=== PATIENT | male | born 1950 | race Caucasian/White ===

== ENCOUNTER 2017-02-27 09:45 | Outpatient (RCR) | payer BC, MEDICARE ==
[2016-05-27 10:36] VITALS: BMI 44.3
--- NOTE | 2017-02-13 13:16 | PT PLAN OF CARE ---
Physician: QIANA Newell Patient is being seen:1-2x/Week Therapist: Carol Butler, PT, DPT, CLT Medical Diagnosis: Stage IV Colon Cancer with Metastases to the Lungs Treatment Diagnosis: Stage IV Colon Cancer with Metastases to the Lungs, R Knee Pain Date of Onset: 11/02/16 Date of Initial Evaluation: 11/08/16 Date patient was last seen: 02/13/17 Number of treatments: 7 Number of cancellations/No shows: 0 NTERVENTIONS: Manual Therapy/STM/MET Strengthening/condition Ice/Heat Range of Motion Spinal Stabilization Ultrasound Stretching Iontophoresis Neuromuscular Re-ed Closed Chain Program Electrical Stim Posture/Body mechanics Gait Trg/Balance Trg Home Exercise Program Mech./Manual Traction Therapeutic Activities Pelvic Floor GOALS: In 1 month pt will increase functional strength of the R hip and knee to equal that of the L LE without pain for improved functional mobility and performance of ADL's. In Progress In 2 months pt will maintain functional status as indicated by FACT-G evaluation of > 89 despite continued oncological intervention. MET In 4 months pt will maintain functional status as indicated by FACT-G evaluation of > 85 despite continued oncological intervention. In Progress In 4 months pt will maintain a grade 1 ECOG performance status with regular aerobic exercise to decrease risk of complications with ongoing oncological intervention as well as maintain functional ability to perform ADL's. In Progress PATIENT'S GOAL: Maintain function, decrease knee pain. Status of Patient's Goals: In Progress Patient Compliance: Fair Prognosis: Good ASSESSMENT: Reasons for continuing therapy: Pt shows signs and symptoms consistent with lateral patellar tracking and patellofemoral syndrome. Patellar alignment at rest was slightly subluxed laterally and was relocated with manual treatment resulting in pain relief. Medial quad activation is minimal and quick to fatigue. Increased frequency of PT is indicated to address this development. Pt also shows decreased well-being scores related to sickness interfering with social support systems and was referred to coordinate with [employer] and social work to manage side-effects and seek other forms of social support. OBJECTIVE: BMI: 44 ROM: WFL. Strength: MMT B LE: Hip: flexion: L 4+/5, R 4/5 with pain, ext: B 4/5, Abd: L 4 +/5, R 4/5, Add: L 4+/5, R 4/5 with pain. Knee: Flexion: B 5/5, ext: L 5/5, R 4+/5 with pain, Ankle: 5/5 PF/DF B. Palpation: Pt is tender to palpation along the lateral femoral condyle R knee as well as in the lateral distal musculature of the thigh. Gait: Pt ambulates frequently with a quad cane with an antalgic gait with decreased stance phase on the R LE with R hip ER. Sensation: Pt reports onset of B peripheral neuropathy in fingers and toes with associated pain occasionally. Other Objective Findings: ECOG Performance Status: Grade 1 11/08/16: FACT-G: PWB 21/28, SWB 24/28, EWB 20/24, FWB 24/28, Total score 89/108 12/20/16: FACT-G: PWB 20/28, SWB 27/28, EWB 22/24, FWB 20/28, Total score 89/108 01/16/17: FACT-G: PWB 19/28, SWB 26/28, EWB 22/24, FWB 23/28, Total score 90/ 108 02/13/17: FACT-G: PWB 14/28, SWB 18/28, EWB 21/24, FWB 20/28, Total score 73/ 108 If you have any questions or concerns, please feel free to contact me at . Thank you, Carol Butler, PT, DPT, CLT NIURKAD
[~2017-02-27 09:45] MED LIST: AMIT-106 PO; AMIT75TA42 PO; AMOX-559 PO; DOCU-416 PO; FURO-47 PO; FURO20TA19 PO; GOLYTE PO; LISI-362 PO; LISI20TA29 PO; MELO-205 PO; MELO-207 PO; MULT1CAP59 PO; ONDA8TAB94 PO; OXYC-865 PO; PER PO; POTA-28 PO; POTA10CA40 PO; POTA20TA94 PO; PROP10TA58 PO; PROP20TA56 PO; SANCUSOPT TD
--- NOTE | 2017-02-27 15:01 | PT PLAN OF CARE ---
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, R Knee Pain Date of Onset: 11/02/16 Date of Initial Evaluation: 11/08/16 Date patient was last seen: 02/27/17 Number of treatments: 9 Number of cancellations/No shows: 0 INTERVENTIONS: Manual Therapy/STM/MET Strengthening/condition Ice/Heat Range of Motion Spinal Stabilization Ultrasound Stretching Iontophoresis Neuromuscular Re-ed Closed Chain Program Electrical Stim Posture/Body mechanics Gait Trg/Balance Trg Home Exercise Program Mech./Manual Traction Therapeutic Activities Pelvic Floor GOALS: In 1 month pt will increase functional strength of the R hip and knee to equal that of the L LE without pain for improved functional mobility and performance of ADL's. In Progress In 2 months pt will maintain functional status as indicated by FACT-G evaluation of > 89 despite continued oncological intervention. MET In 4 months pt will maintain functional status as indicated by FACT-G evaluation of > 85 despite continued oncological intervention. In Progress In 4 months pt will maintain a grade 1 ECOG performance status with regular aerobic exercise to decrease risk of complications with ongoing oncological intervention as well as maintain functional ability to perform ADL's. In Progress PATIENT'S GOAL: Maintain function, decrease knee pain. Status of Patient's Goals: In Progress Patient Compliance: Fair Prognosis: Good ASSESSMENT: Reasons for continuing therapy: Pt shows improved function and decreased lateral knee pain with treatment. Pt remains active with work and HEP throughout care with gains in strength and stability. Well-being scores show improvement from previous visit with improved emotional and social well-being with pt being out and about more and with decreased overall side-effects from treatment. Pt to be continually evaluated with each infusion. OBJECTIVE: BMI: 44 ROM: WFL. Strength: MMT B LE: Hip: flexion: L 4+/5, R 4/5 with pain, ext: B 4/5, Abd: L 4 +/5, R 4/5, Add: L 4+/5, R 4/5 with pain. Knee: Flexion: B 5/5, ext: L 5/5, R 4+/5 with pain, Ankle: 5/5 PF/DF B. Gait: Pt ambulates frequently with a quad cane with an antalgic gait with decreased stance phase on the R LE with R hip ER. Sensation: Pt reports decreased B peripheral neuropathy in fingers and toes with associated pain occasionally. Other Objective Findings: ECOG Performance Status: Grade 1 11/08/16: FACT-G: PWB 21/28, SWB 24/28, EWB 20/24, FWB 24/28, Total score 89/108 12/20/16: FACT-G: PWB 20/28, SWB 27/28, EWB 22/24, FWB 20/28, Total score 89/108 01/16/17: FACT-G: PWB 19/28, SWB 26/28, EWB 22/24, FWB 23/28, Total score 90/ 108 02/13/17: FACT-G: PWB 14/28, SWB 18/28, EWB 21/24, FWB 20/28, Total score 73/ 108 02/27/17: FACT-G: PWB 18/28, SWB 22/28, EWB 19.2/24, FWB 19/28, Total score 78.2 /108 If you have any questions or concerns, please feel free to contact me at [phone]. Thank you, Carol Butler, PT, DPT, CLT MTDD
--- NOTE | 2017-03-16 09:52 | PT PLAN OF CARE ---
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, R Knee Pain Date of Onset: 11/02/16 Date of Initial Evaluation: 11/08/16 Date patient was last seen: 02/27/17 Number of treatments: 9 Number of cancellations/No shows: 0 INTERVENTIONS: Manual Therapy/STM/MET Strengthening/condition Ice/Heat Range of Motion Spinal Stabilization Ultrasound Stretching Iontophoresis Neuromuscular Re-ed Closed Chain Program Electrical Stim Posture/Body mechanics Gait Trg/Balance Trg Home Exercise Program Mech./Manual Traction Therapeutic Activities Pelvic Floor GOALS: In 1 month pt will increase functional strength of the R hip and knee to equal that of the L LE without pain for improved functional mobility and performance of ADL's. In Progress In 2 months pt will maintain functional status as indicated by FACT-G evaluation of > 89 despite continued oncological intervention. MET In 4 months pt will maintain functional status as indicated by FACT-G evaluation of > 85 despite continued oncological intervention. In Progress In 4 months pt will maintain a grade 1 ECOG performance status with regular aerobic exercise to decrease risk of complications with ongoing oncological intervention as well as maintain functional ability to perform ADL's. In Progress PATIENT'S GOAL: Maintain function, decrease knee pain. Status of Patient's Goals: In Progress Patient Compliance: Fair Prognosis: Good Reasons for discharge from therapy: Gold is to discharge from PT at this time secondary to recent hospital admission with bowel obstruction. At the time of discharge pt showed improved function and decreased lateral knee pain with treatment. Pt remains active with work and HEP throughout care with gains in strength and stability. Pt is to continue with HEP and inpatient PT treatment at this time and follow up with outpatient rehab upon discharge. OBJECTIVE: BMI: 44 ROM: WFL. Strength: MMT B LE: Hip: flexion: L 4+/5, R 4/5 with pain, ext: B 4/5, Abd: L 4 +/5, R 4/5, Add: L 4+/5, R 4/5 with pain. Knee: Flexion: B 5/5, ext: L 5/5, R 4+/5 with pain, Ankle: 5/5 PF/DF B. Gait: Pt ambulates frequently with a quad cane with an antalgic gait with decreased stance phase on the R LE with R hip ER. Sensation: Pt reports decreased B peripheral neuropathy in fingers and toes with associated pain occasionally. Other Objective Findings: ECOG Performance Status: Grade 1 11/08/16: FACT-G: PWB 21/28, SWB 24/28, EWB 20/24, FWB 24/28, Total score 89/108 12/20/16: FACT-G: PWB 20/28, SWB 27/28, EWB 22/24, FWB 20/28, Total score 89/108 01/16/17: FACT-G: PWB 19/28, SWB 26/28, EWB 22/24, FWB 23/28, Total score 90/ 108 02/13/17: FACT-G: PWB 14/28, SWB 18/28, EWB 21/24, FWB 20/28, Total score 73/ 108 02/27/17: FACT-G: PWB 18/28, SWB 22/28, EWB 19.2/24, FWB 19/28, Total score 78.2 /108 If you have any questions or concerns, please feel free to contact me at . Thank you, Carol Butler, PT, DPT, CLT MTDD
[2017-04-04] MEDS ORDERED: METR-160 PO (19:21)
[2017-04-04] MEDS ORDERED: LEVO-85 PO (19:21)
[2017-04-05] MEDS ORDERED: WARF5TAB23 PO (08:50)
== END 2017-05-14 ==
LOC: PT 09:45
PROVIDERS: ATTEND Nurse Practitioner Family
DX: C18.7 Malignant neoplasm of sigmoid colon (principal); C78.00 Secondary malignant neoplasm of unspecified lung; M25.561 Pain in right knee; Z92.3 Personal history of irradiation; Z96.653 Presence of artificial knee joint, bilateral; M17.0 Bilateral primary osteoarthritis of knee; Z91.81 History of falling; Z68.41 Body mass index [BMI] 40.0-44.9, adult

== ENCOUNTER 2017-03-01 12:35 | Outpatient (RCR) | payer BC, MEDICARE ==
[2016-12-20 09:36] VITALS: BP 137/72
[2016-12-20 09:37] LABS: PLATELET COUNT, AUTOMATED 190 K/uL (150-450)
[2016-12-20] MEDS: NS(*) 0.9% 500 ML BAG 500 ML IV PRN (09:42)
[2016-12-20] MEDS: LIDOCAINE/SOD BICARB 8.4% SYR ID PRN (09:43)
[2016-12-20] MEDS: PALONOSETRON 0.25 MG/5 ML VIAL IVP PRN (11:26)
[2016-12-20] MEDS: DEXAMETHASONE SOD PHOS 10MG/ML IVP PRN (11:27)
[2016-12-20] MEDS: [UNRECOGNIZED DRUG - MIXTURE] IVPB PRN ×2 (12:12→15:47)
[2016-12-20] MEDS: DEXTROSE 5%(*) 100 ML BAG 100 ML IVPB PRN (16:52)
[2016-12-22 15:40] VITALS: BP 140/83
[2016-12-22] MEDS: HEPARIN FLSH (PORT) 500 UN/5ML IVP PRN (15:45)
--- NOTE | 2016-12-24 11:34 | ONCOLOGY FOLLOW UP NOTE ---
EVENT DATE: December 22, 2016 DIAGNOSES 1. Stage IV sigmoid colon adenocarcinoma. 2. 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 3. History of cluster headache. 4. Hypertension. 5. Arthritis. CHIEF COMPLAINT Patient is here today for followup of his sigmoid colon cancer, on chemotherapy with Avastin and FOLFOX. ONCOLOGY HISTORY The patient is a 66-year-old male who had screening colonoscopy and patient found to have a mass at the sigmoid colon. He ended by having sigmoid colectomy done on May 26, 2016, and the pathology came back positive for moderately differentiated colonic adenocarcinoma, grade II-III with 15 lymph nodes negative for metastasis. Tumor was invading into the muscularis propria. Margins were negative. Lymphovascular invasion was also negative. MLH1, MSH2 , MSH 6, PMS2 all came back positive. KRAS was positive for the mutation. NRS was negative. BRAF mutation was negative. He had ileus after his surgery and he had a CT of abdomen and pelvis done on June 01, 2016 which did not show any evidence of hepatic metastasis. He had chest x-ray done on May 29, 2016, which showed 1.5 cm pulmonary nodule in the left mid-lung, not seen on the April 07, 2016 study. His tumor was staged as staged T2 N0 MX. So, the tumor was staged as stage I. Patient had a CT-guided biopsy of the enlarging left pulmonary nodule done on September 05, 2016, and the pathology came back positive for metastatic adenocarcinoma compatible with colonic origin. Patient had a PET CT scan done on September 28, 2016, which showed enlarging mass in the anterior aspect of the left upper lobe, currently 2.6 x 2.1 cm with SUV of 4.1. Previously this mass was 1.3 x 1.3 cm with SUV of 3.2. A previously visualized 3 mm micronodule in the posterior medial aspect of the left lower lobe currently measures 1.2 cm. Lateral and slightly inferior to this, there is a new second nodule measuring 1.3 cm in size. The nodules are not metabolically warm with maximal SUV of 3.2 and 2.3 respectively. Otherwise, chest is negative, and no other evidence of systemic disease. There is a hypodense left temporal lobe lesion that is unchanged. Patient received radiation therapy to the pulmonary metastasis completed on October 31, 2016. After his radiation therapy, patient has started chemotherapy with Avastin FOLFOX on November 14, 2016. HISTORY OF PRESENT ILLNESS Patient is here today for his cycle number four of Avastin and FOLFOX for his metastatic colon cancer. He is tolerating treatment reasonably well so far. He is complaining of diarrhea, which is getting better than before. He has pain in his right knee and he continues to have neuropathy with tingling and numbness in his hands. PAST MEDICAL HISTORY 1. Cluster headache. 2. Hypertension. PAST SURGICAL HISTORY 1. Eight knee surgeries. 2. Tonsillectomy as a child. 3. Sigmoid colectomy May 2016. FAMILY HISTORY Maternal grandfather had leukemia. Mother had skin cancer. SOCIAL HISTORY The patient is a with two children and grandchildren. He works for [employer]. He has never smoked. He denies any abuse of alcohol or illicit drugs. CURRENT MEDICATIONS 1. Propranolol. 2. Amitriptyline. 3. Lisinopril. 4. Meloxicam. ALLERGIES No known drug allergies. REVIEW OF SYSTEMS CONSTITUTIONAL: No appetite or weight change. No fever, chills or sweating. No recent infection. HEENT: Ears: No tinnitus or hearing problem. Nose: No nasal discharge or epistaxis. Throat: No sore throat or mouth ulcers. Eyes: No diplopia or visual changes. RESPIRATORY: The patient has some cough with expectoration. CARDIOVASCULAR: No chest pain, orthopnea, or paroxysmal nocturnal dyspnea (PND) . No edema. No palpitations. GASTROINTESTINAL: The patient has diarrhea, which is getting better than before. GENITOURINARY: No hematuria or dysuria. MUSCULOSKELETAL: He has pain in the right knee. NEUROLOGICAL: He has neuropathy with tingling and numbness in his hands. HEMATOLOGIC/LYMPHATIC: He has weakness, tiredness, and fatigue. SKIN: No skin rash or lumps. PSYCHIATRIC: No anxiety or depression. PHYSICAL EXAMINATION GENERAL: Looks stable. Well-developed, well-nourished, and in no acute distress. VITAL SIGNS: Blood pressure 140/83, pulse 76 per minute, respirations 16 per minute, temperature 98.2, pulse ox 90% on room air. HEENT: Head: Atraumatic. No sinus tenderness to palpation. Eyes: No icterus or conjunctivitis. Mouth and throat: No oral thrush or mucositis. NECK: Supple. No cervical or supraclavicular lymphadenopathy. LUNGS: Clear to auscultation and percussion bilaterally. HEART: Regular rate and rhythm. No gallops, murmurs, clicks or rubs. ABDOMEN: Soft and lax. No tenderness. No hepatosplenomegaly. No masses. EXTREMITIES: No cyanosis, clubbing or edema. LYMPHATICS: No peripheral lymphadenopathy. NEUROLOGICAL: Conscious, alert and oriented times three. No focal motor or sensory deficits. PSYCHIATRIC: Mood and affect appear normal. SKIN: No skin rash, bruise or purpuric eruption. DIAGNOSTIC DATA CBC showed a white count of 6000, hemoglobin 14, hematocrit 40.5, platelets 190, 000. Chem panel totally normal, except blood sugar 130. CEA is normal at 1.2. ASSESSMENT 1. Stage IV (T2 N0 M1) sigmoid colon adenocarcinoma status post sigmoid colectomy done May 26, 2016. Tumor was invading the muscularis propria and 13 lymph nodes were negative for metastasis. No lymphovascular invasion and negative margins. KRAS was positive, NRAS was negative, BRAF was negative. Patient was found to have a nodule in the left upper lobe 1.5 cm of the lung. PET CT scan April 20, 2016 showed a focus of high activity within the sigmoid colon which represents the primary malignancy. There was a 1.3 cm cavitary pulmonary nodule in the left upper lobe which was only warm regarding the glucose uptake. There was hypodense non-glucose avid lesion in the left temporal lobe of the brain, probably representing a remote ischemic event. CT- guided biopsy of the left pulmonary nodule done September 05, 2016 was positive for invasive adenocarcinoma consistent with colonic primary. Repeat CT scan on September 28, 2016 showed left upper lobe nodule measuring 2.6 cm with SUV 4.1, and it was initially 1.3 with SUV 3.2. The previously visualized 3 mm micro nodule in the posteromedial aspect of the left lower lobe of the lung currently measured 1.2 with SUV 3.2. There was another slightly inferior and lateral to this nodule 1.3 cm with SUV 2.3. The temporal lobe of the brain hypodense lesion is unchanged. The patient received IMRT radiation of the pulmonary metastasis completed October 31, 2016. He started treatment with Avastin and FOLFOX November 14, 2016. He received three courses so far, complicated with cold -induced neuropathy. Other than that he is tolerating treatment. His diarrhea is getting better. I am planning to proceed with his chemotherapy as planned, and I will see him in two weeks with CBC, chem panel and CEA. 2. History of cluster headaches on propanolol and amitriptyline. 3. Hypertension, on treatment. 4. Arthritis, on treatment. PLAN 1. Chemistry with Avastin and FOLFOX. 2. CBC, chem panel to be checked weekly. 3. Patient to return in two weeks with CBC, chem panel and CEA. 4. Patient is to contact us for any new concerns or complaints. MTDD
[2016-12-27 14:00] VITALS: BP 131/82
[2016-12-27 14:34] LABS: PLATELET COUNT, AUTOMATED 179 K/uL (150-450)
[2017-01-02] MEDS: LIDOCAINE/SOD BICARB 8.4% SYR ID PRN (09:18)
[2017-01-02] MEDS: NS(*) 0.9% 500 ML BAG 500 ML IV PRN (09:20)
[2017-01-02] MEDS: DEXAMETHASONE SOD PHOS 10MG/ML IVP PRN (09:44)
[2017-01-02] MEDS: PALONOSETRON 0.25 MG/5 ML VIAL IVP PRN (09:44)
[2017-01-02] MEDS: [UNRECOGNIZED DRUG - MIXTURE] IVPB PRN (10:17)
--- NOTE | 2017-01-02 11:09 | ONC Progress Note - NP.Halsey ---
Patient History Date of Service Jan 02, 2017 Reason For Visit/HPI Patient is seen in the clinic today for follow-up of his stage IV sigmoid colon adenocarcinoma. Patient is receiving chemotherapy with Avastin and FOLFOX. Overall he is tolerating treatment relatively well. 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 He denies any numbness or tingling in his feet or hands. As long as he avoids cold products he has no symptoms. He has had some mild nausea and has taken 1-2 Zofran with this last treatment. He is on a Sancuso patch which helps manage his nausea long-term as well as when he forgets to take a nausea medication. He denies any diarrhea or constipation. He has mild fatigue but has been able to continue to work. He has pain in his right knee and continues to walk with a cane. Patient had a PET CT scan completed on 01/01/[address] Nba Bailey. He is scheduled to follow with Dr. Jimenez today to review results. Impression indicates decreasing size and FDG uptake of the left sided pulmonary nodule, unchanged pelvic lymphadenopathy with mild FDG uptake, possible new small area of FDG uptake in the right iliac bone without CT correlate. This was reviewed with Dr. Jimenez comparing previous PET/CT to current and they appear to be relatively the same. Problem List (1) Adenocarcinoma of sigmoid colon (2) Pulmonary nodules/lesions, multiple (3) Lung metastases Psychosocial History Social History The patient is a with two children and grandchildren. He works for [employer]. He has never smoked. He denies any abuse of alcohol or illicit drugs. Smoking History: No Smoking Status: Never Smoker Exposure to Second Hand Smoke?: Yes Medications and Allergies Active Scripts Granisetron Hcl (SANCUSO) 3.1 Mg/24 Hr Patch.td24, 3.1 MG TD Q7DAY, #2 MG 5 Refills apply one patch 24 hours prior to treatment and leave on for 7 days. Treatment is every 2 weeks. Prov:KAILYN GOFF SCIENTIFIC RESEARCH MANAGER-BC, ONC 11/28/16 Ondansetron (ZOFRAN ODT) 8 Mg Tab.rapdis, 8 MG PO Q8H, #30 TAB 1 Refill Prov:KAILYN GOFF SCIENTIFIC RESEARCH MANAGER-BC, ONC 11/08/16 Oxycodone Hcl/Acetaminophen (PERCOCET 5-325 MG TABLET) 1 Each Tablet, 1-2 TAB PO Q4H Y for PAIN, #30 TAB 0 Refills Prov:LISSETH RUSH MD 09/21/16 Reported Medications Potassium Chloride (POTASSIUM CHLORIDE) 10 Meq Tablet.er, 10 MEQ PO PRN 10/03/16 Furosemide (LASIX) 20 Mg Tablet, 1 TAB PO PRN, TAB 10/03/16 Multivitamin (MULTIVITAMINS) 1 Each Capsule, 1 EACH PO DAILY, CAPSULE 10/03/16 Propranolol Hcl (PROPRANOLOL HCL) 20 Mg Tablet, 20 MG PO QHS, TAB 03/29/16 Amitriptyline Hcl (AMITRIPTYLINE HCL) 25 Mg Tablet, 25 MG PO QHS, #5 TAB 03/29/16 Lisinopril (LISINOPRIL) 10 Mg Tablet, 10 MG PO QDAY, TAB 03/29/16 Meloxicam (MELOXICAM) 15 Mg Tablet, 15 MG PO QDAY 03/29/16 Allergies: Coded Allergies: No Known Drug Allergies (Unverified , 06/17/16) Review of System/Physical Exam Review of Systems All Systems Reviewed/Normal: Yes, Except as Noted Hematologic: Positive for Fatigue, Positive for Weakness Musculoskeletal: Positive for Bone Pain (right knee pain) Physical Exam Vital Signs Temperature: 97.8 Pulse: 88 BP Systolic: 131 BP Diastolic: 82 Respiratory Rate: 16 O2 SAT: 90 O2 Delivery: Height (inches) 71.25 Weight lb: 316 Weight oz: Weight Kg (James): [phone] Pain: 0 ECOG Score: 1 General: Stable, Well Developed, Well Nourished, Not In Acute Distress HEENT: No Trauma, No Conjunctivitis, No Icterus, No Mucositis, No Oral Thrush Neck: Supple Lungs: Clear to Auscultation Heart: Regular Rate, Regular Rhythm, No Gallops Abdomen: Soft and Nontender, No Hepatosplenomegaly, No Masses, Other (large body habitus makes assessment difficult) Extremities: No Cyanosis, No Clubbing, No Edema Lymphadenopathy: No Cervical Psychiatric: Mood appears normal, Affect appears normal Skin: No Skin Rashes, No Bruising, No Purpura Diagnostic Studies Diagnostic Studies Laboratory Laboratory Tests 01/02/17 09:08 Laboratory Tests 12/27/16 14:10: Red Blood Count 5.03, Mean Corpuscular Volume 84.7, Mean Corpuscular Hemoglobin 28.8, Mean Corpuscular Hemoglobin Concent 34.0, Red Cell Distribution Width 17.7 , Mean Platelet Volume 7.9, Monocytes (%) (Auto) 6.6, Eosinophils (%) (Auto) 3.3 , Basophils (%) (Auto) 0.9, Nucleated RBC Relative Count (auto) 0.1, Monocytes # (Auto) 0.5, Eosinophils # (Auto) 0.2, Basophils # (Auto) 0.1, Nucleated RBC Absolute Count (auto) 0.01, Peripheral Blood Smear No 01/02/17 08:48: Urine Color Joyce, Urine Clarity Slightly-cloudy, Urine pH 5.0, Urine Specific [place] 1.030, Urine Protein Negative, Urine Glucose (UA) Negative, Urine Ketones Negative, Urine Blood Negative, Urine Nitrite Negative, Urine Bilirubin Negative, Urine Urobilinogen Negative, Urine Leukocyte Esterase Negative, Urine RBC None, Urine WBC 2, Urine Squamous Epithelial Cells None, Urine Bacteria Negative, Urine Mucus Few 01/02/17 09:08: White Blood Count 6.2, Hemoglobin 13.2, Hematocrit 38.2, Platelet Count 139, Neutrophils (%) (Auto) 71.3, Lymphocytes (%) (Auto) 14.1, Neutrophils # (Auto) 4.4, Lymphocytes # (Auto) 0.9, Sodium Level 138, Potassium Level 4.2, Chloride Level 103, Carbon Dioxide Level 25, Blood Urea Nitrogen 20, Creatinine 0.90, Glomerular Filtration Rate Calc > 60.0, Random Glucose 105, Calcium Level 8.8, Total Bilirubin 0.8, Aspartate Amino Transf (AST/SGOT) 26, Alanine Aminotransferase (ALT/SGPT) 29, Alkaline Phosphatase 91, Total Protein 6.9, Albumin 3.8 Assessment and Plan Assessment & Plan 1. Stage IV (T2 N0 M1) sigmoid colon adenocarcinoma status post sigmoid colectomy done May 26, 2016. Tumor was invading the muscularis propria and 13 lymph nodes were negative for metastasis. No lymphovascular invasion and negative margins. KRAS was positive, NRAS was negative, BRAF was negative. Patient was found to have a nodule in the left upper lobe 1.5 cm of the lung. PET CT scan April 20, 2016 showed a focus of high activity within the sigmoid colon which represents the primary malignancy. There was a 1.3 cm cavitary pulmonary nodule in the left upper lobe which was only warm regarding the glucose uptake. There was hypodense non-glucose avid lesion in the left temporal lobe of the brain, probably representing a remote ischemic event. CT- guided biopsy of the left pulmonary nodule done September 05, 2016 was positive for invasive adenocarcinoma consistent with colonic primary. Repeat CT scan on September 28, 2016 showed left upper lobe nodule measuring 2.6 cm with SUV 4.1, and it was initially 1.3 with SUV 3.2. The previously visualized 3 mm micro nodule in the posteromedial aspect of the left lower lobe of the lung currently measured 1.2 with SUV 3.2. There was another slightly inferior and lateral to this nodule 1.3 cm with SUV 2.3. The temporal lobe of the brain hypodense lesion is unchanged. The patient received IMRT radiation of the pulmonary metastasis completed October 31, 2016. He started treatment with Avastin and FOLFOX November 14, 2016. He is currently on cycle 4. 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 Other than that he is tolerating treatment. He will proceed proceed with his chemotherapy as planned, and will follow with Dr. Weston in two weeks with CBC, chem panel and CEA. PET/CT scan reviewed by Dr. Jimenez today indicates stable to improved disease, decreasing size in FDG G uptake in the left sided pulmonary nodule. Possible new focus of FDG uptake in the right iliac bone however when compared to previous Dr. Jimenez believes that this remains stable. We will continue to monitor post chemotherapy treatment. 2. History of cluster headaches on propanolol and amitriptyline. 3. Hypertension, on treatment. Remained stable 4. Arthritis, on treatment. PLAN 1. Chemistry with Avastin and FOLFOX. 2. CBC, chem panel to be checked weekly. 3. Patient to return in two weeks with CBC, chem panel and CEA. 4. Patient is to contact us for any new concerns or complaints. < I personally spent a total of 20 minutes. Of that 15 minutes was counseling/ coordination of patient's care. See my note above for details. Copies to: DELIA KHAN NANCY J SCIENTIFIC RESEARCH MANAGER-BC, ONC Jan 02, 2017 11:09
[2017-01-02 14:37] VITALS: BP 136/80
[2017-01-04 13:04] VITALS: BP 134/78
[2017-01-04] MEDS: HEPARIN FLSH (PORT) 500 UN/5ML IVP PRN (13:29)
[2017-01-09 14:02] VITALS: BP 136/76
[2017-01-09 14:14] LABS: PLATELET COUNT, AUTOMATED 216 K/uL (150-450)
[2017-01-16] MEDS: NS(*) 0.9% 500 ML BAG 500 ML IV PRN (09:00)
[2017-01-16] MEDS: LIDOCAINE/SOD BICARB 8.4% SYR ID PRN (09:00)
[2017-01-16] MEDS: DEXTROSE 5%(*) 100 ML BAG 100 ML IVPB PRN ×2 (09:00→15:24)
--- NOTE | 2017-01-16 09:52 | ONC Progress Note - NP.Halsey ---
Patient History Date of Service Jan 16, 2017 Reason For Visit/HPI Patient is seen in the clinic today for follow-up of his stage IV sigmoid colon adenocarcinoma. Patient is receiving chemotherapy with Avastin and FOLFOX cycle 5 out of 12 today. Overall he is tolerating treatment relatively well. 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 He denies any numbness or tingling in his feet or hands. As long as he avoids cold products he has no symptoms. Patient previously was having mild nausea and taking 1-2 Zofran for management. Patient was started on Sancuso patch and reports that he has no nausea at this time. Occasionally he takes a mario to which helps with taste changes. He denies any diarrhea or constipation. He has mild fatigue but has been able to continue to work. He has pain in his right knee and continues to walk with a cane. Patient is currently on antibiotic treatment for wound management of some abscesses in the bilateral lower legs. Patient reports that occasionally the ulcerative areas become infected and bleed. This is being managed by Dr. Sofia. Patient had a PET CT scan completed on 01/01/[address] Nba Bailey. He is scheduled to follow with Dr. Jimenez today to review results. Impression indicates decreasing size and FDG uptake of the left sided pulmonary nodule, unchanged pelvic lymphadenopathy with mild FDG uptake, possible new small area of FDG uptake in the right iliac bone without CT correlate. This was reviewed with Dr. Jimenez comparing previous PET/CT to current and they appear to be relatively the same. Patient denies any pain in the right iliac bone area Problem List (1) Adenocarcinoma of sigmoid colon (2) Pulmonary nodules/lesions, multiple (3) Lung metastases (4) Encounter for management of vacuum-assisted closure (VAC) of wound Psychosocial History Social History The patient is a with two children and grandchildren. He works for [employer]. He has never smoked. He denies any abuse of alcohol or illicit drugs. Smoking History: No Smoking Status: Never Smoker Exposure to Second Hand Smoke?: Yes Medications and Allergies Active Scripts Granisetron Hcl (SANCUSO) 3.1 Mg/24 Hr Patch.td24, 3.1 MG TD Q7DAY, #2 MG 5 Refills apply one patch 24 hours prior to treatment and leave on for 7 days. Treatment is every 2 weeks. Prov:KAILYN GOFF [employer], ONC 11/28/16 Ondansetron (ZOFRAN ODT) 8 Mg Tab.rapdis, 8 MG PO Q8H, #30 TAB 1 Refill Prov:KAILYN GOFF [employer], ONC 11/08/16 Oxycodone Hcl/Acetaminophen (PERCOCET 5-325 MG TABLET) 1 Each Tablet, 1-2 TAB PO Q4H Y for PAIN, #30 TAB 0 Refills Prov:LISSETH RUSH MD 09/21/16 Reported Medications Potassium Chloride (POTASSIUM CHLORIDE) 10 Meq Tablet.er, 10 MEQ PO PRN 10/03/16 Furosemide (LASIX) 20 Mg Tablet, 1 TAB PO PRN, TAB 10/03/16 Multivitamin (MULTIVITAMINS) 1 Each Capsule, 1 EACH PO DAILY, CAPSULE 10/03/16 Propranolol Hcl (PROPRANOLOL HCL) 20 Mg Tablet, 20 MG PO QHS, TAB 03/29/16 Amitriptyline Hcl (AMITRIPTYLINE HCL) 25 Mg Tablet, 25 MG PO QHS, #5 TAB 03/29/16 Lisinopril (LISINOPRIL) 10 Mg Tablet, 10 MG PO QDAY, TAB 03/29/16 Meloxicam (MELOXICAM) 15 Mg Tablet, 15 MG PO QDAY 03/29/16 Allergies: Coded Allergies: No Known Drug Allergies (Unverified , 06/17/16) Review of System/Physical Exam Review of Systems All Systems Reviewed/Normal: Yes, Except as Noted Gastrointestinal: Nausea (well-managed with Sancuso patch) Hematologic: Positive for Fatigue, Positive for Weakness Neurologic: Other (cold sensation to the hands and to the mouth post each treatment with oxaliplatin which resolves after approximately 4 days) Psychiatric: Other (patient's spouse was buried 5 years ago yesterday, he is slightly emotional today.) Skin: Positive for Other (bilateral lower extremity wounds are dressed. Patient is currently on antibiotics) Physical Exam Vital Signs Temperature: 98.5 Pulse: 76 BP Systolic: 136 BP Diastolic: 76 Respiratory Rate: 18 O2 SAT: 90 O2 Delivery: Height (inches) 71.25 Weight lb: 0 Weight oz: Weight Kg (James): [id number] Pain: 2 ECOG Score: 1 General: Stable, Well Developed, Well Nourished, Not In Acute Distress HEENT: No Trauma, No Conjunctivitis, No Icterus, No Mucositis, No Oral Thrush Neck: Supple, No Thyromegaly Lungs: Clear to Auscultation Heart: Regular Rate, Regular Rhythm, No Gallops, No Murmurs Abdomen: Soft and Nontender, No Hepatosplenomegaly, No Masses, Other (large body habitus makes assessment difficult) Extremities: No Cyanosis, No Clubbing, Edema (slight lower extremity edema 1+) Psychiatric: Mood appears normal, Affect appears normal Skin: No Skin Rashes, No Bruising, No Purpura Diagnostic Studies Diagnostic Studies Laboratory Laboratory Tests 01/16/17 09:05 Laboratory Tests 12/27/16 14:10: Peripheral Blood Smear No 01/02/17 09:08: Carcinoembryonic Antigen 1.1 01/09/17 14:07: Red Blood Count 4.58, Mean Corpuscular Volume 85.3, Mean Corpuscular Hemoglobin 29.7, Mean Corpuscular Hemoglobin Concent 34.8, Red Cell Distribution Width 17.9 , Mean Platelet Volume 7.7, Monocytes (%) (Auto) 16.7, Eosinophils (%) (Auto) 5.4, Basophils (%) (Auto) 0.7, Nucleated RBC Relative Count (auto) 0.1, Monocytes # (Auto) 0.9, Eosinophils # (Auto) 0.3, Basophils # (Auto) 0.0, Nucleated RBC Absolute Count (auto) 0.01 01/16/17 08:58: Urine Color Yellow, Urine Clarity Cloudy, Urine pH 5.0, Urine Specific [place] 1.026, Urine Protein Negative, Urine Glucose (UA) Negative, Urine Ketones Negative, Urine Blood Negative, Urine Nitrite Negative, Urine Bilirubin Negative , Urine Urobilinogen Negative, Urine Leukocyte Esterase Negative, Urine RBC None , Urine WBC None, Urine Squamous Epithelial Cells Few, Urine Calcium Oxalate Crystals Few, Urine Bacteria Negative, Urine Mucus Few 01/16/17 09:05: White Blood Count 7.1, Hemoglobin 13.2, Hematocrit 38.4, Platelet Count 150, Neutrophils (%) (Auto) 66.1, Lymphocytes (%) (Auto) 16.7, Neutrophils # (Auto) 4.7, Lymphocytes # (Auto) 1.2, Sodium Level 137, Potassium Level 4.0, Chloride Level 101, Carbon Dioxide Level 25, Blood Urea Nitrogen 17, Creatinine 0.90, Glomerular Filtration Rate Calc > 60.0, Random Glucose 121, Calcium Level 8.8, Total Bilirubin 0.9, Aspartate Amino Transf (AST/SGOT) 36, Alanine Aminotransferase (ALT/SGPT) 42, Alkaline Phosphatase 116, Total Protein 6.8, Albumin 3.7 Assessment and Plan Assessment & Plan 1. Stage IV (T2 N0 M1) sigmoid colon adenocarcinoma status post sigmoid colectomy done May 26, 2016. Tumor was invading the muscularis propria and 13 lymph nodes were negative for metastasis. No lymphovascular invasion and negative margins. KRAS was positive, NRAS was negative, BRAF was negative. Patient was found to have a nodule in the left upper lobe 1.5 cm of the lung. PET CT scan April 20, 2016 showed a focus of high activity within the sigmoid colon which represents the primary malignancy. There was a 1.3 cm cavitary pulmonary nodule in the left upper lobe which was only warm regarding the glucose uptake. There was hypodense non-glucose avid lesion in the left temporal lobe of the brain, probably representing a remote ischemic event. CT- guided biopsy of the left pulmonary nodule done September 05, 2016 was positive for invasive adenocarcinoma consistent with colonic primary. Repeat CT scan on September 28, 2016 showed left upper lobe nodule measuring 2.6 cm with SUV 4.1, and it was initially 1.3 with SUV 3.2. The previously visualized 3 mm micro nodule in the posteromedial aspect of the left lower lobe of the lung currently measured 1.2 with SUV 3.2. There was another slightly inferior and lateral to this nodule 1.3 cm with SUV 2.3. The temporal lobe of the brain hypodense lesion is unchanged. The patient received IMRT radiation of the pulmonary metastasis completed October 31, 2016. He started treatment with Avastin and FOLFOX November 14, 2016. He is currently on cycle 5. 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 Other than that he is tolerating treatment. He will proceed proceed with his chemotherapy as planned, and we'll follow with myself in two weeks with CBC, chem panel and CEA. PET/CT scan reviewed with patient today and previously by Dr. Jimenez. PET/ CT scan indicates stable to improved disease, decreasing size in FDG G uptake in the left sided pulmonary nodule. Possible new focus of FDG uptake in the right iliac bone however when compared to previous Dr. Jimenez believes that this remains stable. We will continue to monitor post chemotherapy treatment. 2. History of cluster headaches on propanolol and amitriptyline. Us as managed by primary care 3. Hypertension, on treatment. Remained stable 4. Arthritis, on treatment 5. Wound management managed by Dr. Sofia, patient is currently on antibiotic therapy PLAN 1. Chemistry with Avastin and FOLFOX cycle 5 out of 12 today. 2. CBC, chem panel to be checked weekly. 3. Patient to return in two weeks with CBC, chem panel and CEA. 4. Patient is to contact us for any new concerns or complaints. < I personally spent a total of 20 minutes. Of that 15 minutes was counseling/ coordination of patient's care. See my note above for details. Copies to: DELIA SOFIA NANCY J [employer], ONC Jan 16, 2017 09:52
[2017-01-16] MEDS: PALONOSETRON 0.25 MG/5 ML VIAL IVP PRN (10:07)
[2017-01-16] MEDS: DEXAMETHASONE SOD PHOS 10MG/ML IVP PRN (10:07)
[2017-01-16 15:35] VITALS: BP 153/82
[2017-01-18] MEDS: HEPARIN FLSH (PORT) 500 UN/5ML IVP PRN (13:00)
[2017-01-18 13:02] VITALS: BP 131/74
[2017-01-23 14:30] LABS: PLATELET COUNT, AUTOMATED 178 K/uL (150-450)
[2017-01-23 14:31] VITALS: BP 114/69
[2017-01-30] MEDS: LIDOCAINE/SOD BICARB 8.4% SYR ID PRN (09:02)
[2017-01-30 09:19] VITALS: BP 111/72
[2017-01-30 09:23] LABS: PLATELET COUNT, AUTOMATED 148 K/uL (150-450)
[2017-01-30] MEDS: DEXAMETHASONE SOD PHOS 10MG/ML IVP PRN (09:57)
[2017-01-30] MEDS: PALONOSETRON 0.25 MG/5 ML VIAL IVP PRN (09:58)
--- NOTE | 2017-01-30 10:35 | ONC Progress Note - NP.Halsey ---
Patient History Date of Service Jan 30, 2017 Reason For Visit/HPI Patient is seen in the clinic today for follow-up of his stage IV sigmoid colon adenocarcinoma. Patient is receiving chemotherapy with Avastin and FOLFOX cycle 6 out of 12 today. Patient continues to tolerate treatment relatively well with expected side effects. 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 He does wear gloves frequently. Patient occasionally has pain in the right knee which is remaining stable. Patient had nausea yesterday and was unable to wear his dentures due to causing gagging effect. He was able to eat yesterday. He denies nausea today. He has had a little bit of bloody left nasal discharge. Patient is on BiPAP at night and has not been using any humidity. He will start this today. He's had a cough which is remains stable. Problem List (1) Adenocarcinoma of sigmoid colon (2) Pulmonary nodules/lesions, multiple (3) Lung metastases Oncology History The patient is a 66-year-old male who had screening colonoscopy and patient found to have a mass at the sigmoid colon. He ended by having sigmoid colectomy done on May 26, 2016, and the pathology came back positive for moderately differentiated colonic adenocarcinoma, grade II-III with 15 lymph nodes negative for metastasis. Tumor was invading into the muscularis propria. Margins were negative. Lymphovascular invasion was also negative. MLH1, MSH2 , MSH 6, PMS2 all came back positive. KRAS was positive for the mutation. NRS was negative. BRAF mutation was negative. He had ileus after his surgery and he had a CT of abdomen and pelvis done on June 01, 2016 which did not show any evidence of hepatic metastasis. He had chest x-ray done on May 29, 2016, which showed 1.5 cm pulmonary nodule in the left mid-lung, not seen on the April 07, 2016 study. His tumor was staged as staged T2 N0 MX. So, the tumor was staged as stage I. Patient had a CT-guided biopsy of the enlarging left pulmonary nodule done on September 05, 2016, and the pathology came back positive for metastatic adenocarcinoma compatible with colonic origin. Patient had a PET CT scan done on September 28, 2016, which showed enlarging mass in the anterior aspect of the left upper lobe, currently 2.6 x 2.1 cm with SUV of 4.1. Previously this mass was 1.3 x 1.3 cm with SUV of 3.2. A previously visualized 3 mm micronodule in the posterior medial aspect of the left lower lobe currently measures 1.2 cm. Lateral and slightly inferior to this, there is a new second nodule measuring 1.3 cm in size. The nodules are not metabolically warm with maximal SUV of 3.2 and 2.3 respectively. Otherwise, chest is negative, and no other evidence of systemic disease. There is a hypodense left temporal lobe lesion that is unchanged. Patient received radiation therapy to the pulmonary metastasis completed on October 31, 2016. After his radiation therapy, patient has started chemotherapy with Avastin FOLFOX on November 14, 2016. PET/CT scan reviewed with patient today and previously by Dr. Jimenez. PET/CT scan indicates stable to improved disease, decreasing size in FDG G uptake in the left sided pulmonary nodule. Possible new focus of FDG uptake in the right iliac bone however when compared to previous Dr. Jimenez believes that this remains stable. We will continue to monitor post chemotherapy treatment. He will complete cycle 6 out of 12 today Psychosocial History Social History The patient is a with two children and grandchildren. He works for [employer]. He has never smoked. He denies any abuse of alcohol or illicit drugs. Smoking History: No Smoking Status: Never Smoker Exposure to Second Hand Smoke?: Yes Medications and Allergies Active Scripts Granisetron Hcl (SANCUSO) 3.1 Mg/24 Hr Patch.td24, 3.1 MG TD Q7DAY, #2 MG 5 Refills apply one patch 24 hours prior to treatment and leave on for 7 days. Treatment is every 2 weeks. Prov:KAILYN GOFF [employer]-BC, ONC 11/28/16 Ondansetron (ZOFRAN ODT) 8 Mg Tab.rapdis, 8 MG PO Q8H, #30 TAB 1 Refill Prov:KAILYN GOFF [employer]BC, ONC 11/08/16 Oxycodone Hcl/Acetaminophen (PERCOCET 5-325 MG TABLET) 1 Each Tablet, 1-2 TAB PO Q4H Y for PAIN, #30 TAB 0 Refills Prov:LISSETH RUSH MD 09/21/16 Reported Medications Potassium Chloride (POTASSIUM CHLORIDE) 10 Meq Tablet.er, 10 MEQ PO PRN 10/03/16 Furosemide (LASIX) 20 Mg Tablet, 1 TAB PO PRN, TAB 10/03/16 Multivitamin (MULTIVITAMINS) 1 Each Capsule, 1 EACH PO DAILY, CAPSULE 10/03/16 Propranolol Hcl (PROPRANOLOL HCL) 20 Mg Tablet, 20 MG PO QHS, TAB 03/29/16 Amitriptyline Hcl (AMITRIPTYLINE HCL) 25 Mg Tablet, 25 MG PO QHS, #5 TAB 03/29/16 Lisinopril (LISINOPRIL) 10 Mg Tablet, 10 MG PO QDAY, TAB 03/29/16 Meloxicam (MELOXICAM) 15 Mg Tablet, 15 MG PO QDAY 03/29/16 Allergies: Coded Allergies: No Known Drug Allergies (Unverified , 06/17/16) Review of System/Physical Exam Review of Systems All Systems Reviewed/Normal: Yes, Except as Noted Respiratory: Positive for Cough (occasional cough) Gastrointestinal: Nausea (reported yesterday and has resolved today) Hematologic: Positive for Fatigue Musculoskeletal: Positive for Joint Pain (noted in the knees see above) Neurologic: Numbness of Hands (expected cold sensation post chemotherapy lasting 7 days), Numbness of Feet (cold sensation), Other (cold sensation to the mouth after chemotherapy which is an expected side effect) Skin: Positive for Other (bilateral lower extremity wounds are dressed. Patient is currently on antibiotics) Physical Exam Vital Signs Temperature: 96.4 Pulse: 66 BP Systolic: 111 BP Diastolic: 72 Respiratory Rate: 16 O2 SAT: 90 O2 Delivery: Height (inches) 71.25 Weight lb: 0 Weight oz: Weight Kg (James): [id number] Pain: 3 ECOG Score: 1 General: Stable, Well Developed, Well Nourished, Not In Acute Distress HEENT: No Trauma, No Conjunctivitis, No Icterus, No Mucositis, No Oral Thrush Neck: Supple Lungs: Clear to Auscultation Heart: Regular Rate, Regular Rhythm, No Gallops Abdomen: Soft and Nontender, No Hepatosplenomegaly Extremities: No Cyanosis, No Clubbing, No Edema Psychiatric: Mood appears normal, Affect appears normal Skin: No Skin Rashes, No Bruising, No Purpura Diagnostic Studies Diagnostic Studies Laboratory Laboratory Tests 01/30/17 09:15 Laboratory Tests 01/02/17 09:08: Carcinoembryonic Antigen 1.1 01/30/17 09:15: White Blood Count 5.8, Red Blood Count 4.14, Hemoglobin 12.5, Hematocrit 36.4, Mean Corpuscular Volume 87.9, Mean Corpuscular Hemoglobin 30.2, Mean Corpuscular Hemoglobin Concent 34.4, Red Cell Distribution Width 20.3, Platelet Count 148, Mean Platelet Volume 8.4, Neutrophils (%) (Auto) 60.7, Lymphocytes (% ) (Auto) 17.5, Monocytes (%) (Auto) 18.2, Eosinophils (%) (Auto) 2.7, Basophils (%) (Auto) 0.9, Nucleated RBC Relative Count (auto) 0.0, Neutrophils # (Auto) 3.5, Lymphocytes # (Auto) 1.0, Monocytes # (Auto) 1.1, Eosinophils # (Auto) 0.2 , Basophils # (Auto) 0.1, Nucleated RBC Absolute Count (auto) 0.00, Peripheral Blood Smear No, Urine Color Yellow, Urine Clarity Slightly-cloudy, Urine pH 5.0 , Urine Specific [place] 1.015, Urine Protein Negative, Urine Glucose (UA) Negative, Urine Ketones Negative, Urine Blood Negative, Urine Nitrite Negative, Urine Bilirubin Negative, Urine Urobilinogen Negative, Urine Leukocyte Esterase Negative, Urine RBC <1, Urine WBC 3, Urine Squamous Epithelial Cells None, Urine Calcium Oxalate Crystals Few, Urine Bacteria Negative, Urine Mucus Few, Sodium Level 134, Potassium Level 3.5, Chloride Level 101, Carbon Dioxide Level 24, Blood Urea Nitrogen 11, Creatinine 1.00, Glomerular Filtration Rate Calc > 60.0, Random Glucose 107, Calcium Level 8.9, Total Bilirubin 1.3, Aspartate Amino Transf (AST/SGOT) 25, Alanine Aminotransferase (ALT/SGPT) 29, Alkaline Phosphatase 105, Total Protein 6.7, Albumin 3.6 Assessment and Plan Assessment & Plan 1. Stage IV (T2 N0 M1) sigmoid colon adenocarcinoma status post sigmoid colectomy done May 26, 2016. Tumor was invading the muscularis propria and 13 lymph nodes were negative for metastasis. No lymphovascular invasion and negative margins. KRAS was positive, NRAS was negative, BRAF was negative. Patient was found to have a nodule in the left upper lobe 1.5 cm of the lung. PET CT scan April 20, 2016 showed a focus of high activity within the sigmoid colon which represents the primary malignancy. There was a 1.3 cm cavitary pulmonary nodule in the left upper lobe which was only warm regarding the glucose uptake. There was hypodense non-glucose avid lesion in the left temporal lobe of the brain, probably representing a remote ischemic event. CT- guided biopsy of the left pulmonary nodule done September 05, 2016 was positive for invasive adenocarcinoma consistent with colonic primary. Repeat CT scan on September 28, 2016 showed left upper lobe nodule measuring 2.6 cm with SUV 4.1, and it was initially 1.3 with SUV 3.2. The previously visualized 3 mm micro nodule in the posteromedial aspect of the left lower lobe of the lung currently measured 1.2 with SUV 3.2. There was another slightly inferior and lateral to this nodule 1.3 cm with SUV 2.3. The temporal lobe of the brain hypodense lesion is unchanged. The patient received IMRT radiation of the pulmonary metastasis completed October 31, 2016. He started treatment with Avastin and FOLFOX November 14, 2016. He is currently on cycle 6. 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 Other than that he is tolerating treatment. He is able to continue working multimedia artist. He will proceed proceed with his chemotherapy as planned and we'll follow with myself in two weeks with CBC, chem panel and CEA. 2. History of cluster headaches on propanolol and amitriptyline. managed by primary care 3. Hypertension, on treatment. Remained stable 4. Arthritis, on treatment. Patient uses a cane for ambulation PLAN 1. Chemistry with Avastin and FOLFOX cycle 6 out of 12 today. 2. CBC, chem panel to be checked weekly. 3. Patient to return in two weeks with CBC, chem panel and CEA. 4. Patient is to contact us for any new concerns or complaints. < I personally spent a total of 20 minutes. Of that 15 minutes was counseling/ coordination of patient's care. See my note above for details. Copies to: DELIA KHAN NANCY J [employer], ONC Jan 30, 2017 10:35
[2017-01-30] MEDS: NS(*) 0.9% 500 ML BAG 500 ML IV PRN (14:49)
[2017-02-01 12:06] VITALS: BP 128/70
[2017-02-01] MEDS: HEPARIN FLSH (PORT) 500 UN/5ML IVP PRN (12:20)
[2017-02-06 13:57] VITALS: BP 120/74
[2017-02-06 14:00] LABS: PLATELET COUNT, AUTOMATED 194 K/uL (150-450)
[2017-02-13 09:14] VITALS: BP 107/65
--- NOTE | 2017-02-13 09:46 | ONC Progress Note - NP.Halsey ---
Patient History Date of Service Feb 13, 2017 Reason For Visit/HPI Patient is seen in the clinic today for follow-up of his stage IV sigmoid colon adenocarcinoma. Patient is receiving chemotherapy with Avastin and FOLFOX cycle 7 out of 12 today. Patient continues to tolerate treatment relatively well with expected side effects. 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 He does wear gloves frequently and will pickup a scarf for very cold days. Patient occasionally has pain in the right knee which is remaining stable. He continues to follow with physical therapy. A short reports that he had diarrhea last , he did not take any medications for his symptoms and this is resolved. Patient shares that many coworkers had similar symptoms. He is able to eat today and has no nausea. Oncology History The patient is a 66-year-old male who had screening colonoscopy and patient found to have a mass at the sigmoid colon. He ended by having sigmoid colectomy done on May 26, 2016, and the pathology came back positive for moderately differentiated colonic adenocarcinoma, grade II-III with 15 lymph nodes negative for metastasis. Tumor was invading into the muscularis propria. Margins were negative. Lymphovascular invasion was also negative. MLH1, MSH2 , MSH 6, PMS2 all came back positive. KRAS was positive for the mutation. NRS was negative. BRAF mutation was negative. He had ileus after his surgery and he had a CT of abdomen and pelvis done on June 01, 2016 which did not show any evidence of hepatic metastasis. He had chest x-ray done on May 29, 2016, which showed 1.5 cm pulmonary nodule in the left mid-lung, not seen on the April 07, 2016 study. His tumor was staged as staged T2 N0 MX. So, the tumor was staged as stage I. Patient had a CT-guided biopsy of the enlarging left pulmonary nodule done on September 05, 2016, and the pathology came back positive for metastatic adenocarcinoma compatible with colonic origin. Patient had a PET CT scan done on September 28, 2016, which showed enlarging mass in the anterior aspect of the left upper lobe, currently 2.6 x 2.1 cm with SUV of 4.1. Previously this mass was 1.3 x 1.3 cm with SUV of 3.2. A previously visualized 3 mm micronodule in the posterior medial aspect of the left lower lobe currently measures 1.2 cm. Lateral and slightly inferior to this, there is a new second nodule measuring 1.3 cm in size. The nodules are not metabolically warm with maximal SUV of 3.2 and 2.3 respectively. Otherwise, chest is negative, and no other evidence of systemic disease. There is a hypodense left temporal lobe lesion that is unchanged. Patient received radiation therapy to the pulmonary metastasis completed on October 31, 2016. After his radiation therapy, patient has started chemotherapy with Avastin FOLFOX on November 14, 2016. PET/CT scan reviewed with patient today and previously by Dr. Jimenez. PET/CT scan indicates stable to improved disease, decreasing size in FDG G uptake in the left sided pulmonary nodule. Possible new focus of FDG uptake in the right iliac bone however when compared to previous Dr. Jimenez believes that this remains stable. We will continue to monitor post chemotherapy treatment. He will complete cycle 7 out of 12 today Psychosocial History Social History The patient is a with two children and grandchildren. He works for [employer]. He has never smoked. He denies any abuse of alcohol or illicit drugs. Smoking History: No Smoking Status: Never Smoker Exposure to Second Hand Smoke?: Yes Medications and Allergies Active Scripts Granisetron Hcl (SANCUSO) 3.1 Mg/24 Hr Patch.td24, 3.1 MG TD Q7DAY, #2 MG 5 Refills apply one patch 24 hours prior to treatment and leave on for 7 days. Treatment is every 2 weeks. Prov:KAILYN GOFF NEEDLEMAKER-BC, ONC 11/28/16 Ondansetron (ZOFRAN ODT) 8 Mg Tab.rapdis, 8 MG PO Q8H, #30 TAB 1 Refill Prov:KAILYN GOFF NEEDLEMAKER-BC, ONC 11/08/16 Oxycodone Hcl/Acetaminophen (PERCOCET 5-325 MG TABLET) 1 Each Tablet, 1-2 TAB PO Q4H Y for PAIN, #30 TAB 0 Refills Prov:LISSETH RUSH MD 09/21/16 Reported Medications Potassium Chloride (POTASSIUM CHLORIDE) 10 Meq Tablet.er, 10 MEQ PO PRN 10/03/16 Furosemide (LASIX) 20 Mg Tablet, 1 TAB PO PRN, TAB 10/03/16 Multivitamin (MULTIVITAMINS) 1 Each Capsule, 1 EACH PO DAILY, CAPSULE 10/03/16 Propranolol Hcl (PROPRANOLOL HCL) 20 Mg Tablet, 20 MG PO QHS, TAB 1/11/17 Amitriptyline Hcl (AMITRIPTYLINE HCL) 25 Mg Tablet, 25 MG PO QHS, #5 TAB 03/29/16 Lisinopril (LISINOPRIL) 10 Mg Tablet, 10 MG PO QDAY, TAB 03/29/16 Meloxicam (MELOXICAM) 15 Mg Tablet, 15 MG PO QDAY 03/29/16 Allergies: Coded Allergies: No Known Drug Allergies (Unverified , 06/17/16) Review of System/Physical Exam Review of Systems All Systems Reviewed/Normal: Yes, Except as Noted Gastrointestinal: Nausea (patient has a Sancuso patch and denies nausea), Diarrhea (this is resolved) Neurologic: Other (continued cold sensation of the hands and feet and oral cavity when exposed to cold products) Skin: Positive for Other Physical Exam Vital Signs Temperature: 97.0 Pulse: 68 BP Systolic: 107 BP Diastolic: 65 Respiratory Rate: 16 O2 SAT: 91 O2 Delivery: Height (inches) 71.25 Weight lb: 0 Weight oz: Weight Kg (James): [id number] Pain: 0 ECOG Score: 1 General: Stable, Well Developed, Well Nourished HEENT: No Trauma, No Conjunctivitis, No Icterus, No Mucositis, No Oral Thrush Neck: Supple Lungs: Clear to Auscultation Heart: Regular Rate, Regular Rhythm, No Gallops Abdomen: Soft and Nontender, No Hepatosplenomegaly, Other (bowel sounds are active abdomen is large and difficult to assess) Extremities: No Cyanosis, No Edema Lymphadenopathy: No Cervical Psychiatric: Mood appears normal, Affect appears normal Skin: No Skin Rashes, No Bruising, No Purpura Diagnostic Studies Diagnostic Studies Laboratory Laboratory Tests 02/13/17 09:04 Laboratory Tests 01/02/17 09:08: Carcinoembryonic Antigen 1.1 01/30/17 09:15: Peripheral Blood Smear No 02/06/17 13:50: Red Blood Count 4.30, Mean Corpuscular Volume 87.6, Mean Corpuscular Hemoglobin 30.5, Mean Corpuscular Hemoglobin Concent 34.8, Red Cell Distribution Width 20.1 , Mean Platelet Volume 8.3, Monocytes (%) (Auto) 12.8, Eosinophils (%) (Auto) 3.9, Basophils (%) (Auto) 1.6, Nucleated RBC Relative Count (auto) 0.2, Monocytes # (Auto) 0.7, Eosinophils # (Auto) 0.2, Basophils # (Auto) 0.1, Nucleated RBC Absolute Count (auto) 0.01 02/13/17 08:57: Urine Color Yellow, Urine Clarity Slightly-cloudy, Urine pH 5.0, Urine Specific [place] 1.026, Urine Protein Negative, Urine Glucose (UA) Negative, Urine Ketones Negative, Urine Blood Negative, Urine Nitrite Negative, Urine Bilirubin Negative, Urine Urobilinogen Negative, Urine Leukocyte Esterase Negative, Urine RBC <1, Urine WBC 2, Urine Squamous Epithelial Cells None, Urine Calcium Oxalate Crystals Few, Urine Bacteria Negative, Urine Mucus Few 02/13/17 09:04: White Blood Count 5.5, Hemoglobin 12.6, Hematocrit 35.8, Platelet Count 164, Neutrophils (%) (Auto) 58.9, Lymphocytes (%) (Auto) 20.2, Neutrophils # (Auto) 3.3, Lymphocytes # (Auto) 1.1, Sodium Level 136, Potassium Level 3.4, Chloride Level 104, Carbon Dioxide Level 23, Blood Urea Nitrogen 16, Creatinine 0.90, Glomerular Filtration Rate Calc > 60.0, Random Glucose 118, Calcium Level 8.9, Total Bilirubin 1.2, Aspartate Amino Transf (AST/SGOT) 34, Alanine Aminotransferase (ALT/SGPT) 41, Alkaline Phosphatase 123, Total Protein 6.7, Albumin 3.5 Assessment and Plan Assessment & Plan 1. Stage IV (T2 N0 M1) sigmoid colon adenocarcinoma status post sigmoid colectomy done May 26, 2016. Tumor was invading the muscularis propria and 13 lymph nodes were negative for metastasis. No lymphovascular invasion and negative margins. KRAS was positive, NRAS was negative, BRAF was negative. Patient was found to have a nodule in the left upper lobe 1.5 cm of the lung. PET CT scan April 20, 2016 showed a focus of high activity within the sigmoid colon which represents the primary malignancy. There was a 1.3 cm cavitary pulmonary nodule in the left upper lobe which was only warm regarding the glucose uptake. There was hypodense non-glucose avid lesion in the left temporal lobe of the brain, probably representing a remote ischemic event. CT- guided biopsy of the left pulmonary nodule done September 05, 2016 was positive for invasive adenocarcinoma consistent with colonic primary. Repeat CT scan on September 28, 2016 showed left upper lobe nodule measuring 2.6 cm with SUV 4.1, and it was initially 1.3 with SUV 3.2. The previously visualized 3 mm micro nodule in the posteromedial aspect of the left lower lobe of the lung currently measured 1.2 with SUV 3.2. There was another slightly inferior and lateral to this nodule 1.3 cm with SUV 2.3. The temporal lobe of the brain hypodense lesion is unchanged. The patient received IMRT radiation of the pulmonary metastasis completed October 31, 2016. He started treatment with Avastin and FOLFOX November 14, 2016. He is currently on cycle 7. 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 Patient occasionally has episodes of diarrhea but does not take any medication for symptom management. Nausea is well controlled with Sancuso patch. He is able to continue working procurement analyst. He will proceed proceed with his chemotherapy as planned and we'll follow with myself in two weeks with CBC, chem panel and CEA. 2. History of cluster headaches on propanolol and amitriptyline. managed by primary care 3. Hypertension, on treatment. Remained stable 4. Arthritis, on treatment. Patient uses a cane for ambulation and patient is receiving physical therapy as needed PLAN 1. Chemistry with Avastin and FOLFOX cycle 7 out of 12 today. 2. CBC, chem panel to be checked weekly. 3. Patient to return in two weeks with CBC, chem panel and CEA. 4. Patient is to contact us for any new concerns or complaints. < I personally spent a total of 20 minutes. Of that 15 minutes was counseling/ coordination of patient's care. See my note above for details. KAILYN GOFF NEEDLEMAKER-BC, ONC Feb 13, 2017 09:46
[2017-02-13] MEDS: DEXAMETHASONE SOD PHOS 10MG/ML IVP PRN (10:15)
[2017-02-13] MEDS: PALONOSETRON 0.25 MG/5 ML VIAL IVP PRN (10:15)
[2017-02-13] MEDS: NS(*) 0.9% 500 ML BAG 500 ML IV PRN (10:16)
[2017-02-13] MEDS: LIDOCAINE/SOD BICARB 8.4% SYR ID PRN (10:16)
[2017-02-15 13:04] VITALS: BP 127/87
[2017-02-15] MEDS: HEPARIN FLSH (PORT) 500 UN/5ML IVP PRN (13:21)
[2017-02-20 13:53] VITALS: BP 130/84
[2017-02-20 14:13] LABS: PLATELET COUNT, AUTOMATED 173 K/uL (150-450)
[2017-02-27 09:23] VITALS: BP 109/61
[2017-02-27 09:27] LABS: PLATELET COUNT, AUTOMATED 138 K/uL (150-450)
--- NOTE | 2017-02-27 09:55 | ONC Progress Note - NP.Halsey ---
Patient History Date of Service Feb 27, 2017 Reason For Visit/HPI Patient is seen in the clinic today for follow-up of his stage IV sigmoid colon adenocarcinoma. Patient is receiving chemotherapy with Avastin and FOLFOX cycle 8 out of 12 today. Patient continues to tolerate treatment relatively well with expected side effects. 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 He does wear gloves frequently and will pickup a scarf for very cold days. He reports having diarrhea over the weekend and took Imodium yesterday and it has stopped. Stools are loose. He is eating well and denies nausea. He is using a sancuso patch x 7 days with each treatment. No new concerns today. Nursing reports he is slightly depressed with the passing of his around this time of year- 6 years ago. guest services officer will meet with him possible today Problem List (1) Adenocarcinoma of sigmoid colon (2) Pulmonary nodules/lesions, multiple (3) Lung metastases Oncology History The patient is a 66-year-old male who had screening colonoscopy and patient found to have a mass at the sigmoid colon. He ended by having sigmoid colectomy done on May 26, 2016, and the pathology came back positive for moderately differentiated colonic adenocarcinoma, grade II-III with 15 lymph nodes negative for metastasis. Tumor was invading into the muscularis propria. Margins were negative. Lymphovascular invasion was also negative. MLH1, MSH2 , MSH 6, PMS2 all came back positive. KRAS was positive for the mutation. NRS was negative. BRAF mutation was negative. He had ileus after his surgery and he had a CT of abdomen and pelvis done on June 01, 2016 which did not show any evidence of hepatic metastasis. He had chest x-ray done on May 29, 2016, which showed 1.5 cm pulmonary nodule in the left mid-lung, not seen on the April 07, 2016 study. His tumor was staged as staged T2 N0 MX. So, the tumor was staged as stage I. Patient had a CT-guided biopsy of the enlarging left pulmonary nodule done on September 05, 2016, and the pathology came back positive for metastatic adenocarcinoma compatible with colonic origin. Patient had a PET CT scan done on September 28, 2016, which showed enlarging mass in the anterior aspect of the left upper lobe, currently 2.6 x 2.1 cm with SUV of 4.1. Previously this mass was 1.3 x 1.3 cm with SUV of 3.2. A previously visualized 3 mm micronodule in the posterior medial aspect of the left lower lobe currently measures 1.2 cm. Lateral and slightly inferior to this, there is a new second nodule measuring 1.3 cm in size. The nodules are not metabolically warm with maximal SUV of 3.2 and 2.3 respectively. Otherwise, chest is negative, and no other evidence of systemic disease. There is a hypodense left temporal lobe lesion that is unchanged. Patient received radiation therapy to the pulmonary metastasis completed on October 31, 2016. After his radiation therapy, patient has started chemotherapy with Avastin FOLFOX on November 14, 2016. PET/CT scan reviewed with patient today and previously by Dr. Jmienez. PET/CT scan indicates stable to improved disease, decreasing size in FDG G uptake in the left sided pulmonary nodule. Possible new focus of FDG uptake in the right iliac bone however when compared to previous Dr. Jimenez believes that this remains stable. We will continue to monitor post chemotherapy treatment. He will complete cycle 7 out of 12 today Psychosocial History Social History The patient is a with two children and grandchildren. He works for [employer]. He has never smoked. He denies any abuse of alcohol or illicit drugs. Smoking History: No Smoking Status: Never Smoker Exposure to Second Hand Smoke?: Yes Medications and Allergies Active Scripts Granisetron Hcl (SANCUSO) 3.1 Mg/24 Hr Patch.td24, 3.1 MG TD Q7DAY, #2 MG 5 Refills apply one patch 24 hours prior to treatment and leave on for 7 days. Treatment is every 2 weeks. Prov:KAILYN GOFF EARTH OBSERVATIONS CHIEF SCIENTIST-BC, ONC 11/28/16 Ondansetron (ZOFRAN ODT) 8 Mg Tab.rapdis, 8 MG PO Q8H, #30 TAB 1 Refill Prov:KAILYN GOFF [employer]AR[employer] OBSERVATIONS CHIEF SCIENTIST-BC, ONC 11/08/16 Oxycodone Hcl/Acetaminophen (PERCOCET 5-325 MG TABLET) 1 Each Tablet, 1-2 TAB PO Q4H Y for PAIN, #30 TAB 0 Refills Prov:LISSETH RUSH MD 09/21/16 Reported Medications Potassium Chloride (POTASSIUM CHLORIDE) 10 Meq Tablet.er, 10 MEQ PO PRN 10/03/16 Furosemide (LASIX) 20 Mg Tablet, 1 TAB PO PRN, TAB 10/03/16 Multivitamin (MULTIVITAMINS) 1 Each Capsule, 1 EACH PO DAILY, CAPSULE 10/03/16 Propranolol Hcl (PROPRANOLOL HCL) 20 Mg Tablet, 20 MG PO QHS, TAB 03/29/16 Amitriptyline Hcl (AMITRIPTYLINE HCL) 25 Mg Tablet, 25 MG PO QHS, #5 TAB 03/29/16 Lisinopril (LISINOPRIL) 10 Mg Tablet, 10 MG PO QDAY, TAB 03/29/16 Meloxicam (MELOXICAM) 15 Mg Tablet, 15 MG PO QDAY 03/29/16 Allergies: Coded Allergies: No Known Drug Allergies (Unverified , 06/17/16) Review of System/Physical Exam Review of Systems All Systems Reviewed/Normal: Yes, Except as Noted Respiratory: Positive for Other Gastrointestinal: Diarrhea Hematologic: Positive for Fatigue Musculoskeletal: Positive for Joint Pain (knee pain which is stable.) Skin: Positive for Other Physical Exam Vital Signs Temperature: 97.5 Pulse: 62 BP Systolic: 109 BP Diastolic: 61 Respiratory Rate: 16 O2 SAT: 89 O2 Delivery: Height (inches) 71.25 Weight lb: 0 Weight oz: Weight Kg (James): [id number] Pain: 2 ECOG Score: 1 General: Stable, Well Developed, Well Nourished, Not In Acute Distress HEENT: No Trauma Neck: Supple Lungs: Clear to Auscultation (slight wheeze in the right lower lobe.) Heart: Regular Rate, Regular Rhythm, No Gallops Abdomen: Soft and Nontender, No Hepatosplenomegaly Extremities: No Cyanosis, No Edema Lymphadenopathy: No Cervical, No Subclavicular Psychiatric: Mood appears normal, Affect appears normal Skin: No Skin Rashes, No Bruising, No Purpura Diagnostic Studies Diagnostic Studies Laboratory Item Value Date Time Carcinoembryonic Antigen 1.1 ng/mL 01/02/17 0908 Laboratory Tests 02/27/17 09:17 Laboratory Tests 02/13/17 08:57: Urine Calcium Oxalate Crystals Few 02/27/17 09:07: Urine Color [place], Urine Clarity Cloudy, Urine pH 5.0, Urine Specific [place] 1.024, Urine Protein Negative, Urine Glucose (UA) 50, Urine Ketones Trace, Urine Blood Negative, Urine Nitrite Negative, Urine Bilirubin Negative, Urine Urobilinogen 2.0, Urine Leukocyte Esterase Negative, Urine RBC None, Urine WBC 5 , Urine Squamous Epithelial Cells None, Urine Amorphous Crystals Few, Urine Bacteria Negative, Urine Mucus Few 02/27/17 09:17: White Blood Count 4.1, Red Blood Count 3.81, Hemoglobin 11.7, Hematocrit 34.3, Mean Corpuscular Volume 90.1, Mean Corpuscular Hemoglobin 30.8, Mean Corpuscular Hemoglobin Concent 34.2, Red Cell Distribution Width 21.3, Platelet Count 138, Mean Platelet Volume 8.5, Neutrophils (%) (Auto) 54.9, Lymphocytes (% ) (Auto) 23.6, Monocytes (%) (Auto) 17.0, Eosinophils (%) (Auto) 3.6, Basophils (%) (Auto) 0.9, Nucleated RBC Relative Count (auto) 0.0, Neutrophils # (Auto) 2.3, Lymphocytes # (Auto) 1.0, Monocytes # (Auto) 0.7, Eosinophils # (Auto) 0.1 , Basophils # (Auto) 0.0, Nucleated RBC Absolute Count (auto) 0.00, Peripheral Blood Smear No, Sodium Level 137, Potassium Level 3.4, Chloride Level 105, Carbon Dioxide Level 23, Blood Urea Nitrogen 12, Creatinine 0.90, Glomerular Filtration Rate Calc > 60.0, Random Glucose 99, Calcium Level 8.8, Total Bilirubin 0.8, Aspartate Amino Transf (AST/SGOT) 29, Alanine Aminotransferase ( ALT/SGPT) 36, Alkaline Phosphatase 94, Total Protein 6.3, Albumin 3.4 Assessment and Plan Assessment & Plan 1. Stage IV (T2 N0 M1) sigmoid colon adenocarcinoma status post sigmoid colectomy done May 26, 2016. Tumor was invading the muscularis propria and 13 lymph nodes were negative for metastasis. No lymphovascular invasion and negative margins. KRAS was positive, NRAS was negative, BRAF was negative. Patient was found to have a nodule in the left upper lobe 1.5 cm of the lung. PET CT scan April 20, 2016 showed a focus of high activity within the sigmoid colon which represents the primary malignancy. There was a 1.3 cm cavitary pulmonary nodule in the left upper lobe which was only warm regarding the glucose uptake. There was hypodense non-glucose avid lesion in the left temporal lobe of the brain, probably representing a remote ischemic event. CT- guided biopsy of the left pulmonary nodule done September 05, 2016 was positive for invasive adenocarcinoma consistent with colonic primary. Repeat CT scan on September 28, 2016 showed left upper lobe nodule measuring 2.6 cm with SUV 4.1, and it was initially 1.3 with SUV 3.2. The previously visualized 3 mm micro nodule in the posteromedial aspect of the left lower lobe of the lung currently measured 1.2 with SUV 3.2. There was another slightly inferior and lateral to this nodule 1.3 cm with SUV 2.3. The temporal lobe of the brain hypodense lesion is unchanged. The patient received IMRT radiation of the pulmonary metastasis completed October 31, 2016. He started treatment with Avastin and FOLFOX November 14, 2016. He is currently on cycle 8. 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 Patient occasionally has episodes of diarrhea and has taken Imodium with good results. Nausea is well controlled with Sancuso patch. 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 CEA drawn today is pending. 2. History of cluster headaches on propanolol and amitriptyline. Managed by primary care with Dr. Khan, seen one month ago 3. Hypertension, on treatment. Remained stable, managed by primary care 4. Arthritis, on treatment. Patient uses a cane for ambulation and patient is receiving physical therapy as needed- stable today. PLAN 1. Chemistry with Avastin and FOLFOX cycle 8 out of 12 today. 2. CBC, chem panel to be checked weekly. 3. Patient to return in two weeks with CBC, chem panel and CEA. 4. Patient is to contact us for any new concerns or complaints. < I personally spent a total of 20 minutes. Of that 15 minutes was counseling/ coordination of patient's care. See my note above for details. Copies to: DELIA KHAN NANCY J EARTH OBSERVATIONS CHIEF SCIENTIST-BC, ONC Feb 27, 2017 09:55
[2017-02-27] MEDS: PALONOSETRON 0.25 MG/5 ML VIAL IVP PRN (10:05)
[2017-02-27] MEDS: NS(*) 0.9% 500 ML BAG 500 ML IV PRN (10:05)
[2017-02-27] MEDS: DEXAMETHASONE SOD PHOS 10MG/ML IVP PRN (10:05)
[2017-02-27] MEDS: HEPARIN FLSH (PORT) 500 UN/5ML IVP PRN (10:06)
[2017-02-27] MEDS: LIDOCAINE/SOD BICARB 8.4% SYR ID PRN (10:06)
[~2017-03-01] VITALS: Ht 181 cm; Wt 134.4 kg
[~2017-03-01 12:35] MED LIST changes: +ALTEPLASE RECOMB 2 MG VIAL IVP PRN; +BEVACIZUMAB IVPB ONE; +D5W IV ONE; +D5W IVPB ONE; +FLUOROURACIL 50 MG/ML SDV IVP ONE; +FLUOROURACIL IV ONE; +LEUCOVORIN CAL IV ONE; +NS 0.9% IV ONE; +NS 0.9% IVPB ONE; +NS(*) 0.9% 100 ML BAG 100 ML IVPB PRN; +OXALIPLATIN IVPB ONE; +PNEUMOCOC VAC POLY 25MCG/0.5ML IM ONLY ONE; +WATER STERILE 10 ML VIAL IVP PRN; +[UNRECOGNIZED DRUG - OTHER] IVPB ONE; +[UNRECOGNIZED DRUG - OTHER] IVPB ONE
[2017-03-01 13:00] VITALS: BP 133/77
[2017-03-06 15:50] VITALS: Ht 181 cm; Wt 134.4 kg
[2017-03-07] MEDS ORDERED: NS 0.9% 50 ML VIAL 50 ML ONE (06:50)
[2017-03-07] MEDS ORDERED: IOPAMIDOL 76% 75 ML INFUS BTL 75 ML ONE (06:50)
== END 2017-03-19 ==
LOC: SPU 12:35
PROVIDERS: ATTEND Internal Medicine Hematology
DX: Z51.11 Encounter for antineoplastic chemotherapy (principal); C18.7 Malignant neoplasm of sigmoid colon; C78.02 Secondary malignant neoplasm of left lung; M19.91 Primary osteoarthritis, unspecified site; I10 Essential (primary) hypertension; Z79.899 Other long term (current) drug therapy; R53.83 Other fatigue; R53.1 Weakness; R19.7 Diarrhea, unspecified; R05 Cough; G44.009 Cluster headache syndrome, unspecified, not intractable; Z23 Encounter for immunization
CPT/HCPCS: 36415; 81001; 82378; 85025; 85027; 90471; 90732; 96367; 96368; 96375; 96411; 96413; 96415; 96416; 96417; J0610; J0640; J1100; J1642; J2469; J3475; J7040; J7050; J7060; J9035; J9190; J9263; Q9967; 82040; 82247; 82310; 82374; 82435; 82565; 82947; 84075; 84132; 84155; 84295; 84450; 84460; 84520

== ENCOUNTER 2017-03-05 13:51 | Inpatient (IN) | payer BC, MEDICARE ==
[~2017-03-05] VITALS: Ht 181 cm; Wt 128.4 kg
--- NOTE | 2017-03-05 14:26 | EKG ---
FACILITY: [facility] - [place] PATIENT NAME: LISSETH PULIDO : [id number] MR: [id number] V: [id number] EXAM DATE: ORDERING PHYSICIAN: JASON TOTH TECHNOLOGIST: DOMENIC Frederick Reason : SOB Blood Pressure : / mmHG Vent. Rate : 109 BPM Atrial Rate : 109 BPM P-R Int : 168 ms QRS Dur : 098 ms QT Int : 336 ms P-R-T Axes : 035 004 033 degrees QTc Int : 452 ms Sinus tachycardia Nonspecific interventricular conduction delay Nonspecific ST findings inferiorly Similar to previous EKG Confirmed by VINCENZO BASILIO ([id number] on 03/05/2017 8:02:41 PM Referred By: CARLOS ALBERTO Confirmed By:VINCENZO BASILIO
[2017-03-05 14:53] LABS: PLATELET COUNT, AUTOMATED 123 K/uL (150-450)
[2017-03-05] MEDS ORDERED: NS 0.9% 50 ML VIAL 100 ML ONE (15:07)
[2017-03-05] MEDS ORDERED: IOPAMIDOL 76% 100 ML INFUS BTL 100 ML ONE (15:07)
--- NOTE | 2017-03-05 15:10 | ER Report ---
History and Physical Time Seen By MD: 14:00 Hx. of Stated Complaint: R shoulder pain last night and right upper quadrant pain, ems reports only on 74% 02 saturation at home ([facility]) HPI/ROS CHIEF COMPLAINT: Abdominal pain HISTORY OF PRESENT ILLNESS: This is a 66-year-old male who presents to the emergency department for right upper quadrant pain. Patient states that he developed some right upper quadrant pain last night while sitting in his recliner. Patient states then the pain progressed up to his right shoulder and then diffusely through the abdomen. Patient also states that he had some increased shortness of breath throughout the night and then today as well. Patient did call EMS when they arrived his oxygen saturation was about 78% on room air. Patient arrives on a nonrebreather. Alert and oriented. Patient states that he did have some aches, chills and muscular discomfort last night. Patient does have a history of stage IV colon cancer. Patient also states he did have some diarrhea couple of days ago did take some "antidiarrhea medicine" , and has not had a bowel movement since yesterday. He does state that he is pretty regularly at least twice a day with his bowel movements. Patient denies chest pain, headaches, visual changes, urinary discomfort. Patient has some wounds to the lower legs that are being treated outpatient. REVIEW OF SYSTEMS: Constitutional: As above. Eyes: No discharge. ENT: No sore throat. Cardiovascular: No chest pain, no palpitations. Respiratory: As above. Gastrointestinal: As above. Genitourinary: No hematuria. Musculoskeletal: No back pain. Skin: As above. Neurological: No headache. [facility] Allergies: Coded Allergies: No Known Drug Allergies (Unverified , 06/17/16) Home Meds Active Scripts Granisetron Hcl (SANCUSO) 3.1 Mg/24 Hr Patch.td24, 3.1 MG TD Q, #2 MG 5 Refills apply one patch 24 hours prior to treatment and leave on for 7 days. Treatment is every 2 weeks. Prov:KAILYN GOFF-AUBREY, ONC 11/28/16 Ondansetron (ZOFRAN ODT) 8 Mg Tab.rapdis, 8 MG PO Q8H, #30 TAB 1 Refill Prov:KAILYN GOFF-BC, ONC 11/08/16 Reported Medications Multivitamin (MULTIVITAMINS) 1 Each Capsule, 1 EACH PO DAILY, CAPSULE 10/03/16 Propranolol Hcl (PROPRANOLOL HCL) 20 Mg Tablet, 20 MG PO QHS, TAB 03/29/16 Amitriptyline Hcl (AMITRIPTYLINE HCL) 25 Mg Tablet, 25 MG PO QHS, #5 TAB 03/29/16 Lisinopril (LISINOPRIL) 10 Mg Tablet, 10 MG PO QDAY, TAB 03/29/16 Meloxicam (MELOXICAM) 15 Mg Tablet, 15 MG PO QDAY 03/29/16 Discontinued Reported Medications Potassium Chloride (POTASSIUM CHLORIDE) 10 Meq Tablet.er, 10 MEQ PO PRN 10/03/16 Furosemide (LASIX) 20 Mg Tablet, 1 TAB PO PRN, TAB 10/03/16 Discontinued Scripts Oxycodone Hcl/Acetaminophen (PERCOCET 5-325 MG TABLET) 1 Each Tablet, 1-2 TAB PO Q4H Y for PAIN, #30 TAB 0 Refills Prov:LISSETH RUSH MD 09/21/16 Past Medical/Surgical History Patient has a past medical surgical history of migraines, right leg venous stripping, hypertension, lung biopsy, pneumothorax, chest tube placed, colon cancer acid reflux, arthritis, upper and lower dentures, wears glasses, hard of hearing, PVD, ulcers to both lower legs, knee surgeries, metastatic cancer to lungs. resection, ([facility]-) Reviewed Nurses Notes: Yes ([facility] [employer]) Hx Smoking: No Smoking Status: Never Smoker Exposure to Second Hand Smoke?: Yes Hx Substance Use Disorder: No Hx Alcohol Use: No ([facility]-) Constitutional Vital Sign - Last 24 Hours 03/05/17 03/05/17 03/05/17 03/05/17 13:57 13:59 14:06 14:30 Temp 99.4 Pulse 110 108 Resp 22 45 B/P (MAP) 134/78 134/78 (96) 90/70 (77) Pulse Ox 74 95 O2 Delivery Room Air 03/05/17 03/05/17 03/05/17 03/05/17 14:51 14:57 15:01 15:17 Pulse 104 106 ??? Pulse Ox 89 88 O2 Flow Rate 10.0 03/05/17 03/05/17 03/05/17 03/05/17 15:20 15:29 15:32 15:40 Pulse 102 Resp 19 B/P (MAP) ???/??? (1665) 132/67 (88) 116/67 (83) Pulse Ox 93 03/05/17 03/05/17 03/05/17 15:45 16:00 16:11 Pulse 97 96 93 Resp 26 32 23 B/P (MAP) 119/62 (81) Pulse Ox 94 93 94 (LAURORA,SYLVAIN V DO) Physical Exam General Appearance: The patient is alert, has no immediate need for airway protection and no signs of toxicity, on a nonrebreather upon arrival, not gasping for air. Eyes: Pupils equal and round no pallor or injection. ENT, Mouth: Mucous membranes are moist. Respiratory: There are no retractions, lungs are diminished but clear to auscultation. Cardiovascular: Regular rate and rhythm, no murmurs, clicks or rubs. Distant heart sounds. Gastrointestinal: Abdomen is round, firm, tenderness in all quadrants with palpation, no masses, bowel sounds normal. Neurological: Alert and oriented 4. Moving all extremities. Following all commands. No neuro deficits. Skin: Warm and dry, no rashes. Musculoskeletal: Neck is supple non tender. No CVA tenderness. Extremities are tender, non-swollen and have full range of motion. DIFFERENTIAL DIAGNOSIS: After history and physical exam differential diagnosis was considered for shortness of breath including but not limited to pulmonary infectious process, COPD, asthma, pulmonary embolus and congestive heart failure , abdominal pain including but not limited to appendicitis, cholecystitis, gastritis and urinary tract infection, metastatic disease. ([facility]-) Medical Decision Making Data Points Result Diagram: 03/05/17 1440 03/05/17 1440 Laboratory Hematology Test 03/05/17 14:30 03/05/17 14:40 Blood Gas Puncture Site Left radial Blood Gas Patient Temperature 99.4 DEGREES Arterial Blood pH 7.45 (7.35-7.45) Arterial Blood Partial Pressure CO2 26 mmHg (32-37) Arterial Blood Partial Pressure O2 57 mmHg (60-80) Arterial Blood HCO3 18 mmol/L (20-26) Arterial Blood Oxygen Saturation 91 % (92-100) Arterial Blood Base Excess -6.0 mmol/L Al Test Acceptable Oxygen Liters/Minute 4l Red Blood Count 4.32 M/uL (4.00-5.60) Mean Corpuscular Volume 90.9 fL (80.0-96.0) Mean Corpuscular Hemoglobin 30.9 pg (26.0-33.0) Mean Corpuscular Hemoglobin Concent 34.0 g/dL (32.0-36.0) Red Cell Distribution Width 20.5 % (11.5-14.5) Mean Platelet Volume 7.9 fL (7.2-11.1) Neutrophils (%) (Auto) % (39.4-72.5) Lymphocytes (%) (Auto) % (17.6-49.6) Monocytes (%) (Auto) % (4.1-12.4) Eosinophils (%) (Auto) % (0.4-6.7) Basophils (%) (Auto) % (0.3-1.4) Nucleated RBC Relative Count (auto) /100WBC Neutrophils # (Auto) K/uL (2.0-7.4) Lymphocytes # (Auto) K/uL (1.3-3.6) Monocytes # (Auto) K/uL (0.3-1.0) Eosinophils # (Auto) K/uL (0.0-0.5) Basophils # (Auto) K/uL (0.0-0.1) Nucleated RBC Absolute Count (auto) K/uL Neutrophils % (Manual) 69 % (39.4-72.5) Band Neutrophils % 6 % Lymphocytes % (Manual) 12 % (17.6-49.6) Atypical Lymphocytes % 5 % Monocytes % (Manual) 8 % (4.1-12.4) Eosinophils % (Manual) 0 % (0.4-6.7) Basophils % (Manual) 0 % (0.3-1.4) Peripheral Blood Smear Yes Y/N Sodium Level 136 mmol/L (137-145) Potassium Level 4.0 mmol/L (3.5-5.0) Chloride Level 102 mmol/L (98-107) Carbon Dioxide Level 22 mmol/L (22-30) Blood Urea Nitrogen 25 mg/dl (9-21) Creatinine 1.20 mg/dl (0.66-1.25) Glomerular Filtration Rate Calc > 60.0 Random Glucose 131 mg/dl (75-110) Calcium Level 8.4 mg/dl (8.4-10.2) Total Bilirubin 1.6 mg/dl (0.2-1.3) Aspartate Amino Transf (AST/SGOT) 29 U/L (0-35) Alanine Aminotransferase (ALT/SGPT) 34 U/L (0-56) Alkaline Phosphatase 92 U/L (0-126) Troponin I 0.025 ng/ml B-Type Natriuretic Peptide 120 pg/ml (0-100) Total Protein 6.4 gm/dl (6.3-8.2) Albumin 3.4 g/dl (3.5-5.0) Lipase 25 U/L (23-300) Influenza Type A Antigen Negative (NEGATIVE) Influenza Type B Antigen Negative (NEGATIVE) Chemistry Test 03/05/17 14:30 03/05/17 14:40 Blood Gas Puncture Site Left radial Blood Gas Patient Temperature 99.4 DEGREES Arterial Blood pH 7.45 (7.35-7.45) Arterial Blood Partial Pressure CO2 26 mmHg (32-37) Arterial Blood Partial Pressure O2 57 mmHg (60-80) Arterial Blood HCO3 18 mmol/L (20-26) Arterial Blood Oxygen Saturation 91 % (92-100) Arterial Blood Base Excess -6.0 mmol/L Al Test Acceptable Oxygen Liters/Minute 4l White Blood Count 4.2 k/uL (4.5-11.0) Red Blood Count 4.32 M/uL (4.00-5.60) Hemoglobin 13.4 g/dL (14.0-18.0) Hematocrit 39.3 % (42.0-52.0) Mean Corpuscular Volume 90.9 fL (80.0-96.0) Mean Corpuscular Hemoglobin 30.9 pg (26.0-33.0) Mean Corpuscular Hemoglobin Concent 34.0 g/dL (32.0-36.0) Red Cell Distribution Width 20.5 % (11.5-14.5) Platelet Count 123 K/uL (150-450) Mean Platelet Volume 7.9 fL (7.2-11.1) Neutrophils (%) (Auto) % (39.4-72.5) Lymphocytes (%) (Auto) % (17.6-49.6) Monocytes (%) (Auto) % (4.1-12.4) Eosinophils (%) (Auto) % (0.4-6.7) Basophils (%) (Auto) % (0.3-1.4) Nucleated RBC Relative Count (auto) /100WBC Neutrophils # (Auto) K/uL (2.0-7.4) Lymphocytes # (Auto) K/uL (1.3-3.6) Monocytes # (Auto) K/uL (0.3-1.0) Eosinophils # (Auto) K/uL (0.0-0.5) Basophils # (Auto) K/uL (0.0-0.1) Nucleated RBC Absolute Count (auto) K/uL Neutrophils % (Manual) 69 % (39.4-72.5) Band Neutrophils % 6 % Lymphocytes % (Manual) 12 % (17.6-49.6) Atypical Lymphocytes % 5 % Monocytes % (Manual) 8 % (4.1-12.4) Eosinophils % (Manual) 0 % (0.4-6.7) Basophils % (Manual) 0 % (0.3-1.4) Peripheral Blood Smear Yes Y/N Glomerular Filtration Rate Calc > 60.0 Calcium Level 8.4 mg/dl (8.4-10.2) Total Bilirubin 1.6 mg/dl (0.2-1.3) Aspartate Amino Transf (AST/SGOT) 29 U/L (0-35) Alanine Aminotransferase (ALT/SGPT) 34 U/L (0-56) Alkaline Phosphatase 92 U/L (0-126) Troponin I 0.025 ng/ml B-Type Natriuretic Peptide 120 pg/ml (0-100) Total Protein 6.4 gm/dl (6.3-8.2) Albumin 3.4 g/dl (3.5-5.0) Lipase 25 U/L (23-300) Influenza Type A Antigen Negative (NEGATIVE) Influenza Type B Antigen Negative (NEGATIVE) (SYLVAIN CYR DO) EKG/Imaging EKG Interpretation 12 lead EKG: Rhythm: Sinus tachycardia, 109 BPM. [place]: normal QRS: normal ST segments: normal No significant changes from the 05/26/2016 EKG other than tachycardia, both EKG's showing S1, Q3, T3. Imaging FACILITY: [facility] PATIENT NAME: Lisseth Campa : 1950 MR: [id number] V: [id number] EXAM DATE: ORDERING PHYSICIAN: SYLVAIN CYR TECHNOLOGIST: Location: [facility] [place] Patient: Lisseth Campa : 1950 Visit/Account:[id number] Date of Sevice: 03/05/2017 CHEST SINGLE AP INDICATION: ng placement COMPARISON: 09/21/2016 FINDINGS: Nasogastric tube terminates within the stomach. Right-sided Mediport is unchanged in position. Heart size within normal limits. There is no focal infiltrate or lobar consolidation. The lungs are hypoventilated with bibasilar atelectasis. Previously seen rounded nodularity within the left upper lobe appears to resolved. There is no pneumothorax or pleural effusion. IMPRESSION: 1. NG tube placement appropriate position 2. Pulmonary hypoventilation with bibasilar atelectasis 3. Resolution of pulmonary nodule within the left upper lobe Report Dictated By: Cameron Jaramillo at 03/05/2017 5:40 PM Report E-Signed By: Cameron Jaramillo at 03/05/2017 5:42 PM WSN:[facility] FACILITY: [facility] PATIENT NAME: Lisseth Campa : 1950 MR: [id number] V: [id number] EXAM DATE: [id number] ORDERING PHYSICIAN: [facility] TECHNOLOGIST: Location: [facility] [place] Patient: Lisseth Campa : 1950 Visit/Account:[id number] Date of Sevice: 03/05/2017 ABDOMEN/PELVIS WITH CONTRAST HISTORY: evaluate for PE TECHNIQUE: Following administration of IV contrast contiguous axial images acquired through the abdomen/pelvis. Coronal and sagittal reformatting also performed. Dose Lowering Technique One of the following dose optimization techniques was utilized in the performance of this exam: Automated exposure control; adjustment of the mA and/ or kV according to the patient's size; or use of an iterative reconstruction technique. Specific details can be referenced in the facility's radiology CT exam operational policy. CONTRAST: 100 mL Isovue-370 COMPARISON: June 01, 2016 FINDINGS: Visualized lung bases: Small amount of compressive atelectasis lower lobes and a tiny left pleural effusion. Please see today's CTA of the chest dictation concerning extensive pulmonary emboli. Hepatobiliary: Negative. Spleen: Negative. Adrenals: Negative. Pancreas: Atrophic Kidneys ureters or bladder: There is mild perinephric stranding bilaterally Genitalia: Negative. GI: There is a surgical anastomosis in the sigmoid colon. Several tiny bubbles of free air seen adjacent to the anastomosis. There appears to be narrowing at the anastomosis . This also small bowel anastomosis in the right mid abdomen with mild gaseous distention of the small bowel just proximal to this anastomosis there are multiple loops of fluid-filled mildly distended small bowel throughout the abdomen measuring up to 4.2 cm in diameter. Additional small bubbles of free air seen throughout the mid abdomen, in the hepatorenal fossa and in the left upper abdomen and anterior to the left lobe the liver and stomach. Vessels/spaces/nodes: There is a small amount of abdominal and pelvic ascites . There is a 1.9 x 1.2 x 2.2 cm soft tissue nodule projecting to the right of the lower esophagus not appreciated previously possibly a lymph node. There also appears to be narrowing of the distal esophagus Bones/soft tissues: Postsurgical changes from a midline anterior abdominal and pelvic incision. Severe arthritic changes of the right hip and mild osteophytic change left hip again noted. There is a grade 1 spondylolisthesis of L5-S1 secondary to bilateral pars defects at L5. Additional findings: None pertinent. IMPRESSION: A surgical anastomosis is seen in the sigmoid colon which appears narrowed with several tiny bubbles of air seen immediately adjacent to the anastomosis.. There is also small bowel anastomosis the right midabdomen with small bubbles of adjacent free air. There is mild distention of the small bowel just proximal to this anastomosis and numerous mildly dilated fluid-filled loops of small bowel throughout the abdomen measuring up to 4.2 centers in diameter. This finding is worrisome for small bowel obstruction. Additional small bubbles of free air seen in the upper abdomen as well worrisome for possible anastomotic leak. There is narrowing of the distal esophagus and a new 1.9 x 1.2 x 2.2 cm soft tissue nodule adjacent to the lower esophagus which could represent a lymph node. Small amount of abdominal and pelvic ascites Small amount of compressive atelectasis lower lobes and tiny left pleural effusion. Please see today's CTA of the chest dictation concerning extensive pulmonary emboli Results were called to [facility] at 03/05/2017 4:22 PM. Findings were discussed by telephone with Dr. Rush 03/05/2017 at 1627 Report Dictated By: Kayli Berry MD at 03/05/2017 3:59 PM Report E-Signed By: Kayli Berry MD at 03/05/2017 4:28 PM WSN:[facility] FACILITY: [facility] PATIENT NAME: Lisseth Campa : 1950 MR: [id number] V: [id number] EXAM DATE: ORDERING PHYSICIAN: [facility] TOTH TECHNOLOGIST: Location: [facility] [place] Patient: Lisseth Campa : 1950 Visit/Account:[id number] Date of Sevice: 03/05/2017 CTA CHEST WW/O CNTR (PULM ANG) HISTORY: evaluate for PE ADDITIONAL HISTORY: None. TECHNIQUE: CTA chest with intravenous contrast. Axial imaging acquired following administration of IV contrast timed for maximum opacification of the pulmonary arterial vasculature. Slab 3-D MIP reconstructed images were also created for further evaluation and interpretation. Reconstruction of the source data set includes multiplanar 2-D in the sagittal and coronal planes and 3-D reconstructed coronal slab MIP series. 3-D images were created by the technologist. Dose Lowering Technique One of the following dose optimization techniques was utilized in the performance of this exam: Automated exposure control; adjustment of the mA and/ or kV according to the patient's size; or use of an iterative reconstruction technique. Specific details can be referenced in the facility's radiology CT exam operational policy. CONTRAST: 100 mL Isovue-370 COMPARISON: August 23, 2016 FINDINGS: Lungs/pleura: Previously noted left upper lobe pulmonary nodule has decrease in size and now measures 1.8 x 1.5 cm as opposed to 2.2 x 1.9 cm.. The two left lower lobe pulmonary nodules are no longer seen although there is a small amount of patchy airspace consolidation in the dependent portion of both lower lobes which may represent atelectasis and could be obscuring the pulmonary nodules.. The previously noted right upper lobe nodules not identified There is a tiny left pleural effusion Heart/vessels: There is intraluminal thrombus in the lobar segmental and subsegmental arterial branches to the right upper lobe and in the segmental and subsegmental arterial branches to the right middle lobe, left upper lobe and both lower lobes.. There is an implanted right-sided port with the distal tip in superior vena cava. There are mild coronary artery calcifications. Mediastinum/lymph nodes: Negative. Visualized upper abdomen: There is a small amount of simple ascites just superior to the dome of the liver. There are small bubbles of free air seen in the left upper abdomen and in the hepatorenal fossa. Small hiatal hernia Bones/soft tissues: No aggressive appearing bone lesions are seen Additional findings: None IMPRESSION: There is bilateral pulmonary emboli including the lobar, segmental and subsegmental arterial branches to the right upper lobe and the segmental and subsegmental arterial branches to the right middle lobe, left upper lobe and both lower lobes. Small amount of ascites just superior to the dome of the liver Previously noted left upper lobe pulmonary nodule has decrease in size as detailed above. 2. Left lower lobe pulmonary nodules in right upper lobe nodules are not appreciated. There are small left pleural effusion and compressive atelectasis of both lower lobes which could be obscuring at least the left lower lobe nodules.. The left upper lobe nodule still remains concerning for malignancy.. There are small bubbles of free air seen in the left upper abdomen in the hepatorenal fossa. Results were called to [facility] at 03/05/2017 3:59 PM. Report Dictated By: Kayli Berry MD at 03/05/2017 3:39 PM Report E-Signed By: Kayli Berry MD at 03/05/2017 3:59 PM WSN:[facility] ([facility]) ED Course/Re-evaluation Clinical Indication for ER IV: Hydration, IV Access ED Course The patient was admitted to a room via EMS. A history and physical were obtained. Differential diagnoses were considered. An IV was started. Lab studies showing low white count of 4.2, hemoglobin 13.4, hematocrit 39.3, platelets 123. Negative influenza, BNP 120. A CTA of the chest showing bilateral pulmonary emboli. CT of the abdomen and pelvis showing free air in the abdomen, possible small bowel obstruction, pelvic ascites. Normal saline was started at 125ml/hr. I did speak with Dr. Mcgowan as noted below. The patient was admitted under Dr. Rush's services and Dr. Santhosh Smith will be consulting for the pulmonary emboli. An NG was placed without incident in the emergency department. Chest x-ray showing NG placement. The patient was admitted to the medical surgical floor. Patient had no other questions or concerns at the time of admission. 03/05/2017 4:57:13 pm I did speak with Dr. Mcgowan regarding the patient's case , he developed calling Dr. James they reviewed the CT scan together. And Dr. Mcgowan decided to go ahead and admit the patient to the medical surgical floor under his services and Dr. Santhosh Smith will consult for the multiple PEs. The only thing that he would like us to do in the emergency department is place NG tube. They will start the antibiotics and the heparin drip when they get to the medical surgical floor. He did review all the results and the admission information with the patient the patient is okay with the admission. Decision to Disposition Date: Mar 05, 2017 Decision to Disposition Time: 16:46 ([facility]-) Depart Departure Latest Vital Signs Vital Signs Date Time Temp Pulse Resp B/P (MAP) Pulse Ox O2 Delivery O2 Flow Rate FiO2 03/05/17 16:11 93 23 94 03/05/17 16:00 119/62 (81) 03/05/17 15:01 10.0 03/05/17 13:57 99.4 Room Air (LAURORA,SYLVAIN V DO) Impression: Primary Impression: Multiple pulmonary emboli Additional Impression: Intra-abdominal free air of unknown etiology Condition: Condition Unchanged Disposition: Admitted from ER Referrals: DELIA KHAN DO (PCP) Consult Note: I personally saw and evaluated the patient in conjunction with the midlevel provider and agree with plan. Labs and CT reviewed with pt. Dr. Rush notified due to the free air noted on abd ct. Pt also has PEs for his acute dx. Dr. Rush to look at imaging and speak with radiologist and will call back. Pt with severe comorbidities. (LAURORA,SYLVAIN V DO) Problem Qualifiers [facility]-BC Mar 05, 2017 15:10 LAURORA,SYLVAIN V DO Mar 05, 2017 16:35
[2017-03-05] MEDS ORDERED: NS(*) 0.9% 1000 ML BAG 1,000 ML IV ONE (15:35)
--- NOTE | 2017-03-05 16:03 | RADIOLOGY IMAGING REPORT ---
FACILITY: [facility] - [place] PATIENT NAME: Gold Campa : 1950 MR: [id number] V: [id number] EXAM DATE: ORDERING PHYSICIAN: JASON TOTH TECHNOLOGIST: [place] [facility] [place] Gold Campa : 1950 Visit/Account:[id number] Date of Sevice: 03/05/2017 CTA CHEST WW/O CNTR (PULM ANG) HISTORY: evaluate for PE ADDITIONAL HISTORY: None. TECHNIQUE: CTA chest with intravenous contrast. Axial imaging acquired following administration of IV contrast timed for maximum opacification of the pulmonary arterial vasculature. Slab 3-D MIP chay nstructed images were also created for further evaluation and interpretation. Reconstruction of the [facility] data set includes multiplanar 2-D in the sagittal and coronal planes and 3-D reconstructed david nal slab MIP series. 3-D images were created by the technologist. Dose Lowering Technique One of the following dose optimization techniques was utilized in the performance of this exam: Autom ated exposure control; adjustment of the mA and/or kV according to the patient's size; or use of an i terative reconstruction technique. Specific details can be referenced in the facility's radiology C T exam operational policy. CONTRAST: 100 mL Isovue-370 COMPARISON: August 23, 2016 FINDINGS: Lungs/pleura: Previously noted left upper lobe pulmonary nodule has decrease in size and now measure s 1.8 x 1.5 cm as opposed to 2.2 x 1.9 cm.. The two left lower lobe pulmonary nodules are no longer seen although there is a small amount of patchy airspace consolidation in the dependent portion of chris th lower lobes which may represent atelectasis and could be obscuring the pulmonary nodules.. The pr eviously noted right upper lobe nodules not identified There is a tiny left pleural effusion Heart/vessels: There is intraluminal thrombus in the lobar segmental and subsegmental arterial branc hes to the right upper lobe and in the segmental and subsegmental arterial branches to the right midd le lobe, left upper lobe and both lower lobes.. There is an implanted right-sided port with the dist al tip in superior vena cava. There are mild coronary artery calcifications. Mediastinum/lymph nodes: Negative. Visualized upper abdomen: There is a small amount of simple ascites just superior to the dome of the liver. There are small bubbles of free air seen in the left upper abdomen and in the hepatorenal fo ssa. Small hiatal hernia Bones/soft tissues: No aggressive appearing bone lesions are seen Additional findings: None IMPRESSION: There is bilateral pulmonary emboli including the lobar, segmental and subsegmental arterial branches to the right upper lobe and the segmental and subsegmental arterial branches to the right middle lob e, left upper lobe and both lower lobes. Small amount of ascites just superior to the dome of the liver Previously noted left upper lobe pulmonary nodule has decrease in size as detailed above. 2. Left l ower lobe pulmonary nodules in right upper lobe nodules are not appreciated. There are small left pl eural effusion and compressive atelectasis of both lower lobes which could be obscuring at least the left lower lobe nodules.. The left upper lobe nodule still remains concerning for malignancy.. There are small bubbles of free air seen in the left upper abdomen in the hepatorenal fossa. Results were called to JASON TOTH at 03/05/2017 3:59 PM. Report Dictated By: Kayli Berry MD at 03/05/2017 3:39 PM Report E-Signed By: Kayli Berry MD at 03/05/2017 3:59 PM MICAELAN:AMICIVN
--- NOTE | 2017-03-05 16:32 | RADIOLOGY IMAGING REPORT ---
FACILITY: PATIENT NAME: Gold Campa : 1950 MR: [id number] V: [id number] EXAM DATE: ORDERING PHYSICIAN: JASON TOTH TECHNOLOGIST: Location: [facility] Patient: Gold Campa : 1950 Visit/Account:[id number] Date of Sevice: 03/05/2017 ABDOMEN/PELVIS WITH CONTRAST HISTORY: evaluate for PE TECHNIQUE: Following administration of IV contrast contiguous axial images acquired through the abdom en/pelvis. Coronal and sagittal reformatting also performed. Dose Lowering Technique One of the following dose optimization techniques was utilized in the performance of this exam: Autom ated exposure control; adjustment of the mA and/or kV according to the patient's size; or use of an i terative reconstruction technique. Specific details can be referenced in the facility's radiology C T exam operational policy. CONTRAST: 100 mL Isovue-370 COMPARISON: June 01, 2016 FINDINGS: Visualized lung bases: Small amount of compressive atelectasis lower lobes and a tiny left pleural e ffusion. Please see today's CTA of the chest dictation concerning extensive pulmonary emboli. Hepatobiliary: Negative. Spleen: Negative. Adrenals: Negative. Pancreas: Atrophic Kidneys ureters or bladder: There is mild perinephric stranding bilaterally Genitalia: Negative. GI: There is a surgical anastomosis in the sigmoid colon. Several tiny bubbles of free air seen adj acent to the anastomosis. There appears to be narrowing at the anastomosis . This also small bowel anastomosis in the right mid abdomen with mild gaseous distention of the small bowel just proximal t o this anastomosis there are multiple loops of fluid-filled mildly distended small bowel throughout t he abdomen measuring up to 4.2 cm in diameter. Additional small bubbles of free air seen throughout the mid abdomen, in the hepatorenal fossa and in the left upper abdomen and anterior to the left lobe the liver and stomach. Vessels/spaces/nodes: There is a small amount of abdominal and pelvic ascites . There is a 1.9 x 1 .2 x 2.2 cm soft tissue nodule projecting to the right of the lower esophagus not appreciated previou sly possibly a lymph node. There also appears to be narrowing of the distal esophagus Bones/soft tissues: Postsurgical changes from a midline anterior abdominal and pelvic incision. Sev ere arthritic changes of the right hip and mild osteophytic change left hip again noted. There is a grade 1 spondylolisthesis of L5-S1 secondary to bilateral pars defects at L5. Additional findings: None pertinent. IMPRESSION: A surgical anastomosis is seen in the sigmoid colon which appears narrowed with several tiny bubbles of air seen immediately adjacent to the anastomosis.. There is also small bowel anastomosis the righ t midabdomen with small bubbles of adjacent free air. There is mild distention of the small bowel ju st proximal to this anastomosis and numerous mildly dilated fluid-filled loops of small bowel through out the abdomen measuring up to 4.2 centers in diameter. This finding is worrisome for small bowel o bstruction. Additional small bubbles of free air seen in the upper abdomen as well worrisome for pos sible anastomotic leak. There is narrowing of the distal esophagus and a new 1.9 x 1.2 x 2.2 cm soft tissue nodule adjacent t o the lower esophagus which could represent a lymph node. Small amount of abdominal and pelvic ascites Small amount of compressive atelectasis lower lobes and tiny left pleural effusion. Please see today 's CTA of the chest dictation concerning extensive pulmonary emboli Results were called to JASON TOTH at 03/05/2017 4:22 PM. Findings were discussed by telephone with Dr. Collins 03/05/2017 at 1627 Report Dictated By: Kayli Berry MD at 03/05/2017 3:59 PM Report E-Signed By: Kayli Berry MD at 03/05/2017 4:28 PM MICAELAN:AMICIVN
[2017-03-05] MEDS ORDERED: NS(*) 0.9% 1000 ML BAG 1,000 ML IV PRN (17:16)
[2017-03-05] MEDS ORDERED: NALOXONE HCL 0.4 MG/ML VIAL IVP PRN (17:20)
[2017-03-05] MEDS ORDERED: ONDANSETRON 4 MG/2 ML VIAL IVP PRN (17:20)
[2017-03-05] MEDS ORDERED: FLUSH 10 ML SYR IVP PRN (17:20)
[2017-03-05] MEDS ORDERED: ERTAPENEM(*) 1 GM VIAL 1 GM in NS(*) 0.9% 100 ML ADDVANT BAG 100 ML IVPB ONE ×2 (17:25→18:30)
--- NOTE | 2017-03-05 17:48 | RADIOLOGY IMAGING REPORT ---
FACILITY: [facility] PATIENT NAME: Gold Campa : 1950 MR: [id number] V: [id number] EXAM DATE: ORDERING PHYSICIAN: SYLVAIN CYR TECHNOLOGIST: [place] [facility] [place]: Gold Campa : 1950 Visit/Account:[id number] Date of Sevice: 03/05/2017 CHEST SINGLE AP INDICATION: ng placement COMPARISON: 09/21/2016 FINDINGS: Nasogastric tube terminates within the stomach. Right-sided Mediport is unchanged in position. Heart size within normal limits. There is no focal infiltrate or lobar consolidation. The lungs are hypoventilated with bibasilar at electasis. Previously seen rounded nodularity within the left upper lobe appears to resolved. There is no pneumothorax or pleural effusion. IMPRESSION: 1. NG tube placement appropriate position 2. Pulmonary hypoventilation with bibasilar atelectasis 3. Resolution of pulmonary nodule within the left upper lobe Report Dictated By: Cameron Jaramillo at 03/05/2017 5:40 PM Report E-Signed By: Cameron Jaramillo at 03/05/2017 5:42 PM WSN:[id number]
[2017-03-05 18:20] VITALS: BP 140/77
[2017-03-05] MEDS: HYDROmorphone PCA 6 MG/30 ML IV PRN (18:34)
--- NOTE | 2017-03-05 18:53 | Gen Surgery History & Physical ---
History of Present Illness Chief Complaint Abdominal pain History of Present Illness 66yo male, h/o sigmoid colon cancer with pulmonary mets, currently in the middle of chemotherapy (FOLFOX and avastin), who has been dealing with diarrhea related to the chemo, presents with a 1 day h/o abdominal pain with fevers. He had diarrhea 2 days ago and took some OTC antidiarrheal medication. He had a loose BM yesterday morning but no flatus for 2 days. He began experiencing abdominal pain 24 hours ago. Was getting worse which prompted him to come in to the ER for evaluation. His last chemo was last week, almost a week ago and his next round is scheduled for next week. He also had SOB. CT chest reveals multiple PEs. CT abdomen/pelvis reveals fluid in pelvis and small "speckles" of free air in the mid abdomen and up near his liver. No obvious inflammatory changes. Mildly dilated small bowel and distended stomach. History Problems: (1) H/O colectomy Status: Chronic (2) Hypoventilation associated with obesity Status: Chronic (3) Nodule of left lung Status: Chronic (4) Lung metastases Status: Chronic (5) Adenocarcinoma of sigmoid colon Status: Chronic Home Meds Active Scripts Granisetron Hcl (SANCUSO) 3.1 Mg/24 Hr Patch.td24, 3.1 MG TD Q7DAY, #2 MG 5 Refills apply one patch 24 hours prior to treatment and leave on for 7 days. Treatment is every 2 weeks. Prov:KAILYN GOFF GAS OPERATION MANAGER-BC, ONC 11/28/16 Ondansetron (ZOFRAN ODT) 8 Mg Tab.rapdis, 8 MG PO Q8H, #30 TAB 1 Refill Prov:KAILYN GOFF GAS OPERATION MANAGER-BC, ONC 11/08/16 Reported Medications Multivitamin (MULTIVITAMINS) 1 Each Capsule, 1 EACH PO DAILY, CAPSULE 10/03/16 Propranolol Hcl (PROPRANOLOL HCL) 20 Mg Tablet, 20 MG PO QHS, TAB 03/29/16 Amitriptyline Hcl (AMITRIPTYLINE HCL) 25 Mg Tablet, 25 MG PO QHS, #5 TAB 03/29/16 Lisinopril (LISINOPRIL) 10 Mg Tablet, 10 MG PO QDAY, TAB 03/29/16 Meloxicam (MELOXICAM) 15 Mg Tablet, 15 MG PO QDAY 03/29/16 Discontinued Reported Medications Potassium Chloride (POTASSIUM CHLORIDE) 10 Meq Tablet.er, 10 MEQ PO PRN 10/03/16 Furosemide (LASIX) 20 Mg Tablet, 1 TAB PO PRN, TAB 10/03/16 Discontinued Scripts Oxycodone Hcl/Acetaminophen (PERCOCET 5-325 MG TABLET) 1 Each Tablet, 1-2 TAB PO Q4H Y for PAIN, #30 TAB 0 Refills Prov:LISSETH RUSH MD 09/21/16 Allergies: Coded Allergies: No Known Drug Allergies (Unverified , 06/17/16) Exam General Appearance: Alert, Awake, No Acute Distress, Afebrile Neuro: No Gross deficits Eyes: PERRLA GI: Other (Soft, protuberant abdomen due to morbid obesity, diffusely TTP, especially in infraumbilical midline, no peritonitis, somewhat difficult exam due to body habitus.) Extremities: Warm, Perfused Medical Decision Making Data Points Result Diagram: 03/05/17 1440 03/05/17 1440 Assessment and Plan Problems: (1) Intra-abdominal free air of unknown etiology Status: Acute Assessment & Plan: Admit, NPO, IV fluids, IV abx, bowel rest, NG tube GI decompression. Abdominal exam without peritonitis and patient is at extremely high risk for surgery due to his body habitus and currently chemotherapy, especially avastin. Will try conservative management but if he worsens, or fails to improve, on conservative therapy then will need to proceed with surgical exploration. I have explained this plan to him in detail and he is agreeable with proceeding with this plan. (2) Multiple pulmonary emboli Status: Acute Assessment & Plan: Hospitalists consulted. Will start a Heparin gtt which can be stopped if surgery becomes necessary. Will need long-term anticoagulation after he improves with conservative management or after he recovers from surgery if necessary. Condition Stable. Time Spent: < 30 min Venous Thromboembolism VTE Risk Patient's VTE Risk: High VTE Diagnostic Test 2 Days Prior to Admit: Yes Antithrombotics Is Pt On Any Antithrombotics?: Yes LISSETH RUSH MD Mar 05, 2017 18:53
[2017-03-05] MEDS ORDERED: HEPARIN (PORC) 5000 UN/ML VIAL IVP ONE (19:45)
--- NOTE | 2017-03-05 19:46 | Hospitalist Consultation ---
History of Present Illness Requesting Physician Dr. Rush Reason for Consult Pulmonary emboli Chief Complaint Chest and abdominal pain History of Present Illness 66yo male with PMHx significant for chronic venous stasis ulcers, cluster headaches, HTN, and stage IV colon cancer currently on Avastin and FOLFOX through [facility]. He was evaluated in the ER for dyspnea, abdominal and right chest/shoulder pain. He was found to have bilateral pulmonary emboli as well as evidence of free air in his abdomen. He has been admitted on the surgical service with Dr. Rush. History Problems: (1) Adenocarcinoma of sigmoid colon Status: Chronic (2) Lung metastases Status: Chronic (3) HTN (hypertension) Status: Chronic (4) Venous stasis ulcer Status: Chronic (5) H/O colectomy Status: Resolved (6) Hypoventilation associated with obesity Status: Chronic Home Meds Active Scripts Granisetron Hcl (SANCUSO) 3.1 Mg/24 Hr Patch.td24, 3.1 MG TD Q7DAY, #2 MG 5 Refills apply one patch 24 hours prior to treatment and leave on for 7 days. Treatment is every 2 weeks. Prov:KAILYN GOFF FLOW MATCH SOFA CUTTER-BC, ONC 11/28/16 Ondansetron (ZOFRAN ODT) 8 Mg Tab.rapdis, 8 MG PO Q8H, #30 TAB 1 Refill Prov:KAILYN GOFF FLOW MATCH SOFA CUTTER-BC, ONC 11/08/16 Reported Medications Multivitamin (MULTIVITAMINS) 1 Each Capsule, 1 EACH PO DAILY, CAPSULE 10/03/16 Propranolol Hcl (PROPRANOLOL HCL) 20 Mg Tablet, 20 MG PO QHS, TAB 03/29/16 Amitriptyline Hcl (AMITRIPTYLINE HCL) 25 Mg Tablet, 25 MG PO QHS, #5 TAB 03/29/16 Lisinopril (LISINOPRIL) 10 Mg Tablet, 10 MG PO QDAY, TAB 03/29/16 Meloxicam (MELOXICAM) 15 Mg Tablet, 15 MG PO QDAY 03/29/16 Discontinued Reported Medications Potassium Chloride (POTASSIUM CHLORIDE) 10 Meq Tablet.er, 10 MEQ PO PRN 10/03/16 Furosemide (LASIX) 20 Mg Tablet, 1 TAB PO PRN, TAB 10/03/16 Discontinued Scripts Oxycodone Hcl/Acetaminophen (PERCOCET 5-325 MG TABLET) 1 Each Tablet, 1-2 TAB PO Q4H Y for PAIN, #30 TAB 0 Refills Prov:LISSETH RUSH MD 09/21/16 Allergies: Coded Allergies: No Known Drug Allergies (Unverified , 06/17/16) Hx Smoking: No Smoking Status: Never Smoker Exposure to Second Hand Smoke?: Yes Caffeine/Cups Per Day: NONE Hx Alcohol Use: No Hx Substance Use Disorder: No Social Drug Use: Never Exam Vital Signs Vital Signs Date Time Temp Pulse Resp B/P (MAP) Pulse Ox O2 Delivery O2 Flow Rate FiO2 03/05/17 18:44 92 Oxy Mask 9.0 03/05/17 18:37 18 03/05/17 18:20 99.0 91 140/77 (98) General Appearance: Alert, Awake Neuro: No Gross deficits ENT: Oropharynx Clear Cardiovascular: Regular Rate and Rhythm (distant tones) Respiratory: Clear to Auscultation (diminished breath sounds at bases) Chest: Other (Chemo-port right upper chest) GI: Other (obese/diffuse tenderness) Extremities: Warm, Perfused, Edema Integumentary: Other (large ulcers over both anterior tibial areas) Medical Decision Making Data Points Result Diagram: 03/05/17 1440 03/05/17 1440 EKG / Imaging Imaging PATIENT NAME: Lisseth Campa : 1950 MR: [id number] V: [id number] EXAM DATE: ORDERING PHYSICIAN: JASON TOTH TECHNOLOGIST: Location: [facility] Patient: Lisseth Campa : 1950 Visit/Account:[id number] Date of Sevice: 03/05/2017 CTA CHEST WW/O CNTR (PULM ANG) HISTORY: evaluate for PE ADDITIONAL HISTORY: None. TECHNIQUE: CTA chest with intravenous contrast. Axial imaging acquired following administration of IV contrast timed for maximum opacification of the pulmonary arterial vasculature. Slab 3-D MIP reconstructed images were also created for further evaluation and interpretation. Reconstruction of the source data set includes multiplanar 2-D in the sagittal and coronal planes and 3-D reconstructed coronal slab MIP series. 3-D images were created by the technologist. Dose Lowering Technique One of the following dose optimization techniques was utilized in the performance of this exam: Automated exposure control; adjustment of the mA and/ or kV according to the patient's size; or use of an iterative reconstruction technique. Specific details can be referenced in the facility's radiology CT exam operational policy. CONTRAST: 100 mL Isovue-370 COMPARISON: August 23, 2016 FINDINGS: Lungs/pleura: Previously noted left upper lobe pulmonary nodule has decrease in size and now measures 1.8 x 1.5 cm as opposed to 2.2 x 1.9 cm.. The two left lower lobe pulmonary nodules are no longer seen although there is a small amount of patchy airspace consolidation in the dependent portion of both lower lobes which may represent atelectasis and could be obscuring the pulmonary nodules.. The previously noted right upper lobe nodules not identified There is a tiny left pleural effusion Heart/vessels: There is intraluminal thrombus in the lobar segmental and subsegmental arterial branches to the right upper lobe and in the segmental and subsegmental arterial branches to the right middle lobe, left upper lobe and both lower lobes.. There is an implanted right-sided port with the distal tip in superior vena cava. There are mild coronary artery calcifications. Mediastinum/lymph nodes: Negative. Visualized upper abdomen: There is a small amount of simple ascites just superior to the dome of the liver. There are small bubbles of free air seen in the left upper abdomen and in the hepatorenal fossa. Small hiatal hernia Bones/soft tissues: No aggressive appearing bone lesions are seen Additional findings: None IMPRESSION: There is bilateral pulmonary emboli including the lobar, segmental and subsegmental arterial branches to the right upper lobe and the segmental and subsegmental arterial branches to the right middle lobe, left upper lobe and both lower lobes. Small amount of ascites just superior to the dome of the liver Previously noted left upper lobe pulmonary nodule has decrease in size as detailed above. 2. Left lower lobe pulmonary nodules in right upper lobe nodules are not appreciated. There are small left pleural effusion and compressive atelectasis of both lower lobes which could be obscuring at least the left lower lobe nodules.. The left upper lobe nodule still remains concerning for malignancy.. There are small bubbles of free air seen in the left upper abdomen in the hepatorenal fossa. Results were called to JASON TOTH at 03/05/2017 3:59 PM. Report Dictated By: Kayli Berry MD at 03/05/2017 3:39 PM Report E-Signed By: Kayli Berry MD at 03/05/2017 3:59 PM WSN:[email or web address] PATIENT NAME: Lisseth Campa : 1950 MR: [id number] V: [id number] EXAM DATE: [id number] ORDERING PHYSICIAN: JASON TOTH TECHNOLOGIST: Location: [facility] Patient: Lisseth Campa : 1950 Visit/Account:[id number] Date of Sevice: 03/05/2017 ABDOMEN/PELVIS WITH CONTRAST HISTORY: evaluate for PE TECHNIQUE: Following administration of IV contrast contiguous axial images acquired through the abdomen/pelvis. Coronal and sagittal reformatting also performed. Dose Lowering Technique One of the following dose optimization techniques was utilized in the performance of this exam: Automated exposure control; adjustment of the mA and/ or kV according to the patient's size; or use of an iterative reconstruction technique. Specific details can be referenced in the facility's radiology CT exam operational policy. CONTRAST: 100 mL Isovue-370 COMPARISON: June 01, 2016 FINDINGS: Visualized lung bases: Small amount of compressive atelectasis lower lobes and a tiny left pleural effusion. Please see today's CTA of the chest dictation concerning extensive pulmonary emboli. Hepatobiliary: Negative. Spleen: Negative. Adrenals: Negative. Pancreas: Atrophic Kidneys ureters or bladder: There is mild perinephric stranding bilaterally Genitalia: Negative. GI: There is a surgical anastomosis in the sigmoid colon. Several tiny bubbles of free air seen adjacent to the anastomosis. There appears to be narrowing at the anastomosis . This also small bowel anastomosis in the right mid abdomen with mild gaseous distention of the small bowel just proximal to this anastomosis there are multiple loops of fluid-filled mildly distended small bowel throughout the abdomen measuring up to 4.2 cm in diameter. Additional small bubbles of free air seen throughout the mid abdomen, in the hepatorenal fossa and in the left upper abdomen and anterior to the left lobe the liver and stomach. Vessels/spaces/nodes: There is a small amount of abdominal and pelvic ascites . There is a 1.9 x 1.2 x 2.2 cm soft tissue nodule projecting to the right of the lower esophagus not appreciated previously possibly a lymph node. There also appears to be narrowing of the distal esophagus Bones/soft tissues: Postsurgical changes from a midline anterior abdominal and pelvic incision. Severe arthritic changes of the right hip and mild osteophytic change left hip again noted. There is a grade 1 spondylolisthesis of L5-S1 secondary to bilateral pars defects at L5. Additional findings: None pertinent. IMPRESSION: A surgical anastomosis is seen in the sigmoid colon which appears narrowed with several tiny bubbles of air seen immediately adjacent to the anastomosis.. There is also small bowel anastomosis the right midabdomen with small bubbles of adjacent free air. There is mild distention of the small bowel just proximal to this anastomosis and numerous mildly dilated fluid-filled loops of small bowel throughout the abdomen measuring up to 4.2 centers in diameter. This finding is worrisome for small bowel obstruction. Additional small bubbles of free air seen in the upper abdomen as well worrisome for possible anastomotic leak. There is narrowing of the distal esophagus and a new 1.9 x 1.2 x 2.2 cm soft tissue nodule adjacent to the lower esophagus which could represent a lymph node. Small amount of abdominal and pelvic ascites Small amount of compressive atelectasis lower lobes and tiny left pleural effusion. Please see today's CTA of the chest dictation concerning extensive pulmonary emboli Results were called to JASON TOTH at 03/05/2017 4:22 PM. Findings were discussed by telephone with Dr. Rush 03/05/2017 at 1627 Report Dictated By: Kayli Berry MD at 03/05/2017 3:59 PM Report E-Signed By: Kayli Berry MD at 03/05/2017 4:28 PM WSN:[email or web address] Assessment and Plan Problems: (1) Multiple pulmonary emboli Status: Acute Assessment & Plan: Difficult situation. He is at risk for DVT/PE due to his cancer and his Avastin therapy, but he may also be at risk for hemorrhage due to the acute process involving his abdomen (and metastatic disease). I discussed options with Dr. Rush regarding anticoagulation therapy. We can use IV heparin drip, which would allow us to stop it fairly quickly if he has onset of bleeding. If he does well with anticoagulation therapy, he could be transitioned to oral therapy later. Venous Thromboembolism Antithrombotics Is Pt On Any Antithrombotics?: Yes Exam Sepsis Risk: No Definite Risk VINCENZO BASILIO MD Mar 05, 2017 19:46
[2017-03-05] MEDS ORDERED: HEPARIN* SOD/D5W 25000 U/500ML 500 ML IV SCH (20:00)
[2017-03-05 22:41] VITALS: BP 122/74
[2017-03-06] VITALS (8 sets, daily range): BP systolic 86–129; BP diastolic 54–71; Ht 181 cm; Wt 128.4 kg
[2017-03-06 03:26] LABS: PLATELET COUNT, AUTOMATED 88 K/uL (150-450)
--- NOTE | 2017-03-06 08:14 | General Surgery Progress Note ---
Subjective Progress Notes Subjective No new complaints. Feeling a "little" better than yesterday, decreased abdominal pain with help of WEAVER HAND LOOM. Physical Exam Vital Signs Date Time Temp Pulse Resp B/P (MAP) Pulse Ox O2 Delivery O2 Flow Rate FiO2 03/06/17 07:41 97 Bi-PAP 10.0 80.0 03/06/17 07:35 101.4 84 23 112/70 (84) Intake and Output 03/07/17 07:00 Output Total 100 ml Balance -100 ml Gastric Drainage Total 100 ml General Appearance: Alert, Awake, No Acute Distress, Afebrile GI: Other (Soft, mild lower abdominal midline TTP, no peritoneal sign, a little less TTP than last evening.) Extremities: Warm, Perfused Result Diagram: 03/06/1730903/06/17309 Assessment and Plan Problems: (1) Intra-abdominal free air of unknown etiology Status: Acute Assessment & Plan: Admit, NPO, IV fluids, IV abx, bowel rest, NG tube GI decompression. Abdominal exam without peritonitis and patient is at extremely high risk for surgery due to his body habitus and currently chemotherapy, especially avastin. Will try conservative management but if he worsens, or fails to improve, on conservative therapy then will need to proceed with surgical exploration. I have explained this plan to him in detail and he is agreeable with proceeding with this plan. 03/06/17: Doing a little better although having fevers. Will continue conservative management today with bowel rest, NG tube decompression, IV fluids , and IV abx. If not clearly better by tomorrow will repeat CT scan and will consider surgical exploration tomorrow afternoon/evening. Pt agreeable with this plan. Surgery is very risky in this patient with low albumen, suppressed healing due to chemotherapy, especially avastin (last dose 1 week ago), and morbid obesity. (2) Multiple pulmonary emboli Status: Acute Assessment & Plan: Hospitalists consulted. Will start a Heparin gtt which can be stopped if surgery becomes necessary. Will need long-term anticoagulation after he improves with conservative management or after he recovers from surgery if necessary. Condition Stable. Time Spent: < 30 min Exam Sepsis Risk: No Definite Risk LISSETH RUSH MD Mar 06, 2017 08:14
[2017-03-06] MEDS ORDERED: HEPARIN* SOD/D5W 25000 U/500ML 500 ML IV SCH (08:51)
[2017-03-06] MEDS ORDERED: NS(*) 0.9% 1000 ML BAG 1,000 ML IV PRN (08:51)
[2017-03-06] MEDS: ACETAMINOPHEN(*)1000 MG/100 ML 100 ML IVPB PRN ×2 (08:55→17:02)
[2017-03-06] MEDS: PANTOPRAZOLE SOD 40 MG IV VIAL IVP SCH (09:19)
[2017-03-06] MEDS: ERTAPENEM(*) 1 GM VIAL 1 GM in NS(*) 0.9% 100 ML ADDVANT BAG 100 ML IVPB SCH (09:19)
--- NOTE | 2017-03-06 11:29 | Hospitalist Progress Note ---
Subjective Progress Notes Subjective No cp/sob. He reports that he feels better overall, but still having low abdominal pain. Physical Exam Vital Signs Date Time Temp Pulse Resp B/P (MAP) Pulse Ox O2 Delivery O2 Flow Rate FiO2 03/06/17 11:16 92/54 (67) 03/06/17 11:10 100.5 83 20 90 Oxy Mask 10.0 03/06/17 07:41 80.0 Intake and Output 03/07/17 07:00 Intake Total 200 ml Output Total 100 ml Balance 100 ml Intake Oral 0 ml IV Total 200 ml Gastric Drainage Total 100 ml # Voids 1 General Appearance: Alert, Awake, Other (He has the BIPAP mask on.) Cardiovascular: Regular Rate and Rhythm Respiratory: Clear to Auscultation Integumentary: Other (Chronic edema with bandages over the stasis ulcers bilaterally) Result Diagram: 03/06/1730903/06/17309 Assessment and Plan Problems: (1) Multiple pulmonary emboli Status: Acute Assessment & Plan: Difficult situation. He is at risk for DVT/PE due to his cancer and his Avastin therapy, but he may also be at risk for hemorrhage due to the acute process involving his abdomen (and metastatic disease). After discussions with Dr. Collins, it was decided to use a Heparin drip for quick resolution of anticoagulation effect. Exam Sepsis Risk: No Definite Risk HESHAM DE LA TORRE MD Mar 06, 2017 11:29
[2017-03-06] MEDS ORDERED: LR(*) 1000 ML BAG 1,000 ML IV PRN (11:30)
[2017-03-06] MEDS: HEPARIN* SOD/D5W 25000 U/500ML 500 ML IV SCH (15:00)
[2017-03-06] MEDS: NS(*) 0.9% 1000 ML BAG 1,000 ML IV PRN (18:28)
[2017-03-07] MEDS: NS(*) 0.9% 1000 ML BAG 1,000 ML IV PRN ×3 (02:05→17:33)
[2017-03-07] MEDS: HEPARIN* SOD/D5W 25000 U/500ML 500 ML IV SCH ×2 (04:53→19:27)
[2017-03-07 05:13] VITALS: BP 138/66
[2017-03-07 05:59] LABS: PLATELET COUNT, AUTOMATED 86 K/uL (150-450)
--- NOTE | 2017-03-07 06:23 | General Surgery Progress Note ---
Subjective Progress Notes Subjective Reports that he's feeling a little better from abdominal standpoint but still having fevers. Coughing up phlegm. No flatus or BM. No other complaints today. Physical Exam Vital Signs Date Time Temp Pulse Resp B/P (MAP) Pulse Ox O2 Delivery O2 Flow Rate FiO2 03/07/17 06:02 18 95 03/07/17 05:13 99.6 93 138/66 (90) Oxy Mask 10.0 03/07/17 00:12 70.0 General Appearance: Alert, Awake, No Acute Distress, Afebrile Neuro: No Gross deficits Eyes: PERRLA Cardiovascular: Regular Rate and Rhythm Respiratory: Other (BS coarse bilaterally) GI: Other (Soft, upper abdominal TTP, no peritoneal signs.) Extremities: Warm, Perfused Result Diagram: 03/06/1730903/06/17309 Assessment and Plan Problems: (1) Intra-abdominal free air of unknown etiology Status: Acute Assessment & Plan: Admit, NPO, IV fluids, IV abx, bowel rest, NG tube GI decompression. Abdominal exam without peritonitis and patient is at extremely high risk for surgery due to his body habitus and currently chemotherapy, especially avastin. Will try conservative management but if he worsens, or fails to improve, on conservative therapy then will need to proceed with surgical exploration. I have explained this plan to him in detail and he is agreeable with proceeding with this plan. 03/06/17: Doing a little better although having fevers. Will continue conservative management today with bowel rest, NG tube decompression, IV fluids , and IV abx. If not clearly better by tomorrow will repeat CT scan and will consider surgical exploration tomorrow afternoon/evening. Pt agreeable with this plan. Surgery is very risky in this patient with low albumen, suppressed healing due to chemotherapy, especially avastin (last dose 1 week ago), and morbid obesity. 03/07/17: Will repeat CT abd/pelvis this morning and may need to operate later this afternoon since he continues to have pain without bowel function and recurring fevers, marginal improvement if at all. I have explained this to the patient and I have explained the dangers of surgery in him, especially with recent chemo including avastin, but we may no longer have a choice if he has a bowel perforation. Will see what CT shows and then make a decision this afternoon. Will hold heparin gtt this morning. Pt is agreeable with proceeding with surgery is necessary. (2) Multiple pulmonary emboli Status: Acute Assessment & Plan: Hospitalists consulted. Will start a Heparin gtt which can be stopped if surgery becomes necessary. Will need long-term anticoagulation after he improves with conservative management or after he recovers from surgery if necessary. Condition Stable. Time Spent: < 30 min Exam Sepsis Risk: No Definite Risk LISSETH RUSH MD Mar 07, 2017 06:23
--- NOTE | 2017-03-07 07:47 | RADIOLOGY IMAGING REPORT ---
FACILITY: [facility] [place] PATIENT NAME: Lisseth Campa : 1950 MR: [id number] V: [id number] EXAM DATE: ORDERING PHYSICIAN: LISSETH RUSH TECHNOLOGIST: Location: [facility] Patient: Lisseth Campa : 1950 Visit/Account:[id number] Date of Sevice: 03/07/2017 CHEST SINGLE AP COMPARISONS: Single view chest dated March 05, 2017 ADDITIONAL PERTINENT HISTORY: Productive cough FINDINGS: Life-support: Right internal jugular venous port with its tip in the distal SVC. NG tube coursing int o the abdomen with its tip in the midportion of the stomach. Cardiomediastinal silhouette: Negative. Pulmonary vasculature: Negative. Lung degroot: Decreased lung volumes with mild bibasilar atelectatic change. Pleural spaces: Negative. Osseous structures: Negative. Surrounding soft tissues: Negative. IMPRESSION: No significant change since previous exam with continued decreased lung volumes and mild bibasilar atelectatic change. 2. Stable life support. Report Dictated By: Yunior Castro MD at 03/07/2017 7:42 AM Report E-Signed By: Ynuior Castro MD at 03/07/2017 7:43 AM WSN:[email or web address]
[2017-03-07 07:49] VITALS: BP 120/57
--- NOTE | 2017-03-07 08:51 | RADIOLOGY IMAGING REPORT ---
FACILITY: [facility] [place] PATIENT NAME: Lisseth Campa : 1950 MR: [id number] V: [id number] EXAM DATE: ORDERING PHYSICIAN: LISSETH RUSH TECHNOLOGIST: Location: [facility] Patient: Lisseth Campa : 1950 Visit/Account:[id number] Date of Sevice: 03/07/2017 ABDOMEN/PELVIS WITH CONTRAST HISTORY: Abdominal pain, small free air on previous CT TECHNIQUE: Following administration of IV contrast contiguous axial images acquired through the abdom en/pelvis. Coronal and sagittal reformatting also performed. Dose Lowering Technique One of the following dose optimization techniques was utilized in the performance of this exam: Autom ated exposure control; adjustment of the mA and/or kV according to the patient's size; or use of an i terative reconstruction technique. Specific details can be referenced in the facility's radiology C T exam operational policy. CONTRAST: 75 mL Isovue-370 COMPARISON: March 05, 2017 FINDINGS: Visualized lung bases: There are small posterior layering bilateral pleural effusions slightly incre ased when compared to prior study. Has been an increase of by basilar atelectasis. Hepatobiliary: Negative. Spleen: Negative. Adrenals: Negative. Pancreas: Severely atrophic and fatty replaced Kidneys ureters or bladder: Mild perinephric stranding bilaterally Genitalia: Negative. GI: There is an NG tube in place. The distal portion of NG tube is tenting the anterior aspect of t he body of the stomach. Again noted are the anastomoses in the sigmoid colon and in the mid small chris wel. Mildly dilated loops of small bowel described previously have decompressed. There is been a ma rked reduction of the small bubbles of free intraperitoneal air when compared the prior study. Only a small amount of free air seen collecting along the anterior abdomen and in the right lower abdomen adjacent to the small bowel anastomosis. Incidentally noted is mild diverticulosis of the sigmoid co alexus Vessels/spaces/nodes: Small amount of abdominal pelvic ascites appears relatively unchanged . The previously noted soft tissue nodule projecting to the right of the lower esophagus is no longer seen and may have represented a small amount of fluid. There is right external iliac adenopathy largest n ode measuring 3.2 x 3.2 cm Bones/soft tissues: Postsurgical changes from midline intra-abdominal pelvic incision. Severe arthr itic changes of the right hip joint again noted. 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 IMPRESSION: There is less free air seen throughout the abdomen is described above. Small amount of abdominal pelvic ascites appears unchanged Postsurgical changes of the sigmoid colon and small bowel again noted. There has been interval decom pression of the dilated small bowel loops. There is an NG tube with the distal portion tenting the anterior aspect of the body of the stomach.. Slight increase in the small bilateral pleural effusions and bibasal atelectasis Right external iliac adenopathy unchanged Soft tissue nodule to the right of the lower esophagus no longer seen and may have represented a smal l fluid collection. A message was called to LISSETH RUSH at 03/07/2017 8:46 AM. Report Dictated By: Kayli Berry MD at 03/07/2017 8:21 AM Report E-Signed By: Kayli Berry MD at 03/07/2017 8:46 AM MICAELAN:[email or web address]
[2017-03-07] MEDS: ERTAPENEM(*) 1 GM VIAL 1 GM in NS(*) 0.9% 100 ML ADDVANT BAG 100 ML IVPB SCH (09:32)
[2017-03-07] MEDS: PANTOPRAZOLE SOD 40 MG IV VIAL IVP SCH (09:33)
[2017-03-07 11:10] VITALS: BP 123/62
--- NOTE | 2017-03-07 11:45 | Hospitalist Progress Note ---
Subjective Progress Notes Subjective This patient was admitted for possible bowel perforation. He had no significant change overnight. Patient Complains of: Cardiovascular: No: Chest Pain Respiratory: No: Shortness of Breath Physical Exam Vital Signs Date Time Temp Pulse Resp B/P (MAP) Pulse Ox O2 Delivery O2 Flow Rate FiO2 03/07/17 11:10 98.8 87 123/62 (82) 03/07/17 08:33 92 Oxy Mask 10.0 03/07/17 07:49 24 03/07/17 00:12 70.0 Intake and Output 03/08/17 07:00 Intake Total 719 ml Output Total 425 ml Balance 294 ml IV Total 719 ml Output Urine Total 425 ml Cardiovascular: Regular Rate and Rhythm Respiratory: Clear to Auscultation Result Diagram: 03/07/1727 03/07/17526 Assessment and Plan Problems: (1) Multiple pulmonary emboli Status: Acute Assessment & Plan: His CT scan did show bilateral pulmonary emboli. We are currently treating him with a heparin infusion and are making dose adjustments based on Anti-factor Xa levels. Exam Sepsis Risk: No Definite Risk LISSETH LENZ DO Mar 07, 2017 11:44
--- NOTE | 2017-03-07 14:05 | Medical Nutrition Therapy ---
Nutrition Anthropometrics Height (Inches): 71.25 Height (Calculated Centimeters: 180.751938 Weight (Pounds): 291 Weight (Calculated Kilograms): 132.222 BMI Calculated: 40.30 Nhan Nutrition Score: Adequate Nhan Nutrition Risk Score: 18 Dietary Referral Nutrition Risk Factors: Nutrition Risk Comment: Physical Findings Physical Appearance: Morbidly Obese 40+ Skin Appearance Skin Appearance: Edema Edema Location Modifier: Both Edema Location: Lower Extremity Type of Edema: Degree of Edema: 1+ Gastrointestinal Symptoms GI Symtoms: Bloating Tube Present: NG Bowel Sounds: Recent Bowel Pattern: Stool Characteristics: Nutritional Diagnosis Nutritional Risk Acuity 1: GI Obstruction (possible GI obstruction/perforation) Nutritional Risk Acuity 2: Head/Neck/GI Cancer Nutritional Risk Acuity 3: Weight Loss, Morbid Obesity Past Medical History: Colon cancer with mets, HTN, colectomy Nutritional Acuity: 2-Moderate Nutrition Diagnosis: Altered GI Function Nutrition Etiology: Physiological Causes Nutrition Problem/Etiology/Sym: Altered GI function r/t physiological causes AEB abd pain, diarrhea, intra-abdominal air, and lack of bowel movements Adjusted Energy Requirement Re: 2600 (Adj. Callie Nielsen) Protein Requirement: 132 (1 g/kg) Fluid Requirement: 2640 (20 ml/kg) Diet Type: NPO (Nothing by Mouth) Nutrition Intervention: Incr diet as tolerated Nutrition Monitoring & Eval Nutrition Goals: Eat 75-100% Meal RD Patient Assessment Time: [address] Assessment Type: RD Assessment Patient Nutrition Acuity: 1-High Follow Up Date: Mar 09, 2017 Nutritional Comment: 03/06 Pt admitted for multiple pulmonary emboli and abd pain. Pt has dx colon Ca with mets and is currently recieveing chemo tx. Alb mildly depleted at 3.4. Pt has 2 day hx of diarrhea. Pt is NPO. Pt has 503 wt loss since May 2016. BMI cont in class 3 obestiy range. Recommend nutr support if diet is not advanced in 3 days. Cont to monitor 03/07/17 Pt continues NPO for bowel rest. Pt still experiencing pain and lack of bowel function. Surgery may be necessary for possible bowel obstruction later this afternoon, per MD. PICC line placed. I recommend TPN/nutr support if diet is not advanced in 2 days. Alb 2.4 and total pro 4.7. Will continue to monitor. GEOVANNY SALAZAR Mar 07, 2017 11:49
[2017-03-07] MEDS ORDERED: LIDOCAINE MPF 1% 5 ML VIAL ONE (14:17)
[2017-03-07] MEDS ORDERED: NS(*) 0.9% 10 ML VIAL 0 ML ONE (14:17)
[2017-03-07] MEDS: HYDROmorphone PCA 6 MG/30 ML IV PRN (15:17)
--- NOTE | 2017-03-07 16:43 | RADIOLOGY IMAGING REPORT ---
FACILITY: [facility] PATIENT NAME: Lisseth Campa : 1950 MR: [id number] V: [id number] EXAM DATE: ORDERING PHYSICIAN: LISSETH RUSH TECHNOLOGIST: Location: [facility] [place] Patient: Lisseth Campa : 1950 Visit/Account:[id number] Date of Sevice: 03/07/2017 Exam type: PICC LINE INSERTION, PICC LINE PLACEMENT History: TPN, medications Comparison: None. Findings: Informed consent was obtained. The patient's left arm was prepped and draped in usual sterile fashio n. Utilizing both sonographic and fluoroscopic guidance a 44 cm long trimmed 5 Persian double lumen p ower PICC was inserted via the patent left brachial vein with the distal tip resting in superior vena cava at the aortocaval junction. Both lumens of power PICC were flushed with 5 L of saline flush. Proximal portion of the PICC line was adhered the patient's arm the sterile dressing. The procedure was accomplished without apparent cortication. The sonographic images were saved to PACS. The fluor oscopy dose area product was 119.4 micro-Lamar per meter squared. IMPRESSION: 1. Successful placement of a 44 cm long trimmed 5 Persian double lumen power PICC inserted via the pa tent left brachial vein with the distal tip resting in superior vena cava at the aortocaval junction Report Dictated By: Kayli Berry MD at 03/07/2017 4:38 PM Report E-Signed By: Kayli Berry MD at 03/07/2017 4:40 PM WSN:[email or web address]
--- NOTE | 2017-03-07 16:44 | RADIOLOGY IMAGING REPORT ---
FACILITY: [facility] [place] PATIENT NAME: Lisseth Campa : 1950 MR: [id number] V: [id number] EXAM DATE: ORDERING PHYSICIAN: LISSETH RUSH TECHNOLOGIST: Location: [facility] [place] Patient: Lisseth Campa : 1950 Visit/Account:[id number] Date of Sevice: 03/07/2017 Exam type: PICC LINE INSERTION, PICC LINE PLACEMENT History: TPN, medications Comparison: None. Findings: Informed consent was obtained. The patient's left arm was prepped and draped in usual sterile fashio n. Utilizing both sonographic and fluoroscopic guidance a 44 cm long trimmed 5 Urdu double lumen p ower PICC was inserted via the patent left brachial vein with the distal tip resting in superior vena cava at the aortocaval junction. Both lumens of power PICC were flushed with 5 L of saline flush. Proximal portion of the PICC line was adhered the patient's arm the sterile dressing. The procedure was accomplished without apparent cortication. The sonographic images were saved to PACS. The fluor oscopy dose area product was 119.4 micro-Lamar per meter squared. IMPRESSION: 1. Successful placement of a 44 cm long trimmed 5 Urdu double lumen power PICC inserted via the pa tent left brachial vein with the distal tip resting in superior vena cava at the aortocaval junction Report Dictated By: Kayli Berry MD at 03/07/2017 4:38 PM Report E-Signed By: Kayli Berry MD at 03/07/2017 4:40 PM WSN:[email or web address]
[2017-03-07] MEDS ORDERED: HYPROMELLOSE 0.4% LUB 15ML BTL OU PRN (17:25)
[2017-03-07] MEDS ORDERED: [UNRECOGNIZED DRUG - OTHER] IV ONE (18:30)
[2017-03-07 19:45] VITALS: BP 128/88
[2017-03-07 23:23] VITALS: BP 112/58
[2017-03-08] VITALS (20 sets, daily range): BP systolic 95–157; BP diastolic 49–148
[2017-03-08] MEDS: NS(*) 0.9% 1000 ML BAG 1,000 ML IV PRN ×2 (00:24→14:33)
[2017-03-08 06:41] LABS: PLATELET COUNT, AUTOMATED 75 K/uL (150-450)
--- NOTE | 2017-03-08 07:07 | General Surgery Progress Note ---
Subjective Progress Notes Subjective Main complaint is bloody nose overnight and dry nose and throat from the dry supplemental O2. Not much abdominal pain. Physical Exam Vital Signs Date Time Temp Pulse Resp B/P (MAP) Pulse Ox O2 Delivery O2 Flow Rate FiO2 03/08/17 06:56 100.8 88 20 112/49 (70) 90 Oxy Mask 10.0 03/08/17 00:25 70.0 General Appearance: Alert, Awake, No Acute Distress, Afebrile GI: Other (Soft, mild periumbilical TTP, no peritoneal signs.) Extremities: Warm, Perfused Result Diagram: 03/08/1733 03/07/17 0527 Assessment and Plan Problems: (1) Intra-abdominal free air of unknown etiology Status: Acute Assessment & Plan: Admit, NPO, IV fluids, IV abx, bowel rest, NG tube GI decompression. Abdominal exam without peritonitis and patient is at extremely high risk for surgery due to his body habitus and currently chemotherapy, especially avastin. Will try conservative management but if he worsens, or fails to improve, on conservative therapy then will need to proceed with surgical exploration. I have explained this plan to him in detail and he is agreeable with proceeding with this plan. 03/06/17: Doing a little better although having fevers. Will continue conservative management today with bowel rest, NG tube decompression, IV fluids , and IV abx. If not clearly better by tomorrow will repeat CT scan and will consider surgical exploration tomorrow afternoon/evening. Pt agreeable with this plan. Surgery is very risky in this patient with low albumen, suppressed healing due to chemotherapy, especially avastin (last dose 1 week ago), and morbid obesity. 03/07/17: Will repeat CT abd/pelvis this morning and may need to operate later this afternoon since he continues to have pain without bowel function and recurring fevers, marginal improvement if at all. I have explained this to the patient and I have explained the dangers of surgery in him, especially with recent chemo including avastin, but we may no longer have a choice if he has a bowel perforation. Will see what CT shows and then make a decision this afternoon. Will hold heparin gtt this morning. Pt is agreeable with proceeding with surgery is necessary. 03/08/17: CT yesterday showed improvement with less free air and no organized fluid collection. Clinically he is improving. Will continue with conservative therapy, bowel rest, NG tube decompression, IV abx. TPN started yesterday. Continue anticoagulation for PEs, PPI for GI prophylaxis. (2) Multiple pulmonary emboli Status: Acute Assessment & Plan: Hospitalists consulted. Will start a Heparin gtt which can be stopped if surgery becomes necessary. Will need long-term anticoagulation after he improves with conservative management or after he recovers from surgery if necessary. Condition Stable. Time Spent: < 30 min Exam Sepsis Risk: No Definite Risk LISSETH RUSH MD Mar 08, 2017 07:07
[2017-03-08 07:08] LABS: INR 1.39
[2017-03-08] MEDS: HEPARIN* SOD/D5W 25000 U/500ML 500 ML IV SCH ×2 (07:31→21:00)
[2017-03-08] MEDS ORDERED: ERTAPENEM(*) 1 GM VIAL 1 GM in NS(*) 0.9% 100 ML BAG 100 ML IVPB SCH (09:00)
[2017-03-08] MEDS ORDERED: ERTAPENEM(*) 1 GM VIAL 1 GM in NS(*) 0.9% 100 ML ADDVANT BAG 100 ML IVPB ONE (09:00)
[2017-03-08] MEDS: PANTOPRAZOLE SOD 40 MG IV VIAL IVP SCH (09:33)
[2017-03-08] MEDS: ACETAMINOPHEN(*)1000 MG/100 ML 100 ML IVPB PRN ×2 (11:10→23:45)
[2017-03-08] MEDS: INSULIN HUM LISPRO 100 UN/ML 3 ML VIAL SUBQ PRN (12:32)
--- NOTE | 2017-03-08 12:57 | Medical Nutrition Therapy ---
Nutrition Anthropometrics Height (Inches): 71.25 Height (Calculated Centimeters: 180.709823 Weight (Pounds): 301 Weight (Calculated Kilograms): 136.758 BMI Calculated: 40.30 Nhan Nutrition Score: Adequate Nhan Nutrition Risk Score: 18 Dietary Referral Nutrition Risk Factors: Nutrition Risk Comment: Physical Findings Physical Appearance: Morbidly Obese 40+ Skin Appearance Skin Appearance: Edema Edema Location Modifier: Both Edema Location: Lower Extremity Type of Edema: Degree of Edema: 1+ Gastrointestinal Symptoms GI Symtoms: Bloating Tube Present: NG Bowel Sounds: Recent Bowel Pattern: Stool Characteristics: Nutritional Diagnosis Nutritional Risk Acuity 1: TPN/PPN, GI Obstruction (possible GI obstruction/ perforation) Nutritional Risk Acuity 2: Head/Neck/GI Cancer Nutritional Risk Acuity 3: Weight Loss, Morbid Obesity Past Medical History: Colon cancer with mets, HTN, colectomy Nutritional Acuity: 1-High Nutrition Diagnosis: Altered GI Function Nutrition Etiology: Physiological Causes Nutrition Problem/Etiology/Sym: Altered GI function r/t physiological causes AEB abd pain, diarrhea, intra-abdominal air, and lack of bowel movements Adjusted Energy Requirement Re: 2600 (Adj. Callie Nielsen) Protein Requirement: 132 (1 g/kg) Fluid Requirement: 2640 (20 ml/kg) Diet Type: NPO (Nothing by Mouth), TPN/PPN Nutrition Intervention: Incr diet as tolerated Nutritional Support Current Enteral / Parental: TPN Current Tube Feeding Formula C: 75ml/hr+lipids Current Duration: 24 Current Calories: 1836 Current Protein: 76 Current Lipids Calories: 275 Total Current Calories: 2111 Recommended Enteral / Parental: TPN Recommended Tube Feeding Formu: 100ml/hr + lipids Recommended Duration: 24 Recommended Calories: 2448 Recommended Protein: 101 Recommended Lipids Calories: 275 Total Recommended Calories: 2723 Nutrition Monitoring & Eval RD Patient Assessment Time: [address] Assessment Type: RD Assessment Patient Nutrition Acuity: 1-High Follow Up Date: Mar 10, 2017 Nutritional Comment: 03/06 Pt admitted for multiple pulmonary emboli and abd pain. Pt has dx colon Ca with mets and is currently recieveing chemo tx. Alb mildly depleted at 3.4. Pt has 2 day hx of diarrhea. Pt is NPO. Pt has 50# wt loss since May 2016. BMI cont in class 3 obestiy range. Recommend nutr support if diet is not advanced in 3 days. Cont to monitor 03/07/17 Pt continues NPO for bowel rest. Pt still experiencing pain and lack of bowel function. Surgery may be necessary for possible bowel obstruction later this afternoon, per MD. PICC line placed. I recommend TPN/nutr support if diet is not advanced in 2 days. Alb 2.4 and total pro 4.7. Will continue to monitor. 03/08 Pt stated on TPN and is now 75ml/hr plus lipids meeting 82% est kcal and 62% est protein needs. Recommend increase TPN to 100ml/hr plus lipids to meet 105% est kcal and 83% est protein needs. Alb declined to 2.4. BG elevated up to 152. Will cont to monitor. SARAH PAN Mar 08, 2017 12:57
--- NOTE | 2017-03-08 13:11 | Hospitalist Progress Note ---
Subjective Progress Notes Subjective The patient developed a bloody nose earlier. This was packed by nursing staff and he is no longer bleeding. Physical Exam Vital Signs Date Time Temp Pulse Resp B/P (MAP) Pulse Ox O2 Delivery O2 Flow Rate FiO2 03/08/17 12:15 98.9 03/08/17 11:43 20 93 03/08/17 11:04 79 123/62 (82) Bi-PAP 70.0 03/08/17 08:14 10.0 Intake and Output 03/09/17 07:00 Intake Total 200 ml Output Total 100 ml Balance 100 ml Intake Oral 0 ml IV Total 200 ml Gastric Drainage Total 100 ml General Appearance: Alert, Awake, No Acute Distress, Afebrile Neuro: No Gross deficits Eyes: PERRLA Cardiovascular: Regular Rate and Rhythm Respiratory: Clear to Auscultation GI: Soft and Non-Tender Extremities: Warm, Perfused Integumentary: Other (Both LE with wounds laterally which are bandaged. Both have a small amount of drainage visible.) Psych: Alert & Oriented X3, Appropriate Mood & Affect Result Diagram: 03/08/1763203/08/17632 Assessment and Plan Problems: (1) Multiple pulmonary emboli Status: Acute Assessment & Plan: His CT scan did show bilateral pulmonary emboli. We are currently treating him with a heparin infusion and are making dose adjustments based on Anti-factor Xa levels. We are keeping him at the lower end of the therapeutic range due to low platelet count and and nose bleed. 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 Multiple metastases. Treatment through the [facility] in progress. (3) Venous stasis ulcer Status: Chronic Assessment & Plan: Both lower legs. PT wound care treating. Time Spent on Plan of Care: < 30 min Exam Sepsis Risk: No Definite Risk IRLANDA BASILIO MD Mar 08, 2017 13:11
[2017-03-08] MEDS: FAT EMULSION 20% 250 ML BAG 250 ML IVPB SCH (15:34)
[2017-03-08] MEDS: [UNRECOGNIZED DRUG - OTHER] IV SCH (18:10)
[2017-03-08] MEDS ORDERED: DILTIAZEM 5 MG/ML 5ML IVPUSH IVP ONE (19:25)
[2017-03-08] MEDS ORDERED: DILTIAZEM 5 MG/ML 5ML IVPUSH ONE (19:28)
[2017-03-08] MEDS: MIDAZOLAM 2 MG/2 ML VIAL IVP PRN ×4 (19:45→19:56)
[2017-03-08] MEDS ORDERED: MIDAZOLAM 2 MG/2 ML VIAL ONE ×2 (19:48→19:58)
[2017-03-08] MEDS: DILTIAZEM HCL* 100 MG ADDVIAL 100 MG in NS(*) 0.9% 100 ML ADDVANT BAG 100 ML IVPB SCH (20:15)
[2017-03-08] MEDS ORDERED: NS(*) 0.9% 500 ML BAG 500 ML ONE (20:24)
[2017-03-08] MEDS ORDERED: DIGOXIN 0.5 MG/2 ML AMP ONE (20:35)
[2017-03-08] MEDS ORDERED: FUROSEMIDE 20 MG/2 ML VIAL IVP ONE (20:45)
--- NOTE | 2017-03-08 20:51 | Procedure Note ---
Cardioversion Procedure Note Consent Signed: No Initial Heart Rhythm: A-Fib Prior Anticoagulation: Heparin Duration of Anitcoag in Days: 3 Procedure: Emergent cardioversion Patch Placement: Anterior/Posterior First Attempt - Jowles: 50 Heart Rhythm Following First A: Atrial Fibrillation Second Attempt - Jowles: 100 Heart Rhythm Following Second: Normal Sinus Rhythm (But converted back to a fib within one minute.) Third Attempt - Jowles: 100 Heart Rhythm Following Third A: Normal Sinus Rhythm (But converted back to a fib within one minute.) Patient Tolerated Procedure: Fair (But did not convert to sinus rhythm.) Comment The patient developed acute atrial fibrillation with rates over 200 bpm. He initially was asymptomatic but then developed shortness of breath with increased RR to 40s and chest pressure. He was given a total Cardizem bolus of 20mg without significant change in rate. He was transferred to ICU and given Versed 4mg. He was initially shocked with 50j without change in rhythm. He was then given Versed 2mg once again and repeat shock was administered with 100j. He converted to sinus rhythm for about one minute and then converted back into a fib with rate in 170s to 200 bpm. He was shocked once again with 100j without change in rhythm. He was given a fourth shock at 150j. He once again converted to sinus rhythm briefly and the went back into a fib with RVR. No further attempts were made to cardiovert the patient. IRLANDA BASILIO MD Mar 08, 2017 20:50
[2017-03-08] MEDS ORDERED: DIGOXIN 0.5 MG/2 ML AMP IVP ONE (20:55)
--- NOTE | 2017-03-08 22:55 | Miscellaneous Provider Note ---
Miscellaneous Provider Note Note Called to see the patient who had developed a fib with RVR. Initially the patient was asymptomatic but heart rate was in the 200s at times. Given 20mg total bolus of Cardizem without any significant change in heart rate. Became symptomatic with chest pressure and shortness of breath. Respiratory rate jumped to the 40s. Emergently transferred to ICU and attempted cardioversion. 50 joules X 1 with no change in rhythm. 100 joules resulted in conversion to NSR for about one minute and then reverted back to a fib. Repeat 100 joules without change in rhythm. Repeat 150 joules once again resulted in NSR for about one minute and the the patient went back into a fib with RVR. Cardizem gtt started at 15mg/hr. Digoxin 8mcg/kg dose calculated. Half dose (500mcg) given with some improvement in rate to 130s. Plan to give 250mcg in 4 hours after initial dose if he remains in 120s or above. Initial troponin elevated at 0.1. Will repeat after 4 hours. Likely had troponin leak with his a fib with RVR. Currently asymptomatic. No chest pain. Remains in ICU. Will monitor closely. On heparin gtt. Consider switching to beta evie if it appears he has had NSTEMI rather than just troponin leak. IRLANDA BASLIIO MD Mar 08, 2017 22:55
--- NOTE | 2017-03-08 23:27 | EKG ---
FACILITY: PATIENT NAME: LISSETH PULIDO : [id number] MR: [id number] V: [id number] EXAM DATE: ORDERING PHYSICIAN: IRLANDA BASILIO TECHNOLOGIST: NOHEMY Test Reason : A FIB Blood Pressure : / mmHG Vent. Rate : 173 BPM Atrial Rate : 173 BPM P-R Int : 000 ms QRS Dur : 092 ms QT Int : 266 ms P-R-T Axes : 000 038 257 degrees QTc Int : 451 ms Supraventricular tachycardia, most likely atrial fibrillation with rapid ventricular response Marked ST abnormality, possible inferior subendocardial injury Abnormal ECG When compared with ECG of 05-MAR-2017 14:17, premature supraventricular complexes are now present Vent. rate has increased BY [address] now depressed in Inferior leads ST now depressed in Anterolateral leads Nonspecific T wave abnormality now evident in Lateral leads Confirmed by IRLANDA SOTO ([id number]) on 03/09/2017 6:20:16 AM Referred By: Confirmed By:IRLANDA SOTO
[2017-03-09] VITALS (46 sets, daily range): BP systolic 83–142; BP diastolic 48–90
[2017-03-09] MEDS ORDERED: DIGOXIN 0.5 MG/2 ML AMP IVP ONE (00:50)
[2017-03-09] MEDS: DILTIAZEM HCL* 100 MG ADDVIAL 100 MG in NS(*) 0.9% 100 ML ADDVANT BAG 100 ML IVPB SCH (02:24)
[2017-03-09 05:52] LABS: PLATELET COUNT, AUTOMATED 69 K/uL (150-450)
[2017-03-09] MEDS ORDERED: NS 0.9% IVPB SCH ×3 (06:15→23:59)
[2017-03-09] MEDS ORDERED: IVP IVPB SCH ×2 (06:15→11:00)
[2017-03-09] MEDS ORDERED: DILTIAZEM IVPB SCH ×2 (06:15→11:00)
--- NOTE | 2017-03-09 06:48 | EKG ---
FACILITY: PATIENT NAME: LISSETH PULIDO : [id number] MR: [id number] V: [id number] EXAM DATE: ORDERING PHYSICIAN: IRLANDA BASILIO TECHNOLOGIST: Test Reason : Blood Pressure : / mmHG Vent. Rate : 141 BPM Atrial Rate : 113 BPM P-R Int : 000 ms QRS Dur : 100 ms QT Int : 278 ms P-R-T Axes : 000 037 221 degrees QTc Int : 425 ms Atrial fibrillation with premature ventricular or aberrantly conducted complexes Low voltage QRS Abnormal ECG When compared with ECG of 09-MAR-2017 06:29, Previous ECG has undetermined rhythm, needs review Confirmed by IRLANDA SOTO ([id number]) on 03/09/2017 6:49:34 AM Referred By: Confirmed By:IRLANDA SOTO
--- NOTE | 2017-03-09 07:17 | RADIOLOGY IMAGING REPORT ---
FACILITY: [facility] [place] PATIENT NAME: Gold Campa : 1950 MR: [id number] V: [id number] EXAM DATE: ORDERING PHYSICIAN: IRLANDA BASILIO TECHNOLOGIST: Location: [facility] [place] Patient: Gold Campa : 1950 Visit/Account:[id number] Date of Sevice: 03/09/2017 CHEST SINGLE AP COMPARISONS: Single view chest dated March 07, 2017 ADDITIONAL PERTINENT HISTORY: History of PE. FINDINGS: Life-support: Right internal jugular venous port with its tip in the distal SVC. NG tube coursing off the field of view into the abdomen. Cardiomediastinal silhouette: Negative. Pulmonary vasculature: Negative. Lung degroot: Strandy opacity at the right lung base. This likely represents atelectatic change. Pleural spaces: Negative. Osseous structures: Negative. Surrounding soft tissues: Negative. IMPRESSION: 1. No significant change since previous exam with stable life support and mild right basilar atelecta tic change. Report Dictated By: Yunior Castro MD at 03/09/2017 7:11 AM Report E-Signed By: Yunior Castro MD at 03/09/2017 7:14 AM [id number]
--- NOTE | 2017-03-09 07:37 | General Surgery Progress Note ---
Subjective Progress Notes Subjective Went into A-fib with RVR last night, now in ICU on Diltiazem gtt after several attempts at electrocardioversion failed. No complaints currently. Passed some flatus yesterday, not today. Had chest pain earlier, not currently. He reports his abdominal pain is improved. Physical Exam Vital Signs Date Time Temp Pulse Resp B/P (MAP) Pulse Ox O2 Delivery O2 Flow Rate FiO2 03/09/17 06:10 70.0 03/09/17 06:08 129 03/09/17 06:08 16 92 03/09/17 06:00 100.6 123/77 (92) Bi-PAP 03/09/17 03:00 10.0 General Appearance: Alert, Awake, No Acute Distress, Afebrile GI: Other (Soft, mild periumbilical TTP, no peritonitis) Extremities: Warm, Perfused Result Diagram: 03/09/1751703/09/17517 Assessment and Plan Problems: (1) Intra-abdominal free air of unknown etiology Status: Acute Assessment & Plan: Admit, NPO, IV fluids, IV abx, bowel rest, NG tube GI decompression. Abdominal exam without peritonitis and patient is at extremely high risk for surgery due to his body habitus and currently chemotherapy, especially avastin. Will try conservative management but if he worsens, or fails to improve, on conservative therapy then will need to proceed with surgical exploration. I have explained this plan to him in detail and he is agreeable with proceeding with this plan. 03/06/17: Doing a little better although having fevers. Will continue conservative management today with bowel rest, NG tube decompression, IV fluids , and IV abx. If not clearly better by tomorrow will repeat CT scan and will consider surgical exploration tomorrow afternoon/evening. Pt agreeable with this plan. Surgery is very risky in this patient with low albumen, suppressed healing due to chemotherapy, especially avastin (last dose 1 week ago), and morbid obesity. 03/07/17: Will repeat CT abd/pelvis this morning and may need to operate later this afternoon since he continues to have pain without bowel function and recurring fevers, marginal improvement if at all. I have explained this to the patient and I have explained the dangers of surgery in him, especially with recent chemo including avastin, but we may no longer have a choice if he has a bowel perforation. Will see what CT shows and then make a decision this afternoon. Will hold heparin gtt this morning. Pt is agreeable with proceeding with surgery is necessary. 03/08/17: CT yesterday showed improvement with less free air and no organized fluid collection. Clinically he is improving. Will continue with conservative therapy, bowel rest, NG tube decompression, IV abx. TPN started yesterday. Continue anticoagulation for PEs, PPI for GI prophylaxis. 03/09/17: Developed a-fib, now in ICU for diltiazem gtt. Abdomen exam remains benign. Will work on cardiac rate control. Continue bowel rest, NG tube decompression, IV abx. Continue TPN. Continue anticoagulation for PEs. Continue PPI for GI prophylaxis. (2) Multiple pulmonary emboli Status: Acute Assessment & Plan: Hospitalists consulted. Will start a Heparin gtt which can be stopped if surgery becomes necessary. Will need long-term anticoagulation after he improves with conservative management or after he recovers from surgery if necessary. Condition Stable. Time Spent: < 30 min Exam Sepsis Risk: No Definite Risk LISSETH RUSH MD Mar 09, 2017 07:37
[2017-03-09] MEDS: [UNRECOGNIZED DRUG - OTHER] IV SCH ×2 (08:08→21:57)
[2017-03-09] MEDS ORDERED: KCL (*) 20 MEQ/100 ML PREMIX 100 ML IV ONE (08:50)
--- NOTE | 2017-03-09 08:59 | Hospitalist Progress Note ---
Subjective Progress Notes Subjective He reports feeling "a little better" than yesterday. He still has some dyspnea, but improved. He states abdominal symptoms slightly better. We had discussion regarding end-of-life decisions. Physical Exam Vital Signs Date Time Temp Pulse Resp B/P (MAP) Pulse Ox O2 Delivery O2 Flow Rate FiO2 03/09/17 07:58 60.0 03/09/17 07:48 95 Bi-PAP 10.0 03/09/17 07:44 149 03/09/17 07:30 100.3 24 99/69 (79) Intake and Output 03/10/17 07:00 Intake Total 1000 ml Balance 1000 ml IV Total 1000 ml General Appearance: Alert, Awake Neuro: No Gross deficits ENT: Other (BiPAP mask on) Cardiovascular: Other (Tachycardic irregular distant tones) Respiratory: Other (diminished breath sounds at bases/no wheezes/scattered rhonchi) Chest: Other (port right upper chest) GI: Other (distended/obese/rare BS) Extremities: Warm, Perfused, Edema Integumentary: Other (ulcers both anterior tibial areas covered with dressing) Result Diagram: 03/09/1751703/09/17517 Assessment and Plan Problems: (1) Multiple pulmonary emboli Status: Acute Assessment & Plan: His CT scan did show bilateral pulmonary emboli - most likely related to his cancer and/or the Avastin. We are currently treating him with a heparin infusion and are making dose adjustments based on Anti-factor Xa levels. We are keeping him at the lower end of the therapeutic range due to low platelet count and and recurring nose bleeds. 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 Multiple metastases. Treatment through the [facility] has been FOLFOX and Avastin. He may have had bowel perforation related to the Avastin as well. We will broaden antibiotic coverage for both abdomen and ulcers/extremities. I discussed end-of-life decisions with Gold. He has decided he does not want to be intubated/mechanically ventilated, but would like an attempt at CPR if needed. We will abide by his decisions. (3) Venous stasis ulcer Status: Chronic Assessment & Plan: Both lower legs. PT wound care treating. Will broaden antibiotic coverage to make sure we have previous pathogens covered. Exam Sepsis Risk: Sepsis Risk VINCENZO BASILIO MD Mar 09, 2017 08:59
[2017-03-09] MEDS ORDERED: ERTAPENEM(*) 1 GM VIAL 1 GM in NS(*) 0.9% 100 ML BAG 100 ML IVPB SCH (09:00)
[2017-03-09] MEDS ORDERED: NS 0.9% IVPB ONE ×2 (09:15→12:00)
[2017-03-09] MEDS ORDERED: VANCOMYCIN IVPB ONE ×2 (09:15→12:00)
[2017-03-09] MEDS: PANTOPRAZOLE SOD 40 MG IV VIAL IVP SCH (09:24)
[2017-03-09] MEDS: DIGOXIN 0.5 MG/2 ML AMP IVP SCH (09:24)
[2017-03-09] MEDS: NS 0.9% IVPB SCH ×4 (10:17→23:13)
[2017-03-09] MEDS: IMIPENEM IVPB SCH ×2 (10:17→17:16)
[2017-03-09] MEDS: CILASTA IVPB SCH ×2 (10:17→17:16)
[2017-03-09] MEDS: DILTIAZEM IVPB SCH ×2 (11:29→23:13)
[2017-03-09] MEDS: IVP IVPB SCH ×2 (11:29→23:13)
[2017-03-09] MEDS: ACETAMINOPHEN(*)1000 MG/100 ML 100 ML IVPB PRN (12:02)
[2017-03-09] MEDS: INSULIN HUM LISPRO 100 UN/ML 3 ML VIAL SUBQ PRN ×2 (12:35→18:07)
[2017-03-09] MEDS: FAT EMULSION 20% 250 ML BAG 250 ML IVPB SCH (16:05)
[2017-03-09] MEDS: HEPARIN* SOD/D5W 25000 U/500ML 500 ML IV SCH (16:16)
[2017-03-09] MEDS: NS(*) 0.9% 1000 ML BAG 1,000 ML IV PRN (18:42)
[2017-03-09] MEDS: LEVALBUTEROL 1.25 MG/3 ML NEB NEB PRN (20:32)
[2017-03-09] MEDS ORDERED: VANCOMYCIN(*) 1 GM VIAL 2 GM in NS(*) 0.9% 250 ML BAG 250 ML IVPB SCH (22:00)
[2017-03-09] MEDS ORDERED: ADDVIAL IVPB SCH (23:59)
[2017-03-09] MEDS ORDERED: DILTIAZEM HCL IVPB SCH (23:59)
[2017-03-10] VITALS (48 sets, daily range): BP systolic 98–154; BP diastolic 46–83
[2017-03-10] MEDS: VANCOMYCIN(*) 1 GM VIAL 2 GM in NS(*) 0.9% 250 ML BAG 250 ML IVPB SCH ×3 (00:13→23:33)
[2017-03-10] MEDS: IMIPENEM IVPB SCH ×3 (01:05→16:17)
[2017-03-10] MEDS: CILASTA IVPB SCH ×3 (01:05→16:17)
[2017-03-10] MEDS: NS 0.9% IVPB SCH ×5 (01:05→19:25)
[2017-03-10 05:25] LABS: PLATELET COUNT, AUTOMATED 79 K/uL (150-450)
[2017-03-10] MEDS: INSULIN HUM LISPRO 100 UN/ML 3 ML VIAL SUBQ PRN ×4 (06:20→23:33)
[2017-03-10] MEDS: DIGOXIN 0.5 MG/2 ML AMP IVP SCH (08:30)
[2017-03-10] MEDS: PANTOPRAZOLE SOD 40 MG IV VIAL IVP SCH (08:30)
[2017-03-10] MEDS: IVP IVPB SCH ×2 (08:58→19:25)
[2017-03-10] MEDS: DILTIAZEM IVPB SCH ×2 (08:58→19:25)
--- NOTE | 2017-03-10 09:23 | Hospitalist Progress Note ---
Subjective Progress Notes Subjective This patient was admitted for possible bowel perforation. He has not required surgery. He has required BiPAP overnight. Patient Complains of: Cardiovascular: No: Chest Pain Respiratory: No: Shortness of Breath Physical Exam Vital Signs Date Time Temp Pulse Resp B/P (MAP) Pulse Ox O2 Delivery O2 Flow Rate FiO2 03/10/17 09:09 93 Bi-PAP 50.0 03/10/17 08:15 93 03/10/17 08:00 30 124/71 (88) 03/10/17 07:00 98.4 03/10/17 04:38 10.0 Intake and Output 03/11/17 07:00 Intake Total 53 ml Output Total 120 ml Balance -67 ml IV Total 53 ml Output Urine Total 120 ml Neuro: No Gross deficits Cardiovascular: Regular Rate and Rhythm Respiratory: Other (Bilateral breath sounds present.) Extremities: Edema Integumentary: No Cyanosis Result Diagram: 03/10/175 03/10/17444 Assessment and Plan Problems: (1) Multiple pulmonary emboli Status: Acute Assessment & Plan: His CT scan did show bilateral pulmonary emboli - most likely related to his cancer and/or the Avastin. We are currently treating him with a heparin infusion and are making dose adjustments based on Anti-factor Xa levels. We are keeping him at the lower end of the therapeutic range due to low platelet count and and recurring nose bleeds. 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 Multiple metastases. Treatment through the [facility] has been FOLFOX and Avastin. He may have had bowel perforation related to the Avastin as well. We will broaden antibiotic coverage for both abdomen and ulcers/extremities. We discussed end-of-life decisions with Lisseth. He has decided he does not want to be intubated/mechanically ventilated, but would like an attempt at CPR if needed. (3) Venous stasis ulcer Status: Chronic Assessment & Plan: He is receiving wound care from physical therapy. Exam Sepsis Risk: Severe Sepsis Risk LISSETH LENZ DO Mar 10, 2017 09:23
[2017-03-10] MEDS: LEVALBUTEROL 1.25 MG/3 ML NEB NEB PRN ×2 (09:56→16:29)
--- NOTE | 2017-03-10 11:06 | General Surgery Progress Note ---
Subjective Progress Notes Subjective He states that he feels much better than yesterday. Small amount of abdominal pain but improved. Wants to know when he can eat. Physical Exam Vital Signs Date Time Temp Pulse Resp B/P (MAP) Pulse Ox O2 Delivery O2 Flow Rate FiO2 03/10/17 10:09 114 40 03/10/17 09:58 92 Oxy Mask 8.0 03/10/17 09:30 136/71 (92) 50.0 03/10/17 07:00 98.4 Intake and Output 03/11/17 07:00 Intake Total 328 ml Output Total 270 ml Balance 58 ml IV Total 328 ml Output Urine Total 270 ml General Appearance: Alert, Awake, Other (mild distress due to dyspnea and abdominal pain) Neuro: No Gross deficits Eyes: PERRLA ENT: Normal Respiratory: Other (mild labored breathing, markedly improved) GI: Other (soft, tender preominantly on the right side but improved) Result Diagram: 03/10/1744403/10/17444 Assessment and Plan Problems: (1) Intra-abdominal free air of unknown etiology Status: Acute Assessment & Plan: Admit, NPO, IV fluids, IV abx, bowel rest, NG tube GI decompression. Abdominal exam without peritonitis and patient is at extremely high risk for surgery due to his body habitus and currently chemotherapy, especially avastin. Will try conservative management but if he worsens, or fails to improve, on conservative therapy then will need to proceed with surgical exploration. I have explained this plan to him in detail and he is agreeable with proceeding with this plan. 03/06/17: Doing a little better although having fevers. Will continue conservative management today with bowel rest, NG tube decompression, IV fluids , and IV abx. If not clearly better by tomorrow will repeat CT scan and will consider surgical exploration tomorrow afternoon/evening. Pt agreeable with this plan. Surgery is very risky in this patient with low albumen, suppressed healing due to chemotherapy, especially avastin (last dose 1 week ago), and morbid obesity. 03/07/17: Will repeat CT abd/pelvis this morning and may need to operate later this afternoon since he continues to have pain without bowel function and recurring fevers, marginal improvement if at all. I have explained this to the patient and I have explained the dangers of surgery in him, especially with recent chemo including avastin, but we may no longer have a choice if he has a bowel perforation. Will see what CT shows and then make a decision this afternoon. Will hold heparin gtt this morning. Pt is agreeable with proceeding with surgery is necessary. 03/08/17: CT yesterday showed improvement with less free air and no organized fluid collection. Clinically he is improving. Will continue with conservative therapy, bowel rest, NG tube decompression, IV abx. TPN started yesterday. Continue anticoagulation for PEs, PPI for GI prophylaxis. 03/09/17: Developed a-fib, now in ICU for diltiazem gtt. Abdomen exam remains benign. Will work on cardiac rate control. Continue bowel rest, NG tube decompression, IV abx. Continue TPN. Continue anticoagulation for PEs. Continue PPI for GI prophylaxis. 03/10/17: Looks much improved today. More alert, off BiPap, afebrile overnight with change of antibiotics. I discussed with him that should he reach a point where surgery is indicated, I would recommend transfer to a higher level facility to which he agreed. However, given his improvement since yesterday, I feel it is reasonable to continue care for him here for now. I will check a Mg and Phos today. Continue the NGT until he is passing flatus. (2) Multiple pulmonary emboli Status: Acute Assessment & Plan: Hospitalists consulted. Will start a Heparin gtt which can be stopped if surgery becomes necessary. Will need long-term anticoagulation after he improves with conservative management or after he recovers from surgery if necessary. Exam Sepsis Risk: Severe Sepsis Risk LARRY NATARAJAN MD Mar 10, 2017 11:06
[2017-03-10] MEDS: [UNRECOGNIZED DRUG - OTHER] IV SCH (11:44)
[2017-03-10] MEDS: HEPARIN* SOD/D5W 25000 U/500ML 500 ML IV SCH (12:44)
--- NOTE | 2017-03-10 13:38 | Medical Nutrition Therapy ---
Nutrition Anthropometrics Height (Inches): 71.25 Height (Calculated Centimeters: [phone] Weight (Pounds): 298 Weight (Calculated Kilograms): 135.227 BMI Calculated: 40.30 Nhan Nutrition Score: Probably Inadequate Nhan Nutrition Risk Score: 12 Dietary Referral Nutrition Risk Factors: Nutrition Risk Comment: Physical Findings Physical Appearance: Morbidly Obese 40+ Skin Appearance Skin Appearance: Edema Edema Location Modifier: Both Edema Location: Lower Extremity Type of Edema: Degree of Edema: 1+ Gastrointestinal Symptoms GI Symtoms: Bloating Tube Present: NG Bowel Sounds: Recent Bowel Pattern: Stool Characteristics: Nutritional Diagnosis Nutritional Risk Acuity 1: TPN/PPN, GI Obstruction (possible GI obstruction/ perforation) Nutritional Risk Acuity 2: Head/Neck/GI Cancer Nutritional Risk Acuity 3: Weight Loss, Morbid Obesity Past Medical History: Colon cancer with mets, HTN, colectomy Nutritional Acuity: 1-High Nutrition Diagnosis: Altered GI Function Nutrition Etiology: Physiological Causes Nutrition Problem/Etiology/Sym: Altered GI function r/t physiological causes AEB abd pain, diarrhea, intra-abdominal air, and lack of bowel movements Adjusted Energy Requirement Re: 2600 (Adj. Callie Nielsen) Protein Requirement: 132 (1 g/kg) Fluid Requirement: 2640 (20 ml/kg) Diet Type: NPO (Nothing by Mouth), TPN/PPN Nutrition Intervention: Incr diet as tolerated Nutritional Support Current Enteral / Parental: TPN Current Tube Feeding Formula C: 75ml/hr+lipids Current Duration: 24 Current Calories: 1836 Current Protein: 76 Current Lipids Calories: 275 Total Current Calories: 2111 Recommended Enteral / Parental: TPN Recommended Tube Feeding Formu: 100ml/hr + lipids Recommended Duration: 24 Recommended Calories: 2448 Recommended Protein: 101 Recommended Lipids Calories: 275 Total Recommended Calories: 2723 Nutrition Monitoring & Eval RD Patient Assessment Time: [address] Assessment Type: RD Re-Assessment Patient Nutrition Acuity: 1-High Follow Up Date: Mar 13, 2017 Nutritional Comment: 03/06 Pt admitted for multiple pulmonary emboli and abd pain. Pt has dx colon Ca with mets and is currently recieveing chemo tx. Alb mildly depleted at 3.4. Pt has 2 day hx of diarrhea. Pt is NPO. Pt has 50# wt loss since May 2016. BMI cont in class 3 obestiy range. Recommend nutr support if diet is not advanced in 3 days. Cont to monitor 03/07/17 Pt continues NPO for bowel rest. Pt still experiencing pain and lack of bowel function. Surgery may be necessary for possible bowel obstruction later this afternoon, per MD. PICC line placed. I recommend TPN/nutr support if diet is not advanced in 2 days. Alb 2.4 and total pro 4.7. Will continue to monitor. 03/08 Pt stated on TPN and is now 75ml/hr plus lipids meeting 82% est kcal and 62% est protein needs. Recommend increase TPN to 100ml/hr plus lipids to meet 105% est kcal and 83% est protein needs. Alb declined to 2.4. BG elevated up to 152. Will cont to monitor. 03/10 Continues with TPN @ 75mL/hr and Intralipid 20% 250mL bag/day. Low H/H, Glu 190, Alb 2.4, Low phosphours, Ca+. Lispo SSI. May begin PO intake after pt passes flatus. Follow for diet progression, etc. ALYCE EUGENE Mar 10, 2017 13:38
[2017-03-10] MEDS: FAT EMULSION 20% 250 ML BAG 250 ML IVPB SCH (16:15)
[2017-03-10] MEDS ORDERED: POTASSIUM PHOS IVPB ONE (17:25)
[2017-03-10] MEDS ORDERED: NS 0.9% IVPB ONE (17:25)
[2017-03-11] VITALS (48 sets, daily range): BP systolic 107–150; BP diastolic 52–82
[2017-03-11] MEDS: LEVALBUTEROL 1.25 MG/3 ML NEB NEB PRN ×4 (00:12→21:03)
[2017-03-11] MEDS: NS 0.9% IVPB SCH ×6 (01:09→23:00)
[2017-03-11] MEDS: [UNRECOGNIZED DRUG - OTHER] IV SCH ×2 (01:09→15:06)
[2017-03-11] MEDS: IMIPENEM IVPB SCH ×3 (01:09→16:30)
[2017-03-11] MEDS: CILASTA IVPB SCH ×3 (01:09→16:30)
[2017-03-11 05:40] LABS: PLATELET COUNT, AUTOMATED 102 K/uL (150-450)
[2017-03-11] MEDS: IVP IVPB SCH ×3 (05:46→23:00)
[2017-03-11] MEDS: DILTIAZEM IVPB SCH ×3 (05:46→23:00)
[2017-03-11] MEDS: INSULIN HUM LISPRO 100 UN/ML 3 ML VIAL SUBQ PRN ×4 (05:57→23:30)
[2017-03-11] MEDS: HEPARIN* SOD/D5W 25000 U/500ML 500 ML IV SCH (07:18)
[2017-03-11] MEDS: DIGOXIN 0.5 MG/2 ML AMP IVP SCH (08:56)
[2017-03-11] MEDS: PANTOPRAZOLE SOD 40 MG IV VIAL IVP SCH (08:56)
--- NOTE | 2017-03-11 08:58 | General Surgery Progress Note ---
Subjective Progress Notes Subjective Feels incrementally better today. Still with some abdominal pain but improved. No flatus. Slept well. Physical Exam Vital Signs Date Time Temp Pulse Resp B/P (MAP) Pulse Ox O2 Delivery O2 Flow Rate FiO2 03/11/17 07:51 90 03/11/17 07:51 30 90 03/11/17 07:30 98.6 135/82 (99) Oxy Mask 11.0 03/11/17 05:54 50.0 Intake and Output 03/12/17 07:00 Output Total 150 ml Balance -150 ml Output Urine Total 150 ml General Appearance: Alert, Awake, No Acute Distress Neuro: No Gross deficits Eyes: PERRLA Cardiovascular: Normal Rhythm & Peripheral Pulses Respiratory: No Respiratory Distress GI: Other (soft, tenderness remains in right abdomen unchanged from 03/10) Extremities: Other (no indication for debridement of leg wounds per PT/Wound Care) Psych: Alert & Oriented X3, Appropriate Mood & Affect Result Diagram: 03/11/1751303/11/17513 Item Value Date Time Phosphorus Level 2.5 mg/dl 03/11/17513 Magnesium Level 2.0 mg/dl 03/11/17513 Phosphorus Level 1.9 mg/dl L 03/10/17444 Magnesium Level 2.1 mg/dl 03/10/17444 White Blood Count 4.2 k/uL L 03/11/17513 White Blood Count 3.3 k/uL L 03/10/17444 Hematocrit 26.9 % *L 03/11/17513 Hematocrit 27.7 % L 03/10/175 Platelet Count 102 K/uL L 03/11/17513 Platelet Count 79 K/uL L 03/10/175 Assessment and Plan Problems: (1) Intra-abdominal free air of unknown etiology Status: Acute Assessment & Plan: Admit, NPO, IV fluids, IV abx, bowel rest, NG tube GI decompression. Abdominal exam without peritonitis and patient is at extremely high risk for surgery due to his body habitus and currently chemotherapy, especially avastin. Will try conservative management but if he worsens, or fails to improve, on conservative therapy then will need to proceed with surgical exploration. I have explained this plan to him in detail and he is agreeable with proceeding with this plan. 03/06/17: Doing a little better although having fevers. Will continue conservative management today with bowel rest, NG tube decompression, IV fluids , and IV abx. If not clearly better by tomorrow will repeat CT scan and will consider surgical exploration tomorrow afternoon/evening. Pt agreeable with this plan. Surgery is very risky in this patient with low albumen, suppressed healing due to chemotherapy, especially avastin (last dose 1 week ago), and morbid obesity. 03/07/17: Will repeat CT abd/pelvis this morning and may need to operate later this afternoon since he continues to have pain without bowel function and recurring fevers, marginal improvement if at all. I have explained this to the patient and I have explained the dangers of surgery in him, especially with recent chemo including avastin, but we may no longer have a choice if he has a bowel perforation. Will see what CT shows and then make a decision this afternoon. Will hold heparin gtt this morning. Pt is agreeable with proceeding with surgery is necessary. 03/08/17: CT yesterday showed improvement with less free air and no organized fluid collection. Clinically he is improving. Will continue with conservative therapy, bowel rest, NG tube decompression, IV abx. TPN started yesterday. Continue anticoagulation for PEs, PPI for GI prophylaxis. 03/09/17: Developed a-fib, now in ICU for diltiazem gtt. Abdomen exam remains benign. Will work on cardiac rate control. Continue bowel rest, NG tube decompression, IV abx. Continue TPN. Continue anticoagulation for PEs. Continue PPI for GI prophylaxis. 03/10/17: Looks much improved today. More alert, off BiPap, afebrile overnight with change of antibiotics. I discussed with him that should he reach a point where surgery is indicated, I would recommend transfer to a higher level facility to which he agreed. However, given his improvement since yesterday, I feel it is reasonable to continue care for him here for now. I will check a Mg and Phos today. Continue the NGT until he is passing flatus. 03/11/17: Continued improvement. Labs indicate recovery of marrow function. Afebrile since change in Abx regimen 2 days ago. Continue this course. Awaiting return of bowel function and will leave NGT in place until that time. Expect that it will be at least another day or two. His hypophosphotemia persists but responded appropriately to replacement yesterday. I will defer to IM in regards to ongoing replacement. Continue TPN with same formulation. Will plan to get him up to a chair today. (2) Multiple pulmonary emboli Status: Acute Assessment & Plan: Hospitalists consulted. Will start a Heparin gtt which can be stopped if surgery becomes necessary. Will need long-term anticoagulation after he improves with conservative management or after he recovers from surgery if necessary. Time Spent: < 30 min Exam Sepsis Risk: No Definite Risk LARRY NATARAJAN MD Mar 11, 2017 08:58
[2017-03-11] MEDS: VANCOMYCIN(*) 1 GM VIAL 1 GM, VANCOMYCIN (*) 0.5 GM VIAL 0.5 GM in NS(*) 0.9% 250 ML BA... IVPB SCH ×2 (12:09→23:31)
[2017-03-11] MEDS ORDERED: NS(*) 0.9% 500 ML BAG 500 ML ONE (14:10)
[2017-03-11] MEDS: FAT EMULSION 20% 250 ML BAG 250 ML IVPB SCH (16:30)
[2017-03-11] MEDS: HYDROmorphone PCA 6 MG/30 ML IV PRN (18:18)
--- NOTE | 2017-03-11 18:48 | Hospitalist Progress Note ---
Subjective Progress Notes Subjective Mr. Campa is a 66yo male, h/o sigmoid colon cancer with pulmonary mets, currently in the middle of chemotherapy (FOLFOX and avastin), who has been dealing with diarrhea related to the chemo, presents with a 1 day h/o abdominal pain with fevers. He had diarrhea 2 days ago and took some OTC antidiarrheal medication. He had a loose BM yesterday morning but no flatus for 2 days. He began experiencing abdominal pain 24 hours ago. Was getting worse which prompted him to come in to the ER for evaluation. His last chemo was last week , almost a week ago and his next round is scheduled for next week. He also had SOB. CT chest reveals multiple PEs. CT abdomen/pelvis reveals fluid in pelvis and small "speckles" of free air in the mid abdomen and up near his liver. No obvious inflammatory changes. Mildly dilated small bowel and distended stomach. 03/11: I have discussed the case with corrosion control specialist surgeon at length and decided if his respiratory condition gets deteriorated then he should be transferred to a tertiary hospital. Patient has shown some improvement since yesterday with Vanco and Primaxin. His BCX-ID is still pending. He is still requiring high Oxygen. Patient Complains of: Neurological: Weakness, No: Syncope, Confusion, Dizziness Cardiovascular: No: Chest Pain, Palpitations Respiratory: Congestion, Shortness of Breath, Other, No: Cough, Wheezing Gastrointestinal: Flatus, Other (abdominal pain), No Nausea, No Vomiting, No Bowel Movement Genitourinary: No Dysuria, No Hematuria, No Urinary Incontinence (taylor in place) Musculoskeletal: No: Pain, Sprain, Strain Physical Exam Vital Signs Date Time Temp Pulse Resp B/P (MAP) Pulse Ox O2 Delivery O2 Flow Rate FiO2 03/11/17 18:22 25 90 03/11/17 17:56 86 03/11/17 17:00 119/66 (83) Bi-PAP 60.0 03/11/17 15:00 98.4 03/11/17 13:00 12.0 Intake and Output 03/12/17 07:00 Intake Total 2129 ml Output Total 1030 ml Balance 1099 ml IV Total 2129 ml Output Urine Total 930 ml Gastric Drainage Total 100 ml # Voids 2 General Appearance: Alert, Awake, No Acute Distress, Afebrile Neuro: No Gross deficits Eyes: PERRLA ENT: Normal Cardiovascular: Other (a.fib) Respiratory: Other ( mild resp. distress and few scattered rhonchi) GI: Other (mild abdominal tenderness, no G/R) Extremities: Soft and Non Tender Psych: Alert & Oriented X3, Appropriate Mood & Affect Result Diagram: 03/11/1751303/11/17513 Assessment and Plan Problems: (1) Multiple pulmonary emboli Status: Acute Assessment & Plan: His CT scan did show bilateral pulmonary emboli - most likely related to his cancer and/or the Avastin. We are currently treating him with a heparin infusion and are making dose adjustments based on Anti-factor Xa levels. We are keeping him at the lower end of the therapeutic range due to low platelet count and and recurring nose bleeds. 03/11: He is currently on Heparin and his anti F10a level was low . Dose was adjusted accordingly. He is still requiring 11L O2 and BIPAP at night. 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 Multiple metastases. [facility] through [facility] has been FOLFOX and Avastin. He may have had bowel perforation related to the Avastin as well. We will broaden antibiotic coverage for both abdomen and ulcers/extremities. We discussed end-of-life decisions with Lisseth. He has decided he does not want to be intubated/mechanically ventilated, but would like an attempt at CPR if needed. 03/11: I have discussed also regarding his wishes if his condition deteriorates. I will continue his present management. I will check his labs in am (3) Venous stasis ulcer Status: Chronic Assessment & Plan: He is receiving wound care from physical therapy. Central Venous Access Medical Necessity for Access: Hemodynamic Monitoring, IV Access, Medication Administration Condition Critical Time Spent on Plan of Care: > 30 min Copies to: HALEY CORRAL MD; LISSETH RUSH MD Exam Sepsis Risk: No Definite Risk TATIANA REYNA MD Mar 11, 2017 18:48
[2017-03-12] VITALS (44 sets, daily range): BP systolic 95–139; BP diastolic 50–82
[2017-03-12] MEDS: IMIPENEM IVPB SCH ×3 (00:49→16:35)
[2017-03-12] MEDS: CILASTA IVPB SCH ×3 (00:49→16:35)
[2017-03-12] MEDS: NS 0.9% IVPB SCH ×4 (00:49→16:35)
[2017-03-12] MEDS: HEPARIN* SOD/D5W 25000 U/500ML 500 ML IV SCH ×2 (00:53→19:00)
[2017-03-12 05:37] LABS: PLATELET COUNT, AUTOMATED 131 K/uL (150-450)
[2017-03-12] MEDS: INSULIN HUM LISPRO 100 UN/ML 3 ML VIAL SUBQ PRN ×3 (06:00→18:06)
[2017-03-12] MEDS: [UNRECOGNIZED DRUG - OTHER] IV SCH ×2 (07:03→20:40)
[2017-03-12] MEDS: PANTOPRAZOLE SOD 40 MG IV VIAL IVP SCH (08:36)
[2017-03-12] MEDS: DIGOXIN 0.5 MG/2 ML AMP IVP SCH (08:36)
[2017-03-12] MEDS: NS(*) 0.9% 1000 ML BAG 1,000 ML IV PRN (08:37)
--- NOTE | 2017-03-12 09:05 | Hospitalist Progress Note ---
Subjective Progress Notes Subjective Mr. Campa is a 66yo male, h/o sigmoid colon cancer with pulmonary mets, currently in the middle of chemotherapy (FOLFOX and avastin), who has been dealing with diarrhea related to the chemo, presents with a 1 day h/o abdominal pain with fevers. He had diarrhea 2 days ago and took some OTC antidiarrheal medication. He had a loose BM yesterday morning but no flatus for 2 days. He began experiencing abdominal pain 24 hours ago. Was getting worse which prompted him to come in to the ER for evaluation. His last chemo was last week , almost a week ago and his next round is scheduled for next week. He also had SOB. CT chest reveals multiple PEs. CT abdomen/pelvis reveals fluid in pelvis and small "speckles" of free air in the mid abdomen and up near his liver. No obvious inflammatory changes. Mildly dilated small bowel and distended stomach. 03/11: I have discussed the case with communications designer surgeon at length and decided if his respiratory condition gets deteriorated then he should be transferred to a tertiary hospital. Patient has shown some improvement since yesterday with Vanco and Primaxin. His BCX-ID is still pending. He is still requiring high Oxygen. 03/12: He is still using Bipap with 60% FiO2. He clinically looks better without any sig. abdominal pain, He has no fever and his WBC are WNL. Patient Complains of: Neurological: Weakness, No: Syncope, Confusion, Dizziness Cardiovascular: No: Chest Pain, Palpitations Respiratory: Cough (mild), Congestion, Shortness of Breath, No: Wheezing Gastrointestinal: No Nausea, No Vomiting, No Flatus, No Bowel Movement Genitourinary: Urinary Incontinence (foly in plaqce), Other, No Dysuria, No Hematuria Musculoskeletal: No: Pain, Sprain, Strain Physical Exam Vital Signs Date Time Temp Pulse Resp B/P (MAP) Pulse Ox O2 Delivery O2 Flow Rate FiO2 03/12/17 08:30 87 21 139/74 (95) 93 Bi-PAP 60.0 03/12/17 07:30 97.8 03/11/17 13:00 12.0 Intake and Output 03/13/17 07:00 Intake Total 48 ml Output Total 125 ml Balance -77 ml IV Total 48 ml Output Urine Total 125 ml # Voids 1 General Appearance: Alert, Awake, No Acute Distress, Afebrile Neuro: No Gross deficits Eyes: PERRLA ENT: Normal Cardiovascular: Other (a. fib) Respiratory: Other (mild to moderate respitory distress) GI: Soft and Non-Tender (mild tender on deep palp) Musculoskeletal: No Weakness/Pain Extremities: Soft and Non Tender, Edema Psych: Alert & Oriented X3, Appropriate Mood & Affect Result Diagram: 03/12/1751403/12/17514 Assessment and Plan Problems: (1) Multiple pulmonary emboli Status: Acute Assessment & Plan: His CT scan did show bilateral pulmonary emboli - most likely related to his cancer and/or the Avastin. We are currently treating him with a heparin infusion and are making dose adjustments based on Anti-factor Xa levels. We are keeping him at the lower end of the therapeutic range due to low platelet count and and recurring nose bleeds. 03/11: He is currently on Heparin and his anti F10a level was low . Dose was adjusted accordingly. He is still requiring 11L O2 and BIPAP at night. 03/12: He is still on Heparin drip with normal range Anti Factor 10a level. No sign of active bleed. I will continue his current management with Heparin in case he require surgery. 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 Multiple metastases. Treatment through the [facility] has been FOLFOX and Avastin. He may have had bowel perforation related to the Avastin as well. We will broaden antibiotic coverage for both abdomen and ulcers/extremities. We discussed end-of-life decisions with Lisseth. He has decided he does not want to be intubated/mechanically ventilated, but would like an attempt at CPR if needed. 03/11: I have discussed also regarding his wishes if his condition deteriorates. I will continue his present management. I will check his labs in am 03/12: Current management as per surgeon (3) Venous stasis ulcer Status: Chronic Assessment & Plan: He is receiving wound care from physical therapy. Central Venous Access Medical Necessity for Access: Hemodynamic Monitoring, IV Access, Medication Administration Time Spent on Plan of Care: > 30 min Copies to: HALEY CORRAL MD; LISSETH RUSH MD Exam Sepsis Risk: No Definite Risk TATIANA REYNA MD Mar 12, 2017 09:05
[2017-03-12] MEDS ORDERED: KCL (*) 20 MEQ/100 ML PREMIX 100 ML IV ONE (10:25)
[2017-03-12] MEDS ORDERED: FUROSEMIDE 40 MG/4 ML VIAL IVP ONE (10:25)
--- NOTE | 2017-03-12 11:29 | General Surgery Progress Note ---
Subjective Progress Notes Subjective Feels better today. Very little abdominal pain. No flatus. Thirsty. Physical Exam Vital Signs Date Time Temp Pulse Resp B/P (MAP) Pulse Ox O2 Delivery O2 Flow Rate FiO2 03/12/17 11:15 90 Oxy Mask 12.0 03/12/17 11:00 89 29 128/72 (90) 03/12/17 09:30 60.0 03/12/17 07:30 97.8 Intake and Output 03/13/17 07:00 Intake Total 48 ml Output Total 125 ml Balance -77 ml IV Total 48 ml Output Urine Total 125 ml # Voids 1 General Appearance: Alert, Awake, No Acute Distress ENT: Normal Cardiovascular: Normal Rhythm & Peripheral Pulses Respiratory: No Respiratory Distress GI: Other (soft, less tender) Result Diagram: 03/12/1751403/12/17514 Assessment and Plan Problems: (1) Intra-abdominal free air of unknown etiology Status: Acute Assessment & Plan: Admit, NPO, IV fluids, IV abx, bowel rest, NG tube GI decompression. Abdominal exam without peritonitis and patient is at extremely high risk for surgery due to his body habitus and currently chemotherapy, especially avastin. Will try conservative management but if he worsens, or fails to improve, on conservative therapy then will need to proceed with surgical exploration. I have explained this plan to him in detail and he is agreeable with proceeding with this plan. 03/06/17: Doing a little better although having fevers. Will continue conservative management today with bowel rest, NG tube decompression, IV fluids , and IV abx. If not clearly better by tomorrow will repeat CT scan and will consider surgical exploration tomorrow afternoon/evening. Pt agreeable with this plan. Surgery is very risky in this patient with low albumen, suppressed healing due to chemotherapy, especially avastin (last dose 1 week ago), and morbid obesity. 03/07/17: Will repeat CT abd/pelvis this morning and may need to operate later this afternoon since he continues to have pain without bowel function and recurring fevers, marginal improvement if at all. I have explained this to the patient and I have explained the dangers of surgery in him, especially with recent chemo including avastin, but we may no longer have a choice if he has a bowel perforation. Will see what CT shows and then make a decision this afternoon. Will hold heparin gtt this morning. Pt is agreeable with proceeding with surgery is necessary. 03/08/17: CT yesterday showed improvement with less free air and no organized fluid collection. Clinically he is improving. Will continue with conservative therapy, bowel rest, NG tube decompression, IV abx. TPN started yesterday. Continue anticoagulation for PEs, PPI for GI prophylaxis. 03/09/17: Developed a-fib, now in ICU for diltiazem gtt. Abdomen exam remains benign. Will work on cardiac rate control. Continue bowel rest, NG tube decompression, IV abx. Continue TPN. Continue anticoagulation for PEs. Continue PPI for GI prophylaxis. 03/10/17: Looks much improved today. More alert, off BiPap, afebrile overnight with change of antibiotics. I discussed with him that should he reach a point where surgery is indicated, I would recommend transfer to a higher level facility to which he agreed. However, given his improvement since yesterday, I feel it is reasonable to continue care for him here for now. I will check a Mg and Phos today. Continue the NGT until he is passing flatus. 03/11/17: Continued improvement. Labs indicate recovery of marrow function. Afebrile since change in Abx regimen 2 days ago. Continue this course. Awaiting return of bowel function and will leave NGT in place until that time. Expect that it will be at least another day or two. His hypophosphotemia persists but responded appropriately to replacement yesterday. I will defer to IM in regards to ongoing replacement. Continue TPN with same formulation. Will plan to get him up to a chair today. 03/12/17: Better every day. Much more alert and interactive today. Spend time in the chair yesterday and will again today. Gipson out yesterday. Will receive lasix today to work on fluid balance. Will allow sips of clears but keep NGT until flatus present. (2) Multiple pulmonary emboli Status: Acute Assessment & Plan: Hospitalists consulted. Will start a Heparin gtt which can be stopped if surgery becomes necessary. Will need long-term anticoagulation after he improves with conservative management or after he recovers from surgery if necessary. Central Venous Access Medical Necessity for Access: Hemodynamic Monitoring, IV Access, Medication Administration Time Spent: < 30 min Exam Sepsis Risk: No Definite Risk LARRY NATARAJAN MD Mar 12, 2017 11:29
[2017-03-12] MEDS: VANCOMYCIN 1 GM ADDVIAL 1 GM in NS(*) 0.9% 250 ML ADDVAN BAG 250 ML IVPB SCH ×2 (12:02→23:25)
[2017-03-12] MEDS: DILTIAZEM IVPB SCH (14:46)
[2017-03-12] MEDS: IVP IVPB SCH (14:46)
[2017-03-12] MEDS: FAT EMULSION 20% 250 ML BAG 250 ML IVPB SCH (16:28)
[2017-03-12] MEDS: LEVALBUTEROL 1.25 MG/3 ML NEB NEB PRN (17:40)
[2017-03-13] VITALS (43 sets, daily range): BP systolic 93–143; BP diastolic 46–90
[2017-03-13] MEDS: CILASTA IVPB SCH (00:49)
[2017-03-13] MEDS: NS 0.9% IVPB SCH ×2 (00:49→11:53)
[2017-03-13] MEDS: IMIPENEM IVPB SCH (00:49)
[2017-03-13] MEDS: INSULIN HUM LISPRO 100 UN/ML 3 ML VIAL SUBQ PRN ×4 (01:06→18:05)
[2017-03-13 05:29] LABS: PLATELET COUNT, AUTOMATED 157 K/uL (150-450)
--- NOTE | 2017-03-13 07:35 | General Surgery Progress Note ---
Subjective Progress Notes Subjective Daily improvement. No flatus or stool Physical Exam Vital Signs Date Time Temp Pulse Resp B/P (MAP) Pulse Ox O2 Delivery O2 Flow Rate FiO2 03/13/17 06:02 24 93 03/13/17 05:49 92 03/13/17 05:30 110/73 (85) 03/13/17 05:00 99.0 Bi-PAP 60.0 03/13/17 04:46 12.0 General Appearance: Alert, Awake, No Acute Distress Neuro: No Gross deficits Cardiovascular: Normal Rhythm & Peripheral Pulses Respiratory: Other (baseline with mild improvement) GI: Other (soft, much less tender) Result Diagram: 03/13/17 0500 03/13/17 0500 Assessment and Plan Problems: (1) Intra-abdominal free air of unknown etiology Status: Acute Assessment & Plan: Admit, NPO, IV fluids, IV abx, bowel rest, NG tube GI decompression. Abdominal exam without peritonitis and patient is at extremely high risk for surgery due to his body habitus and currently chemotherapy, especially avastin. Will try conservative management but if he worsens, or fails to improve, on conservative therapy then will need to proceed with surgical exploration. I have explained this plan to him in detail and he is agreeable with proceeding with this plan. 03/06/17: Doing a little better although having fevers. Will continue conservative management today with bowel rest, NG tube decompression, IV fluids , and IV abx. If not clearly better by tomorrow will repeat CT scan and will consider surgical exploration tomorrow afternoon/evening. Pt agreeable with this plan. Surgery is very risky in this patient with low albumen, suppressed healing due to chemotherapy, especially avastin (last dose 1 week ago), and morbid obesity. 03/07/17: Will repeat CT abd/pelvis this morning and may need to operate later this afternoon since he continues to have pain without bowel function and recurring fevers, marginal improvement if at all. I have explained this to the patient and I have explained the dangers of surgery in him, especially with recent chemo including avastin, but we may no longer have a choice if he has a bowel perforation. Will see what CT shows and then make a decision this afternoon. Will hold heparin gtt this morning. Pt is agreeable with proceeding with surgery is necessary. 03/08/17: CT yesterday showed improvement with less free air and no organized fluid collection. Clinically he is improving. Will continue with conservative therapy, bowel rest, NG tube decompression, IV abx. TPN started yesterday. Continue anticoagulation for PEs, PPI for GI prophylaxis. 03/09/17: Developed a-fib, now in ICU for diltiazem gtt. Abdomen exam remains benign. Will work on cardiac rate control. Continue bowel rest, NG tube decompression, IV abx. Continue TPN. Continue anticoagulation for PEs. Continue PPI for GI prophylaxis. 03/10/17: Looks much improved today. More alert, off BiPap, afebrile overnight with change of antibiotics. I discussed with him that should he reach a point where surgery is indicated, I would recommend transfer to a higher level facility to which he agreed. However, given his improvement since yesterday, I feel it is reasonable to continue care for him here for now. I will check a Mg and Phos today. Continue the NGT until he is passing flatus. 03/11/17: Continued improvement. Labs indicate recovery of marrow function. Afebrile since change in Abx regimen 2 days ago. Continue this course. Awaiting return of bowel function and will leave NGT in place until that time. Expect that it will be at least another day or two. His hypophosphotemia persists but responded appropriately to replacement yesterday. I will defer to IM in regards to ongoing replacement. Continue TPN with same formulation. Will plan to get him up to a chair today. 03/12/17: Better every day. Much more alert and interactive today. Spend time in the chair yesterday and will again today. Gipson out yesterday. Will receive lasix today to work on fluid balance. Will allow sips of clears but keep NGT until flatus present. 03/13/17: Daily progress. Awaiting bowel function. Continue Vanco for at least 7 day course with Primaxin ~14 days. (2) Multiple pulmonary emboli Status: Acute Assessment & Plan: Hospitalists consulted. Will start a Heparin gtt which can be stopped if surgery becomes necessary. Will need long-term anticoagulation after he improves with conservative management or after he recovers from surgery if necessary. Central Venous Access Medical Necessity for Access: Hemodynamic Monitoring, IV Access, Medication Administration Time Spent: < 30 min Exam Sepsis Risk: No Definite Risk LARRY NATARAJAN MD Mar 13, 2017 07:35
[2017-03-13] MEDS: LEVALBUTEROL 1.25 MG/3 ML NEB NEB PRN (08:36)
[2017-03-13] MEDS: DIGOXIN 0.5 MG/2 ML AMP IVP SCH (09:22)
[2017-03-13] MEDS: IMIPENEM/CILASTA(*) 500MG VIAL 1,000 MG in NS(*) 0.9% 250 ML BAG 250 ML IVPB SCH ×2 (09:22→16:57)
[2017-03-13] MEDS: PANTOPRAZOLE SOD 40 MG IV VIAL IVP SCH (09:22)
[2017-03-13] MEDS: [UNRECOGNIZED DRUG - OTHER] IV SCH ×2 (09:43→22:50)
[2017-03-13] MEDS: HYDROmorphone PCA 6 MG/30 ML IV PRN (11:10)
[2017-03-13] MEDS ORDERED: DILTIAZEM IVPB SCH (11:30)
[2017-03-13] MEDS ORDERED: IVP IVPB SCH (11:30)
[2017-03-13] MEDS ORDERED: NS 0.9% IVPB SCH (11:30)
[2017-03-13] MEDS: DILTIAZEM IVPB SCH (11:53)
[2017-03-13] MEDS: IVP IVPB SCH (11:53)
[2017-03-13] MEDS: VANCOMYCIN 1 GM ADDVIAL 1 GM in NS(*) 0.9% 250 ML ADDVAN BAG 250 ML IVPB SCH (12:14)
[2017-03-13] MEDS: HEPARIN* SOD/D5W 25000 U/500ML 500 ML IV SCH ×2 (13:21→17:00)
[2017-03-13] MEDS ORDERED: HEPARIN* SOD/D5W 25000 U/500ML 500 ML IV SCH (13:35)
--- NOTE | 2017-03-13 15:06 | Medical Nutrition Therapy ---
Nutrition Anthropometrics Height (Inches): 71.25 Height (Calculated Centimeters: [phone] Weight (Pounds): 295 Weight (Calculated Kilograms): 133.980 BMI Calculated: 40.30 Nhan Nutrition Score: Very Poor Nhan Nutrition Risk Score: 13 Dietary Referral Nutrition Risk Factors: Nutrition Risk Comment: Physical Findings Physical Appearance: Morbidly Obese 40+ Skin Appearance Skin Appearance: Edema Edema Location Modifier: Both Edema Location: Lower Extremity Type of Edema: Degree of Edema: 1+ Gastrointestinal Symptoms GI Symtoms: Bloating Tube Present: NG Bowel Sounds: Recent Bowel Pattern: Stool Characteristics: Nutritional Diagnosis Nutritional Risk Acuity 1: TPN/PPN, GI Obstruction (possible GI obstruction/ perforation) Nutritional Risk Acuity 2: Head/Neck/GI Cancer Nutritional Risk Acuity 3: Weight Loss, Morbid Obesity Past Medical History: Colon cancer with mets, HTN, colectomy Nutritional Acuity: 1-High Nutrition Diagnosis: Altered GI Function Nutrition Etiology: Physiological Causes Nutrition Problem/Etiology/Sym: Altered GI function r/t physiological causes AEB abd pain, diarrhea, intra-abdominal air, and lack of bowel movements Adjusted Energy Requirement Re: 2600 (Adj. Callie Nielsen) Protein Requirement: 132 (1 g/kg) Fluid Requirement: 2640 (20 ml/kg) Diet Type: NPO (Nothing by Mouth), TPN/PPN Nutrition Intervention: Incr diet as tolerated Nutritional Support Current Enteral / Parental: TPN Current Tube Feeding Formula C: 75ml/hr+lipids Current Duration: 24 Current Calories: 1836 Current Protein: 76 Current Lipids Calories: 275 Total Current Calories: 2111 Recommended Enteral / Parental: TPN Recommended Tube Feeding Formu: 100ml/hr + lipids Recommended Duration: 24 Recommended Calories: 2448 Recommended Protein: 101 Recommended Lipids Calories: 275 Total Recommended Calories: 2723 Nutrition Monitoring & Eval RD Patient Assessment Time: [address] Assessment Type: RD Re-Assessment Patient Nutrition Acuity: 1-High Follow Up Date: Mar 15, 2017 Nutritional Comment: 03/06 Pt admitted for multiple pulmonary emboli and abd pain. Pt has dx colon Ca with mets and is currently recieveing chemo tx. Alb mildly depleted at 3.4. Pt has 2 day hx of diarrhea. Pt is NPO. Pt has 50# wt loss since May 2016. BMI cont in class 3 obestiy range. Recommend nutr support if diet is not advanced in 3 days. Cont to monitor 03/07/17 Pt continues NPO for bowel rest. Pt still experiencing pain and lack of bowel function. Surgery may be necessary for possible bowel obstruction later this afternoon, per MD. PICC line placed. I recommend TPN/nutr support if diet is not advanced in 2 days. Alb 2.4 and total pro 4.7. Will continue to monitor. 03/08 Pt stated on TPN and is now 75ml/hr plus lipids meeting 82% est kcal and 62% est protein needs. Recommend increase TPN to 100ml/hr plus lipids to meet 105% est kcal and 83% est protein needs. Alb declined to 2.4. BG elevated up to 152. Will cont to monitor. 03/10 Continues with TPN @ 75mL/hr and Intralipid 20% 250mL bag/day. Low H/H, Glu 190, Alb 2.4, Low phosphours, Ca+. Lispo SSI. May begin PO intake after pt passes flatus. Follow for diet progression, etc. 03/13 No changes to TPN or diet status. Alb 2.5, Glu 182. Monitor labs, diet changes. ALYCE EUGENE Mar 13, 2017 15:06
[2017-03-13] MEDS: FAT EMULSION 20% 250 ML BAG 250 ML IVPB SCH (15:44)
--- NOTE | 2017-03-13 16:50 | Hospitalist Progress Note ---
Subjective Progress Notes Subjective Patient is feeling better overall. Physical Exam Vital Signs Date Time Temp Pulse Resp B/P (MAP) Pulse Ox O2 Delivery O2 Flow Rate FiO2 03/13/17 16:20 87 Oxy Mask 12.0 03/13/17 16:19 28 03/13/17 16:18 78 03/13/17 16:00 93/90 (91) 03/13/17 15:30 60.0 03/13/17 12:23 98.6 Intake and Output 03/14/17 07:00 Intake Total 1227.3 ml Output Total 725 ml Balance 502.3 ml Intake Oral 150 ml IV Total 1077.3 ml Output Urine Total 725 ml General Appearance: Alert, Awake, No Acute Distress Neuro: No Gross deficits Eyes: PERRLA Cardiovascular: Regular Rate and Rhythm Respiratory: Other (Very mild increased work of breathing. ) GI: Soft and Non-Tender Extremities: Warm, Perfused, Other (Wounds on LE bandaged with some drainage visible bilaterally.) Integumentary: Other (See above.) Psych: Alert & Oriented X3, Appropriate Mood & Affect Result Diagram: 03/13/17 0500 03/13/17 0500 Assessment and Plan Problems: (1) Multiple pulmonary emboli Status: Acute Assessment & Plan: His CT scan did show bilateral pulmonary emboli - most likely related to his cancer and/or the Avastin. We are currently treating him with a heparin infusion and are making dose adjustments based on Anti-factor Xa levels. We are keeping him at the lower end of the therapeutic range due to low platelet count and and recurring nose bleeds. 03/11: He is currently on Heparin and his anti F10a level was low . Dose was adjusted accordingly. He is still requiring 11L O2 and BIPAP at night. 03/12: He is still on Heparin drip with normal range Anti Factor 10a level. No sign of active bleed. I will continue his current management with Heparin in case he require surgery. I will get his labs in am 03/13: Anti Factor Xa level a bit low today. Will increase to 11.5u/kg/hour. Repeat level in 12 hours. 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 Multiple metastases. Treatment through the Cancer [facility] has been FOLFOX and Avastin. He may have had bowel perforation related to the Avastin as well. We will broaden antibiotic coverage for both abdomen and ulcers/extremities. We discussed end-of-life decisions with Gold. He has decided he does not want to be intubated/mechanically ventilated, but would like an attempt at CPR if needed. 03/11: I have discussed also regarding his wishes if his condition deteriorates. I will continue his present management. I will check his labs in am 03/12: Current management as per surgeon 03/13: No significant change. (3) Venous stasis ulcer Status: Chronic Assessment & Plan: He is receiving wound care from physical therapy. Central Venous Access Medical Necessity for Access: Hemodynamic Monitoring, IV Access, Medication Administration Exam Sepsis Risk: Sepsis Risk IRLANDA BASILIO MD Mar 13, 2017 16:50
[2017-03-13] MEDS: NS(*) 0.9% 1000 ML BAG 1,000 ML IV PRN (22:48)
[2017-03-14] VITALS (33 sets, daily range): BP systolic 104–144; BP diastolic 52–72
[2017-03-14] MEDS: VANCOMYCIN 1 GM ADDVIAL 1 GM in NS(*) 0.9% 250 ML ADDVAN BAG 250 ML IVPB SCH ×3 (00:01→23:47)
[2017-03-14] MEDS: INSULIN HUM LISPRO 100 UN/ML 3 ML VIAL SUBQ PRN ×4 (00:11→18:38)
[2017-03-14] MEDS: IMIPENEM/CILASTA(*) 500MG VIAL 1,000 MG in NS(*) 0.9% 250 ML BAG 250 ML IVPB SCH ×3 (01:42→16:22)
[2017-03-14] MEDS: IVP IVPB SCH (04:36)
[2017-03-14] MEDS: DILTIAZEM IVPB SCH (04:36)
[2017-03-14] MEDS: NS 0.9% IVPB SCH (04:36)
[2017-03-14] MEDS: HEPARIN* SOD/D5W 25000 U/500ML 500 ML IV SCH ×3 (04:37→21:43)
[2017-03-14 05:40] LABS: PLATELET COUNT, AUTOMATED 174 K/uL (150-450)
--- NOTE | 2017-03-14 06:28 | RADIOLOGY IMAGING REPORT ---
FACILITY: [facility] PATIENT NAME: Gold Campa : 1950 MR: [id number] V: [id number] EXAM DATE: ORDERING PHYSICIAN: IRLANDA BASILIO TECHNOLOGIST: Location: [facility] [place] Patient: Gold Campa : 1950 Visit/Account:[id number] Date of Sevice: 03/14/2017 CHEST SINGLE AP COMPARISONS: Single view chest dated March 09, 2017 ADDITIONAL PERTINENT HISTORY: History of PE with high oxygen demand FINDINGS: Life-support: NG tube coursing off the field of view into the upper abdomen. Right internal jugular v enous port with its tip in the distal SVC. These findings are stable since previous exam. Cardiomediastinal silhouette: Negative. Pulmonary vasculature: Negative. Lung degroot: Somewhat decreased lung volumes with bibasilar atelectatic change. Pleural spaces: Negative. Osseous structures: Negative. Surrounding soft tissues: Negative. IMPRESSION: 1. Interval decrease in lung volumes with bibasilar atelectatic change. 2. Stable life support. Report Dictated By: Yunior Castro MD at 03/14/2017 6:22 AM Report E-Signed By: Yunior Castro MD at 03/14/2017 6:24 AM WSN:[id number]
--- NOTE | 2017-03-14 07:08 | General Surgery Progress Note ---
Subjective Progress Notes Subjective No complaints. Not much abdominal pain this morning. Physical Exam Vital Signs Date Time Temp Pulse Resp B/P (MAP) Pulse Ox O2 Delivery O2 Flow Rate FiO2 03/14/17 06:30 71 18 117/65 (82) 90 Bi-PAP 60.0 03/14/17 04:30 99.0 03/13/17 17:00 12.0 General Appearance: Alert, Awake, No Acute Distress, Afebrile GI: Other (Mild periumbilical TTP, no peritoneal signs) Extremities: Warm, Perfused Result Diagram: 03/14/17 0503 03/14/17 0503 Assessment and Plan Problems: (1) Intra-abdominal free air of unknown etiology Status: Acute Assessment & Plan: Admit, NPO, IV fluids, IV abx, bowel rest, NG tube GI decompression. Abdominal exam without peritonitis and patient is at extremely high risk for surgery due to his body habitus and currently chemotherapy, especially avastin. Will try conservative management but if he worsens, or fails to improve, on conservative therapy then will need to proceed with surgical exploration. I have explained this plan to him in detail and he is agreeable with proceeding with this plan. 03/06/17: Doing a little better although having fevers. Will continue conservative management today with bowel rest, NG tube decompression, IV fluids , and IV abx. If not clearly better by tomorrow will repeat CT scan and will consider surgical exploration tomorrow afternoon/evening. Pt agreeable with this plan. Surgery is very risky in this patient with low albumen, suppressed healing due to chemotherapy, especially avastin (last dose 1 week ago), and morbid obesity. 03/07/17: Will repeat CT abd/pelvis this morning and may need to operate later this afternoon since he continues to have pain without bowel function and recurring fevers, marginal improvement if at all. I have explained this to the patient and I have explained the dangers of surgery in him, especially with recent chemo including avastin, but we may no longer have a choice if he has a bowel perforation. Will see what CT shows and then make a decision this afternoon. Will hold heparin gtt this morning. Pt is agreeable with proceeding with surgery is necessary. 03/08/17: CT yesterday showed improvement with less free air and no organized fluid collection. Clinically he is improving. Will continue with conservative therapy, bowel rest, NG tube decompression, IV abx. TPN started yesterday. Continue anticoagulation for PEs, PPI for GI prophylaxis. 03/09/17: Developed a-fib, now in ICU for diltiazem gtt. Abdomen exam remains benign. Will work on cardiac rate control. Continue bowel rest, NG tube decompression, IV abx. Continue TPN. Continue anticoagulation for PEs. Continue PPI for GI prophylaxis. 03/10/17: Looks much improved today. More alert, off BiPap, afebrile overnight with change of antibiotics. I discussed with him that should he reach a point where surgery is indicated, I would recommend transfer to a higher level facility to which he agreed. However, given his improvement since yesterday, I feel it is reasonable to continue care for him here for now. I will check a Mg and Phos today. Continue the NGT until he is passing flatus. 03/11/17: Continued improvement. Labs indicate recovery of marrow function. Afebrile since change in Abx regimen 2 days ago. Continue this course. Awaiting return of bowel function and will leave NGT in place until that time. Expect that it will be at least another day or two. His hypophosphotemia persists but responded appropriately to replacement yesterday. I will defer to IM in regards to ongoing replacement. Continue TPN with same formulation. Will plan to get him up to a chair today. 03/12/17: Better every day. Much more alert and interactive today. Spend time in the chair yesterday and will again today. Gipson out yesterday. Will receive lasix today to work on fluid balance. Will allow sips of clears but keep NGT until flatus present. 03/13/17: Daily progress. Awaiting bowel function. Continue Vanco for at least 7 day course with Primaxin ~14 days. 03/14/17: Clinically doing better. Not much pain. Fevers better. No bowel function yet. Continue bowel rest, TPN, etc. (2) Multiple pulmonary emboli Status: Acute Assessment & Plan: Hospitalists consulted. Will start a Heparin gtt which can be stopped if surgery becomes necessary. Will need long-term anticoagulation after he improves with conservative management or after he recovers from surgery if necessary. Central Venous Access Medical Necessity for Access: Hemodynamic Monitoring, IV Access, Medication Administration Condition Stable Time Spent: < 30 min Exam Sepsis Risk: No Definite Risk LISSETH RUSH MD Mar 14, 2017 07:08
[2017-03-14] MEDS: PANTOPRAZOLE SOD 40 MG IV VIAL IVP SCH (08:59)
[2017-03-14] MEDS: DIGOXIN 0.5 MG/2 ML AMP IVP SCH (10:50)
[2017-03-14] MEDS: LEVALBUTEROL 1.25 MG/3 ML NEB NEB PRN (11:03)
--- NOTE | 2017-03-14 11:22 | Medical Nutrition Therapy ---
Nutrition Anthropometrics Height (Inches): 71.25 Height (Calculated Centimeters: 180.226557 Weight (Pounds): 297 Weight (Calculated Kilograms): 134.802 BMI Calculated: 40.30 Nhan Nutrition Score: Adequate Nhan Nutrition Risk Score: 16 Dietary Referral Nutrition Risk Factors: Nutrition Risk Comment: Physical Findings Physical Appearance: Morbidly Obese 40+ Skin Appearance Skin Appearance: Edema Edema Location Modifier: Both Edema Location: Lower Extremity Type of Edema: Degree of Edema: 1+ Gastrointestinal Symptoms GI Symtoms: Bloating Tube Present: NG Bowel Sounds: Recent Bowel Pattern: Stool Characteristics: Nutritional Diagnosis Nutritional Risk Acuity 1: TPN/PPN, GI Obstruction (possible GI obstruction/ perforation) Nutritional Risk Acuity 2: Head/Neck/GI Cancer Nutritional Risk Acuity 3: Weight Loss, Morbid Obesity Past Medical History: Colon cancer with mets, HTN, colectomy Nutritional Acuity: 1-High Nutrition Diagnosis: Altered GI Function Nutrition Etiology: Physiological Causes Nutrition Problem/Etiology/Sym: Altered GI function r/t physiological causes AEB abd pain, diarrhea, intra-abdominal air, and lack of bowel movements Adjusted Energy Requirement Re: 2600 (Adj. Callie Nielsen) Protein Requirement: 132 (1 g/kg) Fluid Requirement: 2640 (20 ml/kg) Diet Type: Clear Liquids, TPN/PPN Nutrition Intervention: Between meal supplement, Incr diet as tolerated Additional Diet Restrictions: PROVIDE CLEAR LIQUID NUTR SUPPLMENT WHILE ON CLEARS Nutritional Support Current Enteral / Parental: TPN Current Tube Feeding Formula C: 75ml/hr+lipids Current Duration: 24 Current Calories: 1836 Current Protein: 76 Current Lipids Calories: 275 Total Current Calories: 2111 Recommended Enteral / Parental: TPN Recommended Tube Feeding Formu: 100ml/hr + lipids Recommended Duration: 24 Recommended Calories: 2448 Recommended Protein: 101 Recommended Lipids Calories: 275 Total Recommended Calories: 2723 Nutrition Monitoring & Eval RD Patient Assessment Time: [address] Assessment Type: RD Re-Assessment Patient Nutrition Acuity: 1-High Follow Up Date: Mar 16, 2017 Nutritional Comment: 03/06 Pt admitted for multiple pulmonary emboli and abd pain. Pt has dx colon Ca with mets and is currently recieveing chemo tx. Alb mildly depleted at 3.4. Pt has 2 day hx of diarrhea. Pt is NPO. Pt has 50# wt loss since May 2016. BMI cont in class 3 obestiy range. Recommend nutr support if diet is not advanced in 3 days. Cont to monitor 03/07/17 Pt continues NPO for bowel rest. Pt still experiencing pain and lack of bowel function. Surgery may be necessary for possible bowel obstruction later this afternoon, per MD. PICC line placed. I recommend TPN/nutr support if diet is not advanced in 2 days. Alb 2.4 and total pro 4.7. Will continue to monitor. 03/08 Pt stated on TPN and is now 75ml/hr plus lipids meeting 82% est kcal and 62% est protein needs. Recommend increase TPN to 100ml/hr plus lipids to meet 105% est kcal and 83% est protein needs. Alb declined to 2.4. BG elevated up to 152. Will cont to monitor. 03/10 Continues with TPN @ 75mL/hr and Intralipid 20% 250mL bag/day. Low H/H, Glu 190, Alb 2.4, Low phosphours, Ca+. Lispo SSI. May begin PO intake after pt passes flatus. Follow for diet progression, etc. 03/13 No changes to TPN or diet status. Alb 2.5, Glu 182. Monitor labs, diet changes. 03/14 Pt cont on TPN at 75ml/hr. Diet advanced to clear liquids. Will provide clear liquid nutr supplment to increase protein intake. Current TPN meeting s 80% est kcal and 62% est protein needs. Alb 2.5. Will cont to monitor. SARAH PAN Mar 14, 2017 11:22
[2017-03-14] MEDS: [UNRECOGNIZED DRUG - OTHER] IV SCH (13:23)
--- NOTE | 2017-03-14 13:59 | Hospitalist Progress Note ---
Subjective Progress Notes Subjective is a 66yo male, h/o sigmoid colon cancer with pulmonary mets, currently in the middle of chemotherapy (FOLFOX and avastin), who has been dealing with diarrhea related to the chemo, presents with a 1 day h/o abdominal pain with fevers. He had diarrhea 2 days ago and took some OTC antidiarrheal medication. He had a loose BM yesterday morning but no flatus for 2 days. He began experiencing abdominal pain 24 hours ago. Was getting worse which prompted him to come in to the ER for evaluation. His last chemo was last week , almost a week ago and his next round is scheduled for next week. He also had SOB. CT chest reveals multiple PEs. CT abdomen/pelvis reveals fluid in pelvis and small "speckles" of free air in the mid abdomen and up near his liver. No obvious inflammatory changes. Mildly dilated small bowel and distended stomach. 03/11: I have discussed the case with cone operator surgeon at length and decided if his respiratory condition gets deteriorated then he should be transferred to a tertiary hospital. Patient has shown some improvement since yesterday with Vanco and Primaxin. His BCX-ID is still pending. He is still requiring high Oxygen. 03/12: He is still using Bipap with 60% FiO2. He clinically looks better without any sig. abdominal pain, He has no fever and his WBC are WNL. 03/14: is still requiring BIPAP with FiO2 60% at night. He is on Heparin and antibiotics for his bilateral PE and leak at the anastomosis. He is otherwise asymptomatic. Patient Complains of: Neurological: Weakness, No: Syncope, Confusion, Dizziness Cardiovascular: No: Chest Pain, Palpitations Respiratory: Shortness of Breath, No: Cough, Congestion, Wheezing Gastrointestinal: No Nausea, No Vomiting, No Flatus, No Bowel Movement Genitourinary: No Dysuria, No Hematuria Musculoskeletal: Impaired Mobility, No: Pain, Sprain, Strain Physical Exam Vital Signs Date Time Temp Pulse Resp B/P (MAP) Pulse Ox O2 Delivery O2 Flow Rate FiO2 03/14/17 11:37 89 Oxy Mask 12.0 03/14/17 11:30 93 32 03/14/17 11:00 117/72 (87) 03/14/17 09:00 98.4 03/14/17 06:30 60.0 Intake and Output 03/15/17 07:00 Intake Total 1007 ml Output Total 275 ml Balance 732 ml Intake Oral 150 ml IV Total 857 ml Output Urine Total 275 ml General Appearance: Alert, Awake, No Acute Distress, Afebrile Neuro: No Gross deficits Eyes: PERRLA ENT: Normal, Oropharynx Clear Cardiovascular: Other (a.fib) Respiratory: No Respiratory Distress GI: Other (mild tenderness on palpation, No R/G) Extremities: Soft and Non Tender, Edema Psych: Alert & Oriented X3, Appropriate Mood & Affect Result Diagram: 03/14/17 0503 03/14/17 0503 Assessment and Plan Problems: (1) Multiple pulmonary emboli Status: Acute Assessment & Plan: His CT scan did show bilateral pulmonary emboli - most likely related to his cancer and/or the Avastin. We are currently treating him with a heparin infusion and are making dose adjustments based on Anti-factor Xa levels. We are keeping him at the lower end of the therapeutic range due to low platelet count and and recurring nose bleeds. 03/11: He is currently on Heparin and his anti F10a level was low . Dose was adjusted accordingly. He is still requiring 11L O2 and BIPAP at night. 03/12: He is still on Heparin drip with normal range Anti Factor 10a level. No sign of active bleed. I will continue his current management with Heparin in case he require surgery. I will get his labs in am 03/13: Anti Factor Xa level a bit low today. Will increase to 11.5u/kg/hour. Repeat level in 12 hours. 03/14: I will continue his Heparin drip until he is cleared by the surgeon. I will continue his current management. I will continue to check his Anti [id number] levels (2) Adenocarcinoma of sigmoid colon Status: Chronic Assessment & Plan: S/P resection. Multiple metastases. Treatment through the Cancer Center has been FOLFOX and Avastin. He may have had bowel perforation related to the Avastin as well. We will broaden antibiotic coverage for both abdomen and ulcers/extremities. We discussed end-of-life decisions with Lisseth. He has decided he does not want to be intubated/mechanically ventilated, but would like an attempt at CPR if needed. 03/11: I have discussed also regarding his wishes if his condition deteriorates. I will continue his present management. I will check his labs in am 03/12: Current management as per surgeon 03/13: No significant change. 03/14: Management as per surgery. I will get his morning labs. (3) Venous stasis ulcer Status: Chronic Assessment & Plan: He is receiving wound care from physical therapy. Central Venous Access Medical Necessity for Access: Hemodynamic Monitoring, IV Access, Medication Administration Time Spent on Plan of Care: > 30 min Copies to: HALEY CORRAL MD; LISSETH RUSH MD Exam Sepsis Risk: No Definite Risk TATIANA REYNA MD Mar 14, 2017 13:59
--- NOTE | 2017-03-14 14:58 | Antimicrobial Stewardship ---
Antimicrobial Stewardship MD Service: Hospitalist Indications: Other (Intra-abdominal ) Duration of Therapy: 10-14 Days (7 days of Vancomycin, 10-14d Primaxin) Start Date: Mar 09, 2017 (Primaxin and Vancomycin started 03/09/17-- ( ertapenem 03/05-03/08)) Height (Calculated Centimeters: 180.310785 Weight (Calculated Kilograms): 134.802 Creatinine Cl 03/14/17: Scr =1.2, CrCL ~85mL/min Levels Vancomycin Troughs and dosing 03/09/17: Vancomycin 3g IV x1 load, random 03/09/17 2300= 17.9 03/09-03/11/17: Vancomycin 2g IV Q12H, 03/11/17 trough = 25.94 03/11-03/12/17: Vancomycin 1.5g IV Q12H, 03/12/17 trough = 28.56 03/12-current: Vancomycin 1g IV Q12H, 03/13 trough = 21.32, 03/14 trough = 21.98 03/15---trough ordered, continue present management Culture Results: Yes (Blood Cx: 1 of 3 S. epidermidis (port draw)) Patient Improving Clinically: Yes Able to Absorb PO Meds: No Afebrile > 24 hrs: Yes Eligable for PO Conversion: No Comments 66 y M with a history of adenocarcinoma of the colon, on therapy with Avastin+ FOLFOX, presented with RUQ pain and oxygen sats of 74%, who was found to have bilateral PEs and bowel obstruction with potential anastomotic leak. Presented with low grade fevers with Tmax of 103 on 03/09, WBC low upon presentation (secondary to chemotherapy), now up to 7.1, afebrile currently. On 03/08/17 pt went into afib w/RVR and cardioversion was attempted w/o success , started on diltiazem and digoxin. Pt remains NPO. On heparin drip for PE, easily reversible if emergent surgical intervention is required. Antibiotic course: 03/05-03/08: Ertapenem -- broadened coverage with Primaxin and Vancomycin, Tmax of 103, + S. epi in 1 of 3 blood cx 03/09- present: Primaxin + Vancomycin ( 03/14/17 is day 6 of therapy). Plan for 7 days of Vancomycin and 10-14 days of primaxin-- still NPO with NG tube in place Continue present management as above. Surgery following. Asha Dee, PharmD, BCOP ASHA DEE Mar 14, 2017 14:57
[2017-03-14] MEDS: FAT EMULSION 20% 250 ML BAG 250 ML IVPB SCH (16:21)
[2017-03-15] VITALS (24 sets, daily range): BP systolic 115–140; BP diastolic 46–94
[2017-03-15] MEDS: DILTIAZEM IVPB SCH (00:37)
[2017-03-15] MEDS: IVP IVPB SCH (00:37)
[2017-03-15] MEDS: IMIPENEM/CILASTA(*) 500MG VIAL 1,000 MG in NS(*) 0.9% 250 ML BAG 250 ML IVPB SCH ×3 (00:37→16:59)
[2017-03-15] MEDS: NS 0.9% IVPB SCH (00:37)
[2017-03-15] MEDS: HYDROmorphone PCA 6 MG/30 ML IV PRN (01:42)
[2017-03-15] MEDS: [UNRECOGNIZED DRUG - OTHER] IV SCH ×2 (03:11→14:48)
[2017-03-15 05:35] LABS: PLATELET COUNT, AUTOMATED 191 K/uL (150-450)
[2017-03-15] MEDS: INSULIN HUM LISPRO 100 UN/ML 3 ML VIAL SUBQ PRN ×3 (06:22→18:37)
--- NOTE | 2017-03-15 07:12 | General Surgery Progress Note ---
Subjective Progress Notes Subjective No new complaints, not much pain. No flatus or BM yet. Physical Exam Vital Signs Date Time Temp Pulse Resp B/P (MAP) Pulse Ox O2 Delivery O2 Flow Rate FiO2 03/15/17 06:28 71 03/15/17 06:27 22 90 03/15/17 06:00 121/62 (81) Bi-PAP 60.0 03/15/17 05:00 12.0 03/15/17 04:03 99.6 General Appearance: Alert, Awake, No Acute Distress, Afebrile GI: Other (Soft, mild periumbilical TTP, no peritoneal signs.) Extremities: Warm, Perfused Result Diagram: 03/15/1751403/15/17514 Assessment and Plan Problems: (1) Intra-abdominal free air of unknown etiology Status: Acute Assessment & Plan: Admit, NPO, IV fluids, IV abx, bowel rest, NG tube GI decompression. Abdominal exam without peritonitis and patient is at extremely high risk for surgery due to his body habitus and currently chemotherapy, especially avastin. Will try conservative management but if he worsens, or fails to improve, on conservative therapy then will need to proceed with surgical exploration. I have explained this plan to him in detail and he is agreeable with proceeding with this plan. 03/06/17: Doing a little better although having fevers. Will continue conservative management today with bowel rest, NG tube decompression, IV fluids , and IV abx. If not clearly better by tomorrow will repeat CT scan and will consider surgical exploration tomorrow afternoon/evening. Pt agreeable with this plan. Surgery is very risky in this patient with low albumen, suppressed healing due to chemotherapy, especially avastin (last dose 1 week ago), and morbid obesity. 03/07/17: Will repeat CT abd/pelvis this morning and may need to operate later this afternoon since he continues to have pain without bowel function and recurring fevers, marginal improvement if at all. I have explained this to the patient and I have explained the dangers of surgery in him, especially with recent chemo including avastin, but we may no longer have a choice if he has a bowel perforation. Will see what CT shows and then make a decision this afternoon. Will hold heparin gtt this morning. Pt is agreeable with proceeding with surgery is necessary. 03/08/17: CT yesterday showed improvement with less free air and no organized fluid collection. Clinically he is improving. Will continue with conservative therapy, bowel rest, NG tube decompression, IV abx. TPN started yesterday. Continue anticoagulation for PEs, PPI for GI prophylaxis. 03/09/17: Developed a-fib, now in ICU for diltiazem gtt. Abdomen exam remains benign. Will work on cardiac rate control. Continue bowel rest, NG tube decompression, IV abx. Continue TPN. Continue anticoagulation for PEs. Continue PPI for GI prophylaxis. 03/10/17: Looks much improved today. More alert, off BiPap, afebrile overnight with change of antibiotics. I discussed with him that should he reach a point where surgery is indicated, I would recommend transfer to a higher level facility to which he agreed. However, given his improvement since yesterday, I feel it is reasonable to continue care for him here for now. I will check a Mg and Phos today. Continue the NGT until he is passing flatus. 03/11/17: Continued improvement. Labs indicate recovery of marrow function. Afebrile since change in Abx regimen 2 days ago. Continue this course. Awaiting return of bowel function and will leave NGT in place until that time. Expect that it will be at least another day or two. His hypophosphotemia persists but responded appropriately to replacement yesterday. I will defer to IM in regards to ongoing replacement. Continue TPN with same formulation. Will plan to get him up to a chair today. 03/12/17: Better every day. Much more alert and interactive today. Spend time in the chair yesterday and will again today. Gipson out yesterday. Will receive lasix today to work on fluid balance. Will allow sips of clears but keep NGT until flatus present. 03/13/17: Daily progress. Awaiting bowel function. Continue Vanco for at least 7 day course with Primaxin ~14 days. 03/14/17: Clinically doing better. Not much pain. Fevers better. No bowel function yet. Continue bowel rest, TPN, etc. 03/15/17: Continues to do fairly well but having mild fevers. Will repeat CT abd/pelvis today. Continue bowel rest/TPN. (2) Multiple pulmonary emboli Status: Acute Assessment & Plan: Hospitalists consulted. Will start a Heparin gtt which can be stopped if surgery becomes necessary. Will need long-term anticoagulation after he improves with conservative management or after he recovers from surgery if necessary. Central Venous Access Medical Necessity for Access: Hemodynamic Monitoring, IV Access, Medication Administration Condition Stable. Time Spent: < 30 min Exam Sepsis Risk: No Definite Risk LISSETH RUSH MD Mar 15, 2017 07:12
[2017-03-15] MEDS: PANTOPRAZOLE SOD 40 MG IV VIAL IVP SCH (09:08)
[2017-03-15] MEDS ORDERED: IOPAMIDOL 76% 75 ML INFUS BTL 75 ML ONE (09:11)
[2017-03-15] MEDS ORDERED: NS 0.9% 50 ML VIAL 100 ML ONE (09:11)
--- NOTE | 2017-03-15 10:47 | RADIOLOGY IMAGING REPORT ---
FACILITY: [facility] PATIENT NAME: Lisseth Campa : 1950 MR: [id number] V: [id number] EXAM DATE: ORDERING PHYSICIAN: LISSETH RUSH TECHNOLOGIST: Location: [facility] - [place] Patient: Lisseth Campa : 1950 Visit/Account:[id number] Date of Sevice: 03/15/2017 ABDOMEN/PELVIS W/WO CONTRAST HISTORY: intraperitoneal free air, PE, high O2 demand TECHNIQUE: Axial images acquired through the abdomen/pelvis both with and without IV contrast.. Florian nal and sagittal reformatting also performed. Dose Lowering Technique One of the following dose optimization techniques was utilized in the performance of this exam: Autom ated exposure control; adjustment of the mA and/or kV according to the patient's size; or use of an i terative reconstruction technique. Specific details can be referenced in the facility's radiology C T exam operational policy. CONTRAST: 75 mL Isovue-370 COMPARISON: March 07, 2017 FINDINGS: Visualized lung bases: Small posterior layering bilateral pleural effusions are slightly increased. The degree of airspace consolidation in the lower lobes with air bronchograms also slightly increase d. Hepatobiliary: Negative. Spleen: Mild splenomegaly with spleen measuring 15.4 cm in length Adrenals: Negative. Pancreas: Severely atrophic and fatty replaced Kidneys ureters and bladder: Mild perinephric stranding bilaterally Genitalia: Negative. GI: NG tube noted with distal tip at the junction of the gastric fundus and body . Again noted are the anastomoses in the sigmoid colon and mid small bowel. The small bowel loop just proximal to the anastomosis appears slightly more patulous. There is no evidence of steph bowel obstruction. Fluid collections in the paracolic gutters appears slightly more organized at this time although do n ot appear to represent abscesses. The right paracolic gutter collection contains an air-fluid level. . Small interspersed bubbles of free peritoneal air are no longer seen. There is additional focal f luid collection just above the bladder although does not appear to represent an abscess. Vessels/spaces/nodes: Please see above discussion concerning slightly organized fluid collections. Right external iliac adenopathy again noted with the largest node measuring 3.3 x 3.3 cm minimally in creased when compared to the prior study Bones/soft tissues: Postsurgical changes from a midline abdominal pelvic incision again seen. There is mild diffuse anasarca. Severe degenerative changes of the right hip joint again seen and grade 1 spondylolisthesis of L5 wit h respect to S1 related to pars defects at L5 Additional findings: None pertinent. IMPRESSION: Small posterior layering bilateral pleural effusions and airspace consolidation lower lobes has sligh tly increased in the interim. Fluid collections the paracolic gutters appears slightly more organized at this time although do not appear to represent abscesses. There is an air-fluid level in the right paracolic gutter collection. An additional focal fluid collections also seen just above the bladder although does not appear to represent an abscess at this time. The small interspersed bubbles of free peroneal air are no longer seen. Right external iliac adenopathy again noted with the largest node minimally increased now measuring 3 .3 x 3.3 cm as opposed to 3.2 x 3.2 cm Mild splenomegaly Report Dictated By: Kayli Berry MD at 03/15/2017 10:06 AM Report E-Signed By: Kayli Berry MD at 03/15/2017 10:43 AM MICAELAN:AMIARASELIVKierra
--- NOTE | 2017-03-15 11:04 | RADIOLOGY IMAGING REPORT ---
FACILITY: [facility] PATIENT NAME: Gold Campa : 1950 MR: [id number] V: [id number] EXAM DATE: ORDERING PHYSICIAN: TATIANA REYNA TECHNOLOGIST: [place] [facility] [place] Patient: Gold Campa : 1950 Visit/Account:[id number] Date of Sevice: 03/15/2017 CTA CHEST WW/O CNTR (PULM ANG) HISTORY: PE, high O2 deman ADDITIONAL HISTORY: None. TECHNIQUE: CTA chest with intravenous contrast. Axial imaging acquired following administration of IV contrast timed for maximum opacification of the pulmonary arterial vasculature. Slab 3-D MIP chay nstructed images were also created for further evaluation and interpretation. [facility] data set includes multiplanar 2-D in the sagittal and coronal planes and 3-D reconstructed david nal slab MIP series. 3-D images were created by the technologist. Dose Lowering Technique One of the following dose optimization techniques was utilized in the performance of this exam: Autom ated exposure control; adjustment of the mA and/or kV according to the patient's size; or use of an i terative reconstruction technique. Specific details can be referenced in the facility's radiology C T exam operational policy. CONTRAST: 75 mL Isovue-370 COMPARISON: March 05, 2017 FINDINGS: Lungs/pleura: The previously noted slightly spiculated left upper lobe pulmonary nodule measures 1.9 x 1.7 cm as opposed 1.8 x 1.5 cm. Is also been development of a patchy airspace consolidation in th e anterior apex of the left upper lobe There has been development of a focal irregular area of dense airspace consolidation in the right upper lobe, most prominent along the anterior apical portion of the right upper lobe although patchy airspace consolidation does extend into the posterior inferior r ight upper lobe as well with air bronchograms. There has been an interval increase in the posterior layering bilateral pleural effusions and adjacent airspace consolidation in the lower lobes. Heart/vessels: There has been marked improvement of the previously noted extensive bilateral pulmona ry emboli. No definite pulmonary emboli identified this time although the more peripheral vessels ar e not ideally opacified with contrast... There are mild coronary artery vascular calcifications Mediastinum/lymph nodes: There is been development of several small pretracheal and AP window lymph nodes likely reactive Visualized upper abdomen: Please see today's CT of abdomen and pelvis dictation Bones/soft tissues: No aggressive appearing bone lesions are seen Additional findings: None IMPRESSION: There is been marked improvement of the previously noted bilateral pulmonary emboli with no definite pulmonary emboli identified at this time although the more peripheral vessels are not ideally opacifi ed with contrast The previously noted spiculated mass in the left upper lobe slightly increased in size now measuring 1.9 x 1.7 cm as opposed 1.8 x 1.5 cm. There is been development of patchy airspace consolidation in the right upper lobe and the left pulmo nary apex which may represent developing infectious/inflammatory process or possibly related to pulmo nary infarcts from patient's previously noted pulmonary emboli There is been interval increase in the posterior layering bilateral pleural effusions and adjacent ai rspace consolidation in the lower lobes. There is been development of small mediastinal lymph nodes which may be reactive given the pulmonary findings . Please see today's CT of abdomen pelvis dictation for additional findings Report Dictated By: Kayli Berry MD at 03/15/2017 10:44 AM Report E-Signed By: Kayli Berry MD at 03/15/2017 10:58 AM WSN:[email or web address]
[2017-03-15] MEDS: VANCOMYCIN 1 GM ADDVIAL 1 GM in NS(*) 0.9% 250 ML ADDVAN BAG 250 ML IVPB SCH ×2 (12:31→23:05)
--- NOTE | 2017-03-15 15:20 | Hospitalist Progress Note ---
Subjective Progress Notes Subjective The patient denies CP/SOB. Staff reporting that he desaturates quickly off the BIPAP. Physical Exam Vital Signs Date Time Temp Pulse Resp B/P (MAP) Pulse Ox O2 Delivery O2 Flow Rate FiO2 03/15/17 12:05 22 96 03/15/17 12:00 98.7 70 122/63 (82) Bi-PAP 60.0 03/15/17 05:00 12.0 Intake and Output 03/16/17 07:00 Intake Total 292.3 ml Output Total 950 ml Balance -657.7 ml IV Total 292.3 ml Output Urine Total 950 ml General Appearance: Other (Awakens easily. Mildly tachypneic) Cardiovascular: Regular Rate and Rhythm Respiratory: Clear to Auscultation Result Diagram: 03/15/1751403/15/17514 Assessment and Plan Problems: (1) Multiple pulmonary emboli Status: Acute Assessment & Plan: His CT scan did show bilateral pulmonary emboli - most likely related to his cancer and/or the Avastin. We are currently treating him with a heparin infusion and are making dose adjustments based on Anti-factor Xa levels. We are keeping him at the lower end of the therapeutic range due to low platelet count and and recurring nose bleeds. 03/11: He is currently on Heparin and his anti F10a level was low . Dose was adjusted accordingly. He is still requiring 11L O2 and BIPAP at night. 03/12: He is still on Heparin drip with normal range Anti Factor 10a level. No sign of active bleed. I will continue his current management with Heparin in case he require surgery. I will get his labs in am 03/13: Anti Factor Xa level a bit low today. Will increase to 11.5u/kg/hour. Repeat level in 12 hours. 03/14: I will continue his Heparin drip until he is cleared by the surgeon. I will continue his current management. I will continue to check his Anti [id number] levels 03/15: Continue Heparin. We are keeping him at the lower end of the therapeutic range due to low platelet count and and recurring nose bleeds. Can now check Anti Factor Xa q24 hours. Continue BIPAP. He might benefit from diuresis. He is about 3kg up from his baseline weight. 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 Multiple metastases. Treatment through the Cancer Center has been FOLFOX and Avastin. He may have had bowel perforation related to the Avastin as well. We will broaden antibiotic coverage for both abdomen and ulcers/extremities. We discussed end-of-life decisions with Gold. He has decided he does not want to be intubated/mechanically ventilated, but would like an attempt at CPR if needed. 03/11: I have discussed also regarding his wishes if his condition deteriorates. I will continue his present management. I will check his labs in am 03/12: Current management as per surgeon 03/13: No significant change. 03/14: Management as per surgery. I will get his morning labs. 03/15: CT of the abd/pelvis today. On Primaxin and Vancomycin. (3) Atrial fibrillation with RVR Status: Acute Assessment & Plan: He developed it on 03/08. He was symptomatic and was transferred to the ICU. Electrical cardioversion was attempted, but wasn't successful. He was started on a Diltiazem drip and was given Digoxin pushes x4. Now in NSR, so both medications stopped. Will order a TSH and echo. (4) Venous stasis ulcer Status: Chronic Assessment & Plan: He is receiving wound care from physical therapy. Central Venous Access Medical Necessity for Access: Hemodynamic Monitoring, IV Access, Medication Administration Exam Sepsis Risk: No Definite Risk HESHAM DE LA TORRE MD Mar 15, 2017 15:20
--- NOTE | 2017-03-15 16:10 | Medical Nutrition Therapy ---
Nutrition Anthropometrics Height (Inches): 71.25 Height (Calculated Centimeters: [phone] Weight (Pounds): 298 Weight (Calculated Kilograms): 135.171 BMI Calculated: 40.30 Nhan Nutrition Score: Adequate Nhan Nutrition Risk Score: 16 Dietary Referral Nutrition Risk Factors: Nutrition Risk Comment: Physical Findings Physical Appearance: Morbidly Obese 40+ Skin Appearance Skin Appearance: Edema Edema Location Modifier: Both Edema Location: Lower Extremity Type of Edema: Degree of Edema: 1+ Gastrointestinal Symptoms GI Symtoms: Bloating Tube Present: NG Bowel Sounds: Recent Bowel Pattern: Stool Characteristics: Nutritional Diagnosis Nutritional Risk Acuity 1: TPN/PPN, GI Obstruction (possible GI obstruction/ perforation) Nutritional Risk Acuity 2: Head/Neck/GI Cancer Nutritional Risk Acuity 3: Weight Loss, Morbid Obesity Past Medical History: Colon cancer with mets, HTN, colectomy Nutritional Acuity: 1-High Nutrition Diagnosis: Altered GI Function Nutrition Etiology: Physiological Causes Nutrition Problem/Etiology/Sym: Altered GI function r/t physiological causes AEB abd pain, diarrhea, intra-abdominal air, and lack of bowel movements Adjusted Energy Requirement Re: 2600 (Adj. Callie Nielsen) Protein Requirement: 132 (1 g/kg) Fluid Requirement: 2640 (20 ml/kg) Diet Type: Clear Liquids, TPN/PPN Nutrition Intervention: Between meal supplement, Nutrition support, Incr diet as tolerated Additional Diet Restrictions: PROVIDE CLEAR LIQUID NUTR SUPPLMENT WHILE ON CLEARS Nutritional Support Current Enteral / Parental: TPN Current Tube Feeding Formula C: 100ml/hr+lipids Current Duration: 24 Current Calories: 2448 Current Protein: 101 Current Lipids Calories: 275 Total Current Calories: 2723 Nutrition Monitoring & Eval Nutritional Goals Comment: TPN will meet nutr needs until oral intake can meet needs RD Patient Assessment Time: [address] Assessment Type: RD Re-Assessment Patient Nutrition Acuity: 1-High Follow Up Date: Mar 18, 2017 Nutritional Comment: 03/06 Pt admitted for multiple pulmonary emboli and abd pain. Pt has dx colon Ca with mets and is currently recieveing chemo tx. Alb mildly depleted at 3.4. Pt has 2 day hx of diarrhea. Pt is NPO. Pt has 50# wt loss since May 2016. BMI cont in class 3 obestiy range. Recommend nutr support if diet is not advanced in 3 days. Cont to monitor 12/20/17 Pt continues NPO for bowel rest. Pt still experiencing pain and lack of bowel function. Surgery may be necessary for possible bowel obstruction later this afternoon, per MD. PICC line placed. I recommend TPN/nutr support if diet is not advanced in 2 days. Alb 2.4 and total pro 4.7. Will continue to monitor. 03/08 Pt stated on TPN and is now 75ml/hr plus lipids meeting 82% est kcal and 62% est protein needs. Recommend increase TPN to 100ml/hr plus lipids to meet 105% est kcal and 83% est protein needs. Alb declined to 2.4. BG elevated up to 152. Will cont to monitor. 03/10 Continues with TPN @ 75mL/hr and Intralipid 20% 250mL bag/day. Low H/H, Glu 190, Alb 2.4, Low phosphours, Ca+. Lispo SSI. May begin PO intake after pt passes flatus. Follow for diet progression, etc. 03/13 No changes to TPN or diet status. Alb 2.5, Glu 182. Monitor labs, diet changes. 03/14 Pt cont on TPN at 75ml/hr. Diet advanced to clear liquids. Will provide clear liquid nutr supplment to increase protein intake. Current TPN meeting s 80% est kcal and 62% est protein needs. Alb 2.5. Will cont to monitor. 03/15 TPN increased to 100ml/hr plus lipis . Current TPN order meeting 105% est kcal and 83% est protein needs. Will cont to monitor. SARAH PAN Mar 15, 2017 16:10
[2017-03-15] MEDS: HEPARIN* SOD/D5W 25000 U/500ML 500 ML IV SCH (16:53)
[2017-03-15] MEDS: FAT EMULSION 20% 250 ML BAG 250 ML IVPB SCH (16:54)
[2017-03-15] MEDS: NS(*) 0.9% 1000 ML BAG 1,000 ML IV PRN (17:00)
[2017-03-15] MEDS: LEVALBUTEROL 1.25 MG/3 ML NEB NEB PRN (17:32)
[2017-03-15] MEDS: ACETAMINOPHEN(*)1000 MG/100 ML 100 ML IVPB PRN (23:03)
[2017-03-16] VITALS (24 sets, daily range): BP systolic 105–141; BP diastolic 48–83
[2017-03-16] MEDS: [UNRECOGNIZED DRUG - OTHER] IV SCH ×3 (01:11→20:52)
[2017-03-16] MEDS: INSULIN HUM LISPRO 100 UN/ML 3 ML VIAL SUBQ PRN ×4 (01:21→23:34)
[2017-03-16] MEDS: IMIPENEM/CILASTA(*) 500MG VIAL 1,000 MG in NS(*) 0.9% 250 ML BAG 250 ML IVPB SCH ×3 (01:22→16:56)
[2017-03-16 06:00] LABS: PLATELET COUNT, AUTOMATED 207 K/uL (150-450)
--- NOTE | 2017-03-16 06:58 | General Surgery Progress Note ---
Subjective Progress Notes Subjective No new complaints this morning. Physical Exam Vital Signs Date Time Temp Pulse Resp B/P (MAP) Pulse Ox O2 Delivery O2 Flow Rate FiO2 03/16/17 06:00 99.0 70 26 125/71 (89) 95 Bi-PAP 70.0 03/16/17 04:11 12.0 General Appearance: Alert, Awake, No Acute Distress, Afebrile GI: Other (Soft, mild periumbilical TTP, no peritoneal signs.) Extremities: Warm, Perfused Result Diagram: 03/16/1752003/16/17520 Assessment and Plan Problems: (1) Intra-abdominal free air of unknown etiology Status: Acute Assessment & Plan: Admit, NPO, IV fluids, IV abx, bowel rest, NG tube GI decompression. Abdominal exam without peritonitis and patient is at extremely high risk for surgery due to his body habitus and currently chemotherapy, especially avastin. Will try conservative management but if he worsens, or fails to improve, on conservative therapy then will need to proceed with surgical exploration. I have explained this plan to him in detail and he is agreeable with proceeding with this plan. 03/06/17: Doing a little better although having fevers. Will continue conservative management today with bowel rest, NG tube decompression, IV fluids , and IV abx. If not clearly better by tomorrow will repeat CT scan and will consider surgical exploration tomorrow afternoon/evening. Pt agreeable with this plan. Surgery is very risky in this patient with low albumen, suppressed healing due to chemotherapy, especially avastin (last dose 1 week ago), and morbid obesity. 03/07/17: Will repeat CT abd/pelvis this morning and may need to operate later this afternoon since he continues to have pain without bowel function and recurring fevers, marginal improvement if at all. I have explained this to the patient and I have explained the dangers of surgery in him, especially with recent chemo including avastin, but we may no longer have a choice if he has a bowel perforation. Will see what CT shows and then make a decision this afternoon. Will hold heparin gtt this morning. Pt is agreeable with proceeding with surgery is necessary. 03/08/17: CT yesterday showed improvement with less free air and no organized fluid collection. Clinically he is improving. Will continue with conservative therapy, bowel rest, NG tube decompression, IV abx. TPN started yesterday. Continue anticoagulation for PEs, PPI for GI prophylaxis. 03/09/17: Developed a-fib, now in ICU for diltiazem gtt. Abdomen exam remains benign. Will work on cardiac rate control. Continue bowel rest, NG tube decompression, IV abx. Continue TPN. Continue anticoagulation for PEs. Continue PPI for GI prophylaxis. 03/10/17: Looks much improved today. More alert, off BiPap, afebrile overnight with change of antibiotics. I discussed with him that should he reach a point where surgery is indicated, I would recommend transfer to a higher level facility to which he agreed. However, given his improvement since yesterday, I feel it is reasonable to continue care for him here for now. I will check a Mg and Phos today. Continue the NGT until he is passing flatus. 03/11/17: Continued improvement. Labs indicate recovery of marrow function. Afebrile since change in Abx regimen 2 days ago. Continue this course. Awaiting return of bowel function and will leave NGT in place until that time. Expect that it will be at least another day or two. His hypophosphotemia persists but responded appropriately to replacement yesterday. I will defer to IM in regards to ongoing replacement. Continue TPN with same formulation. Will plan to get him up to a chair today. 03/12/17: Better every day. Much more alert and interactive today. Spend time in the chair yesterday and will again today. Gipson out yesterday. Will receive lasix today to work on fluid balance. Will allow sips of clears but keep NGT until flatus present. 03/13/17: Daily progress. Awaiting bowel function. Continue Vanco for at least 7 day course with Primaxin ~14 days. 03/14/17: Clinically doing better. Not much pain. Fevers better. No bowel function yet. Continue bowel rest, TPN, etc. 03/15/17: Continues to do fairly well but having mild fevers. Will repeat CT abd/pelvis today. Continue bowel rest/TPN. 03/16/17: Doing well but with continued fevers. Repeat CT abd/pelvis reveals organizing fluid collections in both pericolic gutters, right > left, and a larger fluid collection in lower abdomen adjacent to the colonic anastomosis. No free air but some contained air in the fluid collection. These don't look walled off yet. Will allow to organize and then will re-CT next week and if able will look at percutaneous drainage of these collections. Will reserve surgical exploration for clinical decline or if he's not progressing 4 weeks after his last dose of Avastin, it's currently been 2 1/2 weeks since his last dose. I discussed with Lisseth that if surgery becomes necessary, it will likely require taking down the anastomosis and giving him a colostomy which may be permanent. He seems to understand and he seems to be agreeable with this plan. A major problem right now is respiratory insufficiency and he's requiring almost continuous BIPAP on 60% fiO2. Only mild pleural effusions on Chest CT but both lower lobes are incompletely ventilated. The PEs appear resolved. The JOAO met is a little larger when compared to his previous chest CT on admission. He may also have areas of infiltrate or even infarction from the PE is his lungs. He does not wish to be intubated and he has been made DNI. Will need to follow his respiratory status closely and continue aggressive pulmonary toilet and will continue to work on mobilizing him more although his mobility is very limited by his compromised respiratory reserve. (2) Multiple pulmonary emboli Status: Acute Assessment & Plan: Hospitalists consulted. Will start a Heparin gtt which can be stopped if surgery becomes necessary. Will need long-term anticoagulation after he improves with conservative management or after he recovers from surgery if necessary. Central Venous Access Medical Necessity for Access: Hemodynamic Monitoring, IV Access, Medication Administration Condition Stable Time Spent: < 30 min Exam Sepsis Risk: No Definite Risk LISSETH RUSH MD Mar 16, 2017 06:58
[2017-03-16] MEDS ORDERED: LORazepam 0.5 MG TAB PO PRN (08:00)
[2017-03-16] MEDS ORDERED: FUROSEMIDE 40 MG/4 ML VIAL IVP ONE (08:15)
[2017-03-16] MEDS: PANTOPRAZOLE SOD 40 MG IV VIAL IVP SCH (09:11)
[2017-03-16] MEDS: HEPARIN* SOD/D5W 25000 U/500ML 500 ML IV SCH (10:10)
[2017-03-16] MEDS: VANCOMYCIN 1 GM ADDVIAL 1 GM in NS(*) 0.9% 250 ML ADDVAN BAG 250 ML IVPB SCH ×2 (12:07→23:28)
[2017-03-16] MEDS: HYDROmorphone PCA 6 MG/30 ML IV PRN (14:42)
[2017-03-16] MEDS: LEVALBUTEROL 1.25 MG/3 ML NEB NEB PRN (14:46)
--- NOTE | 2017-03-16 14:49 | Hospitalist Progress Note ---
Subjective Progress Notes Subjective is a 66yo male, h/o sigmoid colon cancer with pulmonary mets, currently in the middle of chemotherapy (FOLFOX and avastin), who has been dealing with diarrhea related to the chemo, presents with a 1 day h/o abdominal pain with fevers. He had diarrhea 2 days ago and took some OTC antidiarrheal medication. He had a loose BM yesterday morning but no flatus for 2 days. He began experiencing abdominal pain 24 hours ago. Was getting worse which prompted him to come in to the ER for evaluation. His last chemo was last week , almost a week ago and his next round is scheduled for next week. He also had SOB. CT chest reveals multiple PEs. CT abdomen/pelvis reveals fluid in pelvis and small "speckles" of free air in the mid abdomen and up near his liver. No obvious inflammatory changes. Mildly dilated small bowel and distended stomach. 03/11: I have discussed the case with international broadcast music librarian surgeon at length and decided if his respiratory condition gets deteriorated then he should be transferred to a tertiary hospital. Patient has shown some improvement since yesterday with Vanco and Primaxin. His BCX-ID is still pending. He is still requiring high Oxygen. 03/12: He is still using Bipap with 60% FiO2. He clinically looks better without any sig. abdominal pain, He has no fever and his WBC are WNL. 03/14: is still requiring BIPAP with FiO2 60% at night. He is on Heparin and antibiotics for his bilateral PE and leak at the anastomosis. He is otherwise asymptomatic. Patient Complains of: Neurological: Weakness, No: Syncope, Confusion, Dizziness Cardiovascular: No: Chest Pain, Palpitations Respiratory: Cough, Congestion, Shortness of Breath, No: Wheezing Gastrointestinal: No Nausea, No Vomiting, No Flatus Genitourinary: No Dysuria, No Hematuria (taylor in place) Musculoskeletal: No: Pain, Sprain, Strain Physical Exam Vital Signs Date Time Temp Pulse Resp B/P (MAP) Pulse Ox O2 Delivery O2 Flow Rate FiO2 03/16/17 13:00 73 25 116/60 (78) 94 Bi-PAP 70.0 03/16/17 12:00 100.2 03/16/17 04:11 12.0 Intake and Output 03/17/17 07:00 Intake Total 451 ml Output Total 2850 ml Balance -2399 ml IV Total 451 ml Output Urine Total 2850 ml General Appearance: Alert, Awake, Afebrile, Other (mild to moderate resp. distress) Neuro: No Gross deficits Eyes: PERRLA ENT: Normal Cardiovascular: Normal Rhythm & Peripheral Pulses Respiratory: Clear to Auscultation (few basilar rales) GI: Other (generalized tenderness on deep palpation) Extremities: Soft and Non Tender, Edema Psych: Alert & Oriented X3, Appropriate Mood & Affect Result Diagram: 03/16/1752003/16/17520 Assessment and Plan Problems: (1) Multiple pulmonary emboli Status: Acute Assessment & Plan: His CT scan did show bilateral pulmonary emboli - most likely related to his cancer and/or the Avastin. We are currently treating him with a heparin infusion and are making dose adjustments based on Anti-factor Xa levels. We are keeping him at the lower end of the therapeutic range due to low platelet count and and recurring nose bleeds. 03/11: He is currently on Heparin and his anti F10a level was low . Dose was adjusted accordingly. He is still requiring 11L O2 and BIPAP at night. 03/12: He is still on Heparin drip with normal range Anti Factor 10a level. No sign of active bleed. I will continue his current management with Heparin in case he require surgery. I will get his labs in am 03/13: Anti Factor Xa level a bit low today. Will increase to 11.5u/kg/hour. Repeat level in 12 hours. 03/14: I will continue his Heparin drip until he is cleared by the surgeon. I will continue his current management. I will continue to check his Anti Pmotpt15n levels 03/15: Continue Heparin. We are keeping him at the lower end of the therapeutic range due to low platelet count and and recurring nose bleeds. Can now check Anti Factor Xa q24 hours. Continue BIPAP. He might benefit from diuresis. He is about 3kg up from his baseline weight. 03/16: He developed fever despite antibiotics. I will panculture him and if he spike > 101, I will add Clindamycin. I will continue his Heparin and check AFXa level. His CT A/P revealed possible abscess. He will require surgery once he is stable or at least 14-21 days after his last chemo. His Echo was done today. 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 Multiple metastases. Treatment through [facility] has been FOLFOX and Avastin. He may have had bowel perforation related to the Avastin as well. We will broaden antibiotic coverage for both abdomen and ulcers/extremities. We discussed end-of-life decisions with Lisseth. He has decided he does not want to be intubated/mechanically ventilated, but would like an attempt at CPR if needed. 03/11: I have discussed also regarding his wishes if his condition deteriorates. I will continue his present management. I will check his labs in am 03/12: Current management as per surgeon 03/13: No significant change. 03/14: Management as per surgery. I will get his morning labs. 03/15: CT of the abd/pelvis today. On Primaxin and Vancomycin. 03/16: He came with leak at the anastomosis site of colon resection due to colon cancer and CT A/P revealed possible abscess and he is on Primaxin and Vanco. He developed fever today and I will panculture him and if his fever persist I will use Clindamycin. I will order morning labs and CXR. I will get Vanco level in am (3) Atrial fibrillation with RVR Status: Resolved Assessment & Plan: He developed it on 03/08. He was symptomatic and was transferred to the ICU. Electrical cardioversion was attempted, but wasn't successful. He was started on a Diltiazem drip and was given Digoxin pushes x4. Now in NSR, so both medications stopped. Will order a TSH and echo. 03/16: His A.fib resolved and he is off Cardizem drip. (4) Venous stasis ulcer Status: Chronic Assessment & Plan: He is receiving wound care from physical therapy. Central Venous Access Medical Necessity for Access: Hemodynamic Monitoring, IV Access, Medication Administration Condition Critical Time Spent on Plan of Care: > 30 min Copies to: HALEY CORRAL MD; LISSETH RUSH MD Exam Sepsis Risk: No Definite Risk TATIANA REYNA MD Mar 16, 2017 14:16
[2017-03-16] MEDS: FAT EMULSION 20% 250 ML BAG 250 ML IVPB SCH (16:38)
[2017-03-16] MEDS: ACETAMINOPHEN(*)1000 MG/100 ML 100 ML IVPB PRN (18:41)
[2017-03-17] VITALS (23 sets, daily range): BP systolic 96–142; BP diastolic 45–86
[2017-03-17] MEDS: ACETAMINOPHEN(*)1000 MG/100 ML 100 ML IVPB PRN ×2 (01:10→22:28)
[2017-03-17] MEDS: IMIPENEM/CILASTA(*) 500MG VIAL 1,000 MG in NS(*) 0.9% 250 ML BAG 250 ML IVPB SCH ×3 (01:11→16:43)
[2017-03-17] MEDS: HEPARIN* SOD/D5W 25000 U/500ML 500 ML IV SCH ×2 (04:28→21:45)
[2017-03-17 05:11] LABS: PLATELET COUNT, AUTOMATED 203 K/uL (150-450)
[2017-03-17] MEDS: INSULIN HUM LISPRO 100 UN/ML 3 ML VIAL SUBQ PRN ×2 (05:35→12:21)
[2017-03-17] MEDS: [UNRECOGNIZED DRUG - OTHER] IV SCH (06:34)
--- NOTE | 2017-03-17 08:13 | General Surgery Progress Note ---
Subjective Progress Notes Subjective He is currently sleeping. He was up a little earlier asking for his breakfast without complaints. Has been passing flatus. Physical Exam Vital Signs Date Time Temp Pulse Resp B/P (MAP) Pulse Ox O2 Delivery O2 Flow Rate FiO2 03/17/17 06:00 71 22 104/57 (73) 95 Bi-PAP 50.0 03/17/17 03:00 99.4 03/16/17 17:00 15.0 Result Diagram: 03/17/17 0425 03/17/175 Assessment and Plan Problems: (1) Intra-abdominal free air of unknown etiology Status: Acute Assessment & Plan: Admit, NPO, IV fluids, IV abx, bowel rest, NG tube GI decompression. Abdominal exam without peritonitis and patient is at extremely high risk for surgery due to his body habitus and currently chemotherapy, especially avastin. Will try conservative management but if he worsens, or fails to improve, on conservative therapy then will need to proceed with surgical exploration. I have explained this plan to him in detail and he is agreeable with proceeding with this plan. 03/06/17: Doing a little better although having fevers. Will continue conservative management today with bowel rest, NG tube decompression, IV fluids , and IV abx. If not clearly better by tomorrow will repeat CT scan and will consider surgical exploration tomorrow afternoon/evening. Pt agreeable with this plan. Surgery is very risky in this patient with low albumen, suppressed healing due to chemotherapy, especially avastin (last dose 1 week ago), and morbid obesity. 03/07/17: Will repeat CT abd/pelvis this morning and may need to operate later this afternoon since he continues to have pain without bowel function and recurring fevers, marginal improvement if at all. I have explained this to the patient and I have explained the dangers of surgery in him, especially with recent chemo including avastin, but we may no longer have a choice if he has a bowel perforation. Will see what CT shows and then make a decision this afternoon. Will hold heparin gtt this morning. Pt is agreeable with proceeding with surgery is necessary. 03/08/17: CT yesterday showed improvement with less free air and no organized fluid collection. Clinically he is improving. Will continue with conservative therapy, bowel rest, NG tube decompression, IV abx. TPN started yesterday. Continue anticoagulation for PEs, PPI for GI prophylaxis. 03/09/17: Developed a-fib, now in ICU for diltiazem gtt. Abdomen exam remains benign. Will work on cardiac rate control. Continue bowel rest, NG tube decompression, IV abx. Continue TPN. Continue anticoagulation for PEs. Continue PPI for GI prophylaxis. 03/10/17: Looks much improved today. More alert, off BiPap, afebrile overnight with change of antibiotics. I discussed with him that should he reach a point where surgery is indicated, I would recommend transfer to a higher level facility to which he agreed. However, given his improvement since yesterday, I feel it is reasonable to continue care for him here for now. I will check a Mg and Phos today. Continue the NGT until he is passing flatus. 03/11/17: Continued improvement. Labs indicate recovery of marrow function. Afebrile since change in Abx regimen 2 days ago. Continue this course. Awaiting return of bowel function and will leave NGT in place until that time. Expect that it will be at least another day or two. His hypophosphotemia persists but responded appropriately to replacement yesterday. I will defer to IM in regards to ongoing replacement. Continue TPN with same formulation. Will plan to get him up to a chair today. 03/12/17: Better every day. Much more alert and interactive today. Spend time in the chair yesterday and will again today. Gipson out yesterday. Will receive lasix today to work on fluid balance. Will allow sips of clears but keep NGT until flatus present. 03/13/17: Daily progress. Awaiting bowel function. Continue Vanco for at least 7 day course with Primaxin ~14 days. 03/14/17: Clinically doing better. Not much pain. Fevers better. No bowel function yet. Continue bowel rest, TPN, etc. 03/15/17: Continues to do fairly well but having mild fevers. Will repeat CT abd/pelvis today. Continue bowel rest/TPN. 03/16/17: Doing well but with continued fevers. Repeat CT abd/pelvis reveals organizing fluid collections in both pericolic gutters, right > left, and a larger fluid collection in lower abdomen adjacent to the colonic anastomosis. No free air but some contained air in the fluid collection. These don't look walled off yet. Will allow to organize and then will re-CT next week and if able will look at percutaneous drainage of these collections. Will reserve surgical exploration for clinical decline or if he's not progressing 4 weeks after his last dose of Avastin, it's currently been 2 1/2 weeks since his last dose. I discussed with Gold that if surgery becomes necessary, it will likely require taking down the anastomosis and giving him a colostomy which may be permanent. He seems to understand and he seems to be agreeable with this plan. A major problem right now is respiratory insufficiency and he's requiring almost continuous BIPAP on 60% fiO2. Only mild pleural effusions on Chest CT but both lower lobes are incompletely ventilated. The PEs appear resolved. The JOAO met is a little larger when compared to his previous chest CT on admission. He may also have areas of infiltrate or even infarction from the PE is his lungs. He does not wish to be intubated and he has been made DNI. Will need to follow his respiratory status closely and continue aggressive pulmonary toilet and will continue to work on mobilizing him more although his mobility is very limited by his compromised respiratory reserve. 03/17/17: Continue with clear liquid diet until bowel function is fully established. Good progress so far. (2) Multiple pulmonary emboli Status: Acute Assessment & Plan: Hospitalists consulted. Will start a Heparin gtt which can be stopped if surgery becomes necessary. Will need long-term anticoagulation after he improves with conservative management or after he recovers from surgery if necessary. Central Venous Access Medical Necessity for Access: Hemodynamic Monitoring, IV Access, Medication Administration Time Spent: < 30 min Exam Sepsis Risk: No Definite Risk LARRY NATARAJAN MD Mar 17, 2017 08:13
[2017-03-17] MEDS: PANTOPRAZOLE SOD 40 MG IV VIAL IVP SCH (09:28)
[2017-03-17] MEDS: LEVALBUTEROL 1.25 MG/3 ML NEB NEB PRN ×2 (11:06→19:39)
[2017-03-17] MEDS: VANCOMYCIN HCL(*) 0.750 GM ADD 0.75 GM in NS(*) 0.9% 250 ML ADDVAN BAG 250 ML IVPB SCH ×2 (12:15→23:48)
--- NOTE | 2017-03-17 14:54 | Hospitalist Progress Note ---
Subjective Progress Notes Subjective is a 66yo male, h/o sigmoid colon cancer with pulmonary mets, currently in the middle of chemotherapy (FOLFOX and avastin), who has been dealing with diarrhea related to the chemo, presents with a 1 day h/o abdominal pain with fevers. He had diarrhea 2 days ago and took some OTC antidiarrheal medication. He had a loose BM yesterday morning but no flatus for 2 days. He began experiencing abdominal pain 24 hours ago. Was getting worse which prompted him to come in to the ER for evaluation. His last chemo was last week , almost a week ago and his next round is scheduled for next week. He also had SOB. CT chest reveals multiple PEs. CT abdomen/pelvis reveals fluid in pelvis and small "speckles" of free air in the mid abdomen and up near his liver. No obvious inflammatory changes. Mildly dilated small bowel and distended stomach. 03/11: I have discussed the case with specifications checker surgeon at length and decided if his respiratory condition gets deteriorated then he should be transferred to a tertiary hospital. Patient has shown some improvement since yesterday with Vanco and Primaxin. His BCX-ID is still pending. He is still requiring high Oxygen. 03/12: He is still using Bipap with 60% FiO2. He clinically looks better without any sig. abdominal pain, He has no fever and his WBC are WNL. 03/14: is still requiring BIPAP with FiO2 60% at night. He is on Heparin and antibiotics for his bilateral PE and leak at the anastomosis. He is otherwise asymptomatic. 03/17: He is currently on Primaxin, Vancomycin and Heparin. His AFXa is 0.31 and his Vanco level is 21. He is still requiring BIPAP with 50% FiO2. Patient Complains of: Neurological: Weakness, No: Syncope, Confusion, Dizziness Cardiovascular: No: Chest Pain, Palpitations Respiratory: Cough, Congestion, Shortness of Breath, No: Wheezing Gastrointestinal: No Nausea, No Vomiting, No Flatus Genitourinary: No Dysuria, No Hematuria Musculoskeletal: No: Pain, Sprain, Strain Physical Exam Vital Signs Date Time Temp Pulse Resp B/P (MAP) Pulse Ox O2 Delivery O2 Flow Rate FiO2 03/17/17 11:20 95 Oxy Mask 12.0 03/17/17 11:20 89 24 03/17/17 10:00 124/69 (87) 03/17/17 08:00 100.0 50.0 Intake and Output 03/18/17 07:00 Intake Total 278 ml Balance 278 ml IV Total 278 ml General Appearance: Alert, Awake, Afebrile, Other (mild to moderate respiratory distress.) Neuro: No Gross deficits Eyes: PERRLA ENT: Normal Cardiovascular: Regular Rate and Rhythm Respiratory: Other (basilar rales) GI: Soft and Non-Tender Extremities: Soft and Non Tender, Edema Integumentary: Skin Intact without Lesion / Mass Psych: Alert & Oriented X3, Appropriate Mood & Affect Result Diagram: 03/17/1742403/17/17424 Assessment and Plan Problems: (1) Multiple pulmonary emboli Status: Acute Assessment & Plan: His CT scan did show bilateral pulmonary emboli - most likely related to his cancer and/or the Avastin. We are currently treating him with a heparin infusion and are making dose adjustments based on Anti-factor Xa levels. We are keeping him at the lower end of the therapeutic range due to low platelet count and and recurring nose bleeds. 03/11: He is currently on Heparin and his anti F10a level was low . Dose was adjusted accordingly. He is still requiring 11L O2 and BIPAP at night. 03/12: He is still on Heparin drip with normal range Anti Factor 10a level. No sign of active bleed. I will continue his current management with Heparin in case he require surgery. I will get his labs in am 03/13: Anti Factor Xa level a bit low today. Will increase to 11.5u/kg/hour. Repeat level in 12 hours. 03/14: I will continue his Heparin drip until he is cleared by the surgeon. I will continue his current management. I will continue to check his Anti Saagpd41h levels 03/15: Continue Heparin. We are keeping him at the lower end of the therapeutic range due to low platelet count and and recurring nose bleeds. Can now check Anti Factor Xa q24 hours. Continue BIPAP. He might benefit from diuresis. He is about 3kg up from his baseline weight. 03/16: He developed fever despite antibiotics. I will panculture him and if he spike > 101, I will add Clindamycin. I will continue his Heparin and check AFXa level. His CT A/P revealed possible abscess. He will require surgery once he is stable or at least 14-21 days after his last chemo. His Echo was done today. 03/17: His cX results are negative and no further fever and I will continue his Primaxin and Vancomycin. He is on Heparin and I will check his AFXa in am and vanco level. detention plan is to take him to OR. 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 Multiple metastases. Treatment through [facility] has been FOLFOX and Avastin. He may have had bowel perforation related to the Avastin as well. We will broaden antibiotic coverage for both abdomen and ulcers/extremities. We discussed end-of-life decisions with Lisseth. He has decided he does not want to be intubated/mechanically ventilated, but would like an attempt at CPR if needed. 03/11: I have discussed also regarding his wishes if his condition deteriorates. I will continue his present management. I will check his labs in am 03/12: Current management as per surgeon 03/13: No significant change. 03/14: Management as per surgery. I will get his morning labs. 03/15: CT of the abd/pelvis today. On Primaxin and Vancomycin. 03/16: He came with leak at the anastomosis site of colon resection due to colon cancer and CT A/P revealed possible abscess and he is on Primaxin and Vanco. He developed fever today and I will panculture him and if his fever persist I will use Clindamycin. I will order morning labs and CXR. I will get Vanco level in am (3) Atrial fibrillation with RVR Status: Resolved Assessment & Plan: He developed it on 03/08. He was symptomatic and was transferred to the ICU. Electrical cardioversion was attempted, but wasn't successful. He was started on a Diltiazem drip and was given Digoxin pushes x4. Now in NSR, so both medications stopped. Will order a TSH and echo. 03/16: His A.fib resolved and he is off Cardizem drip. (4) Venous stasis ulcer Status: Chronic Assessment & Plan: He is receiving wound care from physical therapy. Central Venous Access Medical Necessity for Access: Hemodynamic Monitoring, IV Access, Medication Administration Condition Critical Time Spent on Plan of Care: > 30 min Copies to: HALEY CORRAL MD; LISSETH RUSH MD Exam Sepsis Risk: No Definite Risk TATIANA REYNA MD Mar 17, 2017 14:54
[2017-03-17] MEDS: FAT EMULSION 20% 250 ML BAG 250 ML IVPB SCH (16:29)
[2017-03-17] MEDS ORDERED: [UNRECOGNIZED DRUG - OTHER] IVPB SCH (16:45)
[2017-03-17] MEDS: HYDROmorphone PCA 6 MG/30 ML IV PRN (19:59)
[2017-03-18] VITALS (24 sets, daily range): BP systolic 64–140; BP diastolic 44–83
[2017-03-18] MEDS: INSULIN HUM LISPRO 100 UN/ML 3 ML VIAL SUBQ PRN ×2 (00:03→12:10)
[2017-03-18] MEDS: IMIPENEM/CILASTA(*) 500MG VIAL 1,000 MG in NS(*) 0.9% 250 ML BAG 250 ML IVPB SCH ×3 (00:55→17:07)
[2017-03-18 05:27] LABS: PLATELET COUNT, AUTOMATED 212 K/uL (150-450)
[2017-03-18] MEDS: PANTOPRAZOLE SOD 40 MG IV VIAL IVP SCH (09:22)
[2017-03-18] MEDS: TOBRAMYCIN/DEX OP SUSP 2.5 ML OU SCH ×2 (09:26→20:57)
--- NOTE | 2017-03-18 09:48 | General Surgery Progress Note ---
Subjective Progress Notes Subjective passing flatus, feels good Physical Exam Vital Signs Date Time Temp Pulse Resp B/P (MAP) Pulse Ox O2 Delivery O2 Flow Rate FiO2 03/18/17 06:25 19 95 03/18/17 05:00 99.8 51 108/60 (76) Bi-PAP 50.0 03/18/17 02:42 12.0 General Appearance: Alert, Awake, No Acute Distress GI: Soft and Non-Tender Result Diagram: 03/18/1751903/18/1720 Assessment and Plan Problems: (1) Intra-abdominal free air of unknown etiology Status: Acute Assessment & Plan: Admit, NPO, IV fluids, IV abx, bowel rest, NG tube GI decompression. Abdominal exam without peritonitis and patient is at extremely high risk for surgery due to his body habitus and currently chemotherapy, especially avastin. Will try conservative management but if he worsens, or fails to improve, on conservative therapy then will need to proceed with surgical exploration. I have explained this plan to him in detail and he is agreeable with proceeding with this plan. 03/06/17: Doing a little better although having fevers. Will continue conservative management today with bowel rest, NG tube decompression, IV fluids , and IV abx. If not clearly better by tomorrow will repeat CT scan and will consider surgical exploration tomorrow afternoon/evening. Pt agreeable with this plan. Surgery is very risky in this patient with low albumen, suppressed healing due to chemotherapy, especially avastin (last dose 1 week ago), and morbid obesity. 03/07/17: Will repeat CT abd/pelvis this morning and may need to operate later this afternoon since he continues to have pain without bowel function and recurring fevers, marginal improvement if at all. I have explained this to the patient and I have explained the dangers of surgery in him, especially with recent chemo including avastin, but we may no longer have a choice if he has a bowel perforation. Will see what CT shows and then make a decision this afternoon. Will hold heparin gtt this morning. Pt is agreeable with proceeding with surgery is necessary. 03/08/17: CT yesterday showed improvement with less free air and no organized fluid collection. Clinically he is improving. Will continue with conservative therapy, bowel rest, NG tube decompression, IV abx. TPN started yesterday. Continue anticoagulation for PEs, PPI for GI prophylaxis. 03/09/17: Developed a-fib, now in ICU for diltiazem gtt. Abdomen exam remains benign. Will work on cardiac rate control. Continue bowel rest, NG tube decompression, IV abx. Continue TPN. Continue anticoagulation for PEs. Continue PPI for GI prophylaxis. 03/10/17: Looks much improved today. More alert, off BiPap, afebrile overnight with change of antibiotics. I discussed with him that should he reach a point where surgery is indicated, I would recommend transfer to a higher level facility to which he agreed. However, given his improvement since yesterday, I feel it is reasonable to continue care for him here for now. I will check a Mg and Phos today. Continue the NGT until he is passing flatus. 03/11/17: Continued improvement. Labs indicate recovery of marrow function. Afebrile since change in Abx regimen 2 days ago. Continue this course. Awaiting return of bowel function and will leave NGT in place until that time. Expect that it will be at least another day or two. His hypophosphotemia persists but responded appropriately to replacement yesterday. I will defer to IM in regards to ongoing replacement. Continue TPN with same formulation. Will plan to get him up to a chair today. 03/12/17: Better every day. Much more alert and interactive today. Spend time in the chair yesterday and will again today. Gipson out yesterday. Will receive lasix today to work on fluid balance. Will allow sips of clears but keep NGT until flatus present. 03/13/17: Daily progress. Awaiting bowel function. Continue Vanco for at least 7 day course with Primaxin ~14 days. 03/14/17: Clinically doing better. Not much pain. Fevers better. No bowel function yet. Continue bowel rest, TPN, etc. 03/15/17: Continues to do fairly well but having mild fevers. Will repeat CT abd/pelvis today. Continue bowel rest/TPN. 03/16/17: Doing well but with continued fevers. Repeat CT abd/pelvis reveals organizing fluid collections in both pericolic gutters, right > left, and a larger fluid collection in lower abdomen adjacent to the colonic anastomosis. No free air but some contained air in the fluid collection. These don't look walled off yet. Will allow to organize and then will re-CT next week and if able will look at percutaneous drainage of these collections. Will reserve surgical exploration for clinical decline or if he's not progressing 4 weeks after his last dose of Avastin, it's currently been 2 1/2 weeks since his last dose. I discussed with Gold that if surgery becomes necessary, it will likely require taking down the anastomosis and giving him a colostomy which may be permanent. He seems to understand and he seems to be agreeable with this plan. A major problem right now is respiratory insufficiency and he's requiring almost continuous BIPAP on 60% fiO2. Only mild pleural effusions on Chest CT but both lower lobes are incompletely ventilated. The PEs appear resolved. The JOAO met is a little larger when compared to his previous chest CT on admission. He may also have areas of infiltrate or even infarction from the PE is his lungs. He does not wish to be intubated and he has been made DNI. Will need to follow his respiratory status closely and continue aggressive pulmonary toilet and will continue to work on mobilizing him more although his mobility is very limited by his compromised respiratory reserve. 03/17/17: Continue with clear liquid diet until bowel function is fully established. Good progress so far. 03/18/17: Passing flatus and tolerating clears. Keep diet as is for now. Dr. Collins will map out transition plan on Sunday. (2) Multiple pulmonary emboli Status: Acute Assessment & Plan: Hospitalists consulted. Will start a Heparin gtt which can be stopped if surgery becomes necessary. Will need long-term anticoagulation after he improves with conservative management or after he recovers from surgery if necessary. Central Venous Access Medical Necessity for Access: Hemodynamic Monitoring, IV Access, Medication Administration Time Spent: < 30 min Exam Sepsis Risk: No Definite Risk LARRY NATARAJAN MD Mar 18, 2017 09:48
[2017-03-18] MEDS: LEVALBUTEROL 1.25 MG/3 ML NEB NEB PRN ×2 (11:46→16:55)
[2017-03-18] MEDS: VANCOMYCIN HCL(*) 0.750 GM ADD 0.75 GM in NS(*) 0.9% 250 ML ADDVAN BAG 250 ML IVPB SCH (12:12)
--- NOTE | 2017-03-18 12:15 | Hospitalist Progress Note ---
Subjective Progress Notes Subjective This patient was admitted for bowel perforation. He had no acute issues overnight. Patient Complains of: Cardiovascular: No: Chest Pain Respiratory: No: Shortness of Breath Physical Exam Vital Signs Date Time Temp Pulse Resp B/P (MAP) Pulse Ox O2 Delivery O2 Flow Rate FiO2 03/18/17 11:57 92 24 03/18/17 11:46 92 Oxy Mask 13.0 03/18/17 05:00 99.8 108/60 (76) 50.0 Cardiovascular: Regular Rate and Rhythm Respiratory: Clear to Auscultation Extremities: Edema Integumentary: No Cyanosis Result Diagram: 03/18/1751903/18/17519 Item Value Date Time Heparin Anti-Xa Act, Unfractionated 0.32 IU/mL 03/18/17519 Item Value Date Time Vancomycin Level Trough 17.65 ug/ml 03/18/17 1100 Assessment and Plan Problems: (1) Multiple pulmonary emboli Status: Acute Assessment & Plan: His CT scan did show bilateral pulmonary emboli - most likely related to his cancer and/or the Avastin. We are currently treating him with a heparin infusion and are making dose adjustments based on Anti-factor Xa levels. We are keeping him at the lower end of the therapeutic range due to low platelet count and and recurring nose bleeds. 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 Multiple metastases. Treatment through the [facility] has been FOLFOX and Avastin. He may have had bowel perforation related to the Avastin as well. We will broaden antibiotic coverage for both abdomen and ulcers/extremities. We discussed end-of-life decisions with Lisseth. He has decided he does not want to be intubated/mechanically ventilated, but would like an attempt at CPR if needed. (3) Atrial fibrillation with RVR Status: Resolved Assessment & Plan: He developed it on 03/08. He was symptomatic and was transferred to the ICU. Electrical cardioversion was attempted, but wasn't successful. He was started on a Diltiazem drip and was also treated with digoxin. He is now in normal rhythm. An echocardiogram is pending. His TSH was low, but he is acutely ill. He will need a repeat TSH in 4-6 weeks. (4) Venous stasis ulcer Status: Chronic Assessment & Plan: He is receiving wound care from physical therapy. Central Venous Access Medical Necessity for Access: Hemodynamic Monitoring, IV Access, Medication Administration Exam Sepsis Risk: No Definite Risk LISSETH LENZ DO Mar 18, 2017 12:15
--- NOTE | 2017-03-18 13:07 | Medical Nutrition Therapy ---
Nutrition Anthropometrics Height (Inches): 71.25 Height (Calculated Centimeters: [phone] Weight (Pounds): 294 Weight (Calculated Kilograms): 133.356 BMI Calculated: 40.30 Nhan Nutrition Score: Adequate Nhan Nutrition Risk Score: 16 Dietary Referral Nutrition Risk Factors: Nutrition Risk Comment: Physical Findings Physical Appearance: Morbidly Obese 40+ Skin Appearance Skin Appearance: Edema Edema Location Modifier: Both Edema Location: Lower Extremity Type of Edema: Degree of Edema: 1+ Gastrointestinal Symptoms GI Symtoms: Bloating Tube Present: NG Bowel Sounds: Recent Bowel Pattern: Stool Characteristics: Nutrition/Food History No Significant Nutr. HX Nutritional Diagnosis Nutritional Risk Acuity 1: TPN/PPN, GI Obstruction (possible GI obstruction/ perforation) Nutritional Risk Acuity 2: Head/Neck/GI Cancer Nutritional Risk Acuity 3: Weight Loss, Morbid Obesity Past Medical History: Colon cancer with mets, HTN, colectomy Nutritional Acuity: 1-High Nutrition Diagnosis: Altered GI Function Nutrition Etiology: Physiological Causes Nutrition Problem/Etiology/Sym: Altered GI function r/t physiological causes AEB abd pain, diarrhea, intra-abdominal air, and lack of bowel movements Adjusted Energy Requirement Re: 2600 (Adj. Callie Nielsen) Protein Requirement: 132 (1 g/kg) Fluid Requirement: 2640 (20 ml/kg) Diet Type: Clear Liquids, TPN/PPN Nutrition Intervention: Between meal supplement, Nutrition support, Incr diet as tolerated Additional Diet Restrictions: PROVIDE CLEAR LIQUID NUTR SUPPLMENT WHILE ON CLEARS Nutritional Support Current Enteral / Parental: TPN Current Tube Feeding Formula C: 100ml/hr+lipids Current Duration: 24 Current Calories: 2448 Current Protein: 101 Current Lipids Calories: 275 Total Current Calories: 2723 Nutrition Monitoring & Eval Nutrition Goals: Eat 50-100% Meal RD Patient Assessment Time: [address] Assessment Type: RD Re-Assessment Patient Nutrition Acuity: 1-High Follow Up Date: Mar 20, 2017 Nutritional Comment: 03/06 Pt admitted for multiple pulmonary emboli and abd pain. Pt has dx colon Ca with mets and is currently recieveing chemo tx. Alb mildly depleted at 3.4. Pt has 2 day hx of diarrhea. Pt is NPO. Pt has 50# wt loss since May 2016. BMI cont in class 3 obestiy range. Recommend nutr support if diet is not advanced in 3 days. Cont to monitor 03/07/17 Pt continues NPO for bowel rest. Pt still experiencing pain and lack of bowel function. Surgery may be necessary for possible bowel obstruction later this afternoon, per MD. PICC line placed. I recommend TPN/nutr support if diet is not advanced in 2 days. Alb 2.4 and total pro 4.7. Will continue to monitor. 03/08 Pt stated on TPN and is now 75ml/hr plus lipids meeting 82% est kcal and 62% est protein needs. Recommend increase TPN to 100ml/hr plus lipids to meet 105% est kcal and 83% est protein needs. Alb declined to 2.4. BG elevated up to 152. Will cont to monitor. 03/10 Continues with TPN @ 75mL/hr and Intralipid 20% 250mL bag/day. Low H/H, Glu 190, Alb 2.4, Low phosphours, Ca+. Lispo SSI. May begin PO intake after pt passes flatus. Follow for diet progression, etc. 03/13 No changes to TPN or diet status. Alb 2.5, Glu 182. Monitor labs, diet changes. 03/14 Pt cont on TPN at 75ml/hr. Diet advanced to clear liquids. Will provide clear liquid nutr supplment to increase protein intake. Current TPN meeting s 80% est kcal and 62% est protein needs. Alb 2.5. Will cont to monitor. 03/15 TPN increased to 100ml/hr plus lipis . Current TPN order meeting 105% est kcal and 83% est protein needs. Will cont to monitor. 03/18 Glu 172, Alb 2.6, Low H/H. Continues with TPN Clinimix 4.25%-25% at 100 mL/hr and Intralipid 20% at 250 mL/day. Receiving Clear liquid diet and tolerating. Monitor for continued tolerance and diet progression. ALYCE EUGENE Mar 18, 2017 13:07
[2017-03-18] MEDS ORDERED: [UNRECOGNIZED DRUG - OTHER] IVPB SCH (14:30)
[2017-03-18] MEDS: HEPARIN* SOD/D5W 25000 U/500ML 500 ML IV SCH (15:54)
[2017-03-18] MEDS: FAT EMULSION 20% 250 ML BAG 250 ML IVPB SCH (17:12)
[2017-03-18] MEDS: [UNRECOGNIZED DRUG - OTHER] IVPB SCH (17:13)
[2017-03-19] VITALS (24 sets, daily range): BP systolic 98–150; BP diastolic 47–96
[2017-03-19] MEDS: VANCOMYCIN HCL(*) 0.750 GM ADD 0.75 GM in NS(*) 0.9% 250 ML ADDVAN BAG 250 ML IVPB SCH (00:10)
[2017-03-19] MEDS: INSULIN HUM LISPRO 100 UN/ML 3 ML VIAL SUBQ PRN ×3 (00:19→12:25)
[2017-03-19] MEDS: IMIPENEM/CILASTA(*) 500MG VIAL 1,000 MG in NS(*) 0.9% 250 ML BAG 250 ML IVPB SCH ×3 (00:19→17:01)
[2017-03-19] MEDS: HYDROmorphone PCA 6 MG/30 ML IV PRN (01:47)
[2017-03-19 05:14] LABS: PLATELET COUNT, AUTOMATED 210 K/uL (150-450)
[2017-03-19] MEDS ORDERED: HEPARIN* SOD/D5W 25000 U/500ML 500 ML IV SCH (08:08)
[2017-03-19] MEDS: PANTOPRAZOLE SOD 40 MG IV VIAL IVP SCH (09:00)
[2017-03-19] MEDS: TOBRAMYCIN/DEX OP SUSP 2.5 ML OU SCH ×2 (09:03→20:49)
--- NOTE | 2017-03-19 10:57 | General Surgery Progress Note ---
Subjective Progress Notes Subjective Tolerating clears. Passing flatus. No bm. Physical Exam Vital Signs Date Time Temp Pulse Resp B/P (MAP) Pulse Ox O2 Delivery O2 Flow Rate FiO2 03/19/17 06:19 25 93 03/19/17 06:18 77 03/19/17 06:00 118/65 (82) Bi-PAP 50.0 03/19/17 05:00 99.0 03/19/17 01:00 15.0 General Appearance: Alert, Awake, No Acute Distress GI: Soft and Non-Tender Result Diagram: 03/19/1742903/19/17429 Assessment and Plan Problems: (1) Intra-abdominal free air of unknown etiology Status: Acute Assessment & Plan: Admit, NPO, IV fluids, IV abx, bowel rest, NG tube GI decompression. Abdominal exam without peritonitis and patient is at extremely high risk for surgery due to his body habitus and currently chemotherapy, especially avastin. Will try conservative management but if he worsens, or fails to improve, on conservative therapy then will need to proceed with surgical exploration. I have explained this plan to him in detail and he is agreeable with proceeding with this plan. 03/06/17: Doing a little better although having fevers. Will continue conservative management today with bowel rest, NG tube decompression, IV fluids , and IV abx. If not clearly better by tomorrow will repeat CT scan and will consider surgical exploration tomorrow afternoon/evening. Pt agreeable with this plan. Surgery is very risky in this patient with low albumen, suppressed healing due to chemotherapy, especially avastin (last dose 1 week ago), and morbid obesity. 03/07/17: Will repeat CT abd/pelvis this morning and may need to operate later this afternoon since he continues to have pain without bowel function and recurring fevers, marginal improvement if at all. I have explained this to the patient and I have explained the dangers of surgery in him, especially with recent chemo including avastin, but we may no longer have a choice if he has a bowel perforation. Will see what CT shows and then make a decision this afternoon. Will hold heparin gtt this morning. Pt is agreeable with proceeding with surgery is necessary. 03/08/17: CT yesterday showed improvement with less free air and no organized fluid collection. Clinically he is improving. Will continue with conservative therapy, bowel rest, NG tube decompression, IV abx. TPN started yesterday. Continue anticoagulation for PEs, PPI for GI prophylaxis. 03/09/17: Developed a-fib, now in ICU for diltiazem gtt. Abdomen exam remains benign. Will work on cardiac rate control. Continue bowel rest, NG tube decompression, IV abx. Continue TPN. Continue anticoagulation for PEs. Continue PPI for GI prophylaxis. 03/10/17: Looks much improved today. More alert, off BiPap, afebrile overnight with change of antibiotics. I discussed with him that should he reach a point where surgery is indicated, I would recommend transfer to a higher level facility to which he agreed. However, given his improvement since yesterday, I feel it is reasonable to continue care for him here for now. I will check a Mg and Phos today. Continue the NGT until he is passing flatus. 03/11/17: Continued improvement. Labs indicate recovery of marrow function. Afebrile since change in Abx regimen 2 days ago. Continue this course. Awaiting return of bowel function and will leave NGT in place until that time. Expect that it will be at least another day or two. His hypophosphotemia persists but responded appropriately to replacement yesterday. I will defer to IM in regards to ongoing replacement. Continue TPN with same formulation. Will plan to get him up to a chair today. 03/12/17: Better every day. Much more alert and interactive today. Spend time in the chair yesterday and will again today. Gipson out yesterday. Will receive lasix today to work on fluid balance. Will allow sips of clears but keep NGT until flatus present. 03/13/17: Daily progress. Awaiting bowel function. Continue Vanco for at least 7 day course with Primaxin ~14 days. 03/14/17: Clinically doing better. Not much pain. Fevers better. No bowel function yet. Continue bowel rest, TPN, etc. 03/15/17: Continues to do fairly well but having mild fevers. Will repeat CT abd/pelvis today. Continue bowel rest/TPN. 03/16/17: Doing well but with continued fevers. Repeat CT abd/pelvis reveals organizing fluid collections in both pericolic gutters, right > left, and a larger fluid collection in lower abdomen adjacent to the colonic anastomosis. No free air but some contained air in the fluid collection. These don't look walled off yet. Will allow to organize and then will re-CT next week and if able will look at percutaneous drainage of these collections. Will reserve surgical exploration for clinical decline or if he's not progressing 4 weeks after his last dose of Avastin, it's currently been 2 1/2 weeks since his last dose. I discussed with Gold that if surgery becomes necessary, it will likely require taking down the anastomosis and giving him a colostomy which may be permanent. He seems to understand and he seems to be agreeable with this plan. A major problem right now is respiratory insufficiency and he's requiring almost continuous BIPAP on 60% fiO2. Only mild pleural effusions on Chest CT but both lower lobes are incompletely ventilated. The PEs appear resolved. The JOAO met is a little larger when compared to his previous chest CT on admission. He may also have areas of infiltrate or even infarction from the PE is his lungs. He does not wish to be intubated and he has been made DNI. Will need to follow his respiratory status closely and continue aggressive pulmonary toilet and will continue to work on mobilizing him more although his mobility is very limited by his compromised respiratory reserve. 03/17/17: Continue with clear liquid diet until bowel function is fully established. Good progress so far. 03/18/17: Passing flatus and tolerating clears. Keep diet as is for now. Dr. Collins will map out transition plan on Sunday. 03/19/17: passing flatus, hypoactive bowel sounds, no bowel movement. continue with clears. (2) Multiple pulmonary emboli Status: Acute Assessment & Plan: Hospitalists consulted. Will start a Heparin gtt which can be stopped if surgery becomes necessary. Will need long-term anticoagulation after he improves with conservative management or after he recovers from surgery if necessary. Central Venous Access Medical Necessity for Access: Hemodynamic Monitoring, IV Access, Medication Administration Exam Sepsis Risk: No Definite Risk LARRY NATARAJAN MD Mar 19, 2017 10:57
[2017-03-19] MEDS: LEVALBUTEROL 1.25 MG/3 ML NEB NEB PRN (11:00)
[2017-03-19] MEDS: HEPARIN* SOD/D5W 25000 U/500ML 500 ML IV SCH (11:57)
[2017-03-19] MEDS ORDERED: VANCOMYCIN HCL IVPB SCH (12:00)
[2017-03-19] MEDS ORDERED: ADD IVPB SCH (12:00)
[2017-03-19] MEDS ORDERED: NS 0.9% IVPB SCH (12:00)
[2017-03-19] MEDS ORDERED: VANCOMYCIN(*) 1 GM VIAL 0.85 GM in NS(*) 0.9% 250 ML BAG 250 ML IVPB ONE (12:15)
--- NOTE | 2017-03-19 12:35 | RADIOLOGY IMAGING REPORT ---
FACILITY: [facility] [place] PATIENT NAME: LISSETH PULIDO : [id number] MR: [id number] V: [id number] EXAM DATE: [id number] ORDERING PHYSICIAN: TATIANA REYNA TECHNOLOGIST: Callie Carl EXAMINATION:TWO-DIMENSIONAL ECHOCARDIOGRAPH REASON:ATRIAL FIBRILLATION 2D Measurements (normal values in centimeters) LV endLV endRV endVent.LV PostAorticLeftPercent DiastolicSystolicDiastolicSeptumWallRootAtriumShortening (3.5-5.7)(0.9-2.6)(0.6-1.1)(0.6-1.1)(2.0-3.7)(1.9-4.0)(25-35%) [id number]% STROKE VOLUME: 89 mL ESTIMATED EJECTION FRACTION:59% PARASTERNAL LONG AXIS: The view is somewhat technically difficult but DEFINITY contrast was used and overall left ventricular systolic function appears to be normal. The right ventricle appears to be enlarged as well as the left atrium mildly enlarged. Aortic valve and mitral valve both appear to open normally. The aortic root appears to be mildly aneurysmally dilated as well. Color examination of the valves reveals a trace of mitral insufficiency present. The patient appears to be in atrial fib/flutter at times. No thrombi are noted in any of the chambers but the left atrial appendage is not seen. PARASTERNAL SHORT AXIS: Again a somewhat technically difficult echocardiograph but DEFINITY contrast was also used. Overall left ventricular function is normal. Aortic valve is not well seen but does appear to be trileaflet in configuration. Color examination of the valve is unremarkable. There is a trace of tricuspid insufficiency is also noted. APICAL FOUR AND TWO CHAMBER: Normal left ventricular ejection fraction, mild concentric left ventricular thickening is noted. Left atrial volume is mildly increased at 33 mL/m2. Right atrial volume is within normal range at 24 mL/m2. The aortic valve area is measured within normal range at 4.2 cm2. Trace of mitral and tricuspid insufficiency is noted. Tricuspid regurgitation V-max is measured at 2.13 m/sec with estimated right atrial pressure of 8 mmHg. SUBCOSTAL VIEW: No pericardial effusion was noted. No atrial septal or ventricular septal defects were appreciated. The Doppler examination of the mitral valve in diastole when the patient is in normal rhythm shows a normal pattern with questionable change but the patient is on BIPAP and was unable to really do a Valsalva maneuver. The ascending aorta was measured at 4.6 cm. OVERALL IMPRESSION: 1. Normal left ventricular ejection fraction of 59% with a questionable grade 1-2/4 decrease in diastolic function. 2. There is mild concentric left ventricular thickening. Moderate enlargement of the right ventricle with normal right ventricular systolic pressures of 26 mmHg. There is mild enlargement of the left atrium. 3. Abdominal aorta and aortic root are mildly dilated at 4.6 cm and 3.8 cm2 respectively. 4. The patient at times appears to be in atrial fib/flutter but other times appear to be in sinus rhythm. No thrombi were noted in any of the chambers but the left atrial appendage was not seen. 5. DEFINITY contrast was used. No atrial septal or ventricular septal defects were appreciated. 6. The patient's report was called to attending physician. Dictated by: Gabriella Mendez M.D. on 03/16/2017 at 11:41 Transcribed by: JUNIOR on 03/16/2017 at 13:09 Approved by: Gabriella Mendez M.D. on 03/19/2017 at 12:33 [facility]
[2017-03-19] MEDS: [UNRECOGNIZED DRUG - OTHER] IVPB SCH (13:17)
[2017-03-19] MEDS: FAT EMULSION 20% 250 ML BAG 250 ML IVPB SCH (17:01)
--- NOTE | 2017-03-19 18:32 | Hospitalist Progress Note ---
Subjective Progress Notes Subjective No new complaints. Physical Exam Vital Signs Date Time Temp Pulse Resp B/P (MAP) Pulse Ox O2 Delivery O2 Flow Rate FiO2 03/19/17 15:00 81 32 130/69 (89) 97 Oxy Mask 15.0 03/19/17 14:00 99.4 03/19/17 13:00 50.0 Intake and Output 03/20/17 07:00 Intake Total 1756 ml Output Total 550 ml Balance 1206 ml IV Total 1756 ml Output Urine Total 550 ml General Appearance: Alert, Awake, No Acute Distress Neuro: No Gross deficits Cardiovascular: Regular Rate and Rhythm Respiratory: Clear to Auscultation GI: Other (Soft, nondistended, diffusely tender to light palpation.) Extremities: Warm, Perfused Psych: Appropriate Mood & Affect Result Diagram: 03/19/1742903/19/17429 Assessment and Plan Problems: (1) Multiple pulmonary emboli Status: Acute Assessment & Plan: His CT scan did show bilateral pulmonary emboli - most likely related to his cancer and/or the Avastin. We are currently treating him with a heparin infusion and are making dose adjustments based on Anti-factor Xa levels. We are keeping him at the lower end of the therapeutic range due to low platelet count and and recurring nose bleeds. 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 Multiple metastases. Treatment through the [facility] has been FOLFOX and Avastin. He may have had bowel perforation related to the Avastin as well. We will broaden antibiotic coverage for both abdomen and ulcers/extremities. We discussed end-of-life decisions with Gold. He has decided he does not want to be intubated/mechanically ventilated, but would like an attempt at CPR if needed. (3) Atrial fibrillation with RVR Status: Resolved Assessment & Plan: He developed it on 03/08. He was symptomatic and was transferred to the ICU. Electrical cardioversion was attempted, but wasn't successful. He was started on a Diltiazem drip and was also treated with digoxin. He is now in normal rhythm. An echocardiogram is pending. His TSH was low, but he is acutely ill. He will need a repeat TSH in 4-6 weeks. (4) Venous stasis ulcer Status: Chronic Assessment & Plan: He is receiving wound care from physical therapy. Central Venous Access Medical Necessity for Access: Hemodynamic Monitoring, IV Access, Medication Administration Time Spent on Plan of Care: < 30 min Exam Sepsis Risk: No Definite Risk IRLANDA BASILIO MD Mar 19, 2017 18:32
[2017-03-19] MEDS: ACETAMINOPHEN(*)1000 MG/100 ML 100 ML IVPB PRN (20:49)
[2017-03-20] VITALS (23 sets, daily range): BP systolic 83–143; BP diastolic 40–98
[2017-03-20] MEDS: VANCOMYCIN(*) 1 GM VIAL 0.85 GM in NS(*) 0.9% 250 ML BAG 250 ML IVPB SCH ×3 (00:05→23:39)
[2017-03-20] MEDS: INSULIN HUM LISPRO 100 UN/ML 3 ML VIAL SUBQ PRN ×3 (00:07→11:19)
[2017-03-20] MEDS: HEPARIN* SOD/D5W 25000 U/500ML 500 ML IV SCH ×2 (00:42→17:54)
[2017-03-20] MEDS: IMIPENEM/CILASTA(*) 500MG VIAL 1,000 MG in NS(*) 0.9% 250 ML BAG 250 ML IVPB SCH ×3 (01:14→17:06)
[2017-03-20] MEDS: ACETAMINOPHEN(*)1000 MG/100 ML 100 ML IVPB PRN ×2 (05:11→16:08)
[2017-03-20 05:33] LABS: PLATELET COUNT, AUTOMATED 225 K/uL (150-450)
--- NOTE | 2017-03-20 08:35 | General Surgery Progress Note ---
Subjective Progress Notes Subjective No complaints. Not much abdominal pain. Passing flatus. No other complaints. Physical Exam Vital Signs Date Time Temp Pulse Resp B/P (MAP) Pulse Ox O2 Delivery O2 Flow Rate FiO2 03/20/17 06:45 78 03/20/17 06:00 27 126/58 (80) 83 Oxy Mask 15.0 03/20/17 05:00 100.8 03/20/17 04:00 50.0 General Appearance: Alert, Awake, No Acute Distress, Afebrile GI: Soft and Non-Tender Extremities: Warm, Perfused Result Diagram: 03/20/17 0512 03/20/17 0526 Assessment and Plan Problems: (1) Intra-abdominal free air of unknown etiology Status: Acute Assessment & Plan: Admit, NPO, IV fluids, IV abx, bowel rest, NG tube GI decompression. Abdominal exam without peritonitis and patient is at extremely high risk for surgery due to his body habitus and currently chemotherapy, especially avastin. Will try conservative management but if he worsens, or fails to improve, on conservative therapy then will need to proceed with surgical exploration. I have explained this plan to him in detail and he is agreeable with proceeding with this plan. 03/06/17: Doing a little better although having fevers. Will continue conservative management today with bowel rest, NG tube decompression, IV fluids , and IV abx. If not clearly better by tomorrow will repeat CT scan and will consider surgical exploration tomorrow afternoon/evening. Pt agreeable with this plan. Surgery is very risky in this patient with low albumen, suppressed healing due to chemotherapy, especially avastin (last dose 1 week ago), and morbid obesity. 03/07/17: Will repeat CT abd/pelvis this morning and may need to operate later this afternoon since he continues to have pain without bowel function and recurring fevers, marginal improvement if at all. I have explained this to the patient and I have explained the dangers of surgery in him, especially with recent chemo including avastin, but we may no longer have a choice if he has a bowel perforation. Will see what CT shows and then make a decision this afternoon. Will hold heparin gtt this morning. Pt is agreeable with proceeding with surgery is necessary. 03/08/17: CT yesterday showed improvement with less free air and no organized fluid collection. Clinically he is improving. Will continue with conservative therapy, bowel rest, NG tube decompression, IV abx. TPN started yesterday. Continue anticoagulation for PEs, PPI for GI prophylaxis. 03/09/17: Developed a-fib, now in ICU for diltiazem gtt. Abdomen exam remains benign. Will work on cardiac rate control. Continue bowel rest, NG tube decompression, IV abx. Continue TPN. Continue anticoagulation for PEs. Continue PPI for GI prophylaxis. 03/10/17: Looks much improved today. More alert, off BiPap, afebrile overnight with change of antibiotics. I discussed with him that should he reach a point where surgery is indicated, I would recommend transfer to a higher level facility to which he agreed. However, given his improvement since yesterday, I feel it is reasonable to continue care for him here for now. I will check a Mg and Phos today. Continue the NGT until he is passing flatus. 03/11/17: Continued improvement. Labs indicate recovery of marrow function. Afebrile since change in Abx regimen 2 days ago. Continue this course. Awaiting return of bowel function and will leave NGT in place until that time. Expect that it will be at least another day or two. His hypophosphotemia persists but responded appropriately to replacement yesterday. I will defer to IM in regards to ongoing replacement. Continue TPN with same formulation. Will plan to get him up to a chair today. 03/12/17: Better every day. Much more alert and interactive today. Spend time in the chair yesterday and will again today. Gipson out yesterday. Will receive lasix today to work on fluid balance. Will allow sips of clears but keep NGT until flatus present. 03/13/17: Daily progress. Awaiting bowel function. Continue Vanco for at least 7 day course with Primaxin ~14 days. 03/14/17: Clinically doing better. Not much pain. Fevers better. No bowel function yet. Continue bowel rest, TPN, etc. 03/15/17: Continues to do fairly well but having mild fevers. Will repeat CT abd/pelvis today. Continue bowel rest/TPN. 03/16/17: Doing well but with continued fevers. Repeat CT abd/pelvis reveals organizing fluid collections in both pericolic gutters, right > left, and a larger fluid collection in lower abdomen adjacent to the colonic anastomosis. No free air but some contained air in the fluid collection. These don't look walled off yet. Will allow to organize and then will re-CT next week and if able will look at percutaneous drainage of these collections. Will reserve surgical exploration for clinical decline or if he's not progressing 4 weeks after his last dose of Avastin, it's currently been 2 1/2 weeks since his last dose. I discussed with Lisseth that if surgery becomes necessary, it will likely require taking down the anastomosis and giving him a colostomy which may be permanent. He seems to understand and he seems to be agreeable with this plan. A major problem right now is respiratory insufficiency and he's requiring almost continuous BIPAP on 60% fiO2. Only mild pleural effusions on Chest CT but both lower lobes are incompletely ventilated. The PEs appear resolved. The JOAO met is a little larger when compared to his previous chest CT on admission. He may also have areas of infiltrate or even infarction from the PE is his lungs. He does not wish to be intubated and he has been made DNI. Will need to follow his respiratory status closely and continue aggressive pulmonary toilet and will continue to work on mobilizing him more although his mobility is very limited by his compromised respiratory reserve. 03/17/17: Continue with clear liquid diet until bowel function is fully established. Good progress so far. 03/18/17: Passing flatus and tolerating clears. Keep diet as is for now. Dr. Rush will map out transition plan on Sunday. 03/19/17: passing flatus, hypoactive bowel sounds, no bowel movement. continue with clears. 03/20/17: Doing well. Passing flatus. Will continue clear diet and TPN to avoid forming new stool that could potentially leak from the sigmoid anastomosis that led to this admission. Will recheck CT abd/pelvis in 2 days to monitor the fluid collections for drainability or improvement and determine if 1) surgery is necessary or 2) we can advance his diet. O/W, CCM. (2) Multiple pulmonary emboli Status: Acute Assessment & Plan: Hospitalists consulted. Will start a Heparin gtt which can be stopped if surgery becomes necessary. Will need long-term anticoagulation after he improves with conservative management or after he recovers from surgery if necessary. Central Venous Access Medical Necessity for Access: Hemodynamic Monitoring, IV Access, Medication Administration Condition Stable. Time Spent: < 30 min Exam Sepsis Risk: No Definite Risk LISSETH RUSH MD Mar 20, 2017 08:35
[2017-03-20] MEDS: FUROSEMIDE 20 MG/2 ML VIAL IVP SCH (09:30)
[2017-03-20] MEDS: PANTOPRAZOLE SOD 40 MG IV VIAL IVP SCH (09:31)
[2017-03-20] MEDS: TOBRAMYCIN/DEX OP SUSP 2.5 ML OU SCH ×2 (09:31→20:55)
[2017-03-20] MEDS: [UNRECOGNIZED DRUG - OTHER] IVPB SCH (09:35)
[2017-03-20] MEDS: HYDROmorphone PCA 6 MG/30 ML IV PRN (10:00)
--- NOTE | 2017-03-20 13:01 | Medical Nutrition Therapy ---
Nutrition Anthropometrics Height (Inches): 71.25 Height (Calculated Centimeters: 180.823510 Weight (Pounds): 296 Weight (Calculated Kilograms): 134.292 BMI Calculated: 40.30 Nhan Nutrition Score: Adequate Nhan Nutrition Risk Score: 16 Dietary Referral Nutrition Risk Factors: Nutrition Risk Comment: Physical Findings Physical Appearance: Morbidly Obese 40+ Skin Appearance Skin Appearance: Edema Edema Location Modifier: Both Edema Location: Lower Extremity Type of Edema: Degree of Edema: 1+ Gastrointestinal Symptoms GI Symtoms: Bloating Tube Present: NG Bowel Sounds: Recent Bowel Pattern: Stool Characteristics: Nutritional Diagnosis Nutritional Risk Acuity 1: TPN/PPN, GI Obstruction (possible GI obstruction/ perforation) Nutritional Risk Acuity 2: Head/Neck/GI Cancer Nutritional Risk Acuity 3: Weight Loss, Morbid Obesity Past Medical History: Colon cancer with mets, HTN, colectomy Nutritional Acuity: 1-High Nutrition Diagnosis: Altered GI Function Nutrition Etiology: Physiological Causes Nutrition Problem/Etiology/Sym: Altered GI function r/t physiological causes AEB abd pain, diarrhea, intra-abdominal air, and lack of bowel movements Adjusted Energy Requirement Re: 2600 (Adj. Callie Nielsen) Protein Requirement: 132 (1 g/kg) Fluid Requirement: 2640 (20 ml/kg) Diet Type: Clear Liquids, TPN/PPN Nutrition Intervention: Between meal supplement, Nutrition support, Incr diet as tolerated Additional Diet Restrictions: PROVIDE CLEAR LIQUID NUTR SUPPLMENT WHILE ON CLEARS Nutritional Support Current Enteral / Parental: TPN Current Tube Feeding Formula C: 100ml/hr+lipids Current Duration: 24 Current Calories: 2448 Current Protein: 101 Current Lipids Calories: 275 Total Current Calories: 2723 Nutrition Monitoring & Eval RD Patient Assessment Time: [address] Assessment Type: RD Re-Assessment Patient Nutrition Acuity: 1-High Follow Up Date: Mar 22, 2017 Nutritional Comment: 03/06 Pt admitted for multiple pulmonary emboli and abd pain. Pt has dx colon Ca with mets and is currently recieveing chemo tx. Alb mildly depleted at 3.4. Pt has 2 day hx of diarrhea. Pt is NPO. Pt has 50# wt loss since May 2016. BMI cont in class 3 obestiy range. Recommend nutr support if diet is not advanced in 3 days. Cont to monitor 03/07/17 Pt continues NPO for bowel rest. Pt still experiencing pain and lack of bowel function. Surgery may be necessary for possible bowel obstruction later this afternoon, per MD. PICC line placed. I recommend TPN/nutr support if diet is not advanced in 2 days. Alb 2.4 and total pro 4.7. Will continue to monitor. 03/08 Pt stated on TPN and is now 75ml/hr plus lipids meeting 82% est kcal and 62% est protein needs. Recommend increase TPN to 100ml/hr plus lipids to meet 105% est kcal and 83% est protein needs. Alb declined to 2.4. BG elevated up to 152. Will cont to monitor. 03/10 Continues with TPN @ 75mL/hr and Intralipid 20% 250mL bag/day. Low H/H, Glu 190, Alb 2.4, Low phosphours, Ca+. Lispo SSI. May begin PO intake after pt passes flatus. Follow for diet progression, etc. 03/13 No changes to TPN or diet status. Alb 2.5, Glu 182. Monitor labs, diet changes. 03/14 Pt cont on TPN at 75ml/hr. Diet advanced to clear liquids. Will provide clear liquid nutr supplment to increase protein intake. Current TPN meeting s 80% est kcal and 62% est protein needs. Alb 2.5. Will cont to monitor. 03/15 TPN increased to 100ml/hr plus lipis . Current TPN order meeting 105% est kcal and 83% est protein needs. Will cont to monitor. 03/18 Glu 172, Alb 2.6, Low H/H. Continues with TPN Clinimix 4.25%-25% at 100 mL/hr and Intralipid 20% at 250 mL/day. Receiving Clear liquid diet and tolerating. Monitor for continued tolerance and diet progression. 03/20 Glu 152, alb 2.7, and H/H cont low. Pt continues on TPN and clear liquid diet. No BM, hypoactive bowel sounds, and passing flatus. Per MD, CT scheduled in two days to determine if surgery is needed or if diet can be advanced. Will continue to monitor. SARAH PAN Mar 20, 2017 09:26
[2017-03-20] MEDS: NS(*) 0.9% 1000 ML BAG 1,000 ML IV PRN (13:13)
--- NOTE | 2017-03-20 14:24 | Hospitalist Progress Note ---
Subjective Progress Notes Subjective He denies sob/cp. Staff reporting that he is refusing therapy intermittently and desaturates very quickly with activity. Physical Exam Vital Signs Date Time Temp Pulse Resp B/P (MAP) Pulse Ox O2 Delivery O2 Flow Rate FiO2 03/20/17 13:25 21 99 03/20/17 13:23 92 03/20/17 13:23 Bi-PAP 45.0 03/20/17 13:00 117/72 (87) 03/20/17 12:00 99.6 03/20/17 09:46 12.0 Intake and Output 03/21/17 07:00 Intake Total 937 ml Output Total 2650 ml Balance -1713 ml Intake Oral 0 ml IV Total 937 ml Output Urine Total 2650 ml General Appearance: Alert, Awake Cardiovascular: Regular Rate and Rhythm Respiratory: Clear to Auscultation Extremities: Edema (Trace edema in LE bilaterally) Result Diagram: 03/20/17 0512 03/20/17 0526 Assessment and Plan Problems: (1) Multiple pulmonary emboli Status: Acute Assessment & Plan: His CT scan did show bilateral pulmonary emboli - most likely related to his cancer and/or the Avastin. We are currently treating him with a heparin infusion and are making dose adjustments based on Anti-factor Xa levels. We are keeping him at the lower end of the therapeutic range due to low platelet count and and recurring nose bleeds. Will diurese today for pulmonary edema. 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 Multiple metastases. [facility] been FOLFOX and Avastin. He may have had bowel perforation related to the Avastin as well. We will broaden antibiotic coverage for both abdomen and ulcers/extremities. We discussed end-of-life decisions with Gold. He has decided he does not want to be intubated/mechanically ventilated, but would like an attempt at CPR if needed. (3) Atrial fibrillation with RVR Status: Resolved Assessment & Plan: He developed it on 03/08. He was symptomatic and was transferred to the ICU. Electrical cardioversion was attempted, but wasn't successful. He was started on a Diltiazem drip and was also treated with digoxin those were stopped on 03/15. He is now in normal rhythm. An echocardiogram shows an EF of 59% with abdominal aorta and aortic root dilatation. His TSH was low, but he is acutely ill. He will need a repeat TSH in 4-6 weeks. (4) Venous stasis ulcer Status: Chronic Assessment & Plan: He is receiving wound care from physical therapy. Central Venous Access Medical Necessity for Access: Hemodynamic Monitoring, IV Access, Medication Administration Exam Sepsis Risk: Sepsis Risk HESHAM DE LA TORRE MD Mar 20, 2017 14:24
[2017-03-20] MEDS: FAT EMULSION 20% 250 ML BAG 250 ML IVPB SCH (15:57)
[2017-03-21] VITALS (21 sets, daily range): BP systolic 103–148; BP diastolic 49–83
[2017-03-21] MEDS: ACETAMINOPHEN(*)1000 MG/100 ML 100 ML IVPB PRN (00:48)
[2017-03-21] MEDS: IMIPENEM/CILASTA(*) 500MG VIAL 1,000 MG in NS(*) 0.9% 250 ML BAG 250 ML IVPB SCH ×3 (01:14→16:30)
[2017-03-21 05:22] LABS: PLATELET COUNT, AUTOMATED 227 K/uL (150-450)
[2017-03-21] MEDS: [UNRECOGNIZED DRUG - OTHER] IVPB SCH (06:12)
[2017-03-21] MEDS: INSULIN HUM LISPRO 100 UN/ML 3 ML VIAL SUBQ PRN ×4 (06:14→23:24)
--- NOTE | 2017-03-21 06:56 | General Surgery Progress Note ---
Subjective Progress Notes Subjective No new complaints this morning. Physical Exam Vital Signs Date Time Temp Pulse Resp B/P (MAP) Pulse Ox O2 Delivery O2 Flow Rate FiO2 03/21/17 06:00 98.0 80 13 123/64 (83) 94 Bi-PAP 45.0 03/20/17 16:04 10.0 General Appearance: Alert, Awake, No Acute Distress, Afebrile GI: Other (Soft, minimal periumbilical TTP, no peritoneal signs.) Extremities: Warm, Perfused Result Diagram: 03/21/173 03/21/17452 Assessment and Plan Problems: (1) Intra-abdominal free air of unknown etiology Status: Acute Assessment & Plan: Admit, NPO, IV fluids, IV abx, bowel rest, NG tube GI decompression. Abdominal exam without peritonitis and patient is at extremely high risk for surgery due to his body habitus and currently chemotherapy, especially avastin. Will try conservative management but if he worsens, or fails to improve, on conservative therapy then will need to proceed with surgical exploration. I have explained this plan to him in detail and he is agreeable with proceeding with this plan. 03/06/17: Doing a little better although having fevers. Will continue conservative management today with bowel rest, NG tube decompression, IV fluids , and IV abx. If not clearly better by tomorrow will repeat CT scan and will consider surgical exploration tomorrow afternoon/evening. Pt agreeable with this plan. Surgery is very risky in this patient with low albumen, suppressed healing due to chemotherapy, especially avastin (last dose 1 week ago), and morbid obesity. 03/07/17: Will repeat CT abd/pelvis this morning and may need to operate later this afternoon since he continues to have pain without bowel function and recurring fevers, marginal improvement if at all. I have explained this to the patient and I have explained the dangers of surgery in him, especially with recent chemo including avastin, but we may no longer have a choice if he has a bowel perforation. Will see what CT shows and then make a decision this afternoon. Will hold heparin gtt this morning. Pt is agreeable with proceeding with surgery is necessary. 03/08/17: CT yesterday showed improvement with less free air and no organized fluid collection. Clinically he is improving. Will continue with conservative therapy, bowel rest, NG tube decompression, IV abx. TPN started yesterday. Continue anticoagulation for PEs, PPI for GI prophylaxis. 03/09/17: Developed a-fib, now in ICU for diltiazem gtt. Abdomen exam remains benign. Will work on cardiac rate control. Continue bowel rest, NG tube decompression, IV abx. Continue TPN. Continue anticoagulation for PEs. Continue PPI for GI prophylaxis. 03/10/17: Looks much improved today. More alert, off BiPap, afebrile overnight with change of antibiotics. I discussed with him that should he reach a point where surgery is indicated, I would recommend transfer to a higher level facility to which he agreed. However, given his improvement since yesterday, I feel it is reasonable to continue care for him here for now. I will check a Mg and Phos today. Continue the NGT until he is passing flatus. 03/11/17: Continued improvement. Labs indicate recovery of marrow function. Afebrile since change in Abx regimen 2 days ago. Continue this course. Awaiting return of bowel function and will leave NGT in place until that time. Expect that it will be at least another day or two. His hypophosphotemia persists but responded appropriately to replacement yesterday. I will defer to IM in regards to ongoing replacement. Continue TPN with same formulation. Will plan to get him up to a chair today. 03/12/17: Better every day. Much more alert and interactive today. Spend time in the chair yesterday and will again today. Gipson out yesterday. Will receive lasix today to work on fluid balance. Will allow sips of clears but keep NGT until flatus present. 03/13/17: Daily progress. Awaiting bowel function. Continue Vanco for at least 7 day course with Primaxin ~14 days. 03/14/17: Clinically doing better. Not much pain. Fevers better. No bowel function yet. Continue bowel rest, TPN, etc. 03/15/17: Continues to do fairly well but having mild fevers. Will repeat CT abd/pelvis today. Continue bowel rest/TPN. 03/16/17: Doing well but with continued fevers. Repeat CT abd/pelvis reveals organizing fluid collections in both pericolic gutters, right > left, and a larger fluid collection in lower abdomen adjacent to the colonic anastomosis. No free air but some contained air in the fluid collection. These don't look walled off yet. Will allow to organize and then will re-CT next week and if able will look at percutaneous drainage of these collections. Will reserve surgical exploration for clinical decline or if he's not progressing 4 weeks after his last dose of Avastin, it's currently been 2 1/2 weeks since his last dose. I discussed with Lisseth that if surgery becomes necessary, it will likely require taking down the anastomosis and giving him a colostomy which may be permanent. He seems to understand and he seems to be agreeable with this plan. A major problem right now is respiratory insufficiency and he's requiring almost continuous BIPAP on 60% fiO2. Only mild pleural effusions on Chest CT but both lower lobes are incompletely ventilated. The PEs appear resolved. The JOAO met is a little larger when compared to his previous chest CT on admission. He may also have areas of infiltrate or even infarction from the PE is his lungs. He does not wish to be intubated and he has been made DNI. Will need to follow his respiratory status closely and continue aggressive pulmonary toilet and will continue to work on mobilizing him more although his mobility is very limited by his compromised respiratory reserve. 03/17/17: Continue with clear liquid diet until bowel function is fully established. Good progress so far. 03/18/17: Passing flatus and tolerating clears. Keep diet as is for now. Dr. Rush will map out transition plan on Sunday. 03/19/17: passing flatus, hypoactive bowel sounds, no bowel movement. continue with clears. 03/20/17: Doing well. Passing flatus. Will continue clear diet and TPN to avoid forming new stool that could potentially leak from the sigmoid anastomosis that led to this admission. Will recheck CT abd/pelvis in 2 days to monitor the fluid collections for drainability or improvement and determine if 1) surgery is necessary or 2) we can advance his diet. O/W, CCM. 03/21/17: Doing well. Still passing flatus, no BM. Continue clear diet and TPN. Repeat CT abdomen/pelvis tomorrow. (2) Multiple pulmonary emboli Status: Acute Assessment & Plan: Hospitalists consulted. Will start a Heparin gtt which can be stopped if surgery becomes necessary. Will need long-term anticoagulation after he improves with conservative management or after he recovers from surgery if necessary. Central Venous Access Medical Necessity for Access: Hemodynamic Monitoring, IV Access, Medication Administration Condition Stable. Time Spent: < 30 min Exam Sepsis Risk: No Definite Risk LISSETH RUSH MD Mar 21, 2017 06:56
[2017-03-21] MEDS: FUROSEMIDE 20 MG/2 ML VIAL IVP SCH (08:33)
[2017-03-21] MEDS: PANTOPRAZOLE SOD 40 MG IV VIAL IVP SCH (08:34)
[2017-03-21] MEDS: TOBRAMYCIN/DEX OP SUSP 2.5 ML OU SCH ×2 (08:34→20:31)
[2017-03-21] MEDS: HEPARIN* SOD/D5W 25000 U/500ML 500 ML IV SCH (10:20)
[2017-03-21] MEDS: LEVALBUTEROL 1.25 MG/3 ML NEB NEB PRN ×2 (11:20→19:53)
[2017-03-21] MEDS: VANCOMYCIN(*) 1 GM VIAL 0.85 GM in NS(*) 0.9% 250 ML BAG 250 ML IVPB SCH ×2 (12:04→23:20)
--- NOTE | 2017-03-21 13:09 | Hospitalist Progress Note ---
Subjective Progress Notes Subjective He reports feeling "OK". He does admit to some dyspnea and abdominal discomfort. Physical Exam Vital Signs Date Time Temp Pulse Resp B/P (MAP) Pulse Ox O2 Delivery O2 Flow Rate FiO2 03/21/17 12:42 108 03/21/17 12:01 93 Oxy Mask 10.0 03/21/17 12:00 99.6 45 136/68 (90) 03/21/17 11:20 40.0 Intake and Output 03/22/17 07:00 Intake Total 720 ml Output Total 2375 ml Balance -1655 ml Intake Oral 300 ml IV Total 420 ml Output Urine Total 2375 ml General Appearance: Alert, Awake Cardiovascular: Regular Rate and Rhythm Respiratory: Other (fairly clear with few scattered rhonchi) GI: Other (distended, but fairly soft/rare BS) Extremities: Warm, Perfused Psych: Alert & Oriented X3 Result Diagram: 03/21/1745203/21/17452 Assessment and Plan Problems: (1) Multiple pulmonary emboli Status: Acute Assessment & Plan: His CT scan did show bilateral pulmonary emboli - most likely related to his cancer and/or the Avastin. We are currently treating him with a heparin infusion and are making dose adjustments based on Anti-factor Xa levels. We are keeping him at the lower end of the therapeutic range due to recurring nose bleeds. 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 Multiple metastases. Treatment through [facility] has been FOLFOX and Avastin. He may have had bowel perforation related to the Avastin as well. We broadened antibiotic coverage for both abdomen and ulcers/extremities. We discussed end-of-life decisions with Gold. He has decided he does not want to be intubated/mechanically ventilated, but would like an attempt at CPR if needed. (3) Atrial fibrillation with RVR Status: Resolved Assessment & Plan: He developed it on 03/08. He was symptomatic and was transferred to the ICU. Electrical cardioversion was attempted, but wasn't successful. He was started on a Diltiazem drip and was also treated with digoxin those were stopped on 03/15. He continues in normal rhythm. An echocardiogram shows an EF of 59% with abdominal aorta and aortic root dilatation. His TSH was low, but he is acutely ill. He will need a repeat TSH in 4-6 weeks. (4) Venous stasis ulcer Status: Chronic Assessment & Plan: He is receiving wound care from physical therapy. (5) ANEMIA, UNSPECIFIED Status: Chronic Assessment & Plan: Most likely related to his malignancy and chemotherapy. He seems to be tolerating fairly well. Given all of his concomitant medical problems may consider transfusing PRBC. Will discuss with Dr. Collins. Central Venous Access Medical Necessity for Access: Hemodynamic Monitoring, IV Access, Medication Administration Exam Sepsis Risk: Sepsis Risk VINCENZO BASILIO MD Mar 21, 2017 13:09
[2017-03-21] MEDS: FAT EMULSION 20% 250 ML BAG 250 ML IVPB SCH (15:51)
[2017-03-21] MEDS: HYDROmorphone PCA 6 MG/30 ML IV PRN (15:55)
[2017-03-21] MEDS: NS(*) 0.9% 1000 ML BAG 1,000 ML IV PRN (22:23)
[2017-03-22] VITALS (12 sets, daily range): BP systolic 121–147; BP diastolic 63–82
[2017-03-22] MEDS: IMIPENEM/CILASTA(*) 500MG VIAL 1,000 MG in NS(*) 0.9% 250 ML BAG 250 ML IVPB SCH ×3 (00:28→17:14)
[2017-03-22] MEDS: HEPARIN* SOD/D5W 25000 U/500ML 500 ML IV SCH ×2 (00:29→15:18)
[2017-03-22] MEDS: [UNRECOGNIZED DRUG - OTHER] IVPB SCH ×2 (02:43→23:07)
--- NOTE | 2017-03-22 04:48 | General Surgery Progress Note ---
Subjective Progress Notes Subjective No new complaints. Not much pain, if at all. Physical Exam Vital Signs Date Time Temp Pulse Resp B/P (MAP) Pulse Ox O2 Delivery O2 Flow Rate FiO2 03/22/17 03:35 79 03/22/17 03:01 94 Bi-PAP 40.0 03/22/17 02:00 18 121/63 (82) 03/21/17 20:00 99.8 10.0 General Appearance: Alert, Awake, No Acute Distress, Afebrile GI: Other (Soft, mild periumbilical TTP, no peritonal signs.) Extremities: Warm, Perfused Result Diagram: 03/21/1745203/21/17452 Assessment and Plan Problems: (1) Intra-abdominal free air of unknown etiology Status: Acute Assessment & Plan: Admit, NPO, IV fluids, IV abx, bowel rest, NG tube GI decompression. Abdominal exam without peritonitis and patient is at extremely high risk for surgery due to his body habitus and currently chemotherapy, especially avastin. Will try conservative management but if he worsens, or fails to improve, on conservative therapy then will need to proceed with surgical exploration. I have explained this plan to him in detail and he is agreeable with proceeding with this plan. 03/06/17: Doing a little better although having fevers. Will continue conservative management today with bowel rest, NG tube decompression, IV fluids , and IV abx. If not clearly better by tomorrow will repeat CT scan and will consider surgical exploration tomorrow afternoon/evening. Pt agreeable with this plan. Surgery is very risky in this patient with low albumen, suppressed healing due to chemotherapy, especially avastin (last dose 1 week ago), and morbid obesity. 03/07/17: Will repeat CT abd/pelvis this morning and may need to operate later this afternoon since he continues to have pain without bowel function and recurring fevers, marginal improvement if at all. I have explained this to the patient and I have explained the dangers of surgery in him, especially with recent chemo including avastin, but we may no longer have a choice if he has a bowel perforation. Will see what CT shows and then make a decision this afternoon. Will hold heparin gtt this morning. Pt is agreeable with proceeding with surgery is necessary. 03/08/17: CT yesterday showed improvement with less free air and no organized fluid collection. Clinically he is improving. Will continue with conservative therapy, bowel rest, NG tube decompression, IV abx. TPN started yesterday. Continue anticoagulation for PEs, PPI for GI prophylaxis. 03/09/17: Developed a-fib, now in ICU for diltiazem gtt. Abdomen exam remains benign. Will work on cardiac rate control. Continue bowel rest, NG tube decompression, IV abx. Continue TPN. Continue anticoagulation for PEs. Continue PPI for GI prophylaxis. 03/10/17: Looks much improved today. More alert, off BiPap, afebrile overnight with change of antibiotics. I discussed with him that should he reach a point where surgery is indicated, I would recommend transfer to a higher level facility to which he agreed. However, given his improvement since yesterday, I feel it is reasonable to continue care for him here for now. I will check a Mg and Phos today. Continue the NGT until he is passing flatus. 03/11/17: Continued improvement. Labs indicate recovery of marrow function. Afebrile since change in Abx regimen 2 days ago. Continue this course. Awaiting return of bowel function and will leave NGT in place until that time. Expect that it will be at least another day or two. His hypophosphotemia persists but responded appropriately to replacement yesterday. I will defer to IM in regards to ongoing replacement. Continue TPN with same formulation. Will plan to get him up to a chair today. 03/12/17: Better every day. Much more alert and interactive today. Spend time in the chair yesterday and will again today. Gipson out yesterday. Will receive lasix today to work on fluid balance. Will allow sips of clears but keep NGT until flatus present. 03/13/17: Daily progress. Awaiting bowel function. Continue Vanco for at least 7 day course with Primaxin ~14 days. 03/14/17: Clinically doing better. Not much pain. Fevers better. No bowel function yet. Continue bowel rest, TPN, etc. 03/15/17: Continues to do fairly well but having mild fevers. Will repeat CT abd/pelvis today. Continue bowel rest/TPN. 03/16/17: Doing well but with continued fevers. Repeat CT abd/pelvis reveals organizing fluid collections in both pericolic gutters, right > left, and a larger fluid collection in lower abdomen adjacent to the colonic anastomosis. No free air but some contained air in the fluid collection. These don't look walled off yet. Will allow to organize and then will re-CT next week and if able will look at percutaneous drainage of these collections. Will reserve surgical exploration for clinical decline or if he's not progressing 4 weeks after his last dose of Avastin, it's currently been 2 1/2 weeks since his last dose. I discussed with Lisseth that if surgery becomes necessary, it will likely require taking down the anastomosis and giving him a colostomy which may be permanent. He seems to understand and he seems to be agreeable with this plan. A major problem right now is respiratory insufficiency and he's requiring almost continuous BIPAP on 60% fiO2. Only mild pleural effusions on Chest CT but both lower lobes are incompletely ventilated. The PEs appear resolved. The JOAO met is a little larger when compared to his previous chest CT on admission. He may also have areas of infiltrate or even infarction from the PE is his lungs. He does not wish to be intubated and he has been made DNI. Will need to follow his respiratory status closely and continue aggressive pulmonary toilet and will continue to work on mobilizing him more although his mobility is very limited by his compromised respiratory reserve. 03/17/17: Continue with clear liquid diet until bowel function is fully established. Good progress so far. 03/18/17: Passing flatus and tolerating clears. Keep diet as is for now. Dr. Rush will map out transition plan on Sunday. 03/19/17: passing flatus, hypoactive bowel sounds, no bowel movement. continue with clears. 03/20/17: Doing well. Passing flatus. Will continue clear diet and TPN to avoid forming new stool that could potentially leak from the sigmoid anastomosis that led to this admission. Will recheck CT abd/pelvis in 2 days to monitor the fluid collections for drainability or improvement and determine if 1) surgery is necessary or 2) we can advance his diet. O/W, CCM. 03/21/17: Doing well. Still passing flatus, no BM. Continue clear diet and TPN. Repeat CT abdomen/pelvis tomorrow. 03/22/17: Doing well. Continues to pass flatus. No BM. Will get CT abd/pel today to recheck fluid collections, etc. (2) Multiple pulmonary emboli Status: Acute Assessment & Plan: Hospitalists consulted. Will start a Heparin gtt which can be stopped if surgery becomes necessary. Will need long-term anticoagulation after he improves with conservative management or after he recovers from surgery if necessary. Central Venous Access Medical Necessity for Access: Hemodynamic Monitoring, IV Access, Medication Administration Condition Stable. Time Spent: < 30 min Exam Sepsis Risk: No Definite Risk LISSETH RUSH MD Mar 22, 2017 04:48
[2017-03-22 05:18] LABS: PLATELET COUNT, AUTOMATED 242 K/uL (150-450)
[2017-03-22] MEDS: INSULIN HUM LISPRO 100 UN/ML 3 ML VIAL SUBQ PRN ×3 (06:23→17:36)
[2017-03-22] MEDS ORDERED: IOPAMIDOL 76% 75 ML INFUS BTL 0 ML ONE (07:58)
[2017-03-22] MEDS ORDERED: NS 0.9% 50 ML VIAL 0 ML ONE (07:58)
[2017-03-22] MEDS: PANTOPRAZOLE SOD 40 MG IV VIAL IVP SCH (08:18)
[2017-03-22] MEDS: FUROSEMIDE 20 MG/2 ML VIAL IVP SCH ×2 (08:56→20:26)
[2017-03-22] MEDS: TOBRAMYCIN/DEX OP SUSP 2.5 ML OU SCH ×2 (09:04→20:26)
[2017-03-22] MEDS ORDERED: NS 0.9% 50 ML VIAL 50 ML ONE (10:11)
[2017-03-22] MEDS ORDERED: IOPAMIDOL 76% 75 ML INFUS BTL 75 ML ONE (10:11)
--- NOTE | 2017-03-22 11:02 | Hospitalist Progress Note ---
Subjective Progress Notes Subjective He denies SOB/CP. Physical Exam Vital Signs Date Time Temp Pulse Resp B/P (MAP) Pulse Ox O2 Delivery O2 Flow Rate FiO2 03/22/17 09:49 30 96 03/22/17 09:48 85 03/22/17 08:12 98.2 140/77 (98) Oxy Mask 10.0 03/22/17 06:00 40.0 Intake and Output 03/23/17 07:00 Intake Total 780 ml Output Total 1360 ml Balance -580 ml Intake Oral 500 ml IV Total 280 ml Output Urine Total 1360 ml General Appearance: Alert, Awake, No Acute Distress Cardiovascular: Regular Rate and Rhythm Respiratory: Clear to Auscultation Extremities: No Edema Result Diagram: 03/22/1745403/22/17454 Assessment and Plan Problems: (1) Multiple pulmonary emboli Status: Acute Assessment & Plan: His CT scan did show bilateral pulmonary emboli - most likely related to his cancer and/or the Avastin. We are currently treating him with a heparin infusion and are making dose adjustments based on Anti-factor Xa levels. We are keeping him at the lower end of the therapeutic range due to recurring nose bleeds. He still has a high O2 requirement. Diuresing with Lasix 20mg q12. Follow BMP. 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 Multiple metastases. Treatment through [facility] has been FOLFOX and Avastin. He may have had bowel perforation related to the Avastin as well. We broadened antibiotic coverage for both abdomen and ulcers/extremities. We discussed end-of-life decisions with Gold. He has decided he does not want to be intubated/mechanically ventilated, but would like an attempt at CPR if needed. (3) Atrial fibrillation with RVR Status: Resolved Assessment & Plan: He developed it on 03/08. He was symptomatic and was transferred to the ICU. Electrical cardioversion was attempted, but wasn't successful. He was started on a Diltiazem drip and was also treated with digoxin those were stopped on 03/15. He continues in normal rhythm. An echocardiogram shows an EF of 59% with abdominal aorta and aortic root dilatation. His TSH was low, but he is acutely ill. He will need a repeat TSH in 4-6 weeks. (4) Venous stasis ulcer Status: Chronic Assessment & Plan: He is receiving wound care from physical therapy. (5) ANEMIA, UNSPECIFIED Status: Chronic Assessment & Plan: Most likely related to his malignancy and chemotherapy. He seems to be tolerating fairly well. Given all of his concomitant medical problems may consider transfusing PRBC. Central Venous Access Medical Necessity for Access: Hemodynamic Monitoring, IV Access, Medication Administration Exam Sepsis Risk: No Definite Risk HESHAM DE LA TORRE MD Mar 22, 2017 11:02
[2017-03-22] MEDS: VANCOMYCIN(*) 1 GM VIAL 0.85 GM in NS(*) 0.9% 250 ML BAG 250 ML IVPB SCH ×2 (12:12→23:18)
--- NOTE | 2017-03-22 14:05 | Medical Nutrition Therapy ---
Nutrition Anthropometrics Height (Inches): 71.25 Height (Calculated Centimeters: 180.007630 Weight (Pounds): 293 Weight (Calculated Kilograms): 133.129 BMI Calculated: 40.30 Nhan Nutrition Score: Adequate Nhan Nutrition Risk Score: 16 Dietary Referral Nutrition Risk Factors: Nutrition Risk Comment: Physical Findings Physical Appearance: Morbidly Obese 40+ Skin Appearance Skin Appearance: Edema Edema Location Modifier: Both Edema Location: Lower Extremity Type of Edema: Degree of Edema: 1+ Gastrointestinal Symptoms GI Symtoms: Bloating Tube Present: NG Bowel Sounds: Recent Bowel Pattern: Stool Characteristics: Nutritional Diagnosis Nutritional Risk Acuity 1: TPN/PPN, GI Obstruction (possible GI obstruction/ perforation) Nutritional Risk Acuity 2: Head/Neck/GI Cancer Nutritional Risk Acuity 3: Weight Loss, Morbid Obesity Past Medical History: Colon cancer with mets, HTN, colectomy Nutritional Acuity: 1-High Nutrition Diagnosis: Altered GI Function Nutrition Etiology: Physiological Causes Nutrition Problem/Etiology/Sym: Altered GI function r/t physiological causes AEB abd pain, diarrhea, intra-abdominal air, and lack of bowel movements Adjusted Energy Requirement Re: 2600 (Adj. Callie Nielsen) Protein Requirement: 132 (1 g/kg) Fluid Requirement: 2640 (20 ml/kg) Diet Type: Clear Liquids, TPN/PPN Nutrition Intervention: Between meal supplement, Nutrition support, Incr diet as tolerated Additional Diet Restrictions: PROVIDE CLEAR LIQUID NUTR SUPPLMENT WHILE ON CLEARS Nutritional Support Current Enteral / Parental: TPN Current Tube Feeding Formula C: 100ml/hr+lipids Current Duration: 24 Current Calories: 2448 Current Protein: 101 Current Lipids Calories: 275 Total Current Calories: 2723 Nutrition Monitoring & Eval RD Patient Assessment Time: [address] Assessment Type: RD Re-Assessment Patient Nutrition Acuity: 1-High Follow Up Date: Mar 23, 2017 Nutritional Comment: 03/06 Pt admitted for multiple pulmonary emboli and abd pain. Pt has dx colon Ca with mets and is currently recieveing chemo tx. Alb mildly depleted at 3.4. Pt has 2 day hx of diarrhea. Pt is NPO. Pt has 50# wt loss since May 2016. BMI cont in class 3 obestiy range. Recommend nutr support if diet is not advanced in 3 days. Cont to monitor 03/07/17 Pt continues NPO for bowel rest. Pt still experiencing pain and lack of bowel function. Surgery may be necessary for possible bowel obstruction later this afternoon, per MD. PICC line placed. I recommend TPN/nutr support if diet is not advanced in 2 days. Alb 2.4 and total pro 4.7. Will continue to monitor. 03/08 Pt stated on TPN and is now 75ml/hr plus lipids meeting 82% est kcal and 62% est protein needs. Recommend increase TPN to 100ml/hr plus lipids to meet 105% est kcal and 83% est protein needs. Alb declined to 2.4. BG elevated up to 152. Will cont to monitor. 03/10 Continues with TPN @ 75mL/hr and Intralipid 20% 250mL bag/day. Low H/H, Glu 190, Alb 2.4, Low phosphours, Ca+. Lispo SSI. May begin PO intake after pt passes flatus. Follow for diet progression, etc. 03/13 No changes to TPN or diet status. Alb 2.5, Glu 182. Monitor labs, diet changes. 03/14 Pt cont on TPN at 75ml/hr. Diet advanced to clear liquids. Will provide clear liquid nutr supplment to increase protein intake. Current TPN meeting s 80% est kcal and 62% est protein needs. Alb 2.5. Will cont to monitor. 03/15 TPN increased to 100ml/hr plus lipis . Current TPN order meeting 105% est kcal and 83% est protein needs. Will cont to monitor. 03/18 Glu 172, Alb 2.6, Low H/H. Continues with TPN Clinimix 4.25%-25% at 100 mL/hr and Intralipid 20% at 250 mL/day. Receiving Clear liquid diet and tolerating. Monitor for continued tolerance and diet progression. 03/20 Glu 152, alb 2.7, and H/H cont low. Pt continues on TPN and clear liquid diet. No BM, hypoactive bowel sounds, and passing flatus. Per MD, CT scheduled in two days to determine if surgery is needed or if diet can be advanced. Will continue to monitor. 03/22 Pt continues to pass flatus but no BM. CT scheduled for today. Surgery may be a possibility. H/H cont low, Na 135, alb 2.5, and total pro WNL. Pt continues on TPN and clear liquid diet, in care of nurse. Continue to offer ensure clear and encourage intake once diet progresses. GEOVANNY SALAZAR Mar 22, 2017 09:26
--- NOTE | 2017-03-22 14:58 | RADIOLOGY IMAGING REPORT ---
FACILITY: [facility] PATIENT NAME: Lisseth Campa : 1950 MR: [id number] V: [id number] EXAM DATE: ORDERING PHYSICIAN: LISSETH RUSH TECHNOLOGIST: Location: [facility] Patient: Lisseth Campa : 1950 Visit/Account:[id number] Date of Sevice: 03/22/2017 ABDOMEN/PELVIS WITH CONTRAST HISTORY: Intraabdominal fluid collections TECHNIQUE: Following administration of IV contrast contiguous axial images acquired through the abdom en/pelvis. Coronal and sagittal reformatting also performed. Dose Lowering Technique One of the following dose optimization techniques was utilized in the performance of this exam: Autom ated exposure control; adjustment of the mA and/or kV according to the patient's size; or use of an i terative reconstruction technique. Specific details can be referenced in the facility's radiology C T exam operational policy. . Although the patient did receive in IV contrast bolus there was poor opacification of the abdomina l pelvic organs and vascular structures. CONTRAST: 75 mL Isovue-370 COMPARISON: March 07, 2017 FINDINGS: Visualized lung bases: Small posterior layering bilateral pleural effusions are relatively unchanged . The bibasilar airspace consolidation is slightly improved. Hepatobiliary: Negative. Spleen: Mild splenomegaly again noted Adrenals: Negative. Pancreas: Negative. Kidneys ureters or bladder: Mild perinephric stranding is again noted bilaterally . There is a larg e air-fluid level in the bladder which may be related to the patient's Gipson catheter. Genitalia: Negative. GI: Previous seen noted NG tube no longer seen. There is a small hiatal hernia.. Again noted are anastomosis in the sigmoid colon and mid small bowel. Similar to the prior study is a patulous appearance to the small bowel just proximal to the anastomosis. No evidence of steph grisel l obstruction. The fluid collection in the right paracolic gutter has increased in size and now measures proximal an d 8.5 x 5.7 x 12.8 cm as opposed as opposed to 6.6 x 4.8 x 12.1 cm previously. An air-fluid level do es remain in this collection. Fluid in the left paracolic gutter is no longer seen. The fluid colle ction superior to the bladder has decrease in size and now measures 6.7 x 4.4 x 6.1 cm as opposed to 6.9 x 4.3 x 7.5 cm. no new fluid collections are identified. Vessels/spaces/nodes: Fat stranding in the right paracolic gutter and in the mesenteric fat is relat ively unchanged. . Right external iliac adenopathy appears relatively unchanged Bones/soft tissues: Postsurgical changes from a midline abdominal pelvic incision is again seen. Th ere is been partial improvement in the diffuse anasarca. Grade 1 spondylolisthesis at L5-S1 secondar y to pars defects at L5 again noted . . Diffuse degenerative changes the right hip joint also again noted Additional findings: None pertinent. IMPRESSION: Small posterior layering bilateral pleural effusions are relatively unchanged The right basilar airspace consolidation is partially improved A large air-fluid level in the bladder may be related to patient's Gipson catheter. Clinical correlat ion needed The fluid collection right paracolic gutter has increased in size when compared the prior study and c ontains a persistent air-fluid level. The left paracolic fluid collection is no longer seen and the fluid collection above the bladder is slightly decreased in size. Additional chronic findings as described above Report Dictated By: Kayli Berry MD at 03/22/2017 1:47 PM Report E-Signed By: Kayli Berry MD at 03/22/2017 2:54 PM WSN:[email or web address]
[2017-03-22] MEDS: FAT EMULSION 20% 250 ML BAG 250 ML IVPB SCH (15:17)
[2017-03-23] VITALS (34 sets, daily range): BP systolic 119–161; BP diastolic 63–86
[2017-03-23] MEDS: IMIPENEM/CILASTA(*) 500MG VIAL 1,000 MG in NS(*) 0.9% 250 ML BAG 250 ML IVPB SCH ×3 (00:25→16:36)
[2017-03-23 05:20] LABS: PLATELET COUNT, AUTOMATED 252 K/uL (150-450)
[2017-03-23] MEDS: INSULIN HUM LISPRO 100 UN/ML 3 ML VIAL SUBQ PRN (06:04)
[2017-03-23] MEDS ORDERED: FUROSEMIDE 20 MG/2 ML VIAL IVP ONE ×2 (06:10→06:15)
--- NOTE | 2017-03-23 06:20 | General Surgery Progress Note ---
Subjective Progress Notes Subjective No complaints this morning. Physical Exam Vital Signs Date Time Temp Pulse Resp B/P (MAP) Pulse Ox O2 Delivery O2 Flow Rate FiO2 03/23/17 06:00 99.0 84 22 138/68 (91) 94 Bi-PAP 40.0 03/22/17 18:00 8.0 General Appearance: Alert, Awake, No Acute Distress, Afebrile GI: Other (Soft, mild periumbilical TTP, no peritoneal signs.) Extremities: Warm, Perfused Result Diagram: 03/23/1743903/23/17439 Assessment and Plan Problems: (1) Intra-abdominal free air of unknown etiology Status: Acute Assessment & Plan: Admit, NPO, IV fluids, IV abx, bowel rest, NG tube GI decompression. Abdominal exam without peritonitis and patient is at extremely high risk for surgery due to his body habitus and currently chemotherapy, especially avastin. Will try conservative management but if he worsens, or fails to improve, on conservative therapy then will need to proceed with surgical exploration. I have explained this plan to him in detail and he is agreeable with proceeding with this plan. 03/06/17: Doing a little better although having fevers. Will continue conservative management today with bowel rest, NG tube decompression, IV fluids , and IV abx. If not clearly better by tomorrow will repeat CT scan and will consider surgical exploration tomorrow afternoon/evening. Pt agreeable with this plan. Surgery is very risky in this patient with low albumen, suppressed healing due to chemotherapy, especially avastin (last dose 1 week ago), and morbid obesity. 03/07/17: Will repeat CT abd/pelvis this morning and may need to operate later this afternoon since he continues to have pain without bowel function and recurring fevers, marginal improvement if at all. I have explained this to the patient and I have explained the dangers of surgery in him, especially with recent chemo including avastin, but we may no longer have a choice if he has a bowel perforation. Will see what CT shows and then make a decision this afternoon. Will hold heparin gtt this morning. Pt is agreeable with proceeding with surgery is necessary. 03/08/17: CT yesterday showed improvement with less free air and no organized fluid collection. Clinically he is improving. Will continue with conservative therapy, bowel rest, NG tube decompression, IV abx. TPN started yesterday. Continue anticoagulation for PEs, PPI for GI prophylaxis. 03/09/17: Developed a-fib, now in ICU for diltiazem gtt. Abdomen exam remains benign. Will work on cardiac rate control. Continue bowel rest, NG tube decompression, IV abx. Continue TPN. Continue anticoagulation for PEs. Continue PPI for GI prophylaxis. 03/10/17: Looks much improved today. More alert, off BiPap, afebrile overnight with change of antibiotics. I discussed with him that should he reach a point where surgery is indicated, I would recommend transfer to a higher level facility to which he agreed. However, given his improvement since yesterday, I feel it is reasonable to continue care for him here for now. I will check a Mg and Phos today. Continue the NGT until he is passing flatus. 03/11/17: Continued improvement. Labs indicate recovery of marrow function. Afebrile since change in Abx regimen 2 days ago. Continue this course. Awaiting return of bowel function and will leave NGT in place until that time. Expect that it will be at least another day or two. His hypophosphotemia persists but responded appropriately to replacement yesterday. I will defer to IM in regards to ongoing replacement. Continue TPN with same formulation. Will plan to get him up to a chair today. 03/12/17: Better every day. Much more alert and interactive today. Spend time in the chair yesterday and will again today. Gipson out yesterday. Will receive lasix today to work on fluid balance. Will allow sips of clears but keep NGT until flatus present. 03/13/17: Daily progress. Awaiting bowel function. Continue Vanco for at least 7 day course with Primaxin ~14 days. 03/14/17: Clinically doing better. Not much pain. Fevers better. No bowel function yet. Continue bowel rest, TPN, etc. 03/15/17: Continues to do fairly well but having mild fevers. Will repeat CT abd/pelvis today. Continue bowel rest/TPN. 03/16/17: Doing well but with continued fevers. Repeat CT abd/pelvis reveals organizing fluid collections in both pericolic gutters, right > left, and a larger fluid collection in lower abdomen adjacent to the colonic anastomosis. No free air but some contained air in the fluid collection. These don't look walled off yet. Will allow to organize and then will re-CT next week and if able will look at percutaneous drainage of these collections. Will reserve surgical exploration for clinical decline or if he's not progressing 4 weeks after his last dose of Avastin, it's currently been 2 1/2 weeks since his last dose. I discussed with Lisseth that if surgery becomes necessary, it will likely require taking down the anastomosis and giving him a colostomy which may be permanent. He seems to understand and he seems to be agreeable with this plan. A major problem right now is respiratory insufficiency and he's requiring almost continuous BIPAP on 60% fiO2. Only mild pleural effusions on Chest CT but both lower lobes are incompletely ventilated. The PEs appear resolved. The JOAO met is a little larger when compared to his previous chest CT on admission. He may also have areas of infiltrate or even infarction from the PE is his lungs. He does not wish to be intubated and he has been made DNI. Will need to follow his respiratory status closely and continue aggressive pulmonary toilet and will continue to work on mobilizing him more although his mobility is very limited by his compromised respiratory reserve. 03/17/17: Continue with clear liquid diet until bowel function is fully established. Good progress so far. 03/18/17: Passing flatus and tolerating clears. Keep diet as is for now. Dr. Rush will map out transition plan on Sunday. 03/19/17: passing flatus, hypoactive bowel sounds, no bowel movement. continue with clears. 03/20/17: Doing well. Passing flatus. Will continue clear diet and TPN to avoid forming new stool that could potentially leak from the sigmoid anastomosis that led to this admission. Will recheck CT abd/pelvis in 2 days to monitor the fluid collections for drainability or improvement and determine if 1) surgery is necessary or 2) we can advance his diet. O/W, CCM. 03/21/17: Doing well. Still passing flatus, no BM. Continue clear diet and TPN. Repeat CT abdomen/pelvis tomorrow. 03/22/17: Doing well. Continues to pass flatus. No BM. Will get CT abd/pel today to recheck fluid collections, etc. 03/23/17: Doing well. Repeat CT abd/pel yesterday reveals that the right pericolic fluid collection is increased in size and is rim enhancing. The left pericolic collection has resolved. The collection adjacent to the colonic anastomosis is smaller. No free or extraluminal gas other than that seen in the right pericolic gutter fluid collection. Hb is below 8 this morning so will give 2 Units pRBC. Will have the right pericolic gutter fluid collection drained under CT guidance today. While he's in radiology, will have them perform a water soluble enema to look for a continued leak. If no obvious leak then will advance his diet. (2) Multiple pulmonary emboli Status: Acute Assessment & Plan: Hospitalists consulted. Will start a Heparin gtt which can be stopped if surgery becomes necessary. Will need long-term anticoagulation after he improves with conservative management or after he recovers from surgery if necessary. Central Venous Access Medical Necessity for Access: Hemodynamic Monitoring, IV Access, Medication Administration Condition Stable. Time Spent: < 30 min Exam Sepsis Risk: No Definite Risk LISSETH RUSH MD Mar 23, 2017 06:20
[2017-03-23] MEDS: HYDROmorphone PCA 6 MG/30 ML IV PRN (08:31)
[2017-03-23] MEDS: PANTOPRAZOLE SOD 40 MG IV VIAL IVP SCH (08:32)
[2017-03-23] MEDS: FUROSEMIDE 20 MG/2 ML VIAL IVP SCH ×2 (08:33→20:33)
--- NOTE | 2017-03-23 09:12 | Medical Nutrition Therapy ---
Nutrition Anthropometrics Height (Inches): 71.25 Height (Calculated Centimeters: 180.445571 Weight (Pounds): 292 Weight (Calculated Kilograms): 132.676 BMI Calculated: 40.30 Nhan Nutrition Score: Adequate Nhan Nutrition Risk Score: 16 Dietary Referral Nutrition Risk Factors: Nutrition Risk Comment: Physical Findings Physical Appearance: Morbidly Obese 40+ Skin Appearance Skin Appearance: Edema Edema Location Modifier: Both Edema Location: Lower Extremity Type of Edema: Degree of Edema: 1+ Gastrointestinal Symptoms GI Symtoms: Bloating Tube Present: NG Bowel Sounds: Recent Bowel Pattern: Stool Characteristics: Nutritional Diagnosis Nutritional Risk Acuity 1: TPN/PPN, GI Obstruction (possible GI obstruction/ perforation) Nutritional Risk Acuity 2: Head/Neck/GI Cancer, Abcess/Non-Healing Wound Nutritional Risk Acuity 3: Weight Loss, Morbid Obesity Past Medical History: Colon cancer with mets, HTN, colectomy Nutritional Acuity: 1-High Nutrition Diagnosis: Altered GI Function Nutrition Etiology: Physiological Causes Nutrition Problem/Etiology/Sym: Altered GI function r/t physiological causes AEB abd pain, diarrhea, intra-abdominal air, and lack of bowel movements Adjusted Energy Requirement Re: 2600 (Adj. Callie Nielsen) Protein Requirement: 132 (1 g/kg) Fluid Requirement: 2640 (20 ml/kg) Diet Type: Clear Liquids, TPN/PPN Nutrition Intervention: Between meal supplement, Nutrition support, Incr diet as tolerated Additional Diet Restrictions: PROVIDE CLEAR LIQUID NUTR SUPPLMENT WHILE ON CLEARS Nutritional Support Current Enteral / Parental: TPN Current Tube Feeding Formula C: 100ml/hr+lipids Current Duration: 24 Current Calories: 2448 Current Protein: 101 Current Lipids Calories: 275 Total Current Calories: 2723 Nutrition Monitoring & Eval Nutritional Goals Comment: TPN will meet nutr needs until oral intake can meet needs RD Patient Assessment Time: [address] Assessment Type: RD Re-Assessment Patient Nutrition Acuity: 1-High Follow Up Date: Mar 26, 2017 Nutritional Comment: 03/06 Pt admitted for multiple pulmonary emboli and abd pain. Pt has dx colon Ca with mets and is currently recieveing chemo tx. Alb mildly depleted at 3.4. Pt has 2 day hx of diarrhea. Pt is NPO. Pt has 50# wt loss since May 2016. BMI cont in class 3 obestiy range. Recommend nutr support if diet is not advanced in 3 days. Cont to monitor 03/07/17 Pt continues NPO for bowel rest. Pt still experiencing pain and lack of bowel function. Surgery may be necessary for possible bowel obstruction later this afternoon, per MD. PICC line placed. I recommend TPN/nutr support if diet is not advanced in 2 days. Alb 2.4 and total pro 4.7. Will continue to monitor. 03/08 Pt stated on TPN and is now 75ml/hr plus lipids meeting 82% est kcal and 62% est protein needs. Recommend increase TPN to 100ml/hr plus lipids to meet 105% est kcal and 83% est protein needs. Alb declined to 2.4. BG elevated up to 152. Will cont to monitor. 03/10 Continues with TPN @ 75mL/hr and Intralipid 20% 250mL bag/day. Low H/H, Glu 190, Alb 2.4, Low phosphours, Ca+. Lispo SSI. May begin PO intake after pt passes flatus. Follow for diet progression, etc. 03/13 No changes to TPN or diet status. Alb 2.5, Glu 182. Monitor labs, diet changes. 03/14 Pt cont on TPN at 75ml/hr. Diet advanced to clear liquids. Will provide clear liquid nutr supplment to increase protein intake. Current TPN meeting s 80% est kcal and 62% est protein needs. Alb 2.5. Will cont to monitor. 03/15 TPN increased to 100ml/hr plus lipis . Current TPN order meeting 105% est kcal and 83% est protein needs. Will cont to monitor. 03/18 Glu 172, Alb 2.6, Low H/H. Continues with TPN Clinimix 4.25%-25% at 100 mL/hr and Intralipid 20% at 250 mL/day. Receiving Clear liquid diet and tolerating. Monitor for continued tolerance and diet progression. 03/20 Glu 152, alb 2.7, and H/H cont low. Pt continues on TPN and clear liquid diet. No BM, hypoactive bowel sounds, and passing flatus. Per MD, CT scheduled in two days to determine if surgery is needed or if diet can be advanced. Will continue to monitor. 03/22 Pt continues to pass flatus but no BM. CT scheduled for today. Surgery may be a possibility. H/H cont low, Na 135, alb 2.5, and total pro WNL. Pt continues on TPN and clear liquid diet, in care of nurse. Continue to offer ensure clear and encourage intake once diet progresses. 1/5 Pt cont on TPN and clear liquid diet which is meeting nutitional needs. Alb declined to 2.3. Will cont to encourage protein intake and offer nutr supplement. Cont to monitor. SARAH PAN Mar 23, 2017 09:12
[2017-03-23] MEDS: NS(*) 0.9% 250 ML BAG 250 ML IV PRN ×2 (09:27→14:40)
[2017-03-23] MEDS: TOBRAMYCIN/DEX OP SUSP 2.5 ML OU SCH ×2 (09:28→20:34)
--- NOTE | 2017-03-23 11:00 | Hospitalist Progress Note ---
Subjective Progress Notes Subjective This patient was admitted for bowel perforation. He had no acute events overnight. Patient Complains of: Cardiovascular: No: Chest Pain Respiratory: No: Shortness of Breath Physical Exam Vital Signs Date Time Temp Pulse Resp B/P (MAP) Pulse Ox O2 Delivery O2 Flow Rate FiO2 03/23/17 09:54 97.8 76 22 134/74 03/23/17 08:40 96 Oxy Mask 8.0 03/23/17 06:00 40.0 Intake and Output 03/24/17 07:00 Output Total 345 ml Balance -345 ml Output Urine Total 345 ml Cardiovascular: Regular Rate and Rhythm Respiratory: Clear to Auscultation Extremities: Edema Integumentary: No Cyanosis Result Diagram: 03/23/1743903/23/17439 Assessment and Plan Problems: (1) Multiple pulmonary emboli Status: Acute Assessment & Plan: His CT scan did show bilateral pulmonary emboli - most likely related to his cancer and/or the Avastin. We have been treating him with a heparin infusion. His infusion is currently on hold for a planned procure today. We will plan to restart him on Lovenox 6hrs after surgery. 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 Multiple metastases. Treatment through the Cancer [facility] has been FOLFOX and Avastin. He may have had bowel perforation related to the Avastin as well. We broadened antibiotic coverage for both abdomen and ulcers/extremities. We discussed end-of-life decisions with Lisseth. He has decided he does not want to be intubated/mechanically ventilated, but would like an attempt at CPR if needed. (3) Atrial fibrillation with RVR Status: Resolved Assessment & Plan: He developed it on 03/08. He was symptomatic and was transferred to the ICU. Electrical cardioversion was attempted, but wasn't successful. He was started on a Diltiazem drip and was also treated with digoxin those were both stopped on 03/15. He has now converted to and maintained sinus rhythm. An echocardiogram shows an EF of 59% with abdominal aorta and aortic root dilatation. His TSH was low, but he is acutely ill. He will need a repeat TSH in 4-6 weeks. (4) Venous stasis ulcer Status: Chronic Assessment & Plan: He is receiving wound care from physical therapy. (5) ANEMIA, UNSPECIFIED Status: Chronic Assessment & Plan: Most likely related to his malignancy and chemotherapy. He has not required a transfusion. Central Venous Access Medical Necessity for Access: Hemodynamic Monitoring, IV Access, Medication Administration Exam Sepsis Risk: No Definite Risk LISSETH LENZ DO Mar 23, 2017 11:00
[2017-03-23] MEDS ORDERED: DIATRIZOATE MEGL/DIATRIZOA SOD 367 MG/ML SOLN ONE (11:53)
[2017-03-23] MEDS: VANCOMYCIN(*) 1 GM VIAL 0.85 GM in NS(*) 0.9% 250 ML BAG 250 ML IVPB SCH (12:00)
--- NOTE | 2017-03-23 14:09 | RADIOLOGY IMAGING REPORT ---
FACILITY: [facility] - [place] PATIENT NAME: Lisseth Campa : 1950 MR: [id number] V: [id number] EXAM DATE: ORDERING PHYSICIAN: LISSETH RUSH TECHNOLOGIST: Location: [facility] Patient: Lisseth Campa : 1950 Visit/Account:[id number] Date of Sevice: 03/23/2017 ABDOMEN/PELVIS W/O CONTRAST HISTORY: Look for leak from anastomosis, USE RECTAL CONTRAST TECHNIQUE: Axial images acquired through the abdomen/pelvis. No IV contrast was utilized however joo er-soluble rectal contrast was utilized. Coronal and sagittal reformatting also performed. Dose Lower ing Technique One of the following dose optimization techniques was utilized in the performance of this exam: Autom ated exposure control; adjustment of the mA and/or kV according to the patient's size; or use of an i terative reconstruction technique. Specific details can be referenced in the facility's radiology C T exam operational policy. COMPARISON: March 22, 2017 FINDINGS: Visualized lung bases: Small posterior layering bilateral pleural effusions are again seen. The bib asilar atelectasis versus slightly improved Hepatobiliary: Negative. Spleen: Mildly enlarged but unchanged Adrenals: Negative. Pancreas: Negative. Kidneys ureters and bladder: Mild perinephric stranding bilaterally. The bladder is decompressed by Gipson catheter. Only a small amount of air is now seen within the bladder likely related to the cath eter Genitalia: Negative. GI: The rectal contrast is identified in the rectum and distal colon to the level of the hepatic fle xure. There is no extraluminal extravasation of contrast at the colonic anastomosis. No contrast en tered the fluid collection just above the bladder. This collection remains relatively unchanged in s ize. Fluid collection right paracolic gutter appears unchanged when compared to yesterday's study. No new fluid collections identified. Vessels/spaces/nodes: Fat stranding the right paracolic gutter in the mesentery appears relatively u nchanged right external iliac adenopathy unchanged Bones/soft tissues: Post surgical changes from a midline abdominal pelvic incision is again noted. Mild diffuse anasarca appears unchanged. Grade 1 spondylolisthesis of L5 through SPECT S1 secondary to pars defects at L5 again noted. Extensive degenerative changes the right hip joint also appear un changed Additional findings: None pertinent. IMPRESSION: There is no extraluminal extravasation of the rectal contrast at the colonic anastomosis and none of the contrast entered the fluid collection just above the bladder. The remaining findings appear stable when compared to yesterday's study other than a slight further d ecrease in the bibasilar atelectasis Report Dictated By: Kayli Berry MD at 03/23/2017 1:57 PM Report E-Signed By: Kayli Berry MD at 03/23/2017 2:05 PM MICAELAN:AMIARASELIVKierra
[2017-03-23] MEDS: VANCOMYCIN 1 GM ADDVIAL 1 GM in NS(*) 0.9% 250 ML ADDVAN BAG 250 ML IVPB SCH (14:27)
--- NOTE | 2017-03-23 15:06 | RADIOLOGY IMAGING REPORT ---
FACILITY: [facility] PATIENT NAME: Lisseth Campa : 1950 MR: [id number] V: [id number] EXAM DATE: ORDERING PHYSICIAN: LISSETH RUSH TECHNOLOGIST: Location: [facility] - [place] Patient: Lisseth Campa : 1950 Visit/Account:[id number] Date of Sevice: 03/23/2017 Exam type: CT ABCESS DRAINAGE ABDOMEN History: Intraabominal abscess Comparison: CT abdomen pelvis March 22, 2017 TECHNIQUE: Multiple axial images were obtained through the abdomen and pelvis without IV contrast. Do se Lowering Technique One of the following dose optimization techniques was utilized in the performance of this exam: Autom ated exposure control; adjustment of the mA and/or kV according to the patient's size; or use of an i terative reconstruction technique. Specific details can be referenced in the facility's radiology C T exam operational policy. . Findings: Informed consent was obtained. The abscess collection in the right paracolic gutter was localized wi th multiple CT images. A localizing grid was placed on the patient's skin. Additional axial images were obtained through the area of interest and a elicia was placed on this patient's skin directly abov e the abscess. The patient was prepped and draped in usual sterile fashion. Local anesthesia was ac complished with 1% lidocaine. An percutaneous introducer needle was introduced into the central port ion of the abscess in the right paracolic gutter. A guidewire was advanced through the introducer in to the abscess collection. The tract was dilated with sequential dilators. A 10 Turkish pigtail cath eter was then placed into the abscess cavity. Approximately 20 mL of purulent material was aspirated from the abscess cavity and sent to laboratory for evaluation. The proximal portion of the drainage catheter was then placed to a drainage bag. The procedure was accomplished without apparent complic ation. IMPRESSION: 1. Successful intra-abdominal CT-guided abscess drainage and catheter placement as described above Report Dictated By: Kayli Berry MD at 03/23/2017 2:57 PM Report E-Signed By: Kayli Berry MD at 03/23/2017 3:02 PM WSN:[email or web address]
[2017-03-23] MEDS: FAT EMULSION 20% 250 ML BAG 250 ML IVPB SCH (16:26)
[2017-03-23] MEDS: [UNRECOGNIZED DRUG - OTHER] IVPB SCH (16:31)
[2017-03-23] MEDS: ACETAMINOPHEN(*)1000 MG/100 ML 100 ML IVPB PRN (18:31)
[2017-03-23] MEDS ORDERED: ENOXAPARIN 100 MG/ML SYR SC SCH (20:00)
[2017-03-23] MEDS: ENOXAPARIN SC SCH (20:34)
[2017-03-24] VITALS (7 sets, daily range): BP systolic 126–171; BP diastolic 66–109
[2017-03-24] MEDS: IMIPENEM/CILASTA(*) 500MG VIAL 1,000 MG in NS(*) 0.9% 250 ML BAG 250 ML IVPB SCH ×3 (00:26→16:30)
[2017-03-24] MEDS: VANCOMYCIN 1 GM ADDVIAL 1 GM in NS(*) 0.9% 250 ML ADDVAN BAG 250 ML IVPB SCH ×2 (02:57→14:30)
[2017-03-24 04:49] LABS: PLATELET COUNT, AUTOMATED 262 K/uL (150-450)
[2017-03-24] MEDS: INSULIN HUM LISPRO 100 UN/ML 3 ML VIAL SUBQ PRN (05:16)
[2017-03-24] MEDS: ENOXAPARIN SC SCH ×2 (08:31→20:11)
[2017-03-24] MEDS: PANTOPRAZOLE SOD 40 MG IV VIAL IVP SCH (08:32)
[2017-03-24] MEDS: TOBRAMYCIN/DEX OP SUSP 2.5 ML OU SCH ×2 (08:36→20:17)
[2017-03-24] MEDS: FUROSEMIDE 20 MG/2 ML VIAL IVP SCH ×2 (08:41→20:17)
--- NOTE | 2017-03-24 10:10 | General Surgery Progress Note ---
Subjective Progress Notes Subjective I have eaten a little bit and it tasted good! Physical Exam Vital Signs Date Time Temp Pulse Resp B/P (MAP) Pulse Ox O2 Delivery O2 Flow Rate FiO2 03/24/17 08:18 30 92 03/24/17 07:44 98.8 83 126/66 (86) Bi-PAP 40.0 03/23/17 20:18 4.0 Intake and Output 03/25/17 07:01 Intake Total 54 ml Output Total 150 ml Balance -96 ml IV Total 54 ml Output Urine Total 150 ml General Appearance: Alert, Awake, Other (quite hard of hearing) ENT: Other (wearing mask oxygen) Cardiovascular: Regular Rate and Rhythm Respiratory: Clear to Auscultation GI: Soft and Non-Tender, Other (healed midline scar, (R)LQ percutaneous drain with large volume of purulent drainage.) Extremities: Other (severe chronic venous insufficiency changes bilateral lower extremities, without significant edema.) Integumentary: Scaly / Dry Skin Result Diagram: 03/24/1743603/24/17436 Assessment and Plan Problems: (1) Intra-abdominal free air of unknown etiology Status: Acute Assessment & Plan: Admit, NPO, IV fluids, IV abx, bowel rest, NG tube GI decompression. Abdominal exam without peritonitis and patient is at extremely high risk for surgery due to his body habitus and currently chemotherapy, especially avastin. Will try conservative management but if he worsens, or fails to improve, on conservative therapy then will need to proceed with surgical exploration. I have explained this plan to him in detail and he is agreeable with proceeding with this plan. 03/06/17: Doing a little better although having fevers. Will continue conservative management today with bowel rest, NG tube decompression, IV fluids , and IV abx. If not clearly better by tomorrow will repeat CT scan and will consider surgical exploration tomorrow afternoon/evening. Pt agreeable with this plan. Surgery is very risky in this patient with low albumen, suppressed healing due to chemotherapy, especially avastin (last dose 1 week ago), and morbid obesity. 03/07/17: Will repeat CT abd/pelvis this morning and may need to operate later this afternoon since he continues to have pain without bowel function and recurring fevers, marginal improvement if at all. I have explained this to the patient and I have explained the dangers of surgery in him, especially with recent chemo including avastin, but we may no longer have a choice if he has a bowel perforation. Will see what CT shows and then make a decision this afternoon. Will hold heparin gtt this morning. Pt is agreeable with proceeding with surgery is necessary. 03/08/17: CT yesterday showed improvement with less free air and no organized fluid collection. Clinically he is improving. Will continue with conservative therapy, bowel rest, NG tube decompression, IV abx. TPN started yesterday. Continue anticoagulation for PEs, PPI for GI prophylaxis. 03/09/17: Developed a-fib, now in ICU for diltiazem gtt. Abdomen exam remains benign. Will work on cardiac rate control. Continue bowel rest, NG tube decompression, IV abx. Continue TPN. Continue anticoagulation for PEs. Continue PPI for GI prophylaxis. 03/10/17: Looks much improved today. More alert, off BiPap, afebrile overnight with change of antibiotics. I discussed with him that should he reach a point where surgery is indicated, I would recommend transfer to a higher level facility to which he agreed. However, given his improvement since yesterday, I feel it is reasonable to continue care for him here for now. I will check a Mg and Phos today. Continue the NGT until he is passing flatus. 03/11/17: Continued improvement. Labs indicate recovery of marrow function. Afebrile since change in Abx regimen 2 days ago. Continue this course. Awaiting return of bowel function and will leave NGT in place until that time. Expect that it will be at least another day or two. His hypophosphotemia persists but responded appropriately to replacement yesterday. I will defer to IM in regards to ongoing replacement. Continue TPN with same formulation. Will plan to get him up to a chair today. 03/12/17: Better every day. Much more alert and interactive today. Spend time in the chair yesterday and will again today. Gipson out yesterday. Will receive lasix today to work on fluid balance. Will allow sips of clears but keep NGT until flatus present. 03/13/17: Daily progress. Awaiting bowel function. Continue Vanco for at least 7 day course with Primaxin ~14 days. 03/14/17: Clinically doing better. Not much pain. Fevers better. No bowel function yet. Continue bowel rest, TPN, etc. 03/15/17: Continues to do fairly well but having mild fevers. Will repeat CT abd/pelvis today. Continue bowel rest/TPN. 03/16/17: Doing well but with continued fevers. Repeat CT abd/pelvis reveals organizing fluid collections in both pericolic gutters, right > left, and a larger fluid collection in lower abdomen adjacent to the colonic anastomosis. No free air but some contained air in the fluid collection. These don't look walled off yet. Will allow to organize and then will re-CT next week and if able will look at percutaneous drainage of these collections. Will reserve surgical exploration for clinical decline or if he's not progressing 4 weeks after his last dose of Avastin, it's currently been 2 1/2 weeks since his last dose. I discussed with Gold that if surgery becomes necessary, it will likely require taking down the anastomosis and giving him a colostomy which may be permanent. He seems to understand and he seems to be agreeable with this plan. A major problem right now is respiratory insufficiency and he's requiring almost continuous BIPAP on 60% fiO2. Only mild pleural effusions on Chest CT but both lower lobes are incompletely ventilated. The PEs appear resolved. The JOAO met is a little larger when compared to his previous chest CT on admission. He may also have areas of infiltrate or even infarction from the PE is his lungs. He does not wish to be intubated and he has been made DNI. Will need to follow his respiratory status closely and continue aggressive pulmonary toilet and will continue to work on mobilizing him more although his mobility is very limited by his compromised respiratory reserve. 03/17/17: Continue with clear liquid diet until bowel function is fully established. Good progress so far. 03/18/17: Passing flatus and tolerating clears. Keep diet as is for now. Dr. Collins will map out transition plan on Sunday. 03/19/17: passing flatus, hypoactive bowel sounds, no bowel movement. continue with clears. 03/20/17: Doing well. Passing flatus. Will continue clear diet and TPN to avoid forming new stool that could potentially leak from the sigmoid anastomosis that led to this admission. Will recheck CT abd/pelvis in 2 days to monitor the fluid collections for drainability or improvement and determine if 1) surgery is necessary or 2) we can advance his diet. O/W, CCM. 03/21/17: Doing well. Still passing flatus, no BM. Continue clear diet and TPN. Repeat CT abdomen/pelvis tomorrow. 03/22/17: Doing well. Continues to pass flatus. No BM. Will get CT abd/pel today to recheck fluid collections, etc. 03/23/17: Doing well. Repeat CT abd/pel yesterday reveals that the right pericolic fluid collection is increased in size and is rim enhancing. The left pericolic collection has resolved. The collection adjacent to the colonic anastomosis is smaller. No free or extraluminal gas other than that seen in the right pericolic gutter fluid collection. Hb is below 8 this morning so will give 2 Units pRBC. Will have the right pericolic gutter fluid collection drained under CT guidance today. While he's in radiology, will have them perform a water soluble enema to look for a continued leak. If no obvious leak then will advance his diet. 03/24/17: Continues doing better and better. He is transferring from ICU today to the surgical honeycutt. Note significant volume of drainage after perc drain. Gram stain with GNR and G+ diphtheroids, cultures pending. Continues on imipenam. Appropriate response to 2U PRBCs yesterday with hgb from 7.7 to 9.4. He is not experiencing difficulties with his diet which was initiated last night. I will not turn down his TPN today until I am certain he is tolerating his diet. If he is, wean and discontinue in am. Per hospitalists, the patient is on therapeutic lovenox with anticipation he will start coumadin or some other terminal gauger anticoagulant today. Ambulate with PT today to get him moving. (2) Multiple pulmonary emboli Status: Acute Assessment & Plan: Hospitalists consulted. Will start a Heparin gtt which can be stopped if surgery becomes necessary. Will need long-term anticoagulation after he improves with conservative management or after he recovers from surgery if necessary. Central Venous Access Medical Necessity for Access: Hemodynamic Monitoring, IV Access, Medication Administration Exam Sepsis Risk: No Definite Risk JULIA KOLB MD Mar 24, 2017 10:10
[2017-03-24] MEDS: [UNRECOGNIZED DRUG - OTHER] IVPB SCH (12:25)
--- NOTE | 2017-03-24 12:28 | Hospitalist Progress Note ---
Subjective Progress Notes Subjective No new complaints. The patient now has an abdominal drain in place. Physical Exam Vital Signs Date Time Temp Pulse Resp B/P (MAP) Pulse Ox O2 Delivery O2 Flow Rate FiO2 03/24/17 10:00 85 03/24/17 08:18 30 92 03/24/17 07:44 98.8 126/66 (86) Bi-PAP 40.0 03/23/17 20:18 4.0 Intake and Output 03/25/17 07:01 Intake Total 336 ml Output Total 400 ml Balance -64 ml IV Total 336 ml Output Urine Total 400 ml General Appearance: Alert, Awake, No Acute Distress, Afebrile Neuro: No Gross deficits Cardiovascular: Regular Rate and Rhythm Respiratory: Clear to Auscultation GI: Soft and Non-Tender, Other (New drain in place R lateral abdomen with purulent drainage noted.) Extremities: Warm, Perfused Integumentary: Other (Both LE with bandage wounds. Very little drainage noted on either bandage dated 03/17.) Psych: Appropriate Mood & Affect Result Diagram: 03/24/1743603/24/17436 Assessment and Plan Problems: (1) Multiple pulmonary emboli Status: Acute Assessment & Plan: His CT scan did show bilateral pulmonary emboli - most likely related to his cancer and/or the Avastin. We have been treating him with a heparin infusion. His infusion was held for drain placement 03/23. He was then started on Lovenox 6 hours after the procedure. Will plan on switching to an oral medication possibly tomorrow. 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 Multiple metastases. Treatment through the Cancer [facility] has been FOLFOX and Avastin. He may have had bowel perforation related to the Avastin as well. We broadened antibiotic coverage for both abdomen and ulcers/extremities. We discussed end-of-life decisions with Gold. He has decided he does not want to be intubated/mechanically ventilated, but would like an attempt at CPR if needed. (3) Atrial fibrillation with RVR Status: Resolved Assessment & Plan: He developed it on 03/08. He was symptomatic and was transferred to the ICU. Electrical cardioversion was attempted, but wasn't successful. He was started on a Diltiazem drip and was also treated with digoxin those were both stopped on 03/15. He has now converted to and maintained sinus rhythm. An echocardiogram shows an EF of 59% with abdominal aorta and aortic root dilatation. His TSH was low, but he is acutely ill. He will need a repeat TSH in 4-6 weeks. (4) Venous stasis ulcer Status: Chronic Assessment & Plan: He is receiving wound care from physical therapy. (5) ANEMIA, UNSPECIFIED Status: Chronic Assessment & Plan: Most likely related to his malignancy and chemotherapy. He has received 2 u PRBCs on 03/23 with improvement in his hemoglobin. Central Venous Access Medical Necessity for Access: Hemodynamic Monitoring, IV Access, Medication Administration Time Spent on Plan of Care: < 30 min Exam Sepsis Risk: No Definite Risk IRLANDA BASILIO MD Mar 24, 2017 12:28
[2017-03-24] MEDS: FAT EMULSION 20% 250 ML BAG 250 ML IVPB SCH (16:30)
[2017-03-25] MEDS: IMIPENEM/CILASTA(*) 500MG VIAL 1,000 MG in NS(*) 0.9% 250 ML BAG 250 ML IVPB SCH ×3 (00:25→16:18)
[2017-03-25] MEDS: VANCOMYCIN 1 GM ADDVIAL 1 GM in NS(*) 0.9% 250 ML ADDVAN BAG 250 ML IVPB SCH ×2 (02:38→14:11)
[2017-03-25 05:57] LABS: PLATELET COUNT, AUTOMATED 278 K/uL (150-450)
[2017-03-25] MEDS: INSULIN HUM LISPRO 100 UN/ML 3 ML VIAL SUBQ PRN (06:06)
[2017-03-25 07:33] VITALS: BP 117/69
[2017-03-25] MEDS: ENOXAPARIN SC SCH ×2 (08:25→20:09)
[2017-03-25] MEDS: TOBRAMYCIN/DEX OP SUSP 2.5 ML OU SCH (08:25)
[2017-03-25] MEDS: [UNRECOGNIZED DRUG - OTHER] IVPB SCH (08:25)
[2017-03-25] MEDS: PANTOPRAZOLE SOD 40 MG IV VIAL IVP SCH (08:26)
[2017-03-25] MEDS: FUROSEMIDE 20 MG/2 ML VIAL IVP SCH (08:26)
[2017-03-25] MEDS: HEPARIN FLSH (PORT) 500 UN/5ML IVP PRN (09:18)
--- NOTE | 2017-03-25 09:18 | General Surgery Progress Note ---
Subjective Progress Notes Subjective The nurses are worried about the drainage from my drain Patient Complains of: Respiratory: Other (bringing up sputum) Physical Exam Vital Signs Date Time Temp Pulse Resp B/P (MAP) Pulse Ox O2 Delivery O2 Flow Rate FiO2 03/25/17 08:18 93 Oxy Mask 8.0 03/25/17 08:15 24 03/25/17 07:33 98.3 76 117/69 (85) 03/24/17 23:24 40.0 Intake and Output 03/26/17 07:01 Intake Total 2000 ml Output Total 25 ml Balance 1975 ml IV Total 2000 ml Drainage Total 25 ml General Appearance: Alert, Awake, Other (Improved appearance) Cardiovascular: Other (irregular rate controlled) Respiratory: Other (but decreased bases bilaterally) GI: Soft and Non-Tender (healed midline scar, (R) sided perc drain, clearer drainage in tube), Other Extremities: Warm, Other (extensive and severe venous insufficiency changes) Result Diagram: 03/25/17 0543 03/25/17 0543 note speciation of Gram negative rods - E. Coli sensitive to imipenam and gram positive diphtheroids. Anaerobic culture pending Assessment and Plan Problems: (1) Intra-abdominal free air of unknown etiology Status: Acute Assessment & Plan: Admit, NPO, IV fluids, IV abx, bowel rest, NG tube GI decompression. Abdominal exam without peritonitis and patient is at extremely high risk for surgery due to his body habitus and currently chemotherapy, especially avastin. Will try conservative management but if he worsens, or fails to improve, on conservative therapy then will need to proceed with surgical exploration. I have explained this plan to him in detail and he is agreeable with proceeding with this plan. 03/06/17: Doing a little better although having fevers. Will continue conservative management today with bowel rest, NG tube decompression, IV fluids , and IV abx. If not clearly better by tomorrow will repeat CT scan and will consider surgical exploration tomorrow afternoon/evening. Pt agreeable with this plan. Surgery is very risky in this patient with low albumen, suppressed healing due to chemotherapy, especially avastin (last dose 1 week ago), and morbid obesity. 03/07/17: Will repeat CT abd/pelvis this morning and may need to operate later this afternoon since he continues to have pain without bowel function and recurring fevers, marginal improvement if at all. I have explained this to the patient and I have explained the dangers of surgery in him, especially with recent chemo including avastin, but we may no longer have a choice if he has a bowel perforation. Will see what CT shows and then make a decision this afternoon. Will hold heparin gtt this morning. Pt is agreeable with proceeding with surgery is necessary. 03/08/17: CT yesterday showed improvement with less free air and no organized fluid collection. Clinically he is improving. Will continue with conservative therapy, bowel rest, NG tube decompression, IV abx. TPN started yesterday. Continue anticoagulation for PEs, PPI for GI prophylaxis. 03/09/17: Developed a-fib, now in ICU for diltiazem gtt. Abdomen exam remains benign. Will work on cardiac rate control. Continue bowel rest, NG tube decompression, IV abx. Continue TPN. Continue anticoagulation for PEs. Continue PPI for GI prophylaxis. 03/10/17: Looks much improved today. More alert, off BiPap, afebrile overnight with change of antibiotics. I discussed with him that should he reach a point where surgery is indicated, I would recommend transfer to a higher level facility to which he agreed. However, given his improvement since yesterday, I feel it is reasonable to continue care for him here for now. I will check a Mg and Phos today. Continue the NGT until he is passing flatus. 03/11/17: Continued improvement. Labs indicate recovery of marrow function. Afebrile since change in Abx regimen 2 days ago. Continue this course. Awaiting return of bowel function and will leave NGT in place until that time. Expect that it will be at least another day or two. His hypophosphotemia persists but responded appropriately to replacement yesterday. I will defer to IM in regards to ongoing replacement. Continue TPN with same formulation. Will plan to get him up to a chair today. 03/12/17: Better every day. Much more alert and interactive today. Spend time in the chair yesterday and will again today. Gipson out yesterday. Will receive lasix today to work on fluid balance. Will allow sips of clears but keep NGT until flatus present. 03/13/17: Daily progress. Awaiting bowel function. Continue Vanco for at least 7 day course with Primaxin ~14 days. 03/14/17: Clinically doing better. Not much pain. Fevers better. No bowel function yet. Continue bowel rest, TPN, etc. 03/15/17: Continues to do fairly well but having mild fevers. Will repeat CT abd/pelvis today. Continue bowel rest/TPN. 03/16/17: Doing well but with continued fevers. Repeat CT abd/pelvis reveals organizing fluid collections in both pericolic gutters, right > left, and a larger fluid collection in lower abdomen adjacent to the colonic anastomosis. No free air but some contained air in the fluid collection. These don't look walled off yet. Will allow to organize and then will re-CT next week and if able will look at percutaneous drainage of these collections. Will reserve surgical exploration for clinical decline or if he's not progressing 4 weeks after his last dose of Avastin, it's currently been 2 1/2 weeks since his last dose. I discussed with Gold that if surgery becomes necessary, it will likely require taking down the anastomosis and giving him a colostomy which may be permanent. He seems to understand and he seems to be agreeable with this plan. A major problem right now is respiratory insufficiency and he's requiring almost continuous BIPAP on 60% fiO2. Only mild pleural effusions on Chest CT but both lower lobes are incompletely ventilated. The PEs appear resolved. The JOAO met is a little larger when compared to his previous chest CT on admission. He may also have areas of infiltrate or even infarction from the PE is his lungs. He does not wish to be intubated and he has been made DNI. Will need to follow his respiratory status closely and continue aggressive pulmonary toilet and will continue to work on mobilizing him more although his mobility is very limited by his compromised respiratory reserve. 03/17/17: Continue with clear liquid diet until bowel function is fully established. Good progress so far. 03/18/17: Passing flatus and tolerating clears. Keep diet as is for now. Dr. Collins will map out transition plan on Sunday. 03/19/17: passing flatus, hypoactive bowel sounds, no bowel movement. continue with clears. 03/20/17: Doing well. Passing flatus. Will continue clear diet and TPN to avoid forming new stool that could potentially leak from the sigmoid anastomosis that led to this admission. Will recheck CT abd/pelvis in 2 days to monitor the fluid collections for drainability or improvement and determine if 1) surgery is necessary or 2) we can advance his diet. O/W, CCM. 03/21/17: Doing well. Still passing flatus, no BM. Continue clear diet and TPN. Repeat CT abdomen/pelvis tomorrow. 03/22/17: Doing well. Continues to pass flatus. No BM. Will get CT abd/pel today to recheck fluid collections, etc. 03/23/17: Doing well. Repeat CT abd/pel yesterday reveals that the right pericolic fluid collection is increased in size and is rim enhancing. The left pericolic collection has resolved. The collection adjacent to the colonic anastomosis is smaller. No free or extraluminal gas other than that seen in the right pericolic gutter fluid collection. Hb is below 8 this morning so will give 2 Units pRBC. Will have the right pericolic gutter fluid collection drained under CT guidance today. While he's in radiology, will have them perform a water soluble enema to look for a continued leak. If no obvious leak then will advance his diet. 03/24/17: Continues doing better and better. He is transferring from ICU today to the surgical honeycutt. Note significant volume of drainage after perc drain. Gram stain with GNR and G+ diphtheroids, cultures pending. Continues on imipenam. Appropriate response to 2U PRBCs yesterday with hgb from 7.7 to 9.4. He is not experiencing difficulties with his diet which was initiated last night. I will not turn down his TPN today until I am certain he is tolerating his diet. If he is, wean and discontinue in am. Per hospitalists, the patient is on therapeutic lovenox with anticipation he will start coumadin or some other jail anticoagulant today. Ambulate with PT today to get him moving. 03/25/17: The patient is improving after drainage of his IAA with markedly decreased drainage over the prior 24 hours and improved appearance of the drainage. Note culture results and sensitivity of the speciated E. coli to imipenam. The patient is eating more but still with mild nausea. Decrease rate of tpn. The patient reports his ambulation is still in the room but he sat up in his chair yesterday for a couple of hours. Continue to encourage increased activity and mobility. (2) Multiple pulmonary emboli Status: Acute Assessment & Plan: Hospitalists consulted. Will start a Heparin gtt which can be stopped if surgery becomes necessary. Will need long-term anticoagulation after he improves with conservative management or after he recovers from surgery if necessary. Central Venous Access Medical Necessity for Access: Hemodynamic Monitoring, IV Access, Medication Administration Time Spent: < 30 min (evaluating drainage and culture results and assessing appropriate antibiotics, assessing nutrition and adjust tpn, ) Exam Sepsis Risk: No Definite Risk JULIA KOLB MD Mar 25, 2017 09:18
[2017-03-25] MEDS: NS(*) 0.9% 250 ML BAG 250 ML IV PRN (09:20)
[2017-03-25 11:21] VITALS: BP 129/71
--- NOTE | 2017-03-25 12:49 | Hospitalist Progress Note ---
Subjective Progress Notes Subjective Overall, he reports feeling improved. He has started to taking some PO. Physical Exam Vital Signs Date Time Temp Pulse Resp B/P (MAP) Pulse Ox O2 Delivery O2 Flow Rate FiO2 03/25/17 11:21 98.5 79 20 129/71 (90) 94 Oxy Mask 8.0 03/24/17 23:24 40.0 Intake and Output 03/26/17 07:01 Intake Total 3272 ml Output Total 1675 ml Balance 1597 ml Intake Oral 700 ml IV Total 2572 ml Output Urine Total 1650 ml Drainage Total 25 ml General Appearance: Alert, Awake Cardiovascular: Regular Rate and Rhythm Respiratory: Other (scattered rhonchi) GI: Other (slightly distended/BS present) Extremities: Perfused, Edema Integumentary: Other (lower extremity wounds dressed) Result Diagram: 03/25/1754203/25/17542 Assessment and Plan Problems: (1) Multiple pulmonary emboli Status: Acute Assessment & Plan: His CT scan did show bilateral pulmonary emboli - most likely related to his cancer and/or the Avastin. We have been treating him with a heparin infusion. His infusion was held for drain placement 03/23. He was then started on Lovenox 6 hours after the procedure. Will plan on switching to an oral medication if he does well with respect to his PO intake and it does not appear he will need a surgical procedure. (2) Atrial fibrillation with RVR Status: Resolved Assessment & Plan: He developed it on 03/08. He was symptomatic and was transferred to the ICU. Electrical cardioversion was attempted, but wasn't successful. He was started on a Diltiazem drip and was also treated with digoxin those were both stopped on 03/15. He has now converted to and maintained sinus rhythm. An echocardiogram shows an EF of 59% with abdominal aorta and aortic root dilatation. His TSH was low, but he is acutely ill. He will need a repeat TSH in 4-6 weeks. 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 Multiple metastases. Treatment through [facility] has been FOLFOX and Avastin. He may have had bowel perforation related to the Avastin as well. We broadened antibiotic coverage for both abdomen and ulcers/extremities. We discussed end-of-life decisions with Gold. He has decided he does not want to be intubated/mechanically ventilated, but would like an attempt at CPR if needed. (4) Venous stasis ulcer Status: Chronic Assessment & Plan: He is receiving wound care from physical therapy. (5) ANEMIA, UNSPECIFIED Status: Chronic Assessment & Plan: Most likely related to his malignancy and chemotherapy. He has received 2 u PRBCs on 03/23 with improvement in his hemoglobin. Central Venous Access Medical Necessity for Access: Hemodynamic Monitoring, IV Access, Medication Administration Exam Sepsis Risk: No Definite Risk VINCENZO BASILIO MD Mar 25, 2017 12:49
[2017-03-25 15:10] VITALS: BP 126/65
[2017-03-25] MEDS: FAT EMULSION 20% 250 ML BAG 250 ML IVPB SCH (16:09)
[2017-03-25 19:41] VITALS: BP 134/74
[2017-03-26] VITALS (7 sets, daily range): BP systolic 104–134; BP diastolic 64–79
[2017-03-26] MEDS: IMIPENEM/CILASTA(*) 500MG VIAL 1,000 MG in NS(*) 0.9% 250 ML BAG 250 ML IVPB SCH ×3 (00:51→16:41)
[2017-03-26] MEDS: VANCOMYCIN 1 GM ADDVIAL 1 GM in NS(*) 0.9% 250 ML ADDVAN BAG 250 ML IVPB SCH ×2 (02:37→14:18)
[2017-03-26] MEDS ORDERED: [UNRECOGNIZED DRUG - OTHER] IVPB SCH (04:00)
[2017-03-26 06:00] LABS: PLATELET COUNT, AUTOMATED 273 K/uL (150-450)
--- NOTE | 2017-03-26 08:08 | General Surgery Progress Note ---
Subjective Progress Notes Subjective No complaints. Tolerating diet but not eating too much. Passing flatus and stools. Physical Exam Vital Signs Date Time Temp Pulse Resp B/P (MAP) Pulse Ox O2 Delivery O2 Flow Rate FiO2 03/26/17 05:50 98.3 71 21 124/74 (91) 93 Bi-PAP 40.0 03/26/17 00:55 8.0 General Appearance: Alert, Awake, No Acute Distress, Afebrile GI: Other (Soft, mild periumbilical TTP, no peritoneal signs.) Extremities: Warm, Perfused Result Diagram: 03/26/1752603/26/17526 Assessment and Plan Problems: (1) Intra-abdominal free air of unknown etiology Status: Acute Assessment & Plan: Admit, NPO, IV fluids, IV abx, bowel rest, NG tube GI decompression. Abdominal exam without peritonitis and patient is at extremely high risk for surgery due to his body habitus and currently chemotherapy, especially avastin. Will try conservative management but if he worsens, or fails to improve, on conservative therapy then will need to proceed with surgical exploration. I have explained this plan to him in detail and he is agreeable with proceeding with this plan. 03/06/17: Doing a little better although having fevers. Will continue conservative management today with bowel rest, NG tube decompression, IV fluids , and IV abx. If not clearly better by tomorrow will repeat CT scan and will consider surgical exploration tomorrow afternoon/evening. Pt agreeable with this plan. Surgery is very risky in this patient with low albumen, suppressed healing due to chemotherapy, especially avastin (last dose 1 week ago), and morbid obesity. 03/07/17: Will repeat CT abd/pelvis this morning and may need to operate later this afternoon since he continues to have pain without bowel function and recurring fevers, marginal improvement if at all. I have explained this to the patient and I have explained the dangers of surgery in him, especially with recent chemo including avastin, but we may no longer have a choice if he has a bowel perforation. Will see what CT shows and then make a decision this afternoon. Will hold heparin gtt this morning. Pt is agreeable with proceeding with surgery is necessary. 03/08/17: CT yesterday showed improvement with less free air and no organized fluid collection. Clinically he is improving. Will continue with conservative therapy, bowel rest, NG tube decompression, IV abx. TPN started yesterday. Continue anticoagulation for PEs, PPI for GI prophylaxis. 03/09/17: Developed a-fib, now in ICU for diltiazem gtt. Abdomen exam remains benign. Will work on cardiac rate control. Continue bowel rest, NG tube decompression, IV abx. Continue TPN. Continue anticoagulation for PEs. Continue PPI for GI prophylaxis. 03/10/17: Looks much improved today. More alert, off BiPap, afebrile overnight with change of antibiotics. I discussed with him that should he reach a point where surgery is indicated, I would recommend transfer to a higher level facility to which he agreed. However, given his improvement since yesterday, I feel it is reasonable to continue care for him here for now. I will check a Mg and Phos today. Continue the NGT until he is passing flatus. 03/11/17: Continued improvement. Labs indicate recovery of marrow function. Afebrile since change in Abx regimen 2 days ago. Continue this course. Awaiting return of bowel function and will leave NGT in place until that time. Expect that it will be at least another day or two. His hypophosphotemia persists but responded appropriately to replacement yesterday. I will defer to IM in regards to ongoing replacement. Continue TPN with same formulation. Will plan to get him up to a chair today. 03/12/17: Better every day. Much more alert and interactive today. Spend time in the chair yesterday and will again today. Gipson out yesterday. Will receive lasix today to work on fluid balance. Will allow sips of clears but keep NGT until flatus present. 03/13/17: Daily progress. Awaiting bowel function. Continue Vanco for at least 7 day course with Primaxin ~14 days. 03/14/17: Clinically doing better. Not much pain. Fevers better. No bowel function yet. Continue bowel rest, TPN, etc. 03/15/17: Continues to do fairly well but having mild fevers. Will repeat CT abd/pelvis today. Continue bowel rest/TPN. 03/16/17: Doing well but with continued fevers. Repeat CT abd/pelvis reveals organizing fluid collections in both pericolic gutters, right > left, and a larger fluid collection in lower abdomen adjacent to the colonic anastomosis. No free air but some contained air in the fluid collection. These don't look walled off yet. Will allow to organize and then will re-CT next week and if able will look at percutaneous drainage of these collections. Will reserve surgical exploration for clinical decline or if he's not progressing 4 weeks after his last dose of Avastin, it's currently been 2 1/2 weeks since his last dose. I discussed with Lisseth that if surgery becomes necessary, it will likely require taking down the anastomosis and giving him a colostomy which may be permanent. He seems to understand and he seems to be agreeable with this plan. A major problem right now is respiratory insufficiency and he's requiring almost continuous BIPAP on 60% fiO2. Only mild pleural effusions on Chest CT but both lower lobes are incompletely ventilated. The PEs appear resolved. The JOAO met is a little larger when compared to his previous chest CT on admission. He may also have areas of infiltrate or even infarction from the PE is his lungs. He does not wish to be intubated and he has been made DNI. Will need to follow his respiratory status closely and continue aggressive pulmonary toilet and will continue to work on mobilizing him more although his mobility is very limited by his compromised respiratory reserve. 03/17/17: Continue with clear liquid diet until bowel function is fully established. Good progress so far. 03/18/17: Passing flatus and tolerating clears. Keep diet as is for now. Dr. Rush will map out transition plan on Sunday. 03/19/17: passing flatus, hypoactive bowel sounds, no bowel movement. continue with clears. 03/20/17: Doing well. Passing flatus. Will continue clear diet and TPN to avoid forming new stool that could potentially leak from the sigmoid anastomosis that led to this admission. Will recheck CT abd/pelvis in 2 days to monitor the fluid collections for drainability or improvement and determine if 1) surgery is necessary or 2) we can advance his diet. O/W, CCM. 03/21/17: Doing well. Still passing flatus, no BM. Continue clear diet and TPN. Repeat CT abdomen/pelvis tomorrow. 03/22/17: Doing well. Continues to pass flatus. No BM. Will get CT abd/pel today to recheck fluid collections, etc. 03/23/17: Doing well. Repeat CT abd/pel yesterday reveals that the right pericolic fluid collection is increased in size and is rim enhancing. The left pericolic collection has resolved. The collection adjacent to the colonic anastomosis is smaller. No free or extraluminal gas other than that seen in the right pericolic gutter fluid collection. Hb is below 8 this morning so will give 2 Units pRBC. Will have the right pericolic gutter fluid collection drained under CT guidance today. While he's in radiology, will have them perform a water soluble enema to look for a continued leak. If no obvious leak then will advance his diet. 03/24/17: Continues doing better and better. He is transferring from ICU today to the surgical honeycutt. Note significant volume of drainage after perc drain. Gram stain with GNR and G+ diphtheroids, cultures pending. Continues on imipenam. Appropriate response to 2U PRBCs yesterday with hgb from 7.7 to 9.4. He is not experiencing difficulties with his diet which was initiated last night. I will not turn down his TPN today until I am certain he is tolerating his diet. If he is, wean and discontinue in am. Per hospitalists, the patient is on therapeutic lovenox with anticipation he will start coumadin or some other skilled nursing anticoagulant today. Ambulate with PT today to get him moving. 03/25/17: The patient is improving after drainage of his IAA with markedly decreased drainage over the prior 24 hours and improved appearance of the drainage. Note culture results and sensitivity of the speciated E. coli to imipenam. The patient is eating more but still with mild nausea. Decrease rate of tpn. The patient reports his ambulation is still in the room but he sat up in his chair yesterday for a couple of hours. Continue to encourage increased activity and mobility. 03/26/17: Continued improvement. Tolerating diet. Will come down on TPN even further today. Drain with a lot of purulent drainage but slowly decreasing; will continue the drain until drainage down to nothing. Continue IV abx. Increase physical activity. Continue lovenox until therapeutic on coumadin for PEs. (2) Multiple pulmonary emboli Status: Acute Assessment & Plan: Hospitalists consulted. Will start a Heparin gtt which can be stopped if surgery becomes necessary. Will need long-term anticoagulation after he improves with conservative management or after he recovers from surgery if necessary. Central Venous Access Medical Necessity for Access: Hemodynamic Monitoring, IV Access, Medication Administration Condition Stable. Time Spent: < 30 min Exam Sepsis Risk: No Definite Risk LISSETH RUSH MD Mar 26, 2017 08:08
[2017-03-26] MEDS: ENOXAPARIN SC SCH ×2 (08:11→19:48)
[2017-03-26] MEDS: PANTOPRAZOLE SOD 40 MG TABEC PO SCH (08:21)
--- NOTE | 2017-03-26 10:26 | Hospitalist Progress Note ---
Subjective Progress Notes Subjective This patient was admitted for a bowel perforation. He had no acute events overnight. Patient Complains of: Cardiovascular: No: Chest Pain Respiratory: No: Shortness of Breath Physical Exam Vital Signs Date Time Temp Pulse Resp B/P (MAP) Pulse Ox O2 Delivery O2 Flow Rate FiO2 03/26/17 08:24 93 High-Flow Nasal Cannula 5.0 03/26/17 08:09 98.4 74 18 104/79 (87) 03/26/17 05:50 40.0 Intake and Output 03/27/17 07:01 Intake Total 870 ml Balance 870 ml Intake Oral 620 ml IV Total 250 ml Cardiovascular: Regular Rate and Rhythm Respiratory: Clear to Auscultation Result Diagram: 03/26/1752603/26/17526 Item Value Date Time Gram Stain - Final Resulted 03/23/17 1250 Abdominal Fluid Assessment and Plan Problems: (1) Multiple pulmonary emboli Status: Acute Assessment & Plan: His CT scan did show bilateral pulmonary emboli - most likely related to his cancer and/or the Avastin. He was initially on a heparin infusion, but has now been transitioned to Lovenox and warfarin. Daily INR has been ordered. (2) Atrial fibrillation with RVR Status: Resolved Assessment & Plan: He developed it on 03/08. He was symptomatic and was transferred to the ICU. Electrical cardioversion was attempted, but wasn't successful. He was started on a Diltiazem drip and was also treated with digoxin those were both stopped on 03/15. He has now converted to and maintained sinus rhythm. An echocardiogram shows an EF of 59% with abdominal aorta and aortic root dilatation. His TSH was low, but he is acutely ill. He will need a repeat TSH in 4-6 weeks. 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 Multiple metastases. Treatment through the Cancer Center has been FOLFOX and Avastin. He may have had bowel perforation related to the Avastin as well. We broadened antibiotic coverage for both abdomen and ulcers/extremities. We discussed end-of-life decisions with Lisseth. He has decided he does not want to be intubated/mechanically ventilated, but would like an attempt at CPR if needed. (4) Venous stasis ulcer Status: Chronic Assessment & Plan: He is receiving wound care from physical therapy. (5) ANEMIA, UNSPECIFIED Status: Chronic Assessment & Plan: Most likely related to his malignancy and chemotherapy. He received 2 u PRBCs on 03/23. His Hgb is stable today. Central Venous Access Medical Necessity for Access: Hemodynamic Monitoring, IV Access, Medication Administration Exam Sepsis Risk: No Definite Risk LISSETH LENZ DO Mar 26, 2017 10:26
[2017-03-26] MEDS ORDERED: [UNRECOGNIZED DRUG - OTHER] IV SCH ×2 (11:00→12:00)
[2017-03-26] MEDS: WARFARIN SOD 5 MG TAB PO SCH (12:17)
--- NOTE | 2017-03-26 14:13 | Medical Nutrition Therapy ---
Nutrition Anthropometrics Height (Inches): 71.25 Height (Calculated Centimeters: [phone] Weight (Pounds): 283 Weight (Calculated Kilograms): 128.480 BMI Calculated: 40.30 Nhan Nutrition Score: Adequate Nhan Nutrition Risk Score: 17 Dietary Referral Nutrition Risk Factors: Nutrition Risk Comment: Physical Findings Physical Appearance: Obese BMI 30-39 Skin Appearance Skin Appearance: Edema Edema Location Modifier: Both Edema Location: Lower Extremity Type of Edema: Degree of Edema: 1+ Gastrointestinal Symptoms GI Symtoms: Bloating Tube Present: NG Bowel Sounds: Recent Bowel Pattern: Stool Characteristics: Nutritional Diagnosis Nutritional Risk Acuity 1: TPN/PPN, GI Obstruction (possible GI obstruction/ perforation) Nutritional Risk Acuity 2: Head/Neck/GI Cancer, Abcess/Non-Healing Wound Nutritional Risk Acuity 3: Weight Loss, Morbid Obesity Past Medical History: Colon cancer with mets, HTN, colectomy Nutritional Acuity: 1-High Nutrition Diagnosis: Altered GI Function Nutrition Etiology: Physiological Causes Nutrition Problem/Etiology/Sym: Altered GI function r/t physiological causes AEB abd pain, diarrhea, intra-abdominal air, and lack of bowel movements Adjusted Energy Requirement Re: 2600 (Adj. Callie Nielsen) Protein Requirement: 132 (1 g/kg) Fluid Requirement: 2640 (20 ml/kg) Diet Type: Diet as Tolerated GEOVANNI/REG Nutrition Intervention: Cont diet as ordered, Encourage intake, Between meal supplement Drug: Warfarin Drug/Nutrition Recommendations: No High Vitamin K Foods Do Not Serve Any of the Follow: Broccoli, Brussel Sprouts, Spinach, [place] Lettuce, Cranberry Juice Diet Comment To RSA: PLEASE PROVIDE NUTR SUPPLEMENT Nutrition Monitoring & Eval Nutrition Goals: Eat 75-100% Meal RD Patient Assessment Time: [address] Assessment Type: RD Re-Assessment Patient Nutrition Acuity: 1-High Follow Up Date: Mar 28, 2017 Nutritional Comment: 03/06 Pt admitted for multiple pulmonary emboli and abd pain. Pt has dx colon Ca with mets and is currently recieveing chemo tx. Alb mildly depleted at 3.4. Pt has 2 day hx of diarrhea. Pt is NPO. Pt has 50# wt loss since May 2016. BMI cont in class 3 obestiy range. Recommend nutr support if diet is not advanced in 3 days. Cont to monitor 03/07/17 Pt continues NPO for bowel rest. Pt still experiencing pain and lack of bowel function. Surgery may be necessary for possible bowel obstruction later this afternoon, per MD. PICC line placed. I recommend TPN/nutr support if diet is not advanced in 2 days. Alb 2.4 and total pro 4.7. Will continue to monitor. 03/08 Pt stated on TPN and is now 75ml/hr plus lipids meeting 82% est kcal and 62% est protein needs. Recommend increase TPN to 100ml/hr plus lipids to meet 105% est kcal and 83% est protein needs. Alb declined to 2.4. BG elevated up to 152. Will cont to monitor. 03/10 Continues with TPN @ 75mL/hr and Intralipid 20% 250mL bag/day. Low H/H, Glu 190, Alb 2.4, Low phosphours, Ca+. Lispo SSI. May begin PO intake after pt passes flatus. Follow for diet progression, etc. 03/13 No changes to TPN or diet status. Alb 2.5, Glu 182. Monitor labs, diet changes. 03/14 Pt cont on TPN at 75ml/hr. Diet advanced to clear liquids. Will provide clear liquid nutr supplment to increase protein intake. Current TPN meeting s 80% est kcal and 62% est protein needs. Alb 2.5. Will cont to monitor. 03/15 TPN increased to 100ml/hr plus lipis . Current TPN order meeting 105% est kcal and 83% est protein needs. Will cont to monitor. 03/18 Glu 172, Alb 2.6, Low H/H. Continues with TPN Clinimix 4.25%-25% at 100 mL/hr and Intralipid 20% at 250 mL/day. Receiving Clear liquid diet and tolerating. Monitor for continued tolerance and diet progression. 03/20 Glu 152, alb 2.7, and H/H cont low. Pt continues on TPN and clear liquid diet. No BM, hypoactive bowel sounds, and passing flatus. Per MD, CT scheduled in two days to determine if surgery is needed or if diet can be advanced. Will continue to monitor. 03/22 Pt continues to pass flatus but no BM. CT scheduled for today. Surgery may be a possibility. H/H cont low, Na 135, alb 2.5, and total pro WNL. Pt continues on TPN and clear liquid diet, in care of nurse. Continue to offer ensure clear and encourage intake once diet progresses. 1/ Pt cont on TPN and clear liquid diet which is meeting nutitional needs. Alb declined to 2.3. Will cont to encourage protein intake and offer nutr supplement. Cont to monitor. 03/26 Pt improving and starting on GEOVANNI. Pt had 100% of small portion at one meal. Alb 2.6 and total pro 6.2. Pt started on warfarin. Will continue to monitor intake, labs, and offer a nutrition supplement. GEOVANNY SALAZAR Mar 26, 2017 09:55
[2017-03-26] MEDS: NS(*) 0.9% 250 ML BAG 250 ML IV PRN (14:21)
[2017-03-26] MEDS: FAT EMULSION 20% 250 ML BAG 250 ML IVPB SCH (15:17)
[2017-03-27] MEDS: IMIPENEM/CILASTA(*) 500MG VIAL 1,000 MG in NS(*) 0.9% 250 ML BAG 250 ML IVPB SCH ×3 (00:55→16:31)
[2017-03-27] MEDS: VANCOMYCIN 1 GM ADDVIAL 1 GM in NS(*) 0.9% 250 ML ADDVAN BAG 250 ML IVPB SCH (02:49)
[2017-03-27 04:17] VITALS: BP 120/72
[2017-03-27] MEDS: NS(*) 0.9% 250 ML BAG 250 ML IV PRN (06:03)
[2017-03-27 06:06] LABS: PLATELET COUNT, AUTOMATED 273 K/uL (150-450)
[2017-03-27 07:38] LABS: INR 1.13
[2017-03-27 07:54] VITALS: BP 120/74
--- NOTE | 2017-03-27 08:09 | General Surgery Progress Note ---
Subjective Progress Notes Subjective No complaints. Not much pain. Physical Exam Vital Signs Date Time Temp Pulse Resp B/P (MAP) Pulse Ox O2 Delivery O2 Flow Rate FiO2 03/27/17 07:57 94 Bi-PAP 40.0 03/27/17 07:54 98.7 73 20 120/74 (89) 40.0 Intake and Output 03/28/17 07:00 Intake Total 40.8 ml Balance 40.8 ml IV Total 40.8 ml General Appearance: Alert, Awake, No Acute Distress, Afebrile GI: Other (Soft, mild periumbilical TTP, no peritoneal signs.) Extremities: Warm, Perfused Result Diagram: 03/27/17 0503/27/17554 Assessment and Plan Problems: (1) Intra-abdominal free air of unknown etiology Status: Acute Assessment & Plan: Admit, NPO, IV fluids, IV abx, bowel rest, NG tube GI decompression. Abdominal exam without peritonitis and patient is at extremely high risk for surgery due to his body habitus and currently chemotherapy, especially avastin. Will try conservative management but if he worsens, or fails to improve, on conservative therapy then will need to proceed with surgical exploration. I have explained this plan to him in detail and he is agreeable with proceeding with this plan. 03/06/17: Doing a little better although having fevers. Will continue conservative management today with bowel rest, NG tube decompression, IV fluids , and IV abx. If not clearly better by tomorrow will repeat CT scan and will consider surgical exploration tomorrow afternoon/evening. Pt agreeable with this plan. Surgery is very risky in this patient with low albumen, suppressed healing due to chemotherapy, especially avastin (last dose 1 week ago), and morbid obesity. 03/07/17: Will repeat CT abd/pelvis this morning and may need to operate later this afternoon since he continues to have pain without bowel function and recurring fevers, marginal improvement if at all. I have explained this to the patient and I have explained the dangers of surgery in him, especially with recent chemo including avastin, but we may no longer have a choice if he has a bowel perforation. Will see what CT shows and then make a decision this afternoon. Will hold heparin gtt this morning. Pt is agreeable with proceeding with surgery is necessary. 03/08/17: CT yesterday showed improvement with less free air and no organized fluid collection. Clinically he is improving. Will continue with conservative therapy, bowel rest, NG tube decompression, IV abx. TPN started yesterday. Continue anticoagulation for PEs, PPI for GI prophylaxis. 03/09/17: Developed a-fib, now in ICU for diltiazem gtt. Abdomen exam remains benign. Will work on cardiac rate control. Continue bowel rest, NG tube decompression, IV abx. Continue TPN. Continue anticoagulation for PEs. Continue PPI for GI prophylaxis. 03/10/17: Looks much improved today. More alert, off BiPap, afebrile overnight with change of antibiotics. I discussed with him that should he reach a point where surgery is indicated, I would recommend transfer to a higher level facility to which he agreed. However, given his improvement since yesterday, I feel it is reasonable to continue care for him here for now. I will check a Mg and Phos today. Continue the NGT until he is passing flatus. 03/11/17: Continued improvement. Labs indicate recovery of marrow function. Afebrile since change in Abx regimen 2 days ago. Continue this course. Awaiting return of bowel function and will leave NGT in place until that time. Expect that it will be at least another day or two. His hypophosphotemia persists but responded appropriately to replacement yesterday. I will defer to IM in regards to ongoing replacement. Continue TPN with same formulation. Will plan to get him up to a chair today. 03/12/17: Better every day. Much more alert and interactive today. Spend time in the chair yesterday and will again today. Gipson out yesterday. Will receive lasix today to work on fluid balance. Will allow sips of clears but keep NGT until flatus present. 03/13/17: Daily progress. Awaiting bowel function. Continue Vanco for at least 7 day course with Primaxin ~14 days. 03/14/17: Clinically doing better. Not much pain. Fevers better. No bowel function yet. Continue bowel rest, TPN, etc. 03/15/17: Continues to do fairly well but having mild fevers. Will repeat CT abd/pelvis today. Continue bowel rest/TPN. 03/16/17: Doing well but with continued fevers. Repeat CT abd/pelvis reveals organizing fluid collections in both pericolic gutters, right > left, and a larger fluid collection in lower abdomen adjacent to the colonic anastomosis. No free air but some contained air in the fluid collection. These don't look walled off yet. Will allow to organize and then will re-CT next week and if able will look at percutaneous drainage of these collections. Will reserve surgical exploration for clinical decline or if he's not progressing 4 weeks after his last dose of Avastin, it's currently been 2 1/2 weeks since his last dose. I discussed with Lisseth that if surgery becomes necessary, it will likely require taking down the anastomosis and giving him a colostomy which may be permanent. He seems to understand and he seems to be agreeable with this plan. A major problem right now is respiratory insufficiency and he's requiring almost continuous BIPAP on 60% fiO2. Only mild pleural effusions on Chest CT but both lower lobes are incompletely ventilated. The PEs appear resolved. The JOAO met is a little larger when compared to his previous chest CT on admission. He may also have areas of infiltrate or even infarction from the PE is his lungs. He does not wish to be intubated and he has been made DNI. Will need to follow his respiratory status closely and continue aggressive pulmonary toilet and will continue to work on mobilizing him more although his mobility is very limited by his compromised respiratory reserve. 03/17/17: Continue with clear liquid diet until bowel function is fully established. Good progress so far. 03/18/17: Passing flatus and tolerating clears. Keep diet as is for now. Dr. Rush will map out transition plan on Sunday. 03/19/17: passing flatus, hypoactive bowel sounds, no bowel movement. continue with clears. 03/20/17: Doing well. Passing flatus. Will continue clear diet and TPN to avoid forming new stool that could potentially leak from the sigmoid anastomosis that led to this admission. Will recheck CT abd/pelvis in 2 days to monitor the fluid collections for drainability or improvement and determine if 1) surgery is necessary or 2) we can advance his diet. O/W, CCM. 03/21/17: Doing well. Still passing flatus, no BM. Continue clear diet and TPN. Repeat CT abdomen/pelvis tomorrow. 03/22/17: Doing well. Continues to pass flatus. No BM. Will get CT abd/pel today to recheck fluid collections, etc. 03/23/17: Doing well. Repeat CT abd/pel yesterday reveals that the right pericolic fluid collection is increased in size and is rim enhancing. The left pericolic collection has resolved. The collection adjacent to the colonic anastomosis is smaller. No free or extraluminal gas other than that seen in the right pericolic gutter fluid collection. Hb is below 8 this morning so will give 2 Units pRBC. Will have the right pericolic gutter fluid collection drained under CT guidance today. While he's in radiology, will have them perform a water soluble enema to look for a continued leak. If no obvious leak then will advance his diet. 03/24/17: Continues doing better and better. He is transferring from ICU today to the surgical honeycutt. Note significant volume of drainage after perc drain. Gram stain with GNR and G+ diphtheroids, cultures pending. Continues on imipenam. Appropriate response to 2U PRBCs yesterday with hgb from 7.7 to 9.4. He is not experiencing difficulties with his diet which was initiated last night. I will not turn down his TPN today until I am certain he is tolerating his diet. If he is, wean and discontinue in am. Per hospitalists, the patient is on therapeutic lovenox with anticipation he will start coumadin or some other alf anticoagulant today. Ambulate with PT today to get him moving. 03/25/17: The patient is improving after drainage of his IAA with markedly decreased drainage over the prior 24 hours and improved appearance of the drainage. Note culture results and sensitivity of the speciated E. coli to imipenam. The patient is eating more but still with mild nausea. Decrease rate of tpn. The patient reports his ambulation is still in the room but he sat up in his chair yesterday for a couple of hours. Continue to encourage increased activity and mobility. 03/26/17: Continued improvement. Tolerating diet. Will come down on TPN even further today. Drain with a lot of purulent drainage but slowly decreasing; will continue the drain until drainage down to nothing. Continue IV abx. Increase physical activity. Continue lovenox until therapeutic on coumadin for PEs. 03/27/17: Doing well. Stop TPN. Drain flushed, will see how much comes out today. Will repeat CT in the next day or two. Continue PT/OT, increase mobility. Continue IV abx until after CT completed; we can stop them if the CT shows marked improvement. Continue lovenox until therapeutic on coumadin. (2) Multiple pulmonary emboli Status: Acute Assessment & Plan: Hospitalists consulted. Will start a Heparin gtt which can be stopped if surgery becomes necessary. Will need long-term anticoagulation after he improves with conservative management or after he recovers from surgery if necessary. Now on lovenox and coumadin. Central Venous Access Medical Necessity for Access: Hemodynamic Monitoring, IV Access, Medication Administration Condition Stable. Time Spent: < 30 min Exam Sepsis Risk: No Definite Risk LISSETH RUSH MD Mar 27, 2017 08:09
[2017-03-27] MEDS: DOCUSATE SODIUM 100 MG CAP PO SCH ×2 (08:34→20:50)
[2017-03-27] MEDS: PANTOPRAZOLE SOD 40 MG TABEC PO SCH (08:34)
[2017-03-27] MEDS: ENOXAPARIN SC SCH ×2 (08:34→19:28)
[2017-03-27 11:03] VITALS: BP 107/63
--- NOTE | 2017-03-27 11:13 | Hospitalist Progress Note ---
Subjective Progress Notes Subjective He denies cp/sob. Tolerating oral intake. Physical Exam Vital Signs Date Time Temp Pulse Resp B/P (MAP) Pulse Ox O2 Delivery O2 Flow Rate FiO2 03/27/17 11:03 97.8 87 20 107/63 (78) 94 High-Flow Nasal Cannula 5.0 03/27/17 07:57 40.0 Intake and Output 03/28/17 07:00 Intake Total 890.8 ml Balance 890.8 ml Intake Oral 600 ml IV Total 290.8 ml General Appearance: Alert, Awake, No Acute Distress Result Diagram: 03/27/1755403/27/17554 Assessment and Plan Problems: (1) Multiple pulmonary emboli Status: Acute Assessment & Plan: His CT scan did show bilateral pulmonary emboli - most likely related to his cancer and/or the Avastin. He was initially on a heparin infusion, but has now been transitioned to Lovenox and warfarin. Daily INR has been ordered. O2 requirement much improved. (2) Atrial fibrillation with RVR Status: Resolved Assessment & Plan: He developed it on 03/08. He was symptomatic and was transferred to the ICU. Electrical cardioversion was attempted, but wasn't successful. He was started on a Diltiazem drip and was also treated with digoxin those were both stopped on 03/15. He has now converted to and maintained sinus rhythm. An echocardiogram shows an EF of 59% with abdominal aorta and aortic root dilatation. His TSH was low, but he is acutely ill. He will need a repeat TSH in 4-6 weeks. 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 Multiple metastases. Treatment through the Cancer Center has been FOLFOX and Avastin. He may have had bowel perforation related to the Avastin as well. We broadened antibiotic coverage for both abdomen and ulcers/extremities, but will now narrow to just Unasyn based on the culture from the drain. Drain placed on 03/23. We discussed end-of-life decisions with Gold. He has decided he does not want to be intubated/ mechanically ventilated, but would like an attempt at CPR if needed. (4) Venous stasis ulcer Status: Chronic Assessment & Plan: He is receiving wound care from physical therapy. (5) ANEMIA, UNSPECIFIED Status: Chronic Assessment & Plan: Most likely related to his malignancy and chemotherapy. He received 2 u PRBCs on 03/23. His Hgb is stable today. Central Venous Access Medical Necessity for Access: Hemodynamic Monitoring, IV Access, Medication Administration Exam Sepsis Risk: No Definite Risk HESHAM DE LA TORRE MD Mar 27, 2017 11:13
[2017-03-27] MEDS: WARFARIN SOD 5 MG TAB PO SCH (12:26)
[2017-03-27 15:34] VITALS: BP 94/74
[2017-03-27 18:57] VITALS: BP 118/69
[2017-03-28] MEDS: IMIPENEM/CILASTA(*) 500MG VIAL 1,000 MG in NS(*) 0.9% 250 ML BAG 250 ML IVPB SCH ×3 (00:49→17:40)
[2017-03-28 00:54] VITALS: BP 129/80
[2017-03-28 05:21] LABS: INR 1.15
[2017-03-28 05:23] LABS: PLATELET COUNT, AUTOMATED 269 K/uL (150-450)
--- NOTE | 2017-03-28 07:06 | General Surgery Progress Note ---
Subjective Progress Notes Subjective No complaints. Physical Exam Vital Signs Date Time Temp Pulse Resp B/P (MAP) Pulse Ox O2 Delivery O2 Flow Rate FiO2 03/28/17 05:37 40.0 03/28/17 00:54 98.0 77 20 129/80 (96) 93 Bi-PAP 03/27/17 18:57 5.0 General Appearance: Alert, Awake, No Acute Distress, Afebrile GI: Other (Soft, mild periumbilical TTP) Extremities: Warm, Perfused Result Diagram: 03/28/1745403/28/17454 Assessment and Plan Problems: (1) Intra-abdominal free air of unknown etiology Status: Acute Assessment & Plan: Admit, NPO, IV fluids, IV abx, bowel rest, NG tube GI decompression. Abdominal exam without peritonitis and patient is at extremely high risk for surgery due to his body habitus and currently chemotherapy, especially avastin. Will try conservative management but if he worsens, or fails to improve, on conservative therapy then will need to proceed with surgical exploration. I have explained this plan to him in detail and he is agreeable with proceeding with this plan. 03/06/17: Doing a little better although having fevers. Will continue conservative management today with bowel rest, NG tube decompression, IV fluids , and IV abx. If not clearly better by tomorrow will repeat CT scan and will consider surgical exploration tomorrow afternoon/evening. Pt agreeable with this plan. Surgery is very risky in this patient with low albumen, suppressed healing due to chemotherapy, especially avastin (last dose 1 week ago), and morbid obesity. 03/07/17: Will repeat CT abd/pelvis this morning and may need to operate later this afternoon since he continues to have pain without bowel function and recurring fevers, marginal improvement if at all. I have explained this to the patient and I have explained the dangers of surgery in him, especially with recent chemo including avastin, but we may no longer have a choice if he has a bowel perforation. Will see what CT shows and then make a decision this afternoon. Will hold heparin gtt this morning. Pt is agreeable with proceeding with surgery is necessary. 03/08/17: CT yesterday showed improvement with less free air and no organized fluid collection. Clinically he is improving. Will continue with conservative therapy, bowel rest, NG tube decompression, IV abx. TPN started yesterday. Continue anticoagulation for PEs, PPI for GI prophylaxis. 03/09/17: Developed a-fib, now in ICU for diltiazem gtt. Abdomen exam remains benign. Will work on cardiac rate control. Continue bowel rest, NG tube decompression, IV abx. Continue TPN. Continue anticoagulation for PEs. Continue PPI for GI prophylaxis. 03/10/17: Looks much improved today. More alert, off BiPap, afebrile overnight with change of antibiotics. I discussed with him that should he reach a point where surgery is indicated, I would recommend transfer to a higher level facility to which he agreed. However, given his improvement since yesterday, I feel it is reasonable to continue care for him here for now. I will check a Mg and Phos today. Continue the NGT until he is passing flatus. 03/11/17: Continued improvement. Labs indicate recovery of marrow function. Afebrile since change in Abx regimen 2 days ago. Continue this course. Awaiting return of bowel function and will leave NGT in place until that time. Expect that it will be at least another day or two. His hypophosphotemia persists but responded appropriately to replacement yesterday. I will defer to IM in regards to ongoing replacement. Continue TPN with same formulation. Will plan to get him up to a chair today. 03/12/17: Better every day. Much more alert and interactive today. Spend time in the chair yesterday and will again today. Gipson out yesterday. Will receive lasix today to work on fluid balance. Will allow sips of clears but keep NGT until flatus present. 03/13/17: Daily progress. Awaiting bowel function. Continue Vanco for at least 7 day course with Primaxin ~14 days. 03/14/17: Clinically doing better. Not much pain. Fevers better. No bowel function yet. Continue bowel rest, TPN, etc. 03/15/17: Continues to do fairly well but having mild fevers. Will repeat CT abd/pelvis today. Continue bowel rest/TPN. 03/16/17: Doing well but with continued fevers. Repeat CT abd/pelvis reveals organizing fluid collections in both pericolic gutters, right > left, and a larger fluid collection in lower abdomen adjacent to the colonic anastomosis. No free air but some contained air in the fluid collection. These don't look walled off yet. Will allow to organize and then will re-CT next week and if able will look at percutaneous drainage of these collections. Will reserve surgical exploration for clinical decline or if he's not progressing 4 weeks after his last dose of Avastin, it's currently been 2 1/2 weeks since his last dose. I discussed with Lisseth that if surgery becomes necessary, it will likely require taking down the anastomosis and giving him a colostomy which may be permanent. He seems to understand and he seems to be agreeable with this plan. A major problem right now is respiratory insufficiency and he's requiring almost continuous BIPAP on 60% fiO2. Only mild pleural effusions on Chest CT but both lower lobes are incompletely ventilated. The PEs appear resolved. The JOAO met is a little larger when compared to his previous chest CT on admission. He may also have areas of infiltrate or even infarction from the PE is his lungs. He does not wish to be intubated and he has been made DNI. Will need to follow his respiratory status closely and continue aggressive pulmonary toilet and will continue to work on mobilizing him more although his mobility is very limited by his compromised respiratory reserve. 03/17/17: Continue with clear liquid diet until bowel function is fully established. Good progress so far. 03/18/17: Passing flatus and tolerating clears. Keep diet as is for now. Dr. Rush will map out transition plan on Sunday. 03/19/17: passing flatus, hypoactive bowel sounds, no bowel movement. continue with clears. 03/20/17: Doing well. Passing flatus. Will continue clear diet and TPN to avoid forming new stool that could potentially leak from the sigmoid anastomosis that led to this admission. Will recheck CT abd/pelvis in 2 days to monitor the fluid collections for drainability or improvement and determine if 1) surgery is necessary or 2) we can advance his diet. O/W, CCM. 03/21/17: Doing well. Still passing flatus, no BM. Continue clear diet and TPN. Repeat CT abdomen/pelvis tomorrow. 03/22/17: Doing well. Continues to pass flatus. No BM. Will get CT abd/pel today to recheck fluid collections, etc. 03/23/17: Doing well. Repeat CT abd/pel yesterday reveals that the right pericolic fluid collection is increased in size and is rim enhancing. The left pericolic collection has resolved. The collection adjacent to the colonic anastomosis is smaller. No free or extraluminal gas other than that seen in the right pericolic gutter fluid collection. Hb is below 8 this morning so will give 2 Units pRBC. Will have the right pericolic gutter fluid collection drained under CT guidance today. While he's in radiology, will have them perform a water soluble enema to look for a continued leak. If no obvious leak then will advance his diet. 03/24/17: Continues doing better and better. He is transferring from ICU today to the surgical honeycutt. Note significant volume of drainage after perc drain. Gram stain with GNR and G+ diphtheroids, cultures pending. Continues on imipenam. Appropriate response to 2U PRBCs yesterday with hgb from 7.7 to 9.4. He is not experiencing difficulties with his diet which was initiated last night. I will not turn down his TPN today until I am certain he is tolerating his diet. If he is, wean and discontinue in am. Per hospitalists, the patient is on therapeutic lovenox with anticipation he will start coumadin or some other [facility] anticoagulant today. Ambulate with PT today to get him moving. 03/25/17: The patient is improving after drainage of his IAA with markedly decreased drainage over the prior 24 hours and improved appearance of the drainage. Note culture results and sensitivity of the speciated E. coli to imipenam. The patient is eating more but still with mild nausea. Decrease rate of tpn. The patient reports his ambulation is still in the room but he sat up in his chair yesterday for a couple of hours. Continue to encourage increased activity and mobility. 03/26/17: Continued improvement. Tolerating diet. Will come down on TPN even further today. Drain with a lot of purulent drainage but slowly decreasing; will continue the drain until drainage down to nothing. Continue IV abx. Increase physical activity. Continue lovenox until therapeutic on coumadin for PEs. 03/27/17: Doing well. Stop TPN. Drain flushed, will see how much comes out today. Will repeat CT in the next day or two. Continue PT/OT, increase mobility. Continue IV abx until after CT completed; we can stop them if the CT shows marked improvement. Continue lovenox until therapeutic on coumadin. 03/28/17: Doing well. Drain removed last night after output dropped to zero. Will repeat CT abd/pel today and if everything is continuing to improve then will reapproach continued antibiotics and will need to start discharge planning. (2) Multiple pulmonary emboli Status: Acute Assessment & Plan: Hospitalists consulted. Will start a Heparin gtt which can be stopped if surgery becomes necessary. Will need long-term anticoagulation after he improves with conservative management or after he recovers from surgery if necessary. Now on lovenox and coumadin. Central Venous Access Medical Necessity for Access: Hemodynamic Monitoring, IV Access, Medication Administration Condition Stable. Time Spent: < 30 min Exam Sepsis Risk: No Definite Risk LISSETH RUSH MD Mar 28, 2017 07:05
[2017-03-28 07:46] VITALS: BP 125/69
[2017-03-28] MEDS: ENOXAPARIN SC SCH ×2 (07:51→20:32)
[2017-03-28] MEDS: PANTOPRAZOLE SOD 40 MG TABEC PO SCH (10:28)
[2017-03-28] MEDS: DOCUSATE SODIUM 100 MG CAP PO SCH ×2 (10:28→20:32)
[2017-03-28] MEDS ORDERED: NS 0.9% 50 ML VIAL 50 ML ONE (13:29)
[2017-03-28] MEDS ORDERED: IOPAMIDOL 76% 75 ML INFUS BTL 75 ML ONE (13:29)
[2017-03-28] MEDS: WARFARIN SOD 5 MG TAB PO SCH (13:39)
[2017-03-28 13:46] VITALS: BP 119/69
--- NOTE | 2017-03-28 14:19 | Hospitalist Progress Note ---
Subjective Progress Notes Subjective He reports feeling improved overall. Physical Exam Vital Signs Date Time Temp Pulse Resp B/P (MAP) Pulse Ox O2 Delivery O2 Flow Rate FiO2 03/28/17 13:46 98.4 88 18 119/69 (86) 93 Oxy Mask 5.0 03/28/17 05:37 40.0 Intake and Output 03/29/17 07:00 Intake Total 400 ml Output Total 1550 ml Balance -1150 ml Intake Oral 120 ml IV Total 280 ml Output Urine Total 1550 ml # Voids 1 General Appearance: Alert, Awake Cardiovascular: Regular Rate and Rhythm Respiratory: Clear to Auscultation Extremities: Warm, Perfused Integumentary: Other (chronic venous stasis changes/wounds dressed) Result Diagram: 03/28/1745403/28/17454 Assessment and Plan Problems: (1) Multiple pulmonary emboli Status: Acute Assessment & Plan: His CT scan did show bilateral pulmonary emboli - most likely related to his cancer and/or the Avastin. He was initially on a heparin infusion, but has now been transitioned to Lovenox and warfarin. Daily INR has been followed (1.15 today). O2 requirement much improved. (2) Atrial fibrillation with RVR Status: Resolved Assessment & Plan: He developed it on 03/08. He was symptomatic and was transferred to the ICU. Electrical cardioversion was attempted, but wasn't successful. He was started on a Diltiazem drip and was also treated with digoxin those were both stopped on 03/15. He has now converted to and maintained sinus rhythm. An echocardiogram shows an EF of 59% with abdominal aorta and aortic root dilatation. His TSH was low, but he is acutely ill. He will need a repeat TSH in 4-6 weeks. 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 Multiple metastases. Treatment through the [facility] has been FOLFOX and Avastin. He may have had bowel perforation related to the Avastin as well. We broadened antibiotic coverage for both abdomen and ulcers/extremities, but will now narrow to just Primaxin based on the culture from the abdominal drain. Drain was placed on 03/23 and removed 03/27. (4) Venous stasis ulcer Status: Chronic Assessment & Plan: He is receiving wound care from physical therapy. (5) ANEMIA, UNSPECIFIED Status: Chronic Assessment & Plan: Most likely related to his malignancy and chemotherapy. He received 2 units PRBCs on 03/23. His Hgb is stable today. Central Venous Access Medical Necessity for Access: IV Access, Medication Administration Exam Sepsis Risk: No Definite Risk VINCENZO BASILIO MD Mar 28, 2017 14:19
--- NOTE | 2017-03-28 15:17 | RADIOLOGY IMAGING REPORT ---
FACILITY: [facility] PATIENT NAME: Lisseth Campa : 1950 MR: [id number] V: [id number] EXAM DATE: ORDERING PHYSICIAN: LISSETH RUSH TECHNOLOGIST: Location: [facility] [place] Patient: Lisseth Campa : 1950 Visit/Account:[id number] Date of Sevice: 03/28/2017 ABDOMEN/PELVIS WITH CONTRAST HISTORY: Intraabdominal abscesses TECHNIQUE: Following administration of IV contrast contiguous axial images acquired through the abdom en/pelvis. Coronal and sagittal reformatting also performed. Dose Lowering Technique One of the following dose optimization techniques was utilized in the performance of this exam: Autom ated exposure control; adjustment of the mA and/or kV according to the patient's size; or use of an i terative reconstruction technique. Specific details can be referenced in the facility's radiology C T exam operational policy. CONTRAST: 75 mL Isovue-370 COMPARISON: March 23, 2017 FINDINGS: Visualized lung bases: There has been a further partial decrease in the small bilateral posterior la yering pleural effusions and compressive atelectasis in the right lower lobe. Small amount of compre ssive atelectasis left lower lobe remains unchanged. Coronary artery vascular calcifications are not ed Hepatobiliary: Negative. Spleen: Mildly enlarged but unchanged Adrenals: Negative. Pancreas: Negative. Kidneys ureters or bladder: There is mild perinephric stranding bilaterally. The bladder is decompre ssed with a Gipson catheter therefore not ideally evaluated. There is air within the bladder likely r elated to the catheter Genitalia: Negative. GI: Previously noted bowel anastomosis in the sigmoid colon and small bowel remain unchanged. The f luid collection just above the bladder is slightly decreased in size now measuring 4.5 x 5.8 x 3.2 cm as opposed to 6.7 x 4.4 x 6.1 cm. There is a thick mildly enhancing wall although no internal air b ubbles. The right paracolic collection is markedly decreased in size following percutaneous drainage and now measures approximately 3.8 x 1.9 x 9.1 cm as opposed 8.5 x 5.7 x 12.8 cm. A thick enhancing rim remains. No internal air is identified. There is an additional round collection with a mildly thickened wall in the upper pelvis. This may actually represent fluid within an a loop of small grisel l which is what it appear to represent on the prior study although an additional small collection not totally excluded. This is not appreciably changed in diameter Vessels/spaces/nodes: Fat stranding the right paracolic gutter and in the mesentery slightly improve d. The right external iliac adenopathy is relatively unchanged Bones/soft tissues: Postsurgical changes from a midline abdominal pelvic incision is again seen. Sp ondylotic changes lower lumbar spine also again noted in addition to degenerative changes of the righ t hip joint Additional findings: None pertinent. IMPRESSION: There is been a further partial decrease in the small bilateral pleural effusions and compressive ate lectasis the right lower lobe. The small amount of compressive atelectasis left lower lobe remains u nchanged Mild splenomegaly unchanged The fluid collection just above the bladder is slightly decreased in size as described above. This m ild enhancement of the thickened wall although no internal air bubbles The right paracolic gutter is markedly decreased in size following percutaneous drainage There is an additional round collection with a mildly thickened wall in the upper pelvis. This may a ctually represent fluid within a loop of small bowel which is what it appear to represent on the prio r study.. An additional collection not totally excluded although this does appear unchanged in size Fat stranding in the right paracolic gutter and mesentery slightly improved. Right external iliac adenopathy unchanged Report Dictated By: Kayli Berry MD at 03/28/2017 2:36 PM Report E-Signed By: Kayli Berry MD at 12/2017 3:13 PM [email or web address]
[2017-03-28 15:41] VITALS: BP 107/63
--- NOTE | 2017-03-28 16:13 | Medical Nutrition Therapy ---
Nutrition Anthropometrics Height (Inches): 71.25 Height (Calculated Centimeters: 180.256695 Weight (Pounds): 283 Weight (Calculated Kilograms): 128.565 BMI Calculated: 40.30 Nhan Nutrition Score: Adequate Nhan Nutrition Risk Score: 18 Dietary Referral Nutrition Risk Factors: Nutrition Risk Comment: Physical Findings Physical Appearance: Obese BMI 30-39 Skin Appearance Skin Appearance: Edema Edema Location Modifier: Both Edema Location: Lower Extremity Type of Edema: Degree of Edema: 1+ Gastrointestinal Symptoms GI Symtoms: Bloating Tube Present: NG Bowel Sounds: Recent Bowel Pattern: Stool Characteristics: Nutritional Diagnosis Nutritional Risk Acuity 1: TPN/PPN, GI Obstruction (possible GI obstruction/ perforation) Nutritional Risk Acuity 2: Head/Neck/GI Cancer, Abcess/Non-Healing Wound Nutritional Risk Acuity 3: Weight Loss, Morbid Obesity Past Medical History: Colon cancer with mets, HTN, colectomy Nutritional Acuity: 1-High Nutrition Diagnosis: Altered GI Function Nutrition Etiology: Physiological Causes Nutrition Problem/Etiology/Sym: Altered GI function r/t physiological causes AEB abd pain, diarrhea, intra-abdominal air, and lack of bowel movements Adjusted Energy Requirement Re: 2600 (Adj. Callie Nielsen) Protein Requirement: 132 (1 g/kg) Fluid Requirement: 2640 (20 ml/kg) Diet Type: Diet as Tolerated GEOVANNI/REG Nutrition Intervention: Cont diet as ordered, Encourage intake, Between meal supplement Drug: Warfarin Drug/Nutrition Recommendations: No High Vitamin K Foods Do Not Serve Any of the Follow: Broccoli, Brussel Sprouts, Spinach, [place] Lettuce, Cranberry Juice Diet Comment To RSA: PLEASE PROVIDE NUTR SUPPLEMENT PLEASE PUT PROTEIN POWDER IN APPROPRIATE FOODS Nutrition Monitoring & Eval RD Patient Assessment Time: [address] Assessment Type: RD Re-Assessment Patient Nutrition Acuity: 1-High Follow Up Date: Mar 30, 2017 Nutritional Comment: 03/06 Pt admitted for multiple pulmonary emboli and abd pain. Pt has dx colon Ca with mets and is currently recieveing chemo tx. Alb mildly depleted at 3.4. Pt has 2 day hx of diarrhea. Pt is NPO. Pt has 50# wt loss since May 2016. BMI cont in class 3 obestiy range. Recommend nutr support if diet is not advanced in 3 days. Cont to monitor 03/07/17 Pt continues NPO for bowel rest. Pt still experiencing pain and lack of bowel function. Surgery may be necessary for possible bowel obstruction later this afternoon, per MD. PICC line placed. I recommend TPN/nutr support if diet is not advanced in 2 days. Alb 2.4 and total pro 4.7. Will continue to monitor. 03/08 Pt stated on TPN and is now 75ml/hr plus lipids meeting 82% est kcal and 62% est protein needs. Recommend increase TPN to 100ml/hr plus lipids to meet 105% est kcal and 83% est protein needs. Alb declined to 2.4. BG elevated up to 152. Will cont to monitor. 03/10 Continues with TPN @ 75mL/hr and Intralipid 20% 250mL bag/day. Low H/H, Glu 190, Alb 2.4, Low phosphours, Ca+. Lispo SSI. May begin PO intake after pt passes flatus. Follow for diet progression, etc. 03/13 No changes to TPN or diet status. Alb 2.5, Glu 182. Monitor labs, diet changes. 03/14 Pt cont on TPN at 75ml/hr. Diet advanced to clear liquids. Will provide clear liquid nutr supplment to increase protein intake. Current TPN meeting s 80% est kcal and 62% est protein needs. Alb 2.5. Will cont to monitor. 03/15 TPN increased to 100ml/hr plus lipis . Current TPN order meeting 105% est kcal and 83% est protein needs. Will cont to monitor. 03/18 Glu 172, Alb 2.6, Low H/H. Continues with TPN Clinimix 4.25%-25% at 100 mL/hr and Intralipid 20% at 250 mL/day. Receiving Clear liquid diet and tolerating. Monitor for continued tolerance and diet progression. 03/20 Glu 152, alb 2.7, and H/H cont low. Pt continues on TPN and clear liquid diet. No BM, hypoactive bowel sounds, and passing flatus. Per MD, CT scheduled in two days to determine if surgery is needed or if diet can be advanced. Will continue to monitor. 03/22 Pt continues to pass flatus but no BM. CT scheduled for today. Surgery may be a possibility. H/H cont low, Na 135, alb 2.5, and total pro WNL. Pt continues on TPN and clear liquid diet, in care of nurse. Continue to offer ensure clear and encourage intake once diet progresses. 03/23 Pt cont on TPN and clear liquid diet which is meeting nutitional needs. Alb declined to 2.3. Will cont to encourage protein intake and offer nutr supplement. Cont to monitor. 03/26 Pt improving and starting on GEOVANNI. Pt had 100% of small portion at one meal. Alb 2.6 and total pro 6.2. Pt started on warfarin. Will continue to monitor intake, labs, and offer a nutrition supplement. 03/28 Pt continues to do well. Pt averaging 78% of small to reg portions over the last three days on GEOVANNI. Notable labs include low H/H, Na 134, alb 2.7, BUN 25, and total pro 6.2. Will have another follow up CT today and start discharge planning, per hospitalist note. Will continue to offer nutr supplement, encourage intake, and monitor. GEOVANNY SALAZAR Mar 28, 2017 10:47
[2017-03-28 19:26] VITALS: BP 125/69
[2017-03-28 23:56] VITALS: BP 152/82
[2017-03-29] MEDS: IMIPENEM/CILASTA(*) 500MG VIAL 1,000 MG in NS(*) 0.9% 250 ML BAG 250 ML IVPB SCH (01:15)
[2017-03-29 05:56] LABS: PLATELET COUNT, AUTOMATED 295 K/uL (150-450)
[2017-03-29 06:02] LABS: INR 1.19
--- NOTE | 2017-03-29 07:06 | General Surgery Progress Note ---
Subjective Progress Notes Subjective No complaints. He had 3 BMs over the last 24 hours but "not diarrhea." Tolerating diet. Physical Exam Vital Signs Date Time Temp Pulse Resp B/P (MAP) Pulse Ox O2 Delivery O2 Flow Rate FiO2 03/28/17 23:56 98.1 93 20 152/82 (105) 92 Nasal Cannula 4.0 03/28/17 21:43 40.0 General Appearance: Awake, No Acute Distress, Afebrile GI: Other (Soft, mild periumbilical TTP, no peritoneal signs.) Extremities: Perfused Result Diagram: 03/29/1753203/29/17532 Assessment and Plan Problems: (1) Intra-abdominal free air of unknown etiology Status: Acute Assessment & Plan: Admit, NPO, IV fluids, IV abx, bowel rest, NG tube GI decompression. Abdominal exam without peritonitis and patient is at extremely high risk for surgery due to his body habitus and currently chemotherapy, especially avastin. Will try conservative management but if he worsens, or fails to improve, on conservative therapy then will need to proceed with surgical exploration. I have explained this plan to him in detail and he is agreeable with proceeding with this plan. 03/06/17: Doing a little better although having fevers. Will continue conservative management today with bowel rest, NG tube decompression, IV fluids , and IV abx. If not clearly better by tomorrow will repeat CT scan and will consider surgical exploration tomorrow afternoon/evening. Pt agreeable with this plan. Surgery is very risky in this patient with low albumen, suppressed healing due to chemotherapy, especially avastin (last dose 1 week ago), and morbid obesity. 03/07/17: Will repeat CT abd/pelvis this morning and may need to operate later this afternoon since he continues to have pain without bowel function and recurring fevers, marginal improvement if at all. I have explained this to the patient and I have explained the dangers of surgery in him, especially with recent chemo including avastin, but we may no longer have a choice if he has a bowel perforation. Will see what CT shows and then make a decision this afternoon. Will hold heparin gtt this morning. Pt is agreeable with proceeding with surgery is necessary. 03/08/17: CT yesterday showed improvement with less free air and no organized fluid collection. Clinically he is improving. Will continue with conservative therapy, bowel rest, NG tube decompression, IV abx. TPN started yesterday. Continue anticoagulation for PEs, PPI for GI prophylaxis. 03/09/17: Developed a-fib, now in ICU for diltiazem gtt. Abdomen exam remains benign. Will work on cardiac rate control. Continue bowel rest, NG tube decompression, IV abx. Continue TPN. Continue anticoagulation for PEs. Continue PPI for GI prophylaxis. 03/10/17: Looks much improved today. More alert, off BiPap, afebrile overnight with change of antibiotics. I discussed with him that should he reach a point where surgery is indicated, I would recommend transfer to a higher level facility to which he agreed. However, given his improvement since yesterday, I feel it is reasonable to continue care for him here for now. I will check a Mg and Phos today. Continue the NGT until he is passing flatus. 03/11/17: Continued improvement. Labs indicate recovery of marrow function. Afebrile since change in Abx regimen 2 days ago. Continue this course. Awaiting return of bowel function and will leave NGT in place until that time. Expect that it will be at least another day or two. His hypophosphotemia persists but responded appropriately to replacement yesterday. I will defer to IM in regards to ongoing replacement. Continue TPN with same formulation. Will plan to get him up to a chair today. 03/12/17: Better every day. Much more alert and interactive today. Spend time in the chair yesterday and will again today. Taylor out yesterday. Will receive lasix today to work on fluid balance. Will allow sips of clears but keep NGT until flatus present. 03/13/17: Daily progress. Awaiting bowel function. Continue Vanco for at least 7 day course with Primaxin ~14 days. 03/14/17: Clinically doing better. Not much pain. Fevers better. No bowel function yet. Continue bowel rest, TPN, etc. 03/15/17: Continues to do fairly well but having mild fevers. Will repeat CT abd/pelvis today. Continue bowel rest/TPN. 03/16/17: Doing well but with continued fevers. Repeat CT abd/pelvis reveals organizing fluid collections in both pericolic gutters, right > left, and a larger fluid collection in lower abdomen adjacent to the colonic anastomosis. No free air but some contained air in the fluid collection. These don't look walled off yet. Will allow to organize and then will re-CT next week and if able will look at percutaneous drainage of these collections. Will reserve surgical exploration for clinical decline or if he's not progressing 4 weeks after his last dose of Avastin, it's currently been 2 1/2 weeks since his last dose. I discussed with Lisseth that if surgery becomes necessary, it will likely require taking down the anastomosis and giving him a colostomy which may be permanent. He seems to understand and he seems to be agreeable with this plan. A major problem right now is respiratory insufficiency and he's requiring almost continuous BIPAP on 60% fiO2. Only mild pleural effusions on Chest CT but both lower lobes are incompletely ventilated. The PEs appear resolved. The JOAO met is a little larger when compared to his previous chest CT on admission. He may also have areas of infiltrate or even infarction from the PE is his lungs. He does not wish to be intubated and he has been made DNI. Will need to follow his respiratory status closely and continue aggressive pulmonary toilet and will continue to work on mobilizing him more although his mobility is very limited by his compromised respiratory reserve. 03/17/17: Continue with clear liquid diet until bowel function is fully established. Good progress so far. 03/18/17: Passing flatus and tolerating clears. Keep diet as is for now. Dr. Rush will map out transition plan on Sunday. 03/19/17: passing flatus, hypoactive bowel sounds, no bowel movement. continue with clears. 03/20/17: Doing well. Passing flatus. Will continue clear diet and TPN to avoid forming new stool that could potentially leak from the sigmoid anastomosis that led to this admission. Will recheck CT abd/pelvis in 2 days to monitor the fluid collections for drainability or improvement and determine if 1) surgery is necessary or 2) we can advance his diet. O/W, CCM. 03/21/17: Doing well. Still passing flatus, no BM. Continue clear diet and TPN. Repeat CT abdomen/pelvis tomorrow. 03/22/17: Doing well. Continues to pass flatus. No BM. Will get CT abd/pel today to recheck fluid collections, etc. 03/23/17: Doing well. Repeat CT abd/pel yesterday reveals that the right pericolic fluid collection is increased in size and is rim enhancing. The left pericolic collection has resolved. The collection adjacent to the colonic anastomosis is smaller. No free or extraluminal gas other than that seen in the right pericolic gutter fluid collection. Hb is below 8 this morning so will give 2 Units pRBC. Will have the right pericolic gutter fluid collection drained under CT guidance today. While he's in radiology, will have them perform a water soluble enema to look for a continued leak. If no obvious leak then will advance his diet. 03/24/17: Continues doing better and better. He is transferring from ICU today to the surgical honeycutt. Note significant volume of drainage after perc drain. Gram stain with GNR and G+ diphtheroids, cultures pending. Continues on imipenam. Appropriate response to 2U PRBCs yesterday with hgb from 7.7 to 9.4. He is not experiencing difficulties with his diet which was initiated last night. I will not turn down his TPN today until I am certain he is tolerating his diet. If he is, wean and discontinue in am. Per hospitalists, the patient is on therapeutic lovenox with anticipation he will start coumadin or some other halfway anticoagulant today. Ambulate with PT today to get him moving. 03/25/17: The patient is improving after drainage of his IAA with markedly decreased drainage over the prior 24 hours and improved appearance of the drainage. Note culture results and sensitivity of the speciated E. coli to imipenam. The patient is eating more but still with mild nausea. Decrease rate of tpn. The patient reports his ambulation is still in the room but he sat up in his chair yesterday for a couple of hours. Continue to encourage increased activity and mobility. 03/26/17: Continued improvement. Tolerating diet. Will come down on TPN even further today. Drain with a lot of purulent drainage but slowly decreasing; will continue the drain until drainage down to nothing. Continue IV abx. Increase physical activity. Continue lovenox until therapeutic on coumadin for PEs. 03/27/17: Doing well. Stop TPN. Drain flushed, will see how much comes out today. Will repeat CT in the next day or two. Continue PT/OT, increase mobility. Continue IV abx until after CT completed; we can stop them if the CT shows marked improvement. Continue lovenox until therapeutic on coumadin. 03/28/17: Doing well. Drain removed last night after output dropped to zero. Will repeat CT abd/pel today and if everything is continuing to improve then will reapproach continued antibiotics and will need to start discharge planning. 03/29/17: Doing well. CT with decreasing size of fluid collections. Afebrile with normal WBC. Will convert to PO abx, remove PICC line and taylor, and evaluate for continued PT/OT in ECF. (2) Multiple pulmonary emboli Status: Acute Assessment & Plan: Hospitalists consulted. Will start a Heparin gtt which can be stopped if surgery becomes necessary. Will need long-term anticoagulation after he improves with conservative management or after he recovers from surgery if necessary. Now on lovenox and coumadin. Central Venous Access Medical Necessity for Access: IV Access, Medication Administration Condition Stable. Time Spent: < 30 min Exam Sepsis Risk: No Definite Risk LISSETH RUSH MD Mar 29, 2017 07:06
[2017-03-29 07:29] VITALS: BP 127/79
[2017-03-29] MEDS: ENOXAPARIN SC SCH ×2 (07:39→20:35)
[2017-03-29] MEDS: DOCUSATE SODIUM 100 MG CAP PO SCH ×2 (09:25→20:35)
[2017-03-29] MEDS: PANTOPRAZOLE SOD 40 MG TABEC PO SCH (09:26)
[2017-03-29] MEDS: METRONIDAZOLE 500 MG TABLET PO SCH ×4 (09:26→20:35)
[2017-03-29] MEDS: LEVOFLOXACIN 500 MG TAB PO SCH (09:26)
[2017-03-29 10:56] VITALS: BP 130/87
[2017-03-29] MEDS: WARFARIN SOD 7.5 MG TAB PO SCH (12:56)
[2017-03-29 15:17] VITALS: BP 133/78
--- NOTE | 2017-03-29 16:44 | Hospitalist Progress Note ---
Subjective Progress Notes Subjective The patient denies new complaints. He is feeling much better overall. Physical Exam Vital Signs Date Time Temp Pulse Resp B/P (MAP) Pulse Ox O2 Delivery O2 Flow Rate FiO2 03/29/17 15:17 98.0 94 20 133/78 (96) 91 Nasal Cannula 4.0 03/28/17 21:43 40.0 Intake and Output 03/30/17 07:00 Intake Total 480 ml Output Total 275 ml Balance 205 ml Intake Oral 480 ml Output Urine Total 275 ml # Voids 2 # Bowel Movements 2 General Appearance: Alert, Awake, No Acute Distress Neuro: No Gross deficits Eyes: PERRLA Cardiovascular: Regular Rate and Rhythm Respiratory: Clear to Auscultation GI: Soft and Non-Tender Extremities: Warm, Perfused, Other (Bandages in place, both lower extremities.) Integumentary: Other (Both LE with chronic venous stasis changes. Both LE with bandages in place, clean and dry.) Psych: Alert & Oriented X3, Appropriate Mood & Affect Result Diagram: 03/29/1753203/29/17532 Assessment and Plan Problems: (1) Multiple pulmonary emboli Status: Acute Assessment & Plan: His CT scan did show bilateral pulmonary emboli - most likely related to his cancer and/or the Avastin. He was initially on a heparin infusion, but has now been transitioned to Lovenox and warfarin. Daily INR has been followed (1.19 today). It has not changed significantly on 5mg daily for 3 days. Will increase to 7.5mg daily. O2 requirement much improved. (2) Atrial fibrillation with RVR Status: Resolved Assessment & Plan: He developed it on 03/08. He was symptomatic and was transferred to the ICU. Electrical cardioversion was attempted, but wasn't successful. He was started on a Diltiazem drip and was also treated with digoxin those were both stopped on 03/15. He has now converted to and maintained sinus rhythm. An echocardiogram shows an EF of 59% with abdominal aorta and aortic root dilatation. His TSH was low, but he is acutely ill. He will need a repeat TSH in 4-6 weeks. 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 Multiple metastases. Treatment through the [facility] has been FOLFOX and Avastin. He may have had bowel perforation related to the Avastin as well. We broadened antibiotic coverage for both abdomen and ulcers/extremities, but will now narrow to just Primaxin based on the culture from the abdominal drain. Drain was placed on 03/23 and removed 03/27. (4) Venous stasis ulcer Status: Chronic Assessment & Plan: He is receiving wound care from physical therapy. (5) ANEMIA, UNSPECIFIED Status: Chronic Assessment & Plan: Most likely related to his malignancy and chemotherapy. He received 2 units PRBCs on 03/23. His Hgb is stable today. Central Venous Access Medical Necessity for Access: IV Access, Medication Administration Time Spent on Plan of Care: < 30 min Exam Sepsis Risk: No Definite Risk IRLANDA BASILIO MD Mar 29, 2017 16:44
[2017-03-29 19:22] VITALS: BP 123/66
[2017-03-30 02:51] VITALS: BP 120/74
[2017-03-30 06:44] LABS: PLATELET COUNT, AUTOMATED 291 K/uL (150-450)
[2017-03-30 07:07] LABS: INR 1.37
--- NOTE | 2017-03-30 07:14 | Pharmacy Note ---
Pharmacy Note Note: Lorazepam up for renewal. Patient is not currently using any but due to patient condition may require so will renew until physician re-evaluates. ANA INMAN Mar 30, 2017 07:14
[2017-03-30 07:28] VITALS: BP 123/72
--- NOTE | 2017-03-30 07:28 | Short(Outpt) Discharge Summary ---
Discharge Summary Reason for Hosp/Final Diag: (1) Intra-abdominal free air of unknown etiology Status: Acute Hospital Course & Plan: Admit, NPO, IV fluids, IV abx, bowel rest, NG tube GI decompression. Abdominal exam without peritonitis and patient is at extremely high risk for surgery due to his body habitus and currently chemotherapy, especially avastin. Will try conservative management but if he worsens, or fails to improve, on conservative therapy then will need to proceed with surgical exploration. I have explained this plan to him in detail and he is agreeable with proceeding with this plan. 03/06/17: Doing a little better although having fevers. Will continue conservative management today with bowel rest, NG tube decompression, IV fluids , and IV abx. If not clearly better by tomorrow will repeat CT scan and will consider surgical exploration tomorrow afternoon/evening. Pt agreeable with this plan. Surgery is very risky in this patient with low albumen, suppressed healing due to chemotherapy, especially avastin (last dose 1 week ago), and morbid obesity. 03/07/17: Will repeat CT abd/pelvis this morning and may need to operate later this afternoon since he continues to have pain without bowel function and recurring fevers, marginal improvement if at all. I have explained this to the patient and I have explained the dangers of surgery in him, especially with recent chemo including avastin, but we may no longer have a choice if he has a bowel perforation. Will see what CT shows and then make a decision this afternoon. Will hold heparin gtt this morning. Pt is agreeable with proceeding with surgery is necessary. 03/08/17: CT yesterday showed improvement with less free air and no organized fluid collection. Clinically he is improving. Will continue with conservative therapy, bowel rest, NG tube decompression, IV abx. TPN started yesterday. Continue anticoagulation for PEs, PPI for GI prophylaxis. 03/09/17: Developed a-fib, now in ICU for diltiazem gtt. Abdomen exam remains benign. Will work on cardiac rate control. Continue bowel rest, NG tube decompression, IV abx. Continue TPN. Continue anticoagulation for PEs. Continue PPI for GI prophylaxis. 03/10/17: Looks much improved today. More alert, off BiPap, afebrile overnight with change of antibiotics. I discussed with him that should he reach a point where surgery is indicated, I would recommend transfer to a higher level facility to which he agreed. However, given his improvement since yesterday, I feel it is reasonable to continue care for him here for now. I will check a Mg and Phos today. Continue the NGT until he is passing flatus. 03/11/17: Continued improvement. Labs indicate recovery of marrow function. Afebrile since change in Abx regimen 2 days ago. Continue this course. Awaiting return of bowel function and will leave NGT in place until that time. Expect that it will be at least another day or two. His hypophosphotemia persists but responded appropriately to replacement yesterday. I will defer to IM in regards to ongoing replacement. Continue TPN with same formulation. Will plan to get him up to a chair today. 03/12/17: Better every day. Much more alert and interactive today. Spend time in the chair yesterday and will again today. Taylor out yesterday. Will receive lasix today to work on fluid balance. Will allow sips of clears but keep NGT until flatus present. 03/13/17: Daily progress. Awaiting bowel function. Continue Vanco for at least 7 day course with Primaxin ~14 days. 03/14/17: Clinically doing better. Not much pain. Fevers better. No bowel function yet. Continue bowel rest, TPN, etc. 03/15/17: Continues to do fairly well but having mild fevers. Will repeat CT abd/pelvis today. Continue bowel rest/TPN. 03/16/17: Doing well but with continued fevers. Repeat CT abd/pelvis reveals organizing fluid collections in both pericolic gutters, right > left, and a larger fluid collection in lower abdomen adjacent to the colonic anastomosis. No free air but some contained air in the fluid collection. These don't look walled off yet. Will allow to organize and then will re-CT next week and if able will look at percutaneous drainage of these collections. Will reserve surgical exploration for clinical decline or if he's not progressing 4 weeks after his last dose of Avastin, it's currently been 2 1/2 weeks since his last dose. I discussed with Lisseth that if surgery becomes necessary, it will likely require taking down the anastomosis and giving him a colostomy which may be permanent. He seems to understand and he seems to be agreeable with this plan. A major problem right now is respiratory insufficiency and he's requiring almost continuous BIPAP on 60% fiO2. Only mild pleural effusions on Chest CT but both lower lobes are incompletely ventilated. The PEs appear resolved. The JOAO met is a little larger when compared to his previous chest CT on admission. He may also have areas of infiltrate or even infarction from the PE is his lungs. He does not wish to be intubated and he has been made DNI. Will need to follow his respiratory status closely and continue aggressive pulmonary toilet and will continue to work on mobilizing him more although his mobility is very limited by his compromised respiratory reserve. 03/17/17: Continue with clear liquid diet until bowel function is fully established. Good progress so far. 03/18/17: Passing flatus and tolerating clears. Keep diet as is for now. Dr. Rush will map out transition plan on Sunday. 03/19/17: passing flatus, hypoactive bowel sounds, no bowel movement. continue with clears. 03/20/17: Doing well. Passing flatus. Will continue clear diet and TPN to avoid forming new stool that could potentially leak from the sigmoid anastomosis that led to this admission. Will recheck CT abd/pelvis in 2 days to monitor the fluid collections for drainability or improvement and determine if 1) surgery is necessary or 2) we can advance his diet. O/W, CCM. 03/21/17: Doing well. Still passing flatus, no BM. Continue clear diet and TPN. Repeat CT abdomen/pelvis tomorrow. 03/22/17: Doing well. Continues to pass flatus. No BM. Will get CT abd/pel today to recheck fluid collections, etc. 03/23/17: Doing well. Repeat CT abd/pel yesterday reveals that the right pericolic fluid collection is increased in size and is rim enhancing. The left pericolic collection has resolved. The collection adjacent to the colonic anastomosis is smaller. No free or extraluminal gas other than that seen in the right pericolic gutter fluid collection. Hb is below 8 this morning so will give 2 Units pRBC. Will have the right pericolic gutter fluid collection drained under CT guidance today. While he's in radiology, will have them perform a water soluble enema to look for a continued leak. If no obvious leak then will advance his diet. 03/24/17: Continues doing better and better. He is transferring from ICU today to the surgical honeycutt. Note significant volume of drainage after perc drain. Gram stain with GNR and G+ diphtheroids, cultures pending. Continues on imipenam. Appropriate response to 2U PRBCs yesterday with hgb from 7.7 to 9.4. He is not experiencing difficulties with his diet which was initiated last night. I will not turn down his TPN today until I am certain he is tolerating his diet. If he is, wean and discontinue in am. Per hospitalists, the patient is on therapeutic lovenox with anticipation he will start coumadin or some other rn long term care anticoagulant today. Ambulate with PT today to get him moving. 03/25/17: The patient is improving after drainage of his IAA with markedly decreased drainage over the prior 24 hours and improved appearance of the drainage. Note culture results and sensitivity of the speciated E. coli to imipenam. The patient is eating more but still with mild nausea. Decrease rate of tpn. The patient reports his ambulation is still in the room but he sat up in his chair yesterday for a couple of hours. Continue to encourage increased activity and mobility. 03/26/17: Continued improvement. Tolerating diet. Will come down on TPN even further today. Drain with a lot of purulent drainage but slowly decreasing; will continue the drain until drainage down to nothing. Continue IV abx. Increase physical activity. Continue lovenox until therapeutic on coumadin for PEs. 03/27/17: Doing well. Stop TPN. Drain flushed, will see how much comes out today. Will repeat CT in the next day or two. Continue PT/OT, increase mobility. Continue IV abx until after CT completed; we can stop them if the CT shows marked improvement. Continue lovenox until therapeutic on coumadin. 03/28/17: Doing well. Drain removed last night after output dropped to zero. Will repeat CT abd/pel today and if everything is continuing to improve then will reapproach continued antibiotics and will need to start discharge planning. 03/29/17: Doing well. CT with decreasing size of fluid collections. Afebrile with normal WBC. Will convert to PO abx, remove PICC line and taylor, and evaluate for continued PT/OT in ECF. 03/30/17: Doing well. Will transfer to ECF today. Continue PO abx and will recheck CT abd/pelvis in the next 2 weeks to reassess the fluid collections in his abdomen. (2) Multiple pulmonary emboli Status: Acute Hospital Course & Plan: Hospitalists consulted. Will start a Heparin gtt which can be stopped if surgery becomes necessary. Will need long-term anticoagulation after he improves with conservative management or after he recovers from surgery if necessary. Now on lovenox and coumadin. Departure Discharge to: [facility] ECF Discharge Instructions Home Meds Active Scripts Granisetron Hcl (SANCUSO) 3.1 Mg/24 Hr Patch.td24, 3.1 MG TD Q7DAY, #2 MG 5 Refills apply one patch 24 hours prior to treatment and leave on for 7 days. Treatment is every 2 weeks. Prov:KAILYN GOFF [employer]ING [employer]ACHINE OPERATOR-BC, ONC 11/28/16 Ondansetron (ZOFRAN ODT) 8 Mg Tab.rapdis, 8 MG PO Q8H, #30 TAB 1 Refill Prov:KAILYN GOFF [employer]LLING [employer] MACHINE OPERATOR-BC, ONC 11/08/16 Reported Medications Multivitamin (MULTIVITAMINS) 1 Each Capsule, 1 EACH PO DAILY, CAPSULE 10/03/16 Propranolol Hcl (PROPRANOLOL HCL) 20 Mg Tablet, 20 MG PO QHS, TAB 03/29/16 Amitriptyline Hcl (AMITRIPTYLINE HCL) 25 Mg Tablet, 25 MG PO QHS, #5 TAB 03/29/16 Lisinopril (LISINOPRIL) 10 Mg Tablet, 10 MG PO QDAY, TAB 03/29/16 Meloxicam (MELOXICAM) 15 Mg Tablet, 15 MG PO QDAY 03/29/16 Diet: Regular Activity: As Tolerated LISSETH RUSH MD Mar 30, 2017 07:28
[2017-03-30] MEDS: DOCUSATE SODIUM 100 MG CAP PO SCH (09:02)
[2017-03-30] MEDS: PANTOPRAZOLE SOD 40 MG TABEC PO SCH (09:03)
[2017-03-30] MEDS: METRONIDAZOLE 500 MG TABLET PO SCH ×2 (09:03→12:25)
[2017-03-30] MEDS: ENOXAPARIN SC SCH (09:04)
--- NOTE | 2017-03-30 09:05 | Hospitalist Progress Note ---
Subjective Progress Notes Subjective No new complaints. Physical Exam Vital Signs Date Time Temp Pulse Resp B/P (MAP) Pulse Ox O2 Delivery O2 Flow Rate FiO2 03/30/17 07:28 97.8 77 16 123/72 (89) 91 Nasal Cannula 3.0 03/30/17 03:01 40.0 General Appearance: Alert, Awake, No Acute Distress Neuro: No Gross deficits Eyes: PERRLA Cardiovascular: Regular Rate and Rhythm Respiratory: Other (Diminished BS but otherwise clear throughout.) GI: Soft and Non-Tender Extremities: Warm, Perfused, Other (Chronic venous stasis changes. Wounds both LE bandaged without significant drainage.) Integumentary: Other (Chronic venous stasis changes, both LE.) Psych: Appropriate Mood & Affect Result Diagram: 03/30/1761503/30/17615 Assessment and Plan Problems: (1) Multiple pulmonary emboli Status: Acute Assessment & Plan: His CT scan did show bilateral pulmonary emboli - most likely related to his cancer and/or the Avastin. He was initially on a heparin infusion, but has now been transitioned to Lovenox and warfarin. Daily INR has been followed (1.37 today). He is now on 7.5mg daily. O2 requirement much improved. (2) Atrial fibrillation with RVR Status: Resolved Assessment & Plan: He developed it on 03/08. He was symptomatic and was transferred to the ICU. Electrical cardioversion was attempted, but wasn't successful. He was started on a Diltiazem drip and was also treated with digoxin those were both stopped on 03/15. He has now converted to and maintained sinus rhythm. An echocardiogram shows an EF of 59% with abdominal aorta and aortic root dilatation. His TSH was low, but he is acutely ill. He will need a repeat TSH in 4-6 weeks. 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 Multiple metastases. Treatment through the Cancer Center has been FOLFOX and Avastin. He may have had bowel perforation related to the Avastin as well. We broadened antibiotic coverage for both abdomen and ulcers/extremities, but will now narrow to just Primaxin based on the culture from the abdominal drain. Drain was placed on 03/23 and removed 03/27. (4) Venous stasis ulcer Status: Chronic Assessment & Plan: He is receiving wound care from physical therapy. (5) ANEMIA, UNSPECIFIED Status: Chronic Assessment & Plan: Most likely related to his malignancy and chemotherapy. He received 2 units PRBCs on 03/23. His Hgb is stable today. Central Venous Access Medical Necessity for Access: IV Access, Medication Administration Time Spent on Plan of Care: < 30 min Exam Sepsis Risk: No Definite Risk IRLANDA BASILIO MD Mar 30, 2017 09:05
[2017-03-30] MEDS: LEVOFLOXACIN 500 MG TAB PO SCH (10:16)
[2017-03-30] MEDS: WARFARIN SOD 7.5 MG TAB PO SCH (12:26)
[2017-03-30] MEDS: HEPARIN FLSH (PORT) 500 UN/5ML IVP PRN (13:15)
--- NOTE | 2017-03-30 13:47 | Medical Nutrition Therapy ---
Nutrition Anthropometrics Height (Inches): 71.25 Height (Calculated Centimeters: 180.657004 Weight (Pounds): 283 Weight (Calculated Kilograms): 128.764 BMI Calculated: 40.30 Nhan Nutrition Score: Adequate Nhan Nutrition Risk Score: 17 Dietary Referral Nutrition Risk Factors: Nutrition Risk Comment: Physical Findings Physical Appearance: Obese BMI 30-39 Skin Appearance Skin Appearance: Edema Edema Location Modifier: Both Edema Location: Lower Extremity Type of Edema: Degree of Edema: 1+ Gastrointestinal Symptoms GI Symtoms: Bloating Tube Present: NG Bowel Sounds: Recent Bowel Pattern: Stool Characteristics: Nutritional Diagnosis Nutritional Risk Acuity 1: TPN/PPN, GI Obstruction (possible GI obstruction/ perforation) Nutritional Risk Acuity 2: Head/Neck/GI Cancer, Abcess/Non-Healing Wound Nutritional Risk Acuity 3: Weight Loss, Morbid Obesity Past Medical History: Colon cancer with mets, HTN, colectomy Nutritional Acuity: 1-High Nutrition Diagnosis: Altered GI Function Nutrition Etiology: Physiological Causes Nutrition Problem/Etiology/Sym: Altered GI function r/t physiological causes AEB abd pain, diarrhea, intra-abdominal air, and lack of bowel movements Adjusted Energy Requirement Re: 2600 (Adj. Callie Nielsen) Protein Requirement: 132 (1 g/kg) Fluid Requirement: 2640 (20 ml/kg) Diet Type: Diet as Tolerated GEOVANNI/REG Nutrition Intervention: Cont diet as ordered, Encourage intake, Between meal supplement Drug: Warfarin Drug/Nutrition Recommendations: No High Vitamin K Foods Do Not Serve Any of the Follow: Broccoli, Brussel Sprouts, Spinach, [place] Lettuce, Cranberry Juice Diet Comment To RSA: PLEASE PROVIDE NUTR SUPPLEMENT PLEASE PUT PROTEIN POWDER IN APPROPRIATE FOODS Nutrition Monitoring & Eval Nutrition Goals: Eat 75-100% Meal RD Patient Assessment Time: [address] Assessment Type: RD Re-Assessment Patient Nutrition Acuity: 1-High Follow Up Date: Apr 01, 2017 Nutritional Comment: 03/06 Pt admitted for multiple pulmonary emboli and abd pain. Pt has dx colon Ca with mets and is currently recieveing chemo tx. Alb mildly depleted at 3.4. Pt has 2 day hx of diarrhea. Pt is NPO. Pt has 50# wt loss since May 2016. BMI cont in class 3 obestiy range. Recommend nutr support if diet is not advanced in 3 days. Cont to monitor 03/07/17 Pt continues NPO for bowel rest. Pt still experiencing pain and lack of bowel function. Surgery may be necessary for possible bowel obstruction later this afternoon, per MD. PICC line placed. I recommend TPN/nutr support if diet is not advanced in 2 days. Alb 2.4 and total pro 4.7. Will continue to monitor. 03/08 Pt stated on TPN and is now 75ml/hr plus lipids meeting 82% est kcal and 62% est protein needs. Recommend increase TPN to 100ml/hr plus lipids to meet 105% est kcal and 83% est protein needs. Alb declined to 2.4. BG elevated up to 152. Will cont to monitor. 03/10 Continues with TPN @ 75mL/hr and Intralipid 20% 250mL bag/day. Low H/H, Glu 190, Alb 2.4, Low phosphours, Ca+. Lispo SSI. May begin PO intake after pt passes flatus. Follow for diet progression, etc. 03/13 No changes to TPN or diet status. Alb 2.5, Glu 182. Monitor labs, diet changes. 03/14 Pt cont on TPN at 75ml/hr. Diet advanced to clear liquids. Will provide clear liquid nutr supplment to increase protein intake. Current TPN meeting s 80% est kcal and 62% est protein needs. Alb 2.5. Will cont to monitor. 03/15 TPN increased to 100ml/hr plus lipis . Current TPN order meeting 105% est kcal and 83% est protein needs. Will cont to monitor. 03/18 Glu 172, Alb 2.6, Low H/H. Continues with TPN Clinimix 4.25%-25% at 100 mL/hr and Intralipid 20% at 250 mL/day. Receiving Clear liquid diet and tolerating. Monitor for continued tolerance and diet progression. 03/20 Glu 152, alb 2.7, and H/H cont low. Pt continues on TPN and clear liquid diet. No BM, hypoactive bowel sounds, and passing flatus. Per MD, CT scheduled in two days to determine if surgery is needed or if diet can be advanced. Will continue to monitor. 03/22 Pt continues to pass flatus but no BM. CT scheduled for today. Surgery may be a possibility. H/H cont low, Na 135, alb 2.5, and total pro WNL. Pt continues on TPN and clear liquid diet, in care of nurse. Continue to offer ensure clear and encourage intake once diet progresses. 03/23 Pt cont on TPN and clear liquid diet which is meeting nutitional needs. Alb declined to 2.3. Will cont to encourage protein intake and offer nutr supplement. Cont to monitor. 03/26 Pt improving and starting on GEOVANNI. Pt had 100% of small portion at one meal. Alb 2.6 and total pro 6.2. Pt started on warfarin. Will continue to monitor intake, labs, and offer a nutrition supplement. 03/28 Pt continues to do well. Pt averaging 78% of small to reg portions over the last three days on GEOVANNI. Notable labs include low H/H, Na 134, alb 2.7, BUN 25, and total pro 6.2. Will have another follow up CT today and start discharge planning, per hospitalist note. Will continue to offer nutr supplement, encourage intake, and monitor. 03/30 Pt continues on GEOVANNI with average intakes 75% of small to reg portions. Notable labs include H/H low and Na 135. Pt will be transferring to [facility] later this afternoon. Will continue to monitor, offer nutr supplement, and encourage intake. GEOVANNY SALAZAR Mar 30, 2017 13:03
== END 2017-03-30 13:45 | DRG 393 ==
LOC: ER 14:18 → MED 16:49 → ICU 03-08 19:40 → MED 03-24 10:04
PROVIDERS: ADMIT Surgery; ATTEND Surgery
PROC: 02HV33Z Insertion of Infusion Device into Superior Vena Cava, Percutaneous Approach (ICD-10-PCS; 2017-03-07)
PROC: B548ZZA Ultrasonography of Superior Vena Cava, Guidance (ICD-10-PCS; 2017-03-07)
PROC: 5A09357 Assistance with Respiratory Ventilation, Less than 24 Consecutive Hours, Continuous Positive Airway Pressure (ICD-10-PCS; 2017-03-07)
PROC: 5A2204Z Restoration of Cardiac Rhythm, Single (ICD-10-PCS; principal; 2017-03-08)
PROC: 0JDP3ZZ Extraction of Left Lower Leg Subcutaneous Tissue and Fascia, Percutaneous Approach (ICD-10-PCS; 2017-03-17)
PROC: 0JDN3ZZ Extraction of Right Lower Leg Subcutaneous Tissue and Fascia, Percutaneous Approach (ICD-10-PCS; 2017-03-17)
PROC: 30233N1 Transfusion of Nonautologous Red Blood Cells into Peripheral Vein, Percutaneous Approach (ICD-10-PCS; 2017-03-23)
PROC: 0W9F30Z Drainage of Abdominal Wall with Drainage Device, Percutaneous Approach (ICD-10-PCS; 2017-03-23)
PROC: 0HDLXZZ Extraction of Left Lower Leg Skin, External Approach (ICD-10-PCS; 2017-03-24)
PROC: 0JDN3ZZ Extraction of Right Lower Leg Subcutaneous Tissue and Fascia, Percutaneous Approach (ICD-10-PCS; 2017-03-24)
DX: K66.8 Other specified disorders of peritoneum (principal); I26.99 Other pulmonary embolism without acute cor pulmonale; C78.00 Secondary malignant neoplasm of unspecified lung; E66.2 Morbid (severe) obesity with alveolar hypoventilation; C18.7 Malignant neoplasm of sigmoid colon; L97.811 Non-pressure chronic ulcer of other part of right lower leg limited to breakdown of skin; L97.821 Non-pressure chronic ulcer of other part of left lower leg limited to breakdown of skin; K52.1 Toxic gastroenteritis and colitis; I10 Essential (primary) hypertension; K21.9 Gastro-esophageal reflux disease without esophagitis; I73.9 Peripheral vascular disease, unspecified; T45.1X5A Adverse effect of antineoplastic and immunosuppressive drugs, initial encounter; I87.8 Other specified disorders of veins; R04.0 Epistaxis; I48.0 Paroxysmal atrial fibrillation; R06.82 Tachypnea, not elsewhere classified; T45.515A Adverse effect of anticoagulants, initial encounter; D64.81 Anemia due to antineoplastic chemotherapy; D63.0 Anemia in neoplastic disease; E83.39 Other disorders of phosphorus metabolism; B96.20 Unspecified Escherichia coli [E. coli] as the cause of diseases classified elsewhere; B96.89 Other specified bacterial agents as the cause of diseases classified elsewhere; Y83.8 Other surgical procedures as the cause of abnormal reaction of the patient, or of later complication, without mention of misadventure at the time of the procedure; Y73.3 Surgical instruments, materials and gastroenterology and urology devices (including sutures) associated with adverse incidents; Y92.230 Patient room in hospital as the place of occurrence of the external cause; Z66 Do not resuscitate; Z68.39 Body mass index [BMI] 39.0-39.9, adult; Z99.81 Dependence on supplemental oxygen
CPT/HCPCS: 36415; 36416; 36430; 36569; 36600; 71010; 71275; 74176; 74177; 74178; 75989; 76937; 80162; 80202; 81001; 82040; 82247; 82248; 82310; 82374; 82435; 82565; 82803; 82947; 82948; 83690; 83735; 83880; 84075; 84100; 84132; 84155; 84295; 84439; 84443; 84450; 84460; 84478; 84484; 84520; 85025; 85520; 85610; 85651; 85730; 86140; 86850; 86900; 86901; 86920; 87040; 87070; 87071; 87073; 87077; 87088; 87186; 87205; 87502; 93005; 94640; 94660; 96360; 96361; 97161; 97162; 97166; 99285; C1751; C1758; C8929; C9113; J0131; J0743; J1160; J1170; J1335; J1642; J1644; J1650; J1940; J2001; J2250; J3370; J3480; J3490; J7030; J7040; J7050; J7120; P9016; Q9957; Q9967

== ENCOUNTER → 2017-03-05 | Outpatient (CLI) | payer BC, MEDICARE ==
[~2017-03-05] MED LIST changes: -ALTEPLASE RECOMB 2 MG VIAL IVP PRN; -BEVACIZUMAB IVPB ONE; -D5W IV ONE; -D5W IVPB ONE; -FLUOROURACIL 50 MG/ML SDV IVP ONE; -FLUOROURACIL IV ONE; -LEUCOVORIN CAL IV ONE; -NS 0.9% IV ONE; -NS 0.9% IVPB ONE; -NS(*) 0.9% 100 ML BAG 100 ML IVPB PRN; -OXALIPLATIN IVPB ONE; -PNEUMOCOC VAC POLY 25MCG/0.5ML IM ONLY ONE; -WATER STERILE 10 ML VIAL IVP PRN; -[UNRECOGNIZED DRUG - OTHER] IVPB ONE; -[UNRECOGNIZED DRUG - OTHER] IVPB ONE
[2017-03-06 15:50] VITALS: BMI 40.3
== END ==
LOC: AMB 13:17
PROVIDERS: ATTEND Nurse Practitioner
DX: R06.82 Tachypnea, not elsewhere classified (principal); M25.511 Pain in right shoulder; R09.02 Hypoxemia; R00.0 Tachycardia, unspecified
CPT/HCPCS: A0425; A0427

== ENCOUNTER 2017-03-30 13:45 | Inpatient (IN) | payer BC, MEDICARE ==
[~2017-03-30] VITALS: Ht 182.9 cm; Wt 128.3 kg
[2017-03-30] MEDS ORDERED: LORazepam 0.5 MG TAB PO PRN (13:58)
[2017-03-30] MEDS ORDERED: HEPARIN FLSH (PORT) 500 UN/5ML IVP PRN (13:58)
[2017-03-30] MEDS ORDERED: HYPROMELLOSE 0.4% LUB 15ML BTL OU PRN (13:58)
[2017-03-30] MEDS ORDERED: ONDANSETRON 4 MG/2 ML VIAL IVP PRN (13:58)
[2017-03-30] MEDS ORDERED: ENOXAPARIN SC SCH (13:58)
[2017-03-30] MEDS ORDERED: FLUSH 10 ML SYR IVP PRN (13:58)
[2017-03-30] MEDS ORDERED: LEVALBUTEROL 1.25 MG/3 ML NEB NEB PRN (13:58)
[2017-03-30] MEDS ORDERED: INSULIN HUM LISPRO 100 UN/ML 3 ML VIAL SUBQ PRN (13:58)
[2017-03-30 14:09] VITALS: BP 108/62
[2017-03-30] MEDS ORDERED: ONDANSETRON 4 MG ODT TABDP SL PRN (14:15)
--- NOTE | 2017-03-30 15:02 | Consultant Pharmacy Review ---
System Specialist Review Medication Review Do All Mecications have a Diag: Yes Beers Criteria Medication 2015 Benzodiazapines (short/interm): Lorazepam (May cause dizziness/drowsiness and patient may become a fall risk; re-evaluate need for every 14 days.) Proton Pump Inhibitors: Pantoprazole (May cause osteoporosis-related fractures ; use for the shortest period of time.) Other General Cautions * * * * Print * Help Lexicomp Interaction Analysis A = No known interaction C = Monitor therapy X = Avoid combination B = No action needed D = Consider therapy modification Drugs in this analysis: Coumadin; Docusate; Flagyl; Levaquin; LORazepam; Lovenox ; Percocet; Protonix; Xopenex; Zofran ODT * Drug-Drug Interactions * D Coumadin (Vitamin K Antagonists) Flagyl (MetroNIDAZOLE (Systemic)) D Levaquin (QTc-Prolonging Agents (Moderate Risk)) Zofran ODT (QTc-Prolonging Agents (Moderate Risk)) D LORazepam (COMMERCIAL PHOTOGRAPHER Depressants) Percocet (OxyCODONE) C Coumadin (Vitamin K Antagonists) Levaquin (Quinolones) C Coumadin (Vitamin K Antagonists) Lovenox (Anticoagulants) Depends on Laboratory/Diagnostic Result C Coumadin (Vitamin K Antagonists) Percocet (Acetaminophen) Depends on Dose C Flagyl (QTc-Prolonging Agents (Indeterminate Risk and Risk Modifying)) Levaquin (QTc-Prolonging Agents (Moderate Risk)) C Flagyl (QTc-Prolonging Agents (Indeterminate Risk and Risk Modifying)) Zofran ODT (QTc-Prolonging Agents (Moderate Risk)) C Levaquin (QTc-Prolonging Agents (Moderate Risk)) Xopenex (QTc-Prolonging Agents (Indeterminate Risk and Risk Modifying)) C Xopenex (QTc-Prolonging Agents (Indeterminate Risk and Risk Modifying)) Zofran ODT (QTc-Prolonging Agents (Moderate Risk)) B Coumadin (Vitamin K Antagonists) Protonix (Pantoprazole) B Flagyl (QTc-Prolonging Agents (Indeterminate Risk and Risk Modifying)) Xopenex (QTc-Prolonging Agents (Indeterminate Risk and Risk Modifying)) B Percocet (Acetaminophen) Zofran ODT (Antiemetics (5HT3 Antagonists)) Pneumococcal Vaccine HX Pneumo Vac ([id number]): Yes HX Pneumo Vac (Pneumovax): Yes Comments Regarding the Review Patient received the influenza vaccine 01/02. INR while on coumadin; Re-evaluate the need for percocet and ativan every 14 days. IRLANDA MAX Mar 30, 2017 15:02
--- NOTE | 2017-03-30 15:44 | OT ECF NOTE ---
Type of Note: Initial Note Primary Medical Diagnosis: Generalized weakness s/p extended hospital admission (03/05/17 thru 03/30/17) for multiple pulmonary emboli and intra-abdominal free air of unknown etiology Occupational Therapy Evaluation Date: 03/30/17 SUBJECTIVE: Prior Hospitalization: [facility] ICU/Medical 03/05/17 thru 03/30/17. Prior Level of Function: (I) with all ADLs/IADLs. Works for [employer]. Prior Living Status: Mobile home, Living with family (son) Community Services: No known needs Home Accessibility: Stairs with rails All needs on one level Tub/shower combination Equipment Owned: Cane Medical Complications/Past Medical History: h/o sigmoid colon cancer with pulmonary mets, AFib, Anemia, venous stasis ulcer Psychosocial Support: Supportive son Pain Scale (0-10): None reported at time of evaluation OBJECTIVE: Strength: MMT: Right Left Shoulder Flexion WFL WFL Elbow Flexion WFL WFL Wrist Extension WFL WFL Sales Developer WFL WFL (5= normal, 4= good, 3= fair, 2= poor, 1= trace) ROM: Both upper extremities, WFL Sensation: No concerns Functional Transfer: Assistive Device: Front wheeled walker Transfer Ability: CGA Increased O2 needs during functional activity and mobility ADL: Upper body dressing: Assistive device: None Upper body dressing ability: SBA Lower body dressing: Assistive device: May benefit from LB AE education Lower body dressing ability: Moderate assistance Toileting: Assistive device: Raised toilet seat Toileting ability: CGA Grooming/hygiene: Standing Assistive device: None Grooming ability: CGA Bathing: Assistive device: Bathing ability: N/T Standardized Assessment: Satnam Index of Activities of Daily Livin/20 at initial evaluation (03/05) ASSESSMENT: Gold presents to [facility] with decreased activity tolerance for engagement in ADLs/IADLs at [facility]. Pt has increased O2 needs during functional activity/mobility and requires frequent rest breaks/assist with ADLs. At [facility], pt was (I) with all ADLs and ambulating community distances with a cane and no O2 needs. Gold will benefit from skilled OT services to improve endurance, receive appropriate AE recommendations, and optimize (I) with ADLs prior to discharge home. Problem List/Current Limitations: Decreased activity tolerance Generalized weakness Shortness of breath Short Term Goals: 1) Pt will be Mod (I) toileting. 2) Pt will be Mod (I) UB/LB dressing. 3) Pt will be Independent grooming/hygiene. 4) Pt will be SBA shower task. 5) Pt Satnam Index of ADLs score will increase by 2 points. Assisted Goals: Return home with Patient Goals: "Regain independence" "Walk with a cane" Rehabilitation Prognosis: Good Barriers to Discharge: Medical hx PLAN: The patient will benefit from skilled occupational therapy services 5 times per week for 2 weeks including: Ther ex ADL training Safety training Ther act IADL training Transfer training Adaptive equip training Bed mobility Energy conservation Thank you for this referral. If you have any questions, concerns, or comments about this report or plan, please contact me at . Teresa Velasquez MS, OTR/L Occupational Therapist [facility]
--- NOTE | 2017-03-30 15:49 | Consultant Pharmacy Review ---
Skimmer Reverberatory Review Other General Cautions Title QTc-Prolonging Agents (Moderate Risk) / QTc-Prolonging Agents (Moderate Risk) Risk Rating D: Consider therapy modification Summary QTc-Prolonging Agents (Moderate Risk) may enhance the QTc-prolonging effect of other QTc-Prolonging Agents (Moderate Risk). Severity Major Reliability Rating Fair Patient Management The concomitant use of moderate risk QTc-prolonging agents with any other moderate risk QTc-prolonging agent should be avoided when possible. Concomitant use is expected to substantially increase the risk for serious toxicities, including the development of torsades de pointes (TdP) or other significant ventricular tachyarrhythmias. Patients with other risk factors present (e.g., older age, female sex, bradycardia, hypokalemia, hypomagnesemia, heart disease, and higher drug concentrations), would be at an even higher risk for these potentially life-threatening toxicities. The use of such a combination should be accompanied by close monitoring for evidence of QT prolongation or other alterations of cardiac rhythm. QTc-Prolonging Agents (Moderate Risk) Interacting Members Azithromycin (Systemic ); Bedaquiline; Benperidol; Ceritinib; Chloroquine; ChlorproMAZINE; Ciprofloxacin (Systemic); Clarithromycin; CloZAPine; Crizotinib; Delamanid; Dolasetron; Droperidol; Efavirenz; Erythromycin (Systemic); Escitalopram; Flecainide; Gadobenate Dimeglumine; Gemifloxacin; Goserelin; Granisetron; Haloperidol; Inotuzumab Ozogamicin; Lenvatinib; Leuprolide; LevoFLOXacin (Oral Inhalation); LevoFLOXacin (Systemic); Lofexidine; Mequitazine; Methadone; Midostaurin; Moxifloxacin (Systemic); Ofloxacin (Systemic); Ondansetron; Osimertinib; Panobinostat; PAZOPanib; Pentamidine (Systemic); Pilsicainide; Primaquine; Probucol; Propafenone; Roxithromycin; Saquinavir; Sodium Stibogluconate; Telavancin; Telithromycin; Terlipressin Discussion The drugs listed here as moderate risk are defined as such because their level of risk does not merit inclusion in the highest risk group and they meet at least one of the following criteria: (1) clinical trials demonstrate that use of the drug at therapeutic doses is associated with a prolongation of the mean QT/QTc to more that 500 msec and/or a mean change from baseline in the QT/QTc of more than 60 msec; (2) approved drug labeling recommends special monitoring of the QT (or ECG) in order to detect prolongation of the QT/QTc and/ or development of ventricular tachyarrhythmias such as torsades de pointes (TdP) ; (3) approved drug labeling describes the drug as having a clinically meaningful QT-prolonging effect (at therapeutic doses) and/or recommends special caution when combined with other drugs capable of prolonging the QT interval; or (4) the drug is listed in the highest risk category (i.e., Drugs with a Risk) on the QTdrugs.org website,1 which is an extensive listing of QTc- related information maintained by [facility]. Several drugs have been associated with the development of life-threatening ventricular arrhythmias, including most notably the polymorphic ventricular tachyarrhythmia torsades de pointes (TdP). Prolongation of the QT interval on the ECG is currently the best available biomarker to assess the risk for development of TdP or other ventricular tachyarrhythmias. However, QT- prolongation is not a perfect indicator of risk as not all QT-prolonging drugs increase the risk for TdP, there is considerable variability in patient sensitivity to QT prolongation, and the QT interval is difficult to measure accurately and is subject to considerable [id number] variability.2,3,4,5 Despite the limitations of the QT interval as a biomarker for TdP risk, there is a general association between QT-prolongation and risk for TdP. Among patients with congenital long QT syndrome (LQTS), each 10 msec increase in the rate-corrected QT (QTc) interval is associated with a 5-7% exponential increase in risk for TdP, and a QTc of over 500 msec is associated with a 2- to 3-fold increase in TdP risk.2 The risk of drug-induced QT prolongation and TdP is thought to be similar to these shown with congenital LQTS. According to an FDA Guidance for Industry regarding QT/QTc assessment, QT interval increases of 5 msec or less are generally considered to indicate no increase in TdP risk, while increases of 5 to less than 20 msec indicate a possible increase in risk and increases of 20 msec or more indicate a substantially increased risk.3 Many risk factors that may increase a patient's risk for TdP development associated with the use of QT-prolonging drugs have been indentified. Factors known to increase patient's risk include female sex, age over 65 years, bradycardia, hypokalemia, hypomagnesemia, underlying heart disease, higher concentrations of one or more QT-prolonging drugs, and genetic predisposition.2, 3,4,5 Although the risks associated with higher serum concentrations of a QT- prolonging drug have been well characterized (e.g., terfenadine drug interactions leading to its withdrawal from the [place] market), the specific risks associated with concurrent use of multiple QT-prolonging drugs (apart from a pharmacokinetic interaction) has not been well-described. In one review of 70 patients who experienced QT prolongation with IV haloperidol, 68 (97%) patients had other risk factors for QT prolongation, and concurrent use of another QT-prolonging drug was the most common risk factor identified.6 Footnotes 1. http://www.qtdrugs.org, International Registry for Drug-Induced Arrhythmias; [facility], [place], [place]. 2. Joey BARRAGAN, Corina MJ, Dario M, et al, Prevention of Torsade de Pointes in Hospital Settings: A Scientific Statement from the [place] [employer] and the [place] [employer] Foundation, J Am Yfn Cardiol, 2010, 55( 9):934-47. [PubMed [id number]] 3. U.S. Department of Health and Human Services, Food and Drug Administration, Center for Drug Evaluation and Research (CDER), Center for Biologics Evaluation and Research (CBER), Guidance for Industry: E14 Clinical Evaluation of QT/QTc Interval Prolongation and Proarrhythmic Potential for Non-Antiarrhythmic Drugs, http://www.fda.gov/downloads/RegulatoryInformation/Guidances/CET818041.pdf?utm _campaign=Google2&utm_source=fdaSearch&utm_medium=website&utm_term=Clinical Evaluation of QT/QTc&utm_content=December 2004. 4. Babar P, Cristopher DM, Natalie D, Drug-Induced Long QT Syndrome, Pharmacol Rev, 2010, 62(4):760-81. [PubMed [id number]] 5. Mirta ML, Josue GA, Di Sharda G, Mechanisms of Drug Induced QT Interval Prolongation, Curr Drug Saf, 2010, 5(1):44-53. [PubMed [id number]] 6. Donavan C, Yomi CM, Feliciano BA, et al, The FDA Extended Warning for Intravenous Haloperidol and Torsades de Pointes: How Should Institutions Respond ? J Hosp Med, 2010, 5(4):E8-16. [PubMed [id number]] * Terms & Conditions // * Disclaimer * Lexicomp on [employer] * Lexicomp on [employer] * Get [employer] [place] 2018 [employer] and its affiliates and/or licensors. All Rights Reserved. * Top of Form 1 * Bottom of Form 1 Pneumococcal Vaccine HX Pneumo Vac ([id number]): Yes HX Pneumo Vac (Pneumovax): Yes IRLANDA MAX Mar 30, 2017 15:49
--- NOTE | 2017-03-30 15:53 | Gen Surgery History & Physical ---
History of Present Illness Chief Complaint Weakness History of Present Illness Patient was admitted to [facility] with abdominal pain. He has sigmoid colon cancer with a metastatic lesion in his long and was undergoing chemotherapy with FOLFOX and Avastin. He suffered an anastomotic leak likely related to a Avastin as he is 9 months out from his operation and the anastomosis should've been completely healed this far out. We have managed him conservatively due to the extreme surgical risks with performing operations within 4-6 weeks of a Avastin. He has improved and we have been following him with serial CT scans with percutaneous drainage of the right pericolic abscess and he has really improved. He is now on a regular diet and on oral antibiotics but is not as mobile as we would like for him to be to go home and so he is being transferred to the extended care facility for continued physical therapy and occupational therapy. History Problems: (1) Hypoventilation associated with obesity Status: Chronic (2) Lung metastases Status: Chronic (3) HTN (hypertension) Status: Chronic (4) Venous stasis ulcer Status: Chronic (5) Adenocarcinoma of sigmoid colon Status: Chronic (6) H/O colectomy Status: Resolved Home Meds Active Scripts Granisetron Hcl (SANCUSO) 3.1 Mg/24 Hr Patch.td24, 3.1 MG TD Q7DAY, #2 MG 5 Refills apply one patch 24 hours prior to treatment and leave on for 7 days. Treatment is every 2 weeks. Prov:KAILYN GOFF [employer]PRESENT[employer]IV[employer]-BC, ONC 11/28/16 Ondansetron (ZOFRAN ODT) 8 Mg Tab.rapdis, 8 MG PO Q8H, #30 TAB 1 Refill Prov:KAILYN GOFF [employer]BC, ONC 11/08/16 Reported Medications Multivitamin (MULTIVITAMINS) 1 Each Capsule, 1 EACH PO DAILY, CAPSULE 10/03/16 Propranolol Hcl (PROPRANOLOL HCL) 20 Mg Tablet, 20 MG PO QHS, TAB 03/29/16 Amitriptyline Hcl (AMITRIPTYLINE HCL) 25 Mg Tablet, 25 MG PO QHS, #5 TAB 03/29/16 Lisinopril (LISINOPRIL) 10 Mg Tablet, 10 MG PO QDAY, TAB 03/29/16 Meloxicam (MELOXICAM) 15 Mg Tablet, 15 MG PO QDAY 03/29/16 Allergies: Coded Allergies: No Known Drug Allergies (Unverified , 06/17/16) Review of Systems All Systems Reviewed/Normal: Yes, Except as Noted Exam General Appearance: Alert, Awake, No Acute Distress, Afebrile Neuro: No Gross deficits Eyes: PERRLA GI: Other (soft, mild periumbilical tenderness to palpation, no peritoneal signs.) Extremities: Warm, Perfused Assessment and Plan Problems: (1) Large bowel anastomotic leak Status: Chronic Assessment & Plan: 03/30/17: Will admit to extended care facility for continued physical therapy and occupational therapy. We'll continue oral antibiotics. We'll plan on repeating a CT scan in the next 2 weeks. He can go home when physical therapy and occupational therapy think that his physical conditioning will allow safe transition to the home environment. (2) Complication of chemotherapy Status: Chronic (3) Weakness Status: Chronic (4) Multiple pulmonary emboli Status: Chronic Central Venous Access Medical Necessity for Access: Hemodynamic Monitoring, IV Access, Medication Administration Condition Stable Time Spent: < 30 min Venous Thromboembolism VTE Risk Physician Assess for VTE Risk: Yes Patient's VTE Risk: High VTE Diagnostic Test 2 Days Prior to Admit: No Antithrombotics Is Pt On Any Antithrombotics?: Yes Problem Qualifiers (1) Complication of chemotherapy: Encounter type: subsequent encounter Qualified Codes: T88.7XXD - Unspecified adverse effect of drug or medicament, subsequent encounter LISSETH RUSH MD Mar 30, 2017 15:52
[2017-03-30] MEDS: METRONIDAZOLE 500 MG TABLET PO SCH ×2 (17:01→21:01)
[2017-03-30] MEDS: ENOXAPARIN SC SCH (21:01)
[2017-03-30] MEDS: DOCUSATE SODIUM 100 MG CAP PO SCH (21:01)
[2017-03-31 06:50] LABS: INR 1.59
[2017-03-31 07:42] VITALS: BP 107/64
[2017-03-31] MEDS ORDERED: ENOXAPARIN 30 MG/0.3 ML SYR ONE (09:27)
[2017-03-31] MEDS: PANTOPRAZOLE SOD 40 MG TABEC PO SCH (09:29)
[2017-03-31] MEDS: METRONIDAZOLE 500 MG TABLET PO SCH ×4 (09:29→20:37)
[2017-03-31] MEDS: DOCUSATE SODIUM 100 MG CAP PO SCH ×2 (09:29→20:37)
[2017-03-31] MEDS: ENOXAPARIN SC SCH ×2 (09:36→20:38)
[2017-03-31] MEDS: LEVOFLOXACIN 500 MG TAB PO SCH (10:24)
[2017-03-31 11:27] VITALS: Ht 182.9 cm; Wt 128.3 kg
[2017-03-31] MEDS: WARFARIN SOD 7.5 MG TAB PO SCH (13:34)
[2017-03-31 15:30] VITALS: BP 131/78
[2017-04-01 07:37] VITALS: BP 110/68
[2017-04-01 07:42] LABS: INR 1.87
[2017-04-01] MEDS: PANTOPRAZOLE SOD 40 MG TABEC PO SCH (08:30)
[2017-04-01] MEDS: DOCUSATE SODIUM 100 MG CAP PO SCH ×2 (08:30→20:30)
[2017-04-01] MEDS: ENOXAPARIN SC SCH ×2 (08:30→20:32)
[2017-04-01] MEDS: METRONIDAZOLE 500 MG TABLET PO SCH ×4 (08:32→20:32)
[2017-04-01] MEDS: LEVOFLOXACIN 500 MG TAB PO SCH (09:47)
--- NOTE | 2017-04-01 09:54 | Medical Nutrition Therapy ---
Nutrition Anthropometrics Height (Inches): 72.00 Height (Calculated Centimeters: 182.089420 Weight (Pounds): 282 Weight (Calculated Kilograms): 128.310 BMI Calculated: 38.24 Hx Weight Loss: Yes (340# MAY 2016) Nhan Nutrition Score: Adequate Nhan Nutrition Risk Score: 17 Dietary Referral Nutrition Risk Factors: Nutrition Risk Comment: Physical Findings Physical Appearance: Obese BMI 30-39 Skin Appearance Skin Appearance: Edema Edema Location Modifier: Both Edema Location: Lower Extremity Type of Edema: Degree of Edema: 3+ Gastrointestinal Symptoms GI Symtoms: Nausea, Diarrhea Tube Present: Bowel Sounds: Recent Bowel Pattern: Stool Characteristics: Nutritional Diagnosis Nutritional Risk Acuity 2: Head/Neck/GI Cancer, Abcess/Non-Healing Wound Nutritional Risk Acuity 3: Fair Appetite, Weight Loss Past Medical History: Colon cancer with mets, HTN, colectomy,vensous statis ulcer Nutritional Acuity: 2-Moderate Nutrition Diagnosis: Increased Nutrient Needs Nutrition Etiology: Physiological Causes Nutrition Problem/Etiology/Sym: R/T venous statis ulcer and CA dx AEB alb 2.7 Adjusted Energy Requirement Re: 2600 (Callie Nielsen adj for obesity) Protein Requirement: 128 (1gm/kg) Fluid Requirement: 2560 (20ml/kg) Diet Type: Diet as Tolerated GEOVANNI/REG Nutrition Intervention: Cont diet as ordered, Encourage intake, HS snack Drug: Warfarin Do Not Serve Any of the Follow: Broccoli, Brussel Sprouts, Spinach, [place] Lettuce, Cranberry Juice Additional Diet Restrictions: PUT PROTEIN POWDER IN APPROPRIATE FOODS Nutrition Monitoring & Eval Nutrition Goals: Eat 75-100% Meal Nutrition Follow-Up: Fair Intake RD Patient Assessment Time: [address] Assessment Type: RD Assessment Patient Nutrition Acuity: 2-Moderate Follow Up Date: Apr 09, 2017 Nutritional Comment: 03/31 Pt admitted s/p large bowel anastomotic leak for strenghtening. Pt has increased nutr needs r/t venous stasis ulcer. BMI is in class 2 obesity range however pt has demonstrated significant wt loss since May 2016 when he weighed 340#. Wt is down 3% past month. Unknown wt loss in 6 months. Pt has 3+ edema LE. Anticipate further wt loss when edema 04/01 Intake ranging 50- 100% of meals. Cont to encourage intake and cont to monitor. resolved. Pt eating 75- 100% of small to regular portions. Will add protein powder to appropriate foods to increase protein intake. Will cont to monitor and encourage intake. SARAH PAN Apr 01, 2017 09:54
[2017-04-01] MEDS: WARFARIN SOD 7.5 MG TAB PO SCH (13:12)
[2017-04-01 15:30] VITALS: BP 123/75
[2017-04-02 07:03] LABS: INR 2.17
[2017-04-02 08:05] VITALS: BP 124/64
[2017-04-02] MEDS: METRONIDAZOLE 500 MG TABLET PO SCH ×4 (08:40→20:45)
[2017-04-02] MEDS: PANTOPRAZOLE SOD 40 MG TABEC PO SCH (08:40)
[2017-04-02] MEDS: DOCUSATE SODIUM 100 MG CAP PO SCH ×2 (08:42→20:45)
[2017-04-02] MEDS: LEVOFLOXACIN 500 MG TAB PO SCH (09:44)
[2017-04-02] MEDS: WARFARIN SOD 7.5 MG TAB PO SCH (13:13)
[2017-04-02 15:20] VITALS: BP 126/78
[2017-04-03 06:55] LABS: INR 2.26
[2017-04-03 07:20] VITALS: BP 109/69
[2017-04-03] MEDS: DOCUSATE SODIUM 100 MG CAP PO SCH ×2 (09:00→20:51)
[2017-04-03] MEDS: METRONIDAZOLE 500 MG TABLET PO SCH ×4 (09:01→20:51)
[2017-04-03] MEDS: PANTOPRAZOLE SOD 40 MG TABEC PO SCH (09:01)
[2017-04-03] MEDS: LEVOFLOXACIN 500 MG TAB PO SCH (10:12)
[2017-04-03] MEDS: WARFARIN SOD 7.5 MG TAB PO SCH (12:44)
[2017-04-03 17:10] VITALS: BP 146/88
[2017-04-04 06:20] LABS: INR 2.54
[2017-04-04 08:30] VITALS: BP 153/78
[2017-04-04] MEDS: DOCUSATE SODIUM 100 MG CAP PO SCH ×3 (08:58→21:00)
[2017-04-04] MEDS: PANTOPRAZOLE SOD 40 MG TABEC PO SCH (08:58)
[2017-04-04] MEDS: METRONIDAZOLE 500 MG TABLET PO SCH ×4 (08:58→21:03)
[2017-04-04] MEDS: LEVOFLOXACIN 500 MG TAB PO SCH (10:43)
--- NOTE | 2017-04-04 11:49 | OT ECF NOTE ---
Type of Note: Discharge Note Primary Medical Diagnosis: Generalized weakness s/p extended hospital admission (03/05/17 thru 03/30/17) for multiple pulmonary emboli and intra-abdominal free air of unknown etiology Occupational Therapy Evaluation Date: 03/30/17 SUBJECTIVE: Prior Hospitalization: [facility] ICU/Medical 03/05/17 thru 03/30/17. Prior Level of Function: (I) with all ADLs/IADLs. Works for [employer]. Prior Living Status: Mobile home, Living with family (son) Community Services: No known needs Home Accessibility: Stairs with rails All needs on one level Tub/shower combination Equipment Owned: [employer] Medical Complications/Past Medical History: h/o sigmoid colon cancer with pulmonary mets, AFib, Anemia, venous stasis ulcer Psychosocial Support: Supportive sons Pain Scale (0-10): None reported at time of evaluation OBJECTIVE: Strength: MMT: Right Left Shoulder Flexion WFL WFL Elbow Flexion WFL WFL Wrist Extension WFL WFL Side Puller WFL WFL (5= normal, 4= good, 3= fair, 2= poor, 1= trace) ROM: Both upper extremities, WFL Sensation: No concerns Functional Transfer: Assistive Device: Front wheeled walker Transfer Ability: Mod (I) ADL: Upper body dressing: Assistive device: None Upper body dressing ability: Independent Lower body dressing: Assistive device: Sock aide, floor coverer Lower body dressing ability: Mod (I) Toileting: Assistive device: Raised toilet seat Toileting ability: Mod (I) Grooming/hygiene: Standing Assistive device: None Grooming ability: Independent Bathing: Assistive device: extended tub transfer bench Bathing ability: SBA extended tub transfer Standardized Assessment: Satnam Index of Activities of Daily Livin/20 at initial evaluation (03/05). 20/20 at discharge date (04/03/17). ASSESSMENT: Gold presented to ECF with decreased activity tolerance for engagement in ADLs/IADLs at [facility]. He has met all skilled OT goals and appropriate equipment recommendations have been provided. Pt reports no further questions/concerns with discharge from OT and discharge home . Problem List/Current Limitations: Decreased activity tolerance Generalized weakness Shortness of breath Short Term Goals: 1) Pt will be Mod (I) toileting. GOAL MET. 2) Pt will be Mod (I) UB/LB dressing. GOAL MET. 3) Pt will be Independent grooming/hygiene. GOAL MET. 4) Pt will be SBA shower task. GOAL MET. 5) Pt Satnam Index of ADLs score will increase by 2 points. GOAL MET. Assisted Goals: Return home with Patient Goals: "Regain independence" "Walk with a cane" Rehabilitation Prognosis: Good Barriers to Discharge: Medical hx PLAN: Discharge home with services and assist from son. Thank you for this referral. If you have any questions, concerns, or comments about this report or plan, please contact me at . Teresa Velasquez MS, OTR/L Occupational Therapist [facility]
[2017-04-04] MEDS: WARFARIN SOD 7.5 MG TAB PO SCH (13:20)
[2017-04-04 16:40] VITALS: BP 139/92
[2017-04-04] MEDS ORDERED: LEVO-85 PO (19:21)
[2017-04-04] MEDS ORDERED: METR-160 PO (19:21)
--- NOTE | 2017-04-04 19:26 | Short(Outpt) Discharge Summary ---
Discharge Summary Reason for Hosp/Final Diag: (1) Large bowel anastomotic leak Status: Chronic Hospital Course & Plan: 03/30/17: Will admit to extended care facility for continued physical therapy and occupational therapy. We'll continue oral antibiotics. We'll plan on repeating a CT scan in the next 2 weeks. He can go home when physical therapy and occupational therapy think that his physical conditioning will allow safe transition to the home environment. 04/04/17: Doing well. He has rehabilitated very nicely. Will d/c to home tomorrow. I will order a CT for 04/16/17, then I'll see him in the office on 04/17/17 and see if we can stop antibiotics based on the CT results ( if the fluid collections have resolved). (2) Complication of chemotherapy Status: Chronic (3) Weakness Status: Chronic (4) Multiple pulmonary emboli Status: Chronic Departure Discharge to: Home, Home Health Discharge Instructions Home Meds Active Scripts Metronidazole (METRONIDAZOLE) 500 Mg Tablet, 1 TAB PO QID, #60 TAB 0 Refills Prov:LISSETH RUSH MD 04/04/17 Levofloxacin 500 Mg Tab (LEVAQUIN 500 MG TAB) 500 Mg Tablet, 1 TAB PO QDAY, #14 TAB 0 Refills Prov:LISSETH RUSH MD 04/04/17 Granisetron Hcl (SANCUSO) 3.1 Mg/24 Hr Patch.td24, 3.1 MG TD QDAY, #2 MG 5 Refills apply one patch 24 hours prior to treatment and leave on for 7 days. Treatment is every 2 weeks. Prov:KAILYN GOFF [employer]END[employer]-BC, ONC 11/28/16 Ondansetron (ZOFRAN ODT) 8 Mg Tab.rapdis, 8 MG PO Q8H, #30 TAB 1 Refill Prov:KAILYN GOFF [employer]ENDER-BC, ONC 11/08/16 Reported Medications Multivitamin (MULTIVITAMINS) 1 Each Capsule, 1 EACH PO DAILY, CAPSULE 10/03/16 Propranolol Hcl (PROPRANOLOL HCL) 20 Mg Tablet, 20 MG PO QHS, TAB 03/29/16 Amitriptyline Hcl (AMITRIPTYLINE HCL) 25 Mg Tablet, 25 MG PO QHS, #5 TAB 03/29/16 Lisinopril (LISINOPRIL) 10 Mg Tablet, 10 MG PO QDAY, TAB 03/29/16 Meloxicam (MELOXICAM) 15 Mg Tablet, 15 MG PO QDAY 03/29/16 Follow up Referrals: General Surgery - 04/17/17 @ Surgery, General with Lisseth Rush Md You have a follow up appointment with Dr. Rush on 04/17/17, at 9:00am. Diet: Regular Activity: As Tolerated Special Instructions: Dee, my nurse will call you in the next day or two to schedule a CT scan to check the fluid collections in your abdomen. Continue taking both antibiotics (levaquin and metronidazole/flagyl) until I see you back in my office on 04/17/17. Problem Qualifiers (1) Complication of chemotherapy: Encounter type: subsequent encounter Qualified Codes: T88.7XXD - Unspecified adverse effect of drug or medicament, subsequent encounter LISSETH RUSH MD Apr 04, 2017 19:26
--- NOTE | 2017-04-04 20:47 | PT ECF NOTE ---
Type of Note: Initial Note Primary Medical Diagnosis: Generalized weakness s/p extended hospital admission (03/05/17 thru 03/30/17) for multiple pulmonary emboli and intra-abdominal free air of unknown etiology Physical Therapy Evaluation Date: 03/30/17 SUBJECTIVE: Prior Hospitalization: [facility] ICU/Medical 03/05/17 thru 03/30/17. Prior Level of Function: (I) with all ADLs/IADLs. Works for [employer]. Prior Living Status: Mobile home, Living with family (son) Community Services: No known needs Home Accessibility: Stairs with rails, All needs on one level, Tub/shower combination Equipment Owned: [employer] Medical Complications/Past Medical History: h/o sigmoid colon cancer with pulmonary mets, AFib, Anemia, venous stasis ulcer Psychosocial Support: Supportive son Pain Scale (0-10): None reported at time of evaluation OBJECTIVE: Strength: B) LE's 4-/5 overall with functional mobility ROM: (please note any abnormalities) WFL Sensation: (please note any abnormalities) some neuropathy noted in B) lower legs, especially around wound sites. Other Neuro findings: n/a Bed Mobility: CGA/Min assist for LE's Assistive device: Bed rail Transfers: Verbal cues, SBA, CGA Assistive Device: Front wheeled walker Gait: Verbal cues, SBA, CGA Assistive device: Front wheeled walker Stairs: Not yet addressed Assistive device: Timed Up and Go (>12 seconds indicated increased risk for falls): N/a 10 meter walk test (0.6m/second cannot function independently): n/a Other Objective Measures: Pt tolerated ambulation x 100' with FWW on 4 L/ min supplemental O2, which demonstrates improvement from medical stay, however, pt notes that his prior level of function required significantly more endurance and indep with mobility. ASSESSMENT: Pt demos motivation to improve functional mobility to return to prior level of function with indep in his home. Pt would benefit from skilled PT to address gradual increase in activity while monitoring VS and ensuring adequate oxygenation with proper energy conservation techniques. Problem List/Current Limitations: Decreased activity roxie, Decreased strength , Decreased balance Short Term Goals: 1. Pt to be modified indep with all bed mobility and supine to/from sit transfers 2. Pt to be modified indep with sit to/from stand transfers from a variety of surfaces 3. Pt to roxie ambulation with least restrictive device x 200' with VS in safe range throughout. 4. Pt to roxie up/down 4 steps with rail and modified indep Jail Goals: Return home with proper support and C for progression of indep skills in his home environment. Patient Goals: Return home Rehabilitation Prognosis: Good Barriers for Discharge: Pt resides with his adult son, but is the primary caregiver in the household. Pt will need to be functionally indep with ADL's and some IADL's. PLAN: The patient will benefit from skilled physical therapy services 5 times per week for 2 weeks including: Therapeutic Exercise, Therapeutic Activities Transfer Training, Gait Training, Stair Training, Manual Therapy, ADL's, Safety Training, Pt/Caregiver Training, Bed Mobility Thank you for this referral. If you have any questions, concerns, or comments about this report or plan, please contact me at . H. Carol Bautista, PT, MPT MTDD
[2017-04-04] MEDS ORDERED: NEOMYCIN/POLYMYX/BACITR 30 GM TP PRN (21:30)
[2017-04-05 06:13] LABS: INR 2.62
[2017-04-05 08:03] VITALS: BP 122/70
[2017-04-05] MEDS: PANTOPRAZOLE SOD 40 MG TABEC PO SCH (08:46)
[2017-04-05] MEDS: METRONIDAZOLE 500 MG TABLET PO SCH ×2 (08:46→13:23)
[2017-04-05] MEDS: DOCUSATE SODIUM 100 MG CAP PO SCH (08:47)
[2017-04-05] MEDS ORDERED: WARF-18 PO (08:50)
--- NOTE | 2017-04-05 09:25 | Hospitalist Progress Note ---
Subjective Progress Notes Subjective No new complaints. Discharging today. Physical Exam Vital Signs Date Time Temp Pulse Resp B/P (MAP) Pulse Ox O2 Delivery O2 Flow Rate FiO2 04/05/17 08:03 98.0 88 20 122/70 (87) 90 Bi-PAP 04/05/17 05:39 40.0 04/04/17 23:55 3.0 General Appearance: Alert, Awake, No Acute Distress Neuro: No Gross deficits Eyes: PERRLA Cardiovascular: Regular Rate and Rhythm Respiratory: Clear to Auscultation GI: Soft and Non-Tender Extremities: Warm, Perfused, Other (Chronic venous stasis changes. 2+ edema. Bandages in place over LE wounds.) Integumentary: Other (See above.) Psych: Appropriate Mood & Affect Item Value Date Time Prothromb Time International Ratio 1.87 04/01/17 0704 Prothromb Time International Ratio 2.17 04/02/17 0639 Prothromb Time International Ratio 2.26 04/03/17 0613 Prothromb Time International Ratio 2.54 04/04/17 0537 Prothromb Time International Ratio 2.62 04/05/17 0536 Assessment and Plan Problems: (1) Multiple pulmonary emboli Status: Chronic Assessment & Plan: His CT scan did show bilateral pulmonary emboli - most likely related to his cancer and/or the Avastin. He was initially on a heparin infusion, but then transitioned to Lovenox and warfarin. His INR became therapeutic and Lovenox was discontinued. He will have an INR on Sunday, April [address] Khan. He is currently on warfarin 7.5mg daily. He will be discharge with 5mg tablets. (2) Atrial fibrillation with RVR Status: Resolved Assessment & Plan: He developed it on 03/08. He was symptomatic and was transferred to the ICU. Electrical cardioversion was attempted, but wasn't successful. He was started on a Diltiazem drip and was also treated with digoxin. Those were both stopped on 03/15. He converted to and maintained sinus rhythm. An echocardiogram showed an EF of 59% with abdominal aorta and aortic root dilatation. His TSH was low, but he was acutely ill. He will need a repeat TSH in 4-6 weeks. 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 He has multiple metastases. He is receiving treatment through the Cancer Center and has been on FOLFOX and Avastin. He may have had bowel perforation related to the Avastin. An abdominal abscess was drained 03/23 and drain removed 03/27. Dr. Collins has placed him on oral antibiotics including Levaquin and Flagyl. He will follow up with Dr. Collins on April 17. (4) Venous stasis ulcer Status: Chronic Assessment & Plan: Dr. Collins evaluated. These were managed by wound care. He will continue with outpatient wound care after discharge. (5) ANEMIA, UNSPECIFIED Status: Chronic Assessment & Plan: Most likely due to his malignancy and chemotherapy. He received 2 u PRBCs on 03/23. Central Venous Access Medical Necessity for Access: Hemodynamic Monitoring, IV Access, Medication Administration Time Spent on Plan of Care: < 30 min Copies to: DELIA KHAN JULIE A MD Apr 05, 2017 09:25
[2017-04-05] MEDS: LEVOFLOXACIN 500 MG TAB PO SCH (09:36)
[2017-04-05] MEDS: WARFARIN SOD 7.5 MG TAB PO SCH (13:23)
--- NOTE | 2017-04-05 16:45 | PT ECF NOTE ---
Type of Note: Discharge Note Primary Medical Diagnosis: Generalized weakness s/p extended hospital admission (03/05/17 thru 03/30/17) for multiple pulmonary emboli and intra-abdominal free air of unknown etiology Physical Therapy Evaluation Date: 03/30/17 SUBJECTIVE: [facility]/17 thru 03/30/17. Prior Level of Function: (I) with all ADLs/IADLs. Works for [employer]. Prior Living Status: Mobile home, Living with family (son) Community Services: No known needs Home Accessibility: Stairs with rails, All needs on one level, Tub/shower combination Equipment Owned: [employer] Medical Complications/Past Medical History: h/o sigmoid colon cancer with pulmonary mets, AFib, Anemia, venous stasis ulcer Psychosocial Support: Supportive son Pain Scale (0-10): None reported at time of evaluation OBJECTIVE: Strength: B) LE's 4+/5 overall with functional mobility ROM: (please note any abnormalities) WFL Sensation: (please note any abnormalities) some neuropathy noted in B) lower legs, especially around wound sites. Other Neuro findings: n/a Bed Mobility: Modified indep Assistive device: Transfers: Modified indep Assistive Device: Front wheeled walker Gait: Modified indep Assistive device: Front wheeled walker Stairs: Modified indep Assistive device: Rails Timed Up and Go (>12 seconds indicated increased risk for falls): Not tested 10 meter walk test (0.6m/second cannot function independently): Not tested Other Objective Measures: Pt able to ambulate greater than 200' with FWW on 3 L/min supplemental O2 maintaining vital signs in safe range throughout and no loss of balance noted. ASSESSMENT: Pt demos improvement in functional mobility with greater endurance and proper use of energy conservation techniques to maintain O2 sats in safe range with increased ADL's. Problem List/Current Limitations: Decreased activity roxie, Decreased strength , Decreased balance Short Term Goals: 1. Pt to be modified indep with all bed mobility and supine to/from sit transfers- Met 2. Pt to be modified indep with sit to/from stand transfers from a variety of surfaces- Met 3. Pt to roxie ambulation with least restrictive device x 200' with VS in safe range throughout. - Met 4. Pt to roxie up/down 4 steps with rail and modified indep- Met [employer] Goals: Return home with proper support and [facility] for progression of indep skills in his home environment. Patient Goals: Return home Rehabilitation Prognosis: Good Barriers for Discharge: None noted at this time PLAN: Pt to follow up with home health care for wound care and further strengthening. Thank you for this referral. If you have any questions, concerns, or comments about this report or plan, please contact me at . H. Carol Bautista, PT, MPT MTDD
== END 2017-04-05 14:05 | disposition home health service (06) | DRG 394 ==
LOC: ECF 13:45
PROVIDERS: ADMIT Surgery; ATTEND Surgery
PROC: 5A09357 Assistance with Respiratory Ventilation, Less than 24 Consecutive Hours, Continuous Positive Airway Pressure (ICD-10-PCS; principal; 2017-03-30)
PROC: 0JDP3ZZ Extraction of Left Lower Leg Subcutaneous Tissue and Fascia, Percutaneous Approach (ICD-10-PCS; 2017-03-30)
PROC: 0JDN3ZZ Extraction of Right Lower Leg Subcutaneous Tissue and Fascia, Percutaneous Approach (ICD-10-PCS; 2017-03-30)
PROC: 0HDLXZZ Extraction of Left Lower Leg Skin, External Approach (ICD-10-PCS; 2017-04-05)
PROC: 0JDN3ZZ Extraction of Right Lower Leg Subcutaneous Tissue and Fascia, Percutaneous Approach (ICD-10-PCS; 2017-04-05)
DX: K66.8 Other specified disorders of peritoneum (principal); C78.00 Secondary malignant neoplasm of unspecified lung; C18.7 Malignant neoplasm of sigmoid colon; E66.2 Morbid (severe) obesity with alveolar hypoventilation; I27.82 Chronic pulmonary embolism; L97.811 Non-pressure chronic ulcer of other part of right lower leg limited to breakdown of skin; L97.821 Non-pressure chronic ulcer of other part of left lower leg limited to breakdown of skin; T45.1X5D Adverse effect of antineoplastic and immunosuppressive drugs, subsequent encounter; R53.1 Weakness; I10 Essential (primary) hypertension; I87.8 Other specified disorders of veins; I48.0 Paroxysmal atrial fibrillation; D64.81 Anemia due to antineoplastic chemotherapy; D63.0 Anemia in neoplastic disease; K21.9 Gastro-esophageal reflux disease without esophagitis; Z68.38 Body mass index [BMI] 38.0-38.9, adult; Z99.81 Dependence on supplemental oxygen
CPT/HCPCS: 36415; 85610; 94660; 97161; 97165; J1650

== ENCOUNTER → 2017-04-16 | Outpatient (CLI) | payer BC, MEDICARE ==
[2017-03-31 11:27] VITALS: BMI 38.2
[~2017-04-16] MED LIST changes: +IOPAMIDOL 76% 75 ML INFUS BTL 75 ML ONE; +LEVO-85 PO; +METR-160 PO; +NS 0.9% 20 ML SDV 40 ML ONE; +WARF-18 PO
--- NOTE | 2017-04-16 14:40 | RADIOLOGY IMAGING REPORT ---
FACILITY: [facility] [place] PATIENT NAME: Lisseth Campa : 1950 MR: [id number] V: [id number] EXAM DATE: ORDERING PHYSICIAN: LISSETH RUSH TECHNOLOGIST: Location: [facility] [place] Patient: Lisseth Campa : 1950 Visit/Account:[id number] Date of Sevice: 04/16/2017 ABDOMEN/PELVIS WITH CONTRAST HISTORY: Bowel perforation TECHNIQUE: Following administration of IV contrast contiguous axial images acquired through the abdom en/pelvis. Coronal and sagittal reformatting also performed. Dose Lowering Technique One of the following dose optimization techniques was utilized in the performance of this exam: Autom ated exposure control; adjustment of the mA and/or kV according to the patient's size; or use of an i terative reconstruction technique. Specific details can be referenced in the facility's radiology C T exam operational policy. CONTRAST: 75 mL Isovue-370 COMPARISON: March 28, 2017 FINDINGS: Visualized lung bases: Small bilateral pleural effusions and small amount of by basilar atelectasis appears similar to the prior study.. There are mild coronary artery vascular calcifications Hepatobiliary: Gallbladder is contracted which may be related to a recent meal Spleen: Mildly enlarged but unchanged Adrenals: Negative. Pancreas: Negative. Kidneys ureters or bladder: There is mild perinephric stranding bilaterally. Genitalia: Negative. GI: Producing noted sigmoid colon and small bowel anastomoses are again seen. The fluid collection just above the bladder is further decrease in size now measuring 4.9 x 4.1 x 2.7 cm. The wall appear s thicker although no internal air bubbles are seen. Right paracolic gutter collection now measures 3.6 x 1.5 8.7 cm also slightly decreased in size.. The previously noted questionable collection in t he upper pelvis is no longer seen and likely represented a loop fluid-filled of small bowel . Vessels/spaces/nodes: The fat stranding the right paracolic gutter appears relatively unchanged . The right external iliac adenopathy is relatively unchanged Bones/soft tissues: Postsurgical changes from midline abdominal pelvic incision again seen.. Spondy lotic changes in the lower lumbar spine and extensive degenerative changes right hip joint again note d Additional findings: None pertinent. IMPRESSION: There is been a further partial decrease in the fluid collection just above the bladder and in the ri ght paracolic gutter. The additional questionable a small collection in the upper pelvis is no longe r seen and likely represented fluid-filled loops of small bowel. Mild spinal megaly unchanged Small bilateral pleural effusions and bibasal atelectasis relatively unchanged. The right external iliac adenopathy unchanged Report Dictated By: Kayli Berry MD at 04/16/2017 1:48 PM Report E-Signed By: Kayli Berry MD at 04/16/2017 2:37 PM WSN:[email or web address]
== END ==
LOC: CT 02:15
PROVIDERS: ATTEND Surgery
DX: J90 Pleural effusion, not elsewhere classified (principal); J98.11 Atelectasis; I25.10 Atherosclerotic heart disease of native coronary artery without angina pectoris; R16.1 Splenomegaly, not elsewhere classified
CPT/HCPCS: 74177; J7050; Q9967

== ENCOUNTER → 2017-05-01 | Outpatient (CLI) | payer BC ==
[2017-03-31 11:27] VITALS: BMI 38.2
[~2017-05-01] MED LIST changes: -WARF-18 PO; +WARF5TAB23 PO
[2017-05-01 10:31] LABS: PLATELET COUNT, AUTOMATED 249 K/uL (150-450)
--- NOTE | 2017-05-01 12:49 | RADIOLOGY IMAGING REPORT ---
FACILITY: [facility] PATIENT NAME: Lisseth Campa : 1950 MR: [id number] V: [id number] EXAM DATE: ORDERING PHYSICIAN: LISSETH RUSH TECHNOLOGIST: Location: [facility] - [place] Patient: Lisseth Campa : 1950 Visit/Account:[id number] Date of Sevice: 05/01/2017 CHEST W/O CONTRAST HISTORY: Left lung metastatic neoplasm, pulmonary nodule TECHNIQUE: CT chest without intravenous contrast. Contiguous helical images was performed from the l bo apices to below the diaphragm. One of the following dose optimization techniques was utilized in the performance of this exam: Autom ated exposure control; adjustment of the mA and/or kV according to the patient's size; or use of an i terative reconstruction technique. Specific details can be referenced in the facility's radiology C T exam operational policy. CONTRAST: None. COMPARISON: CT scan 03/15/2017 and 08/23/2016 FINDINGS: Heart/vessels: Right-sided chemotherapy catheter has its tip in SVC. Calcified coronary atheroscler otic disease is noted. Mediastinum: There is a small hiatal hernia. Lymph nodes: Small nonenlarged mediastinal lymph nodes are noted. Lungs/pleura: Left upper lobe pulmonary nodule currently measures 1.9 x 1.6 cm image 23 and is uncha nged. Some apical pleural scarring immediately superior to the nodules once again noted. The airspace disease persists described in the right upper lobe has nearly completely resolved but th ere is some pleural scarring. The bilateral pleural effusions are decreased in size. There remains some consolidation involving th e medial basal segment left lower lobe possibly posttreatment change. Visualized upper abdomen: Negative. Bones/soft tissues: Mild degenerative changes are noted. IMPRESSION: 1. Stable left upper lobe pulmonary nodule measuring 1.9 x 1.6 cm. 2. Improved aeration the right upper lobe with some subtle residual pleural-based scarring and retic ular opacity. 3. Decreasing bilateral pleural effusions. There remains some consolidation at the medial left lung base improved from prior exam. Report Dictated By: Dallas Mcneill MD at 05/01/2017 11:56 AM Report E-Signed By: Dallas Mcneill MD at 05/01/2017 12:44 PM WSN:[email or web address]
--- NOTE | 2017-05-01 13:04 | RADIOLOGY IMAGING REPORT ---
FACILITY: [facility] - [place] PATIENT NAME: Lisseth Campa : 1950 MR: [id number] V: [id number] EXAM DATE: ORDERING PHYSICIAN: LISSETH RUSH TECHNOLOGIST: Location: Patient: Lisseth Campa : 1950 Visit/Account:[id number] Date of Sevice: 05/01/2017 ABDOMEN/PELVIS WITH CONTRAST HISTORY: Left lung metastatic neoplasm, intra-abdominal fluid collection TECHNIQUE: CT abdomen and pelvis with intravenous contrast. Contiguous axial images of the abdomen and pelvis was performed from the lung bases to the symphysis pubis. One of the following dose optimization techniques was utilized in the performance of this exam: Autom ated exposure control; adjustment of the mA and/or kV according to the patient's size; or use of an i terative reconstruction technique. Specific details can be referenced in the facility's radiology C T exam operational policy. CONTRAST: 75 cc of Isovue-370 COMPARISON: CT 04/16/2017 as well as priors FINDINGS: Visualized lung bases: The pleural effusions have decreased when compared to prior exam. Consolidat ion medial left lung base is unchanged. Patient is a small hiatal hernia. Hepatobiliary: Negative. Spleen: Measures 15.1 cm in craniocaudal length, unchanged. Adrenals: Negative. Kidneys/: Negative. Pancreas: Negative. GI: Postoperative changes are noted from prior colon resection at the rectosigmoid interface the flu id collection adjacent to the anastomosis suprarenal bladder minimally decreased in size currently me asures 4.5 x 3.1 x 5.2 cm, previously 4.6 x 4.6 x 5.6 cm by my measurements. 2nd fluid collection tracks laterally towards the right paracolic gutter measures 8.7 x 1.3 cm on cor onal image 41, previously 8.8 x 1.6 cm. There remains significant infiltration of the fat planes the right paracolic gutter. No new fluid co llections are seen. Vessels/spaces/nodes: Stable right external iliac lymphadenopathy is noted with the largest single l ymph node image 139 measuring 2.8 x 2.4 cm. Bones/soft tissues: Significant degenerative changes are noted in the right hip and lower lumbosacra l spine. There is bilateral L5 spondylolysis with 7 mm of anterolisthesis of L5 with respect S1. IMPRESSION: 1. Reidentified are postoperative changes at the rectosigmoid junction. 2. Fluid collection adjacent to the anastomosis is minimally decreased in size and currently measure s 4.5 x 3.1 x 5.2 cm, previously 4.6 x 4.6 x 5.6 cm. 3. 2nd fluid collection in the right abdomen tracking towards the right paracolic gutter has also sl ightly decreased in size currently measures 8.7 x 1.3 cm, previously 8.8 x 1.6 cm. 4. Persistent infiltration of the fat planes in the right paracolic gutter, unchanged. 5. Persistent right external iliac adenopathy. 6. Improved aeration at the lung bases. Report Dictated By: Dallas Mcneill MD at 05/01/2017 12:44 PM Report E-Signed By: Dallas Mcneill MD at 05/01/2017 1:00 PM WSN:[email or web address]
== END ==
LOC: CT 01:00
PROVIDERS: ATTEND Surgery
DX: I26.99 Other pulmonary embolism without acute cor pulmonale (principal); R18.8 Other ascites; C78.02 Secondary malignant neoplasm of left lung; C18.7 Malignant neoplasm of sigmoid colon; I10 Essential (primary) hypertension; I48.91 Unspecified atrial fibrillation; R91.8 Other nonspecific abnormal finding of lung field
CPT/HCPCS: 36415; 71250; 74177; 82378; 85025; 85651; 86140; J7050; Q9967; 82310; 82374; 82435; 82565; 82947; 84132; 84295; 84520

== ENCOUNTER 2017-07-09 10:00 | Outpatient (RCR) | payer BC, MEDICARE ==
[2017-03-31 11:27] VITALS: Ht 182.9 cm; Wt 130.8 kg
[2017-04-13 10:41] VITALS: BP 129/83
--- NOTE | 2017-04-13 19:33 | ONCOLOGY FOLLOW UP NOTE ---
EVENT DATE: April 13, 2017 DIAGNOSES 1. Stage IV sigmoid colon adenocarcinoma. 2. 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 3. History of cluster headache. 4. Hypertension. 5. Arthritis. CHIEF COMPLAINT Patient is here today for followup of his sigmoid colon cancer with pulmonary metastasis on chemotherapy with Avastin and FOLFOX. ONCOLOGY HISTORY The patient is a 66-year-old male who had screening colonoscopy and patient found to have a mass at the sigmoid colon. He ended by having sigmoid colectomy done on May 26, 2016, and the pathology came back positive for moderately differentiated colonic adenocarcinoma, grade II-III with 15 lymph nodes negative for metastasis. Tumor was invading into the muscularis propria. Margins were negative. Lymphovascular invasion was also negative. MLH1, MSH2 , MSH 6, PMS2 all came back positive. KRAS was positive for the mutation. NRS was negative. BRAF mutation was negative. He had ileus after his surgery and he had a CT of abdomen and pelvis done on June 01, 2016 which did not show any evidence of hepatic metastasis. He had chest x-ray done on May 29, 2016, which showed 1.5 cm pulmonary nodule in the left mid-lung, not seen on the April 07, 2016 study. His tumor was staged as staged T2 N0 MX. So, the tumor was staged as stage I. Patient had a CT-guided biopsy of the enlarging left pulmonary nodule done on September 05, 2016, and the pathology came back positive for metastatic adenocarcinoma compatible with colonic origin. Patient had a PET CT scan done on September 28, 2016, which showed enlarging mass in the anterior aspect of the left upper lobe, currently 2.6 x 2.1 cm with SUV of 4.1. Previously this mass was 1.3 x 1.3 cm with SUV of 3.2. A previously visualized 3 mm micronodule in the posterior medial aspect of the left lower lobe currently measures 1.2 cm. Lateral and slightly inferior to this, there is a new second nodule measuring 1.3 cm in size. The nodules are not metabolically warm with maximal SUV of 3.2 and 2.3 respectively. Otherwise, chest is negative, and no other evidence of systemic disease. There is a hypodense left temporal lobe lesion that is unchanged. Patient received radiation therapy to the pulmonary metastasis completed on October 31, 2016. After his radiation therapy, patient has started chemotherapy with Avastin FOLFOX on November 14, 2016. HISTORY OF PRESENT ILLNESS Patient is here today for followup of his sigmoid colon cancer with pulmonary metastasis on chemotherapy with Avastin and FOLFOX. Patient has been hospitalized recently for pulmonary embolism and atrial fibrillation, currently on Coumadin, followed by Dr. Sofia for that. He was discharged from the hospital recently and he is complaining of cough with expectoration and shortness of breath. He has constipation. He has some soreness in the right side of the abdomen. Patient is scheduled for CT abdomen for that. 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 He is weak, tired and fatigued still. PAST MEDICAL HISTORY 1. Cluster headache. 2. Hypertension. PAST SURGICAL HISTORY 1. Eight knee surgeries. 2. Tonsillectomy as a child. 3. Sigmoid colectomy May 2016. FAMILY HISTORY Maternal grandfather had leukemia. Mother had skin cancer. SOCIAL HISTORY The patient is a with two children and grandchildren. He works for [employer]. He has never smoked. He denies any abuse of alcohol or illicit drugs. CURRENT MEDICATIONS 1. Propranolol. 2. Amitriptyline. 3. Lisinopril. 4. Meloxicam. 5. Coumadin. ALLERGIES No known drug allergies. REVIEW OF SYSTEMS CONSTITUTIONAL: No appetite or weight change. No fever, chills or sweating. No recent infection. HEENT: Ears: No tinnitus or hearing problem. Nose: No nasal discharge or epistaxis. Throat: No sore throat or mouth ulcers. Eyes: No diplopia or visual changes. RESPIRATORY: The patient has cough with expectoration and shortness of breath. CARDIOVASCULAR: No chest pain, orthopnea, or paroxysmal nocturnal dyspnea (PND) . No edema. No palpitations. GASTROINTESTINAL: The patient has constipation and soreness on the right side of the abdomen. GENITOURINARY: No hematuria or dysuria. MUSCULOSKELETAL: He has pain in the right knee. NEUROLOGICAL: He has tingling and numbness in his hands and feet. HEMATOLOGIC/LYMPHATIC: He is weak tired, and fatigued. SKIN: No skin rash or lumps. PSYCHIATRIC: No anxiety or depression. PHYSICAL EXAMINATION GENERAL: Looks stable. Well-developed, well-nourished, and in no acute distress. VITAL SIGNS: Blood pressure 129/83, pulse 97 per minute, respirations 18 per minute, pulse ox 95% on 3L oxygen. HEENT: Head: Atraumatic. No sinus tenderness to palpation. Eyes: No icterus or conjunctivitis. Mouth and throat: No oral thrush or mucositis. NECK: Supple. No cervical or supraclavicular lymphadenopathy. LUNGS: Clear to auscultation and percussion bilaterally. HEART: Regular rate and rhythm. No gallops, murmurs, clicks or rubs. ABDOMEN: Soft and lax. No tenderness. No hepatosplenomegaly. No masses. EXTREMITIES: No cyanosis, clubbing or edema. LYMPHATICS: No peripheral lymphadenopathy. NEUROLOGICAL: Conscious, alert and oriented times three. No focal motor or sensory deficits. PSYCHIATRIC: Mood and affect appear normal. SKIN: No skin rash, bruise or purpuric eruption. DIAGNOSTIC DATA CBC showed a white count of 7.2, hemoglobin 8.5, hematocrit 25.9, platelets 291, 000. Chem panel showed alkaline phosphatase 188. CEA is 1.4. ASSESSMENT 1. Stage IV (T2 N0 M1) sigmoid colon adenocarcinoma status post sigmoid colectomy done May 26, 2016. Tumor was invading the muscularis propria and 13 lymph nodes were negative for metastasis. No lymphovascular invasion and negative margins. KRAS was positive, NRAS was negative, BRAF was negative, but KRAS was positive. Patient was found to have a nodule in the left upper lobe 1.5 cm of the lung. PET CT scan April 20, 2016 showed a focus of high activity within the sigmoid colon which represents the primary malignancy. There was a 1.3 cm cavitary pulmonary nodule in the left upper lobe which was only warm regarding the glucose uptake. There was hypodense non-glucose avid lesion in the left temporal lobe of the brain, probably representing a remote ischemic event. CT-guided biopsy of the left pulmonary nodule done September 05, 2016 was positive for invasive adenocarcinoma consistent with colonic primary. Repeat CT scan on September 28, 2016 showed left upper lobe nodule measuring 2.6 cm with SUV 4.1, and it was initially 1.3 cm with SUV 3.2. The previously visualized 3 mm micro nodule in the posteromedial aspect of the left lower lobe of the lung measured 1.2 with SUV 3.2. There was another slightly inferior and lateral to this nodule 1.3 cm with SUV 2.3. The temporal lobe of the brain hypodense lesion is unchanged. The patient received IMRT radiation of the pulmonary metastasis completed October 31, 2016. He started treatment with Avastin and FOLFOX November 14, 2016. Patient was admitted to the hospital recently with pulmonary embolism and atrial fibrillation, currently on Coumadin. He is still weak and tired, and for this reason I am planning to see him again in two weeks with CBC, chem panel and CEA, and will possibly resume his chemotherapy at that time. I explained that to the patient. He is agreeable with the plan of management. 2. History of pulmonary embolism on Coumadin. 3. History of atrial fibrillation on Coumadin, and the patient is followed by Dr. Sofia for adjustment of the dose. 4. Hypertension. 5. Arthritis, on treatment. PLAN 1. Continue followup. 2. Patient to return in two weeks with CBC, chem panel and CEA. 3. Consider resuming chemotherapy with Avastin and FOLFOX if his general condition improves in two weeks. 4. Patient is to contact us for any new concerns or complaints. MTDD
[2017-05-04 10:15] VITALS: BP 121/72
--- NOTE | 2017-05-04 12:26 | ONC Progress Note - NP.Halsey ---
Patient History Date of Service May 04, 2017 Reason For Visit/HPI Patient is here today for follow-up of his sigmoid colon cancer with pulmonary metastasis on chemotherapy with Avastin and FOLFOX. Patient's treatment has been on hold after patient's hospitalization. Patient experienced a pulmonary embolism and atrial fibrillation and was in ICU, followed by medical surgical floor and then extended care. Patient followed with Dr. Weston on 04/13/2017 with a recommendation to return in 2 weeks with repeat labs to include a CEA tumor marker. CEA is currently at 1.7 which is a minimal increased from previous. Patient continues to have home health services assisting with lab draw and ADLs. Patient is using a walker for mobilization and has oxygen. He does not feel safe to drive and has arranged for transportation to today's appointment. His son is doing all of the grocery shopping and most of the cooking. Patient does not feel at this time that he is ready to go back to chemotherapy and would like a little more time to continue to increase his strength. He is receiving physical therapy at home through home health services. He has no concerns today. Problem List (1) Adenocarcinoma of sigmoid colon Oncology History The patient is a 66-year-old male who had screening colonoscopy and patient found to have a mass at the sigmoid colon. He ended by having sigmoid colectomy done on May 26, 2016, and the pathology came back positive for moderately differentiated colonic adenocarcinoma, grade II-III with 15 lymph nodes negative for metastasis. Tumor was invading into the muscularis propria. Margins were negative. Lymphovascular invasion was also negative. MLH1, MSH2 , MSH 6, PMS2 all came back positive. KRAS was positive for the mutation. NRS was negative. BRAF mutation was negative. He had ileus after his surgery and he had a CT of abdomen and pelvis done on June 01, 2016 which did not show any evidence of hepatic metastasis. He had chest x-ray done on May 29, 2016, which showed 1.5 cm pulmonary nodule in the left mid-lung, not seen on the April 07, 2016 study. His tumor was staged as staged T2 N0 MX. So, the tumor was staged as stage I. Patient had a CT-guided biopsy of the enlarging left pulmonary nodule done on September 05, 2016, and the pathology came back positive for metastatic adenocarcinoma compatible with colonic origin. Patient had a PET CT scan done on September 28, 2016, which showed enlarging mass in the anterior aspect of the left upper lobe, currently 2.6 x 2.1 cm with SUV of 4.1. Previously this mass was 1.3 x 1.3 cm with SUV of 3.2. A previously visualized 3 mm micronodule in the posterior medial aspect of the left lower lobe currently measures 1.2 cm. Lateral and slightly inferior to this, there is a new second nodule measuring 1.3 cm in size. The nodules are not metabolically warm with maximal SUV of 3.2 and 2.3 respectively. Otherwise, chest is negative, and no other evidence of systemic disease. There is a hypodense left temporal lobe lesion that is unchanged. Patient received radiation therapy to the pulmonary metastasis completed on October 31, 2016. After his radiation therapy, patient has started chemotherapy with Avastin FOLFOX on November 14, 2016. Patient was admitted to the hospital with pulmonary embolism and atrial fibrillation, currently has been started on Coumadin managed by Dr. Sofia. CEA today is 1.7 Avastin therapy will be discontinued due to pulmonary embolism. Psychosocial History Social History The patient is a with two children and grandchildren. He works for [email or web address]. He has never smoked. He denies any abuse of alcohol or illicit drugs. Smoking History: No Smoking Status: Never Smoker Exposure to Second Hand Smoke?: Yes Medications and Allergies Active Scripts Warfarin Sodium (WARFARIN SODIUM) 5 Mg Tablet, 7.5 MG PO QDAY, #135 TAB Prov:IRLANDA BASILIO MD 04/05/17 Metronidazole (METRONIDAZOLE) 500 Mg Tablet, 1 TAB PO QID, #60 TAB 0 Refills Prov:LISSETH RUSH MD 04/04/17 Levofloxacin 500 Mg Tab (LEVAQUIN 500 MG TAB) 500 Mg Tablet, 1 TAB PO QDAY, #14 TAB 0 Refills Prov:LISSETH RUSH MD 04/04/17 Granisetron Hcl (SANCUSO) 3.1 Mg/24 Hr Patch.td24, 3.1 MG TD Q7DAY, #2 MG 5 Refills apply one patch 24 hours prior to treatment and leave on for 7 days. Treatment is every 2 weeks. Prov:KAILYN GOFF [employer] ATTENDANT-BC, ONC 11/28/16 Reported Medications Propranolol Hcl (PROPRANOLOL HCL) 20 Mg Tablet, 20 MG PO QHS, TAB 03/29/16 Amitriptyline Hcl (AMITRIPTYLINE HCL) 25 Mg Tablet, 25 MG PO QHS, #5 TAB 03/29/16 Lisinopril (LISINOPRIL) 10 Mg Tablet, 10 MG PO QDAY, TAB 03/29/16 Allergies: Coded Allergies: No Known Drug Allergies (Unverified , 06/17/16) Review of System/Physical Exam Review of Systems All Systems Reviewed/Normal: Yes, Except as Noted Respiratory: Positive for Shortness of Breath (currently on oxygen 3 L per nasal cannula) Hematologic: Positive for Fatigue, Positive for Weakness Musculoskeletal: Positive for Joint Pain (right knee pain is improved), Positive for Bone Pain Skin: Positive for Other Physical Exam Vital Signs Temperature: 97.4 Pulse: 77 BP Systolic: 121 BP Diastolic: 72 Respiratory Rate: 16 O2 SAT: 94 O2 Delivery: Height (inches) 72.00 Weight lb: 282 Weight oz: 14.0 Weight Kg (James): [id number] Pain: 0 ECOG Score: 1 General: Stable, Well Developed, Well Nourished, Not In Acute Distress HEENT: No Trauma, No Conjunctivitis, No Icterus, No Mucositis, No Oral Thrush Neck: Supple Lungs: Clear to Auscultation Heart: Regular Rate, Regular Rhythm, No Gallops, No Murmurs Abdomen: Soft and Nontender, No Hepatosplenomegaly, No Masses, Other (bowel sounds are active) Extremities: No Cyanosis, No Clubbing, No Edema Psychiatric: Mood appears normal, Affect appears normal Skin: No Skin Rashes, No Bruising, No Purpura Diagnostic Studies Diagnostic Studies Laboratory Item Value Date Time Red Blood Count 3.89 M/uL L 05/01/17 1027 Hemoglobin 11.0 g/dL L 05/01/17 1027 Hematocrit 32.9 % L 05/01/17 1027 Red Cell Distribution Width 20.9 % H 05/01/17 1027 Lymphocytes (%) (Auto) 16.7 % L 05/01/17 1027 Lymphocytes # (Auto) 1.0 K/uL L 05/01/17 1027 Neutrophils # (Auto) 4.2 K/uL 05/01/17 1027 Direct Bilirubin 0.4 mg/dl H 03/28/17 0455 Aspartate Amino Transf (AST/SGOT) 27 U/L 03/28/17 0455 Alanine Aminotransferase (ALT/SGPT) 30 U/L 03/28/17 0455 Assessment and Plan Assessment & Plan 1. Stage IV (T2 N0 M1) sigmoid colon adenocarcinoma status post sigmoid colectomy done May 26, 2016. Tumor was invading the muscularis propria and 13 lymph nodes were negative for metastasis. No lymphovascular invasion and negative margins. KRAS was positive, NRAS was negative, BRAF was negative, but KRAS was positive. Patient was found to have a nodule in the left upper lobe 1.5 cm of the lung. PET CT scan April 20, 2016 showed a focus of high activity within the sigmoid colon which represents the primary malignancy. There was a 1.3 cm cavitary pulmonary nodule in the left upper lobe which was only warm regarding the glucose uptake. There was hypodense non-glucose avid lesion in the left temporal lobe of the brain, probably representing a remote ischemic event. CT-guided biopsy of the left pulmonary nodule done September 05, 2016 was positive for invasive adenocarcinoma consistent with colonic primary. Repeat CT scan on September 28, 2016 showed left upper lobe nodule measuring 2.6 cm with SUV 4.1, and it was initially 1.3 cm with SUV 3.2. The previously visualized 3 mm micro nodule in the posteromedial aspect of the left lower lobe of the lung measured 1.2 with SUV 3.2. There was another slightly inferior and lateral to this nodule 1.3 cm with SUV 2.3. The temporal lobe of the brain hypodense lesion is unchanged. The patient received IMRT radiation of the pulmonary metastasis completed October 31, 2016. He started treatment with Avastin and FOLFOX November 14, 2016. Patient was admitted to the hospital recently with pulmonary embolism and atrial fibrillation, currently on Coumadin. Avastin will be discontinued. He is still weak and tired, and for this reason I am planning to see him again in two weeks with CBC, chem panel and CEA, and will possibly resume his chemotherapy at that time. I explained that to the patient. He is agreeable with the plan of management. 2. History of pulmonary embolism on Coumadin managed by primary care, Dr. Sofia 3. History of atrial fibrillation on Coumadin, and the patient is followed by Dr. Sofia for adjustment of the dose. 4. Hypertension stable today, 5. Arthritis, on treatment. Slightly improved on exam today. 6. Weakness and fatigue related to chemotherapy and recent hospitalization. Patient requests 2 more weeks for time to recover. He continues with physical therapy through home health services. PLAN 1. Continue followup. 2. Patient to return in two weeks with CBC, chem panel and CEA. 3. Plan to resume chemotherapy with FOLFOX , Avastin will be discontinued as it is contraindicated after embolism or bowel obstructions 4. Patient is to contact us for any new concerns or complaints. D/T: I personally spent a total of 20 minutes. Of that 20 minutes was counseling/ coordination of patient's care. See my note above for details. Copies to: DELIA SOFIA NANCY J FILLING [employer]ATION ATTENDANT-BC, ONC May 04, 2017 12:26
[2017-05-22 08:38] VITALS: BP 110/68
[2017-05-22] MEDS: LIDOCAINE/SOD BICARB 8.4% SYR ID PRN (09:00)
[2017-05-22] MEDS: NS(*) 0.9% 500 ML BAG 500 ML IV PRN (09:02)
[2017-05-22] MEDS: PALONOSETRON 0.25 MG/5 ML VIAL IVP PRN (09:42)
[2017-05-22] MEDS: DEXAMETHASONE SOD PHOS 10MG/ML IVP PRN (09:42)
[2017-05-22] MEDS: DEXTROSE 5%(*) 100 ML BAG 100 ML IVPB PRN (10:21)
[2017-05-22 13:06] VITALS: BP 132/75
[2017-05-24 12:16] VITALS: BP 125/80
[2017-05-24] MEDS: HEPARIN FLSH (PORT) 500 UN/5ML IVP PRN (12:16)
[2017-05-25 08:55] VITALS: BP 119/71
--- NOTE | 2017-05-25 17:53 | ONCOLOGY FOLLOW UP NOTE ---
EVENT DATE: May 25, 2017 DIAGNOSES 1. Stage IV sigmoid colon adenocarcinoma. 2. 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 3. History of cluster headache. 4. Hypertension. 5. Arthritis. CHIEF COMPLAINT Patient is here today for followup of his sigmoid colon with pulmonary metastasis on chemotherapy with Avastin and FOLFOX. ONCOLOGY HISTORY The patient is a 67-year-old male who had screening colonoscopy and patient found to have a mass at the sigmoid colon. He ended by having sigmoid colectomy done on May 26, 2016, and the pathology came back positive for moderately differentiated colonic adenocarcinoma, grade II-III with 15 lymph nodes negative for metastasis. Tumor was invading into the muscularis propria. Margins were negative. Lymphovascular invasion was also negative. MLH1, MSH2 , MSH 6, PMS2 all came back positive. KRAS was positive for the mutation. NRS was negative. BRAF mutation was negative. He had ileus after his surgery and he had a CT of abdomen and pelvis done on June 01, 2016 which did not show any evidence of hepatic metastasis. He had chest x-ray done on May 29, 2016, which showed 1.5 cm pulmonary nodule in the left mid-lung, not seen on the April 07, 2016 study. His tumor was staged as staged T2 N0 MX. So, the tumor was staged as stage I. Patient had a CT-guided biopsy of the enlarging left pulmonary nodule done on September 05, 2016, and the pathology came back positive for metastatic adenocarcinoma compatible with colonic origin. Patient had a PET CT scan done on September 28, 2016, which showed enlarging mass in the anterior aspect of the left upper lobe, currently 2.6 x 2.1 cm with SUV of 4.1. Previously this mass was 1.3 x 1.3 cm with SUV of 3.2. A previously visualized 3 mm micronodule in the posterior medial aspect of the left lower lobe currently measures 1.2 cm. Lateral and slightly inferior to this, there is a new second nodule measuring 1.3 cm in size. The nodules are not metabolically warm with maximal SUV of 3.2 and 2.3 respectively. Otherwise, chest is negative, and no other evidence of systemic disease. There is a hypodense left temporal lobe lesion that is unchanged. Patient received radiation therapy to the pulmonary metastasis completed on October 31, 2016. After his radiation therapy, patient has started chemotherapy with Avastin FOLFOX on November 14, 2016. HISTORY OF PRESENT ILLNESS Patient is here today for followup of his sigmoid colon cancer with pulmonary metastasis on treatment with Avastin and FOLFOX. Patient is doing fine currently. He has constipation. He has also pain in his right knee. 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 He has mild weakness, tiredness and fatigue. PAST MEDICAL HISTORY 1. Cluster headache. 2. Hypertension. PAST SURGICAL HISTORY 1. Eight knee surgeries. 2. Tonsillectomy as a child. 3. Sigmoid colectomy May 2016. FAMILY HISTORY Maternal grandfather had leukemia. Mother had skin cancer. SOCIAL HISTORY The patient is a with two children and grandchildren. He works for [employer]. He has never smoked. He denies any abuse of alcohol or illicit drugs. CURRENT MEDICATIONS 1. Propranolol. 2. Amitriptyline. 3. Lisinopril. 4. Meloxicam. 5. Coumadin. ALLERGIES No known drug allergies. REVIEW OF SYSTEMS CONSTITUTIONAL: No appetite or weight change. No fever, chills or sweating. No recent infection. HEENT: Ears: No tinnitus or hearing problem. Nose: No nasal discharge or epistaxis. Throat: No sore throat or mouth ulcers. Eyes: No diplopia or visual changes. RESPIRATORY: The patient has cough with expectoration and shortness of breath. CARDIOVASCULAR: No chest pain, orthopnea, or paroxysmal nocturnal dyspnea (PND) . No edema. No palpitations. GASTROINTESTINAL: The patient has constipation. GENITOURINARY: No hematuria or dysuria. MUSCULOSKELETAL: He has pain in the right knee. NEUROLOGICAL: He has tingling and numbness in his hands and feet. HEMATOLOGIC/LYMPHATIC: He is weak tired, and fatigued. SKIN: No skin rash or lumps. PSYCHIATRIC: No anxiety or depression. PHYSICAL EXAMINATION GENERAL: Looks stable. Well-developed, well-nourished, and in no acute distress. VITAL SIGNS: Blood pressure 119/71, pulse 78 per minute, respirations 16 per minute, temperature 96.7, pulse ox 93% on 3L oxygen. HEENT: Head: Atraumatic. No sinus tenderness to palpation. Eyes: No icterus or conjunctivitis. Mouth and throat: No oral thrush or mucositis. NECK: Supple. No cervical or supraclavicular lymphadenopathy. LUNGS: Clear to auscultation and percussion bilaterally. HEART: Regular rate and rhythm. No gallops, murmurs, clicks or rubs. ABDOMEN: Soft and lax. No tenderness. No hepatosplenomegaly. No masses. EXTREMITIES: No cyanosis, clubbing or edema. LYMPHATICS: No peripheral lymphadenopathy. NEUROLOGICAL: Conscious, alert and oriented times three. No focal motor or sensory deficits. PSYCHIATRIC: Mood and affect appear normal. SKIN: No skin rash, bruise or purpuric eruption. DIAGNOSTIC DATA CBC showed a white count of 6.3, hemoglobin 11.2, hematocrit 33.5, platelets 189 ,000. Chem panel totally normal except BUN 25, blood sugar 128. Other parameters are normal. CEA is normal at 2.1. CT abdomen and pelvis done on May 01, 2017 showed postoperative changes at the rectosigmoid junction with fluid collection to the anastomosis, which is minimally decreased in size. There is another second fluid collection in the right abdomen tracking toward the right paracolic gutter, which also slightly decreased in size. There is persistent infiltration of the fat plains in the right paracolic gutter, unchanged. There is persistent right external iliac adenopathy and improved aeration at the lung bases. ASSESSMENT 1. Stage IV (T2 N0 M1) sigmoid colon adenocarcinoma status post sigmoid colectomy done May 26, 2016. Tumor was invading the muscularis propria and 13 lymph nodes were negative for metastasis. No lymphovascular invasion and negative margins. KRAS was positive, NRAS was negative, BRAF was negative, but KRAS was positive, so Erbitux was not chosen for treatment. Patient was found to have a nodule in the left upper lobe 1.5 cm of the lung. PET CT scan April 20, 2016 showed a focus of high activity within the sigmoid colon which represents the primary malignancy. There was a 1.3 cm cavitary pulmonary nodule in the left upper lobe which was only warm regarding the glucose uptake. There was hypodense non-glucose lesion in the left temporal lobe of the brain , probably representing a remote ischemic event. CT-guided biopsy of the left pulmonary nodule done September 05, 2016 was positive for invasive adenocarcinoma consistent with colonic primary. Repeat CT scan on September 28, 2016 showed left upper lobe nodule measuring 2.6 cm with SUV 4.1, and it was initially 1.3 cm with SUV 3.2. The previously visualized 3 mm micro nodule in the posteromedial aspect of the left lower lobe of the lung measured 1.2 with SUV 3.2. There was another slightly inferior and lateral to this nodule 1.3 cm with SUV 2.3. The temporal lobe of the brain hypodense lesion is unchanged. The patient received IMRT radiation of the pulmonary metastasis completed October 31, 2016. He started treatment with Avastin and FOLFOX November 14, 2016. He was discharged from the hospital recently with pulmonary embolism and atrial fibrillation, currently on Coumadin. He started his ninth cycle of FOLFOX on May 22, 2017, and I am planning to see him again in two weeks with CBC, chem panel and CEA. He is doing really well currently without any complication at the moment. 2. History of pulmonary embolism on Coumadin. 3. History of atrial fibrillation on Coumadin. Patient is followed by Dr. Sofia for adjustment of the dose of Coumadin. 4. Hypertension. 5. Arthritis, on treatment. PLAN 1. FOLFOX cycle number nine. 2. CBC, chem panel to be checked weekly. 3. Patient to return in two weeks with CBC, chem panel, CEA. 4. Continue Coumadin, and adjustment will be made by Dr. Sofia. 5. Patient is to contact us for any new concerns or complaints. MTDD
[2017-05-30 15:28] LABS: PLATELET COUNT, AUTOMATED 171 K/uL (150-450)
[2017-05-30 17:27] VITALS: BP 124/68
[2017-06-05 10:16] VITALS: BP 135/79
[2017-06-05] MEDS: LIDOCAINE/SOD BICARB 8.4% SYR ID PRN (10:23)
[2017-06-05] MEDS: NS(*) 0.9% 500 ML BAG 500 ML IV PRN (10:24)
[2017-06-05 10:37] LABS: PLATELET COUNT, AUTOMATED 146 K/uL (150-450)
[2017-06-05] MEDS: DEXAMETHASONE SOD PHOS 10MG/ML IVP PRN (11:09)
[2017-06-05] MEDS: PALONOSETRON 0.25 MG/5 ML VIAL IVP PRN (11:09)
[2017-06-05 14:27] VITALS: BP 123/78
[2017-06-07 13:43] VITALS: BP 127/74
[2017-06-07] MEDS: HEPARIN FLSH (PORT) 500 UN/5ML IVP PRN (13:43)
[2017-06-14 13:44] LABS: PLATELET COUNT, AUTOMATED 163 K/uL (150-450)
[2017-06-14 15:57] VITALS: BP 124/77
[2017-06-19 09:54] VITALS: BP 124/72
[2017-06-19] MEDS: LIDOCAINE/SOD BICARB 8.4% SYR ID PRN (10:05)
[2017-06-19] MEDS: NS(*) 0.9% 500 ML BAG 500 ML IV PRN (10:06)
[2017-06-19] MEDS: PALONOSETRON 0.25 MG/5 ML VIAL IVP PRN (10:33)
[2017-06-19] MEDS: DEXAMETHASONE SOD PHOS 10MG/ML IVP PRN (10:33)
[2017-06-19] MEDS: DEXTROSE 5%(*) 100 ML BAG 100 ML IVPB PRN (11:17)
[2017-06-19 13:50] VITALS: BP 134/74
[2017-06-21] MEDS: HEPARIN FLSH (PORT) 500 UN/5ML IVP PRN (13:55)
[2017-06-21 14:20] VITALS: BP 117/73
--- NOTE | 2017-06-21 18:32 | ONCOLOGY FOLLOW UP NOTE ---
EVENT DATE: June 21, 2017 DIAGNOSES 1. Stage IV sigmoid colon adenocarcinoma. 2. 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 3. History of cluster headache. 4. Hypertension. 5. Arthritis. CHIEF COMPLAINT Patient is here today for his cycle number 11 of FOLFOX for his sigmoid colon with pulmonary metastasis. ONCOLOGY HISTORY The patient is a 67-year-old male who had screening colonoscopy and patient found to have a mass at the sigmoid colon. He ended by having sigmoid colectomy done on May 26, 2016, and the pathology came back positive for moderately differentiated colonic adenocarcinoma, grade II-III with 15 lymph nodes negative for metastasis. Tumor was invading into the muscularis propria. Margins were negative. Lymphovascular invasion was also negative. MLH1, MSH2 , MSH 6, PMS2 all came back positive. KRAS was positive for the mutation. NRS was negative. BRAF mutation was negative. He had ileus after his surgery and he had a CT of abdomen and pelvis done on June 01, 2016 which did not show any evidence of hepatic metastasis. He had chest x-ray done on May 29, 2016, which showed 1.5 cm pulmonary nodule in the left mid-lung, not seen on the April 07, 2016 study. His tumor was staged as staged T2 N0 MX. So, the tumor was staged as stage I. Patient had a CT-guided biopsy of the enlarging left pulmonary nodule done on September 05, 2016, and the pathology came back positive for metastatic adenocarcinoma compatible with colonic origin. Patient had a PET CT scan done on September 28, 2016, which showed enlarging mass in the anterior aspect of the left upper lobe, currently 2.6 x 2.1 cm with SUV of 4.1. Previously this mass was 1.3 x 1.3 cm with SUV of 3.2. A previously visualized 3 mm micronodule in the posterior medial aspect of the left lower lobe currently measures 1.2 cm. Lateral and slightly inferior to this, there is a new second nodule measuring 1.3 cm in size. The nodules are not metabolically warm with maximal SUV of 3.2 and 2.3 respectively. Otherwise, chest is negative, and no other evidence of systemic disease. There is a hypodense left temporal lobe lesion that is unchanged. Patient received radiation therapy to the pulmonary metastasis completed on October 31, 2016. After his radiation therapy, patient has started chemotherapy with Avastin FOLFOX on November 14, 2016. Avastin was discontinued with his ninth cycle, started on May 22, 2017. HISTORY OF PRESENT ILLNESS Patient is here today for followup of his sigmoid colon cancer with pulmonary metastasis on treatment with FOLFOX. This will be cycle number 11 of FOLFOX. 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 He is weak, tired and fatigued. PAST MEDICAL HISTORY 1. Cluster headache. 2. Hypertension. PAST SURGICAL HISTORY 1. Eight knee surgeries. 2. Tonsillectomy as a child. 3. Sigmoid colectomy May 2016. FAMILY HISTORY Maternal grandfather had leukemia. Mother had skin cancer. SOCIAL HISTORY The patient is a with two children and grandchildren. He works for [employer]. He has never smoked. He denies any abuse of alcohol or illicit drugs. CURRENT MEDICATIONS 1. Propranolol. 2. Amitriptyline. 3. Lisinopril. 4. Meloxicam. 5. Coumadin. ALLERGIES No known drug allergies. REVIEW OF SYSTEMS CONSTITUTIONAL: No appetite or weight change. No fever, chills or sweating. No recent infection. HEENT: Ears: No tinnitus or hearing problem. Nose: No nasal discharge or epistaxis. Throat: No sore throat or mouth ulcers. Eyes: No diplopia or visual changes. RESPIRATORY: The patient has cough with expectoration and shortness of breath. CARDIOVASCULAR: No chest pain, orthopnea, or paroxysmal nocturnal dyspnea (PND) . No edema. No palpitations. GASTROINTESTINAL: The patient has constipation. GENITOURINARY: No hematuria or dysuria. MUSCULOSKELETAL: He has pain in the right knee. NEUROLOGICAL: He has tingling and numbness in his hands and feet. He has also headache. HEMATOLOGIC/LYMPHATIC: He is weak tired, and fatigued. SKIN: No skin rash or lumps. PSYCHIATRIC: No anxiety or depression. PHYSICAL EXAMINATION GENERAL: Looks stable. Well-developed, well-nourished, and in no acute distress. VITAL SIGNS: Blood pressure 117/73, pulse 63 per minute, respirations 16 per minute, temperature 97.6, pulse ox 90% on 3L oxygen. HEENT: Head: Atraumatic. No sinus tenderness to palpation. Eyes: No icterus or conjunctivitis. Mouth and throat: No oral thrush or mucositis. NECK: Supple. No cervical or supraclavicular lymphadenopathy. LUNGS: Clear to auscultation and percussion bilaterally. HEART: Regular rate and rhythm. No gallops, murmurs, clicks or rubs. ABDOMEN: Soft and lax. No tenderness. No hepatosplenomegaly. No masses. EXTREMITIES: No cyanosis, clubbing or edema. LYMPHATICS: No peripheral lymphadenopathy. NEUROLOGICAL: Conscious, alert and oriented times three. No focal motor or sensory deficits. PSYCHIATRIC: Mood and affect appear normal. SKIN: No skin rash, bruise or purpuric eruption. DIAGNOSTIC DATA CBC showed a white count of 7.2, hemoglobin 11.4, hematocrit 32.7, platelets 138 ,000. ANC 4.8. Chem panel is totally normal. CEA is normal at 2.2. ASSESSMENT 1. Stage IV (T2 N0 M1) sigmoid colon adenocarcinoma status post sigmoid colectomy done May 26, 2016. Tumor was invading the muscularis propria and 13 lymph nodes were negative for metastasis. No lymphovascular invasion and the margins were negative. KRAS mutation was positive, NRAS was negative, BRAF was negative. Erbitux was not an option in his treatment because of the positivity of the KRAS mutation. Patient was also found to have a nodule in the left upper lobe 1.5 cm, and PET CT scan April 20, 2016 showed a focus of high activity within the sigmoid colon, which represents the primary malignancy. There was a 1.3 cm cavitary pulmonary nodule in the left upper lobe which was only warm regarding the glucose uptake. There was hypodense non- glucose lesion in the left temporal lobe of the brain, probably representing a remote ischemic event. CT-guided biopsy of the left pulmonary nodule done September 05, 2016 was positive for invasive adenocarcinoma consistent with colonic primary. Repeat CT scan on September 28, 2016 showed left upper lobe nodule measuring 2.6 cm with SUV 4.1, and initially it was 1.3 cm with SUV 3.2. The previously visualized 3 mm micro nodule metastasis in the left lower lobe of the lung measured 1.2 cm with SUV 3.2. There was another slightly inferior and lateral to this nodule 1.3 cm with SUV 2.3. The temporal lobe of the brain hypodense lesion is unchanged. The patient received IMRT of the pulmonary nodules, completed October 31, 2016. He started treatment with Avastin and FOLFOX November 14, 2016. He was admitted to the hospital for pulmonary embolism and atrial fibrillation, on anticoagulation with Coumadin, and for this reason Avastin was discontinued with his ninth cycle of chemotherapy given on May 22, 2017. I am planning to proceed with his cycle number 11 of FOLFOX without Avastin this time. I will see him in two weeks prior to cycle number 12, and after his cycle number 12 I am planning to restage his cancer again to see his response to treatment. I am planning to check CBC, chem panel weekly and in two weeks with CEA with his next visit. 2. Chemotherapy-induced anemia. Current hemoglobin 11.4. Will continue to monitor. I will consider blood transfusion if the hemoglobin drops below 8 g/ dL. 3. History of atrial fibrillation on Coumadin. 4. History of pulmonary embolism on Coumadin. 5. Hypertension. 6. Arthritis. PLAN 1. FOLFOX cycle number 11. 2. CBC, chem panel to be checked weekly. 3. Patient to return in two weeks with CBC, chem panel, CEA. 4. Continue Coumadin, followed by Dr. Sofia. 5. Patient is to contact us for any new concerns or complaints. MTDD
[2017-06-29 14:52] VITALS: BP 144/80
[2017-06-29 15:36] LABS: PLATELET COUNT, AUTOMATED 135 K/uL (150-450)
[2017-06-29] MEDS: LIDOCAINE/SOD BICARB 8.4% SYR ID PRN (15:39)
[2017-06-29] MEDS: HEPARIN FLSH (PORT) 500 UN/5ML IVP PRN (15:39)
--- NOTE | 2017-06-29 20:00 | ONCOLOGY FOLLOW UP NOTE ---
EVENT DATE: June 29, 2017 DIAGNOSES 1. Stage IV sigmoid colon adenocarcinoma. 2. 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 3. History of cluster headache. 4. Hypertension. 5. Arthritis. CHIEF COMPLAINT Patient is here today for his cycle number 12 of FOLFOX for his sigmoid colon with pulmonary metastasis. ONCOLOGY HISTORY The patient is a 67-year-old male who had screening colonoscopy and patient found to have a mass at the sigmoid colon. He ended by having sigmoid colectomy done on May 26, 2016, and the pathology came back positive for moderately differentiated colonic adenocarcinoma, grade II-III with 15 lymph nodes negative for metastasis. Tumor was invading into the muscularis propria. Margins were negative. Lymphovascular invasion was also negative. MLH1, MSH2 , MSH 6, PMS2 all came back positive. KRAS was positive for the mutation. NRS was negative. BRAF mutation was negative. He had ileus after his surgery and he had a CT of abdomen and pelvis done on June 01, 2016 which did not show any evidence of hepatic metastasis. He had chest x-ray done on May 29, 2016, which showed 1.5 cm pulmonary nodule in the left mid-lung, not seen on the April 07, 2016 study. His tumor was staged as staged T2 N0 MX. So, the tumor was staged as stage I. Patient had a CT-guided biopsy of the enlarging left pulmonary nodule done on September 05, 2016, and the pathology came back positive for metastatic adenocarcinoma compatible with colonic origin. Patient had a PET CT scan done on September 28, 2016, which showed enlarging mass in the anterior aspect of the left upper lobe, currently 2.6 x 2.1 cm with SUV of 4.1. Previously this mass was 1.3 x 1.3 cm with SUV of 3.2. A previously visualized 3 mm micronodule in the posterior medial aspect of the left lower lobe currently measures 1.2 cm. Lateral and slightly inferior to this, there is a new second nodule measuring 1.3 cm in size. The nodules are not metabolically warm with maximal SUV of 3.2 and 2.3 respectively. Otherwise, chest is negative, and no other evidence of systemic disease. There is a hypodense left temporal lobe lesion that is unchanged. Patient received radiation therapy to the pulmonary metastasis completed on October 31, 2016. After his radiation therapy, patient has started chemotherapy with Avastin FOLFOX on November 14, 2016. Avastin was discontinued with his ninth cycle, started on May 22, 2017. Patient completed 12 courses of FOLFOX on June ____ 2016. HISTORY OF PRESENT ILLNESS Patient is here today for followup of his metastatic colon cancer with pulmonary metastasis on chemotherapy with FOLFOX. The patient is doing fine. His general condition is much better. He is complaining of shortness of breath , constipation and neuropathy in his hands and feet from oxaliplatin. PAST MEDICAL HISTORY 1. Cluster headache. 2. Hypertension. PAST SURGICAL HISTORY 1. Eight knee surgeries. 2. Tonsillectomy as a child. 3. Sigmoid colectomy May 2016. FAMILY HISTORY Maternal grandfather had leukemia. Mother had skin cancer. SOCIAL HISTORY The patient is a with two children and grandchildren. He works for [employer]. He has never smoked. He denies any abuse of alcohol or illicit drugs. CURRENT MEDICATIONS 1. Propranolol. 2. Amitriptyline. 3. Lisinopril. 4. Meloxicam. 5. Coumadin. ALLERGIES No known drug allergies. REVIEW OF SYSTEMS CONSTITUTIONAL: No appetite or weight change. No fever, chills or sweating. No recent infection. HEENT: Ears: No tinnitus or hearing problem. Nose: No nasal discharge or epistaxis. Throat: No sore throat or mouth ulcers. Eyes: No diplopia or visual changes. RESPIRATORY: The patient has shortness of breath. CARDIOVASCULAR: No chest pain, orthopnea, or paroxysmal nocturnal dyspnea (PND) . No edema. No palpitations. GASTROINTESTINAL: He has occasional constipation. GENITOURINARY: No hematuria or dysuria. MUSCULOSKELETAL: Denies any musculoskeletal pain. NEUROLOGICAL: He has tingling and numbness in his hands and feet from oxaliplatin-induced neuropathy. HEMATOLOGIC/LYMPHATIC: He is weak tired, and fatigued. SKIN: No skin rash or lumps. PSYCHIATRIC: No anxiety or depression. PHYSICAL EXAMINATION GENERAL: Looks stable. Well-developed, well-nourished, and in no acute distress. VITAL SIGNS: Blood pressure 144/80, pulse 92 per minute, respirations 16 per minute, temperature 97.1, pulse ox 92% on 3L oxygen. HEENT: Head: Atraumatic. No sinus tenderness to palpation. Eyes: No icterus or conjunctivitis. Mouth and throat: No oral thrush or mucositis. NECK: Supple. No cervical or supraclavicular lymphadenopathy. LUNGS: Clear to auscultation and percussion bilaterally. HEART: Regular rate and rhythm. No gallops, murmurs, clicks or rubs. ABDOMEN: Soft and lax. No tenderness. No hepatosplenomegaly. No masses. EXTREMITIES: No cyanosis, clubbing or edema. LYMPHATICS: No peripheral lymphadenopathy. NEUROLOGICAL: Conscious, alert and oriented times three. No focal motor or sensory deficits. PSYCHIATRIC: Mood and affect appear normal. SKIN: No skin rash, bruise or purpuric eruption. DIAGNOSTIC DATA CBC showed a white count of 7.2, hemoglobin 11.4, hematocrit 32.7, platelets 138 ,000. Chem panel is totally normal. CEA is normal at 2.2. ASSESSMENT 1. Stage IV (T2 N0 M1) sigmoid colon adenocarcinoma status post sigmoid colectomy done May 26, 2016. Tumor was invading the muscularis propria and 13 lymph nodes were negative for metastasis. No lymphovascular invasion and the margins were negative. KRAS mutation was positive, NRAS was negative, BRAF was negative. Erbitux was not an option in his treatment because of the positivity of the KRAS mutation. There was a 1.5 cm left upper lobe nodule and PET CT scan April 20, 2016 showed a focus of high activity within the sigmoid colon, which represented a primary malignancy. There was a 1.3 cm cavitary pulmonary nodule in the left upper lobe which was only warm regarding the glucose uptake. There was hypodense non-glucose lesion in the left temporal lobe of the brain, probably representing a remote ischemic event. CT- guided biopsy of the left pulmonary nodule done September 05, 2016 was positive for invasive adenocarcinoma consistent with colonic primary. Repeat CT scan on September 28, 2016 showed left upper lobe nodule measuring 2.6 cm with SUV 4.1, and initially it was 1.3 cm with SUV 3.2. The previously visualized 3 mm micro nodule metastasis in the left lower lobe of the lung measured 1.2 cm with SUV 3.2. There was another slightly inferior and lateral to this nodule 1.3 cm with SUV 2.3. The temporal lobe of the brain hypodense lesion is unchanged. The patient received IMRT of the pulmonary nodules, completed October 31, 2016. He started treatment with Avastin and FOLFOX November 14, 2016. He completed 11 cycles so far and I am planning to proceed with his cycle 12 at this time. I am planning to see him in two weeks from now with CBC, chem panel, CEA and CT chest with IV contrast. Further evaluation and management will depend on the results of those tests. His current CEA is normal at 2.2. 2. Chemotherapy-induced anemia. Current hemoglobin 11.4 g/dL, which is stable. Will continue to monitor. 3. 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 Take the vitamin supplement. 4. History of pulmonary embolism on Coumadin, with difficulty to achieve a therapeutic INR. For this reason I am planning to stop the Coumadin and check INR daily until the INR is below 2. Then we will start Eliquis 10 mg twice daily for a week, to be followed by 5 mg twice daily after that. I explained that to the patient and he is agreeable with the plan of management. 5. History of atrial fibrillation. 6. Hypertension. 7. Arthritis. PLAN 1. FOLFOX cycle number 12. 2. CBC, chem panel to be checked weekly. 3. Patient to return in two weeks with CBC, chem panel, CEA and CT chest with IV contrast. 4. Stop Coumadin and check INR daily until INR is less than 2. Then you will start Eliquis 10 mg twice daily for a week, then 5 mg twice daily after that. 5. Patient is to contact us for any new concerns or complaints. MTDD
[2017-07-03 09:44] VITALS: BP_SYST 109; BP_SYST 144; BP_DIAS 72; BP_DIAS 80
[2017-07-03] MEDS: PALONOSETRON 0.25 MG/5 ML VIAL IVP PRN (11:18)
[2017-07-03] MEDS: DEXAMETHASONE SOD PHOS 10MG/ML IVP PRN (11:18)
[2017-07-03] MEDS: DEXTROSE 5%(*) 100 ML BAG 100 ML IVPB PRN (12:01)
[2017-07-03 14:17] VITALS: BP 133/83
[2017-07-05] MEDS: HEPARIN FLSH (PORT) 500 UN/5ML IVP PRN (13:22)
[2017-07-05 13:29] VITALS: BP 112/70
[~2017-07-09] VITALS: Ht 182.9 cm; Wt 130.8 kg
[~2017-07-09 10:00] MED LIST changes: +ALTEPLASE RECOMB 2 MG VIAL IVP PRN; +D5W IV ONE; +D5W IVPB ONE; +FLUOROURACIL 50 MG/ML SDV IVP ONE; +FLUOROURACIL IV ONE; -IOPAMIDOL 76% 75 ML INFUS BTL 75 ML ONE; +LEUCOVORIN CAL IV ONE; +LEUCOVORIN CALCIUM IV ONE; -NS 0.9% 20 ML SDV 40 ML ONE; +NS 0.9% IV ONE; +NS(*) 0.9% 100 ML BAG 100 ML IVPB PRN; +OXALIPLATIN IVPB ONE; +WATER FOR INJ,STERILE 20 ML IVP PRN; +WATER STERILE 10 ML VIAL IVP PRN; +[UNRECOGNIZED DRUG - OTHER] IV ONE
[2017-07-09 10:25] VITALS: BP 114/68
[2017-07-09] MEDS: LIDOCAINE/SOD BICARB 8.4% SYR ID PRN ×2 (10:28→10:41)
[2017-07-09] MEDS: HEPARIN FLSH (PORT) 500 UN/5ML IVP PRN ×2 (10:28→10:40)
[2017-07-09 10:43] LABS: PLATELET COUNT, AUTOMATED 116 K/uL (150-450)
[2017-07-09] MEDS ORDERED: IOPAMIDOL 76% 75 ML INFUS BTL 75 ML ONE (11:11)
--- NOTE | 2017-07-09 13:25 | RADIOLOGY IMAGING REPORT ---
FACILITY: [facility] [place]IENT NAME: Gold Campa : 1950 MR: [id number] V: [id number] EXAM DATE: ORDERING PHYSICIAN: HALEY CORRAL TECHNOLOGIST: Location[place] [facility] [place] Patient: Gold Campa : 1950 Visit/Account:[id number] Date of Sevice: 07/09/2017 CHEST W CONTRAST History: Colon cancer TECHNIQUE: Contiguous axial images were performed through the chest to the level of the adrenal gla nds following the administration of IV contrast. Coronal and sagittal reformatting was also perform ed. Dose Lowering Technique One of the following dose optimization techniques was utilized in the performance of this exam: Autom ated exposure control; adjustment of the mA and/or kV according to the patient's size; or use of an i terative reconstruction technique. Specific details can be referenced in the facility's radiology C T exam operational policy. Contrast: 75 mL [id number] COMPARISON STUDIES: May 01, 2017. Lungs / Pleura: Left upper lobe pulmonary nodule measures 1.7 x 1.5 cm previously 1.9 x 1.6 cm best seen on image 23 of series 3 fibrotic change just superior to the nodule appears stable. Pleural sc arring in the right upper lobe also appears unchanged. There is increasing consolidation in the medial basal segment of the left lower lobe with air broncho grams which appears more masslike.. Loculated left pleural collection slightly increased Mediastinum/nodes: Small mediastinal lymph nodes appear unchanged Heart and vessels: Coronary artery calcifications. Right-sided implanted port with distal tip in tan perior vena cava Musculoskeletal / Body wall: No aggressive appearing bone lesions are seen Upper abdomen: There is a small hiatal hernia IMPRESSION: Left upper lobe pulmonary nodule slightly decreased in size now measuring 1.7 x 1.5 cm as opposed 1.9 x 1.6 cm. There is an area of increasing consolidation medial basal segment left lower lobe with air bronchogra ms which now appears more masslike. Although this could represent a infectious/inflammatory process possibility of malignancy should be excluded. Loculated left pleural collection appears slightly increased Additional chronic findings as described Report Dictated By: Kayli Berry MD at 07/09/2017 12:56 PM Report E-Signed By: Kayli Berry MD at 07/09/2017 1:19 PM WSN:[email or web address]
== END 2017-07-11 ==
LOC: SPU 10:00
PROVIDERS: ATTEND Internal Medicine Hematology
DX: Z51.11 Encounter for antineoplastic chemotherapy (principal); C18.7 Malignant neoplasm of sigmoid colon; C78.02 Secondary malignant neoplasm of left lung; M19.91 Primary osteoarthritis, unspecified site; I10 Essential (primary) hypertension; Z86.711 Personal history of pulmonary embolism; Z79.01 Long term (current) use of anticoagulants; I48.91 Unspecified atrial fibrillation; R53.1 Weakness; R53.83 Other fatigue; R05 Cough; R06.02 Shortness of breath; K59.00 Constipation, unspecified; R91.1 Solitary pulmonary nodule; R91.8 Other nonspecific abnormal finding of lung field
CPT/HCPCS: 36415; 36591; 36592; 71260; 82378; 85025; 85027; 96368; 96375; 96411; 96413; 96415; 96416; 99212; J0640; J1100; J1642; J2469; J7040; J7060; J9190; J9263; Q9967; 82040; 82247; 82310; 82374; 82435; 82565; 82947; 84075; 84132; 84155; 84295; 84450; 84460; 84520

== ENCOUNTER 2017-09-04 10:00 | Outpatient (RCR) | payer BC, MEDICARE ==
[2017-03-31 11:27] VITALS: BMI 38.2
--- NOTE | 2017-08-08 13:00 | PT INITIAL EVALUATION ---
MEDICAL DIAGNOSIS: Sigmoid colon cancer with pulmonary metastasis TREATMENT DIAGNOSIS: Sigmoid colon cancer with pulmonary metastasis DATE OF ONSET: 08/08/17 SUBJECTIVE: Gold is a 67 year-old male presenting to oncology rehabilitation following recent initiation of new chemotherapy intervention for his sigmoid colon cancer with pulmonary metastasis. Previously pt was receiving treatment for cancer, but developed SBO and was hospitalized. Following the first round of chemo pt also developed moderate neuropathy in his fingers>toes resulting in frequent difficulty with tasks such as writing and buttoning buttons. Pt previously was seeing a wound care PT for leg wounds but has since been discharged and is managing wound independently at this time. With hospitalization pt also reports that he feels like he is weaker and can't walk around as well. He is trying to walk more, but feels unsteady. Pt was previously treated for patello-femoral syndrome and low back pain which are all doing pretty good and no longer bother him. Pt is to received chemo every 2 weeks. 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 OBJECTIVE: Posture: Rounded shoulders B with forward trunk lean. ROM: WFL Sensation: Pt reports decreased sensation in fingers>toes. Mobility: ECOG Performance Status: Grade 2 Gait: Pt ambulates with SPC and wide [place]. Pt has diminished foot clearance as well as step length. Other Objective Findings: FACT-G: PWB: , SWB: 22/108, EWB: , FWB: , Total: 82/108 ASSESSMENT: Pt shows signs and symptoms of abnormality of gait and generalized weakness secondary to oncological intervention, diagnosis and recent hospitalization. PT is indicated for this patient to address the above listed impairments to return pt to prior level of function in ADL's and ambulation. It is my recommendation that this patient would also benefit from OT services to assist with neuropathy related UE impairments. Short Term Goals In 2 months pt will maintain FACT-G of > 80/108 for maintained functional and physical well-being with ongoing oncological intervention. In 2 months pt will be able to ambulate 2 laps in CC without use of SPC without any episodes of LOB for improved function with ADL's. In 4 months pt will be able to ambulate 2 laps in CC holding 30# weights without use of SPC without any episodes of LOB for improved function with ADL's and improved ability to return to work. In 4 months pt will increase ECOG performance status to < grade 2 for regular ambulation to maintain function with ADL's with continued oncological intervention and decrease side-effects. In 4 months pt will maintain FACT-G of > 80/108 for maintained functional and physical well-being with ongoing oncological intervention. Patient's Goals Be able to return back to work and walk without a cane. PLAN: Patient to be seen for Manual Therapy/STM/MET Strengthening/condition Ice/Heat Range of Motion Spinal Stabilization Ultrasound Stretching Iontophoresis Neuromuscular Re-ed Closed Chain Program Electrical Stim Posture/Body mechanics Gait Trg/Balance Trg Biofeedback [facility] Exercise [facility]Manual Traction Therapeutic Activities Pelvic Floor 1x/Week for 4 Months If you have any questions, comments, or concerns about this report or plan, please contact me at . Thank you, Carol Butler, PT, DPT, CLT [facility]
[~2017-09-04 10:00] MED LIST changes: -ALTEPLASE RECOMB 2 MG VIAL IVP PRN; -D5W IV ONE; -D5W IVPB ONE; -FLUOROURACIL 50 MG/ML SDV IVP ONE; -FLUOROURACIL IV ONE; -LEUCOVORIN CAL IV ONE; -LEUCOVORIN CALCIUM IV ONE; -NS 0.9% IV ONE; -NS(*) 0.9% 100 ML BAG 100 ML IVPB PRN; -OXALIPLATIN IVPB ONE; -WATER FOR INJ,STERILE 20 ML IVP PRN; -WATER STERILE 10 ML VIAL IVP PRN; -[UNRECOGNIZED DRUG - OTHER] IV ONE
--- NOTE | 2017-09-04 12:06 | PT PLAN OF CARE ---
Physician: Tory Avina MD Patient is being seen: 1x/2 Weeks Therapist: Carol Butler, PT, DPT, CLT Medical Diagnosis: Sigmoid colon cancer with pulmonary metastasis Treatment Diagnosis: Sigmoid colon cancer with pulmonary metastasis Date of Onset: 08/08/17 Date of Initial Evaluation: 08/08/17 Date patient was last seen: 09/04/17 Number of treatments: 4 Number of cancellations/No shows: 0 INTERVENTIONS: Manual Therapy/STM/MET Strengthening/condition Ice/Heat Range of Motion Spinal Stabilization Ultrasound Stretching Iontophoresis Neuromuscular Re-ed Closed Chain Program Electrical Stim Posture/Body mechanics Gait Trg/Balance Trg Biofeedback Home Exercise Program Mech./Manual Traction Therapeutic Activities Pelvic Floor GOALS: In 2 months pt will maintain FACT-G of >80/108 for maintained functional and physical well-being with ongoing oncological intervention. MET In 2 months pt will be able to ambulate 2 laps in CC without use of SPC without any episodes of LOB for improved function with ADL's. In 4 months pt will be able to ambulate 2 laps in CC holding 30# weights without use of SPC without any episodes of LOB for improved function with ADL's and improved ability to return to work. In 4 months pt will increase ECOG performance status to < grade 2 for regular ambulation to maintain function with ADL's with continued oncological intervention and decrease side-effects. In 4 months pt will maintain FACT-G of > 80/108 for maintained functional and physical well-being with ongoing oncological intervention. PATIENT'S GOAL: Be able to return back to work and walk without a cane. Status of Patient's Goals: In Progress Patient Compliance: Fair Prognosis: Good Reasons for continuing therapy: Gold shows good progress with LE strengthening and increased stance phase on the R LE with weight acceptance. Pt remains unbalanced in this position however, and was instructed to only attempt ambulation without SPC at home near a stable surface for LOB safety. Pt reports wound remains stable and he denies need for wound care services. PT did not inspect wound per pt preference. However, PT provided extensive education on importance of good wound care to minimize risk of infection which could be extensive with lowered immune system. Further PT to continue progress towards LE strengthening and stability for improved functional ambulation. Posture: Rounded shoulders B with forward trunk lean. ROM: WFL Special Tests: FACT-G (EVAL): PWB: , SWB: , EWB: , FWB: , Total: 82/108 FACT-G (09/04/17): PWB: , SWB: , EWB: , FWB: , Total: 84/ 108 Mobility: ECOG Performance Status: Grade 2 If you have any questions or concerns, please feel free to contact me at . Thank you, Carol Butler, PT, DPT, CLT MTDD
[2017-10-25] MEDS ORDERED: APIX5TAB4 (09:03)
== END 2017-09-04 18:00 | disposition home or self-care (01) ==
LOC: PT 10:00
PROVIDERS: ATTEND Internal Medicine Hematology
DX: C18.7 Malignant neoplasm of sigmoid colon (principal); C78.00 Secondary malignant neoplasm of unspecified lung; G62.0 Drug-induced polyneuropathy
CPT/HCPCS: 97162

== ENCOUNTER 2017-09-25 09:30 | Outpatient (RCR) | payer BC, MEDICARE ==
[2017-03-31 11:27] VITALS: Ht 181 cm; Wt 135.4 kg
[2017-07-13 12:50] VITALS: BP 135/87
--- NOTE | 2017-07-13 18:12 | ONCOLOGY FOLLOW UP NOTE ---
EVENT DATE: July 13, 2017 DIAGNOSES 1. Stage IV sigmoid colon adenocarcinoma. 2. 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 3. History of cluster headache. 4. Hypertension. 5. Arthritis. CHIEF COMPLAINT Patient is here today for followup of his sigmoid colon cancer with pulmonary metastasis. ONCOLOGY HISTORY The patient is a 67-year-old male who had screening colonoscopy and patient found to have a mass at the sigmoid colon. He ended by having sigmoid colectomy done on May 26, 2016, and the pathology came back positive for moderately differentiated colonic adenocarcinoma, grade II-III with 15 lymph nodes negative for metastasis. Tumor was invading into the muscularis propria. Margins were negative. Lymphovascular invasion was also negative. MLH1, MSH2 , MSH 6, PMS2 all came back positive. KRAS was positive for the mutation. NRS was negative. BRAF mutation was negative. He had ileus after his surgery and he had a CT of abdomen and pelvis done on June 01, 2016 which did not show any evidence of hepatic metastasis. He had chest x-ray done on May 29, 2016, which showed 1.5 cm pulmonary nodule in the left mid-lung, not seen on the April 07, 2016 study. His tumor was staged as staged T2 N0 MX. So, the tumor was staged as stage I. Patient had a CT-guided biopsy of the enlarging left pulmonary nodule done on September 05, 2016, and the pathology came back positive for metastatic adenocarcinoma compatible with colonic origin. Patient had a PET CT scan done on September 28, 2016, which showed enlarging mass in the anterior aspect of the left upper lobe, currently 2.6 x 2.1 cm with SUV of 4.1. Previously this mass was 1.3 x 1.3 cm with SUV of 3.2. A previously visualized 3 mm micronodule in the posterior medial aspect of the left lower lobe currently measures 1.2 cm. Lateral and slightly inferior to this, there is a new second nodule measuring 1.3 cm in size. The nodules are not metabolically warm with maximal SUV of 3.2 and 2.3 respectively. Otherwise, chest is negative, and no other evidence of systemic disease. There is a hypodense left temporal lobe lesion that is unchanged. Patient received radiation therapy to the pulmonary metastasis completed on October 31, 2016. After his radiation therapy, patient has started chemotherapy with Avastin FOLFOX on November 14, 2016. Avastin was discontinued with his ninth cycle, started on May 22, 2017. Patient completed 12 courses of FOLFOX on June 29, 2017. HISTORY OF PRESENT ILLNESS Patient is here today for followup of his metastatic colon cancer with pulmonary metastasis on chemotherapy with FOLFOX. The patient really is doing very well currently, except for neuropathy in his hands and feet from the oxaliplatin therapy with tingling and numbness. Other than that he is really doing very well. PAST MEDICAL HISTORY 1. Cluster headache. 2. Hypertension. PAST SURGICAL HISTORY 1. Eight knee surgeries. 2. Tonsillectomy as a child. 3. Sigmoid colectomy May 2016. FAMILY HISTORY Maternal grandfather had leukemia. Mother had skin cancer. SOCIAL HISTORY The patient is a with two children and grandchildren. He works for [email or web address]. He has never smoked. He denies any abuse of alcohol or illicit drugs. CURRENT MEDICATIONS 1. Propranolol. 2. Amitriptyline. 3. Lisinopril. 4. Meloxicam. 5. Coumadin. ALLERGIES No known drug allergies. REVIEW OF SYSTEMS CONSTITUTIONAL: No appetite or weight change. No fever, chills or sweating. No recent infection. HEENT: Ears: No tinnitus or hearing problem. Nose: No nasal discharge or epistaxis. Throat: No sore throat or mouth ulcers. Eyes: No diplopia or visual changes. RESPIRATORY: The patient has shortness of breath. CARDIOVASCULAR: No chest pain, orthopnea, or paroxysmal nocturnal dyspnea (PND) . No edema. No palpitations. GASTROINTESTINAL: He has occasional constipation. GENITOURINARY: No hematuria or dysuria. MUSCULOSKELETAL: Denies any musculoskeletal pain. NEUROLOGICAL: He has tingling and numbness in the hands and feet. HEMATOLOGIC/LYMPHATIC: He is weak tired, and fatigued. SKIN: No skin rash or lumps. PSYCHIATRIC: No anxiety or depression. PHYSICAL EXAMINATION GENERAL: Looks stable. Well-developed, well-nourished, and in no acute distress. VITAL SIGNS: Blood pressure 135/87, pulse 99 per minute, respirations 16 per minute, temperature 96.7, pulse ox 90% on 3L oxygen. HEENT: Head: Atraumatic. No sinus tenderness to palpation. Eyes: No icterus or conjunctivitis. Mouth and throat: No oral thrush or mucositis. NECK: Supple. No cervical or supraclavicular lymphadenopathy. LUNGS: Clear to auscultation and percussion bilaterally. HEART: Regular rate and rhythm. No gallops, murmurs, clicks or rubs. ABDOMEN: Soft and lax. No tenderness. No hepatosplenomegaly. No masses. EXTREMITIES: No cyanosis, clubbing or edema. LYMPHATICS: No peripheral lymphadenopathy. NEUROLOGICAL: Conscious, alert and oriented times three. No focal motor or sensory deficits. PSYCHIATRIC: Mood and affect appear normal. SKIN: No skin rash, bruise or purpuric eruption. DIAGNOSTIC DATA CBC showed a white count of 3.4, hemoglobin 11, hematocrit 31.7, platelets 116, 000. ANC 1.9. CEA is normal at 1.9. CT chest done on July 09, 2017 showed that the left upper lobe pulmonary nodule is slightly decreased in size to 1.7 x 1.5, and it was before 1.9 x 1.6 cm. ASSESSMENT 1. Stage IV (T2 N0 M1) sigmoid colon adenocarcinoma status post sigmoid colectomy done May 26, 2016. Tumor was invading the muscularis propria and 13 lymph nodes were negative for metastasis. No lymphovascular invasion and the margins were negative. KRAS mutation was positive, NRAS was negative, BRAF was negative. Erbitux was not an option in his treatment because of the positivity of the KRAS mutation. There was a 1.5 cm left upper lobe nodule and PET CT scan April 20, 2016 showed a focus of high activity within the sigmoid colon, which represented a primary malignancy. There was a 1.3 cm cavitary pulmonary nodule in the left upper lobe which was only warm regarding the glucose uptake. There was hypodense non-glucose lesion in the left temporal lobe of the brain, probably representing a remote ischemic event. CT- guided biopsy of the left pulmonary nodule done September 05, 2016 was positive for invasive adenocarcinoma consistent with colonic primary. Repeat CT scan on September 28, 2016 showed left upper lobe nodule measuring 2.6 cm with SUV 4.1, which initially was 1.3 cm with SUV 3.2. The previously visualized 3 mm micronodule metastasis in the left lower lobe of the lung measured 1.2 cm with SUV 3.2. There was another slightly inferior and lateral to this nodule 1.3 cm with SUV 2.3. The temporal lobe of the brain hypodense lesion is unchanged. The patient received IMRT of the pulmonary nodules, completed October 31, 2016. He started treatment with Avastin and FOLFOX November 14, 2016. He completed 12 courses on June 29, 2017. CT scan of the chest July 09, 2017 did reveal shrinkage of the mass in the left upper lobe. In order to see the response to chemotherapy, I am planning to get a PET CT scan for further evaluation with SUV comparison. His current CEA is normal at 1.9. I will see him in a week for further evaluation and management. 2. Chemotherapy-induced anemia. Current hemoglobin 11, stable. I will continue to monitor. 3. 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 Continue vitamin supplement. 4. History of pulmonary embolism on Coumadin, with difficult to achieve therapeutic INR. He is currently on Eliquis. 5. History of atrial fibrillation. 6. Hypertension. 7. Arthritis. PLAN 1. Continue followup. 2. PET CT scan for restaging of colon cancer. 3. Patient to return in one week for further evaluation and management. 4. Patient is to contact us for any new concerns or complaints. MTDD
[2017-08-01] MEDS: LIDOCAINE/SOD BICARB 8.4% SYR ID PRN (14:30)
[2017-08-01] MEDS: HEPARIN FLSH (PORT) 500 UN/5ML IVP PRN (14:30)
[2017-08-01 14:31] VITALS: BP 132/72
[2017-08-01 14:44] LABS: PLATELET COUNT, AUTOMATED 182 K/uL (150-450)
[2017-08-03 16:37] VITALS: BP 138/81
--- NOTE | 2017-08-03 19:02 | ONCOLOGY FOLLOW UP NOTE ---
EVENT DATE: August 03, 2017 DIAGNOSES 1. Stage IV sigmoid colon adenocarcinoma. 2. 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 3. History of cluster headache. 4. Hypertension. 5. Arthritis. CHIEF COMPLAINT Patient is here today for followup of his sigmoid colon cancer with pulmonary metastasis. ONCOLOGY HISTORY The patient is a 67-year-old male who had screening colonoscopy and patient found to have a mass at the sigmoid colon. He ended by having sigmoid colectomy done on May 26, 2016, and the pathology came back positive for moderately differentiated colonic adenocarcinoma, grade II-III with 15 lymph nodes negative for metastasis. Tumor was invading into the muscularis propria. Margins were negative. Lymphovascular invasion was also negative. MLH1, MSH2 , MSH 6, PMS2 all came back positive. KRAS was positive for the mutation. NRS was negative. BRAF mutation was negative. He had ileus after his surgery and he had a CT of abdomen and pelvis done on June 01, 2016 which did not show any evidence of hepatic metastasis. He had chest x-ray done on May 29, 2016, which showed 1.5 cm pulmonary nodule in the left mid-lung, not seen on the April 07, 2016 study. His tumor was staged as staged T2 N0 MX. So, the tumor was staged as stage I. Patient had a CT-guided biopsy of the enlarging left pulmonary nodule done on September 05, 2016, and the pathology came back positive for metastatic adenocarcinoma compatible with colonic origin. Patient had a PET/CT scan done on September 28, 2016, which showed enlarging mass in the anterior aspect of the left upper lobe, currently 2.6 x 2.1 cm with SUV of 4.1. Previously this mass was 1.3 x 1.3 cm with SUV of 3.2. A previously visualized 3 mm micronodule in the posterior medial aspect of the left lower lobe currently measures 1.2 cm. Lateral and slightly inferior to this, there is a new second nodule measuring 1.3 cm in size. The nodules are not metabolically warm with maximal SUV of 3.2 and 2.3 respectively. Otherwise, chest is negative, and no other evidence of systemic disease. There is a hypodense left temporal lobe lesion that is unchanged. Patient received radiation therapy to the pulmonary metastasis completed on October 31, 2016. After his radiation therapy, patient has started chemotherapy with Avastin FOLFOX on November 14, 2016. Avastin was discontinued with his ninth cycle, started on May 22, 2017. Patient completed 12 courses of FOLFOX on June 29, 2017. HISTORY OF PRESENT ILLNESS Patient is here today for followup of his metastatic colon cancer with pulmonary metastasis and to discuss the results of his PET/CT scan. He is complaining of sone nasal discharge. He has shortness of breath. He has pain in his right knee. He has neuropathy in the hands and feet from his chemotherapy, which is stable. PAST MEDICAL HISTORY 1. Cluster headache. 2. Hypertension. PAST SURGICAL HISTORY 1. Eight knee surgeries. 2. Tonsillectomy as a child. 3. Sigmoid colectomy May 2016. FAMILY HISTORY Maternal grandfather had leukemia. Mother had skin cancer. SOCIAL HISTORY The patient is a with two children and grandchildren. He works for [employer]. He has never smoked. He denies any abuse of alcohol or illicit drugs. CURRENT MEDICATIONS 1. Propranolol. 2. Amitriptyline. 3. Lisinopril. 4. Meloxicam. 5. Coumadin. ALLERGIES No known drug allergies. REVIEW OF SYSTEMS CONSTITUTIONAL: No appetite or weight change. No fever, chills or sweating. No recent infection. HEENT: Ears: No tinnitus or hearing problem. Nose: He has nasal discharge. No epistaxis. Throat: No sore throat or mouth ulcers. Eyes: No diplopia or visual changes. RESPIRATORY: The patient has shortness of breath. CARDIOVASCULAR: No chest pain, orthopnea, or paroxysmal nocturnal dyspnea (PND) . No edema. No palpitations. GASTROINTESTINAL: He has occasional constipation. GENITOURINARY: No hematuria or dysuria. MUSCULOSKELETAL: He has pain in the right knee. NEUROLOGICAL: He has tingling and numbness in the hands and feet from chemistry -induced neuropathy from oxaliplatin. HEMATOLOGIC/LYMPHATIC: He is weak tired, and fatigued. SKIN: No skin rash or lumps. PSYCHIATRIC: No anxiety or depression. PHYSICAL EXAMINATION GENERAL: Looks stable. Well-developed, well-nourished, and in no acute distress. VITAL SIGNS: Blood pressure 138/81, pulse 77 per minute, respirations 16 per minute, temperature 97.6, pulse ox 91% on 3L per minute oxygen. HEENT: Head: Atraumatic. No sinus tenderness to palpation. Eyes: No icterus or conjunctivitis. Mouth and throat: No oral thrush or mucositis. NECK: Supple. No cervical or supraclavicular lymphadenopathy. LUNGS: Clear to auscultation and percussion bilaterally. HEART: Regular rate and rhythm. No gallops, murmurs, clicks or rubs. ABDOMEN: Soft and lax. No tenderness. No hepatosplenomegaly. No masses. EXTREMITIES: No cyanosis, clubbing or edema. LYMPHATICS: No peripheral lymphadenopathy. NEUROLOGICAL: Conscious, alert and oriented times three. No focal motor or sensory deficits. PSYCHIATRIC: Mood and affect appear normal. SKIN: No skin rash, bruise or purpuric eruption. DIAGNOSTIC DATA PET/CT scan done on July 25, 2017 showed the 1.8 cm left upper lobe pulmonary nodule with SUV 2.5. The prior left lower lobe pulmonary nodule is now obscured by irregular airspace disease SUV 3.2, which may be post radiation therapy change. No new pulmonary nodule. Sigmoid colon anastomosis with ill- defined soft tissue density just distal to the anastomosis measuring 1.8 cm with SUV 8.2. There are some adjacent small bowel loops. It is unclear if this represents a true soft tissue mass or possibly an opacified small bowel. Stable lymphadenopathy in the pelvis, but it is not hypermetabolic. ASSESSMENT 1. Stage IV (T2 N0 M1) sigmoid colon adenocarcinoma status post sigmoid colectomy done May 26, 2016. Tumor was invading the muscularis propria and 13 lymph nodes were negative for metastasis. No lymphovascular invasion and the margins were negative. KRAS mutation was positive, NRAS was negative, BRAF was negative. Erbitux was not an option in his treatment because of the positivity of the KRAS mutation. There was a 1.5 cm left upper lobe nodule and PET/CT scan April 20, 2016 showed a focus of high activity within the sigmoid colon, which represented a primary malignancy. There was a 1.3 cm cavitary pulmonary lesion in the left upper lobe which was only warm regarding the glucose uptake. There was hypodense non-glucose lesion in the left temporal lobe of the brain, probably representing a remote ischemic event. CT- guided biopsy of the left pulmonary nodule done September 05, 2016 was positive for invasive adenocarcinoma consistent with colonic primary. Repeat CT scan on September 28, 2016 showed left upper lobe nodule measuring 2.6 cm with SUV 4.1, which initially was 1.3 cm with SUV 3.2. The previously visualized 3 mm micronodule metastasis in the left lower lobe of the lung measured 1.2 cm with SUV 3.2. There was slightly inferior and lateral to this 1.3 cm nodule with SUV 2.3. The temporal lobe of the brain hypodense lesion is unchanged. The patient received IMRT of the pulmonary nodule, completed October 31, 2016. He started treatment with Avastin and FOLFOX November 14, 2016. He completed 12 courses of FOLFOX June 29, 2017. Avastin was discontinued after his admission in February 2017. CT scan of the chest July 09, 2017 did reveal shrinkage of the mass in the left upper lobe. PET/CT scan on July 25, 2017 did reveal a big response to the treatment. There was a possibility of soft tissue mass at the sigmoid colon anastomosis, but it could also represent an opacified small bowel , and for this reason I am planning to get a CT abdomen and pelvis with IV and oral contrast for further evaluation. I talked to the patient regarding further management. I offered him either maintenance chemotherapy with 5-FU leucovorin and maybe we will add Avastin to it in the future, versus doing nothing and monitor his scans in the future, and the patient elects to continue chemotherapy with 5-FU leucovorin and the same like FOLFOX, but without oxaliplatin, and the patient will start that next week. I will see him in two weeks with CBC, chem panel and CEA at that time. 2. Chemotherapy-induced anemia. Current hemoglobin 11, which is stable. I will continue to monitor. 3. 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 I am planning to stop treatment with oxaliplatin, which is the cause of his neuropathy. 4. History of pulmonary embolism on Coumadin, and the patient had difficulty to achieve a therapeutic INR, and currently on Eliquis. 5. History of atrial fibrillation. 6. Hypertension. 7. Arthritis. PLAN 1. Chemotherapy with 5-FU leucovorin to start next week. 2. Patient to return in two weeks with CBC, chem panel, CEA. 3. Patient is to contact us for any new concern or complaints. MTDD
[2017-08-08] MEDS: LIDOCAINE/SOD BICARB 8.4% SYR ID PRN (09:29)
[2017-08-08 09:30] VITALS: BP 119/68
[2017-08-08] MEDS: NS(*) 0.9% 500 ML BAG 500 ML IV PRN ×2 (09:30→10:25)
[2017-08-08] MEDS: PALONOSETRON 0.25 MG/5 ML VIAL IVP PRN (10:30)
[2017-08-08] MEDS: DEXAMETHASONE SOD PHOS 10MG/ML IVP PRN (10:31)
[2017-08-08 14:04] VITALS: BP 130/86
[2017-08-17 09:33] VITALS: BP 113/70
[2017-08-17 09:40] LABS: PLATELET COUNT, AUTOMATED 171 K/uL (150-450)
--- NOTE | 2017-08-17 15:24 | ONCOLOGY FOLLOW UP NOTE ---
EVENT DATE: August 17, 2017 DIAGNOSES 1. Stage IV sigmoid colon adenocarcinoma. 2. 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 3. History of cluster headache. 4. Hypertension. 5. Arthritis. CHIEF COMPLAINT Patient is here today for followup of his sigmoid colon cancer with pulmonary metastasis. ONCOLOGY HISTORY The patient is a 67-year-old male who had screening colonoscopy and patient found to have a mass at the sigmoid colon. He ended by having sigmoid colectomy done on May 26, 2016, and the pathology came back positive for moderately differentiated colonic adenocarcinoma, grade II-III with 15 lymph nodes negative for metastasis. Tumor was invading into the muscularis propria. Margins were negative. Lymphovascular invasion was also negative. MLH1, MSH2 , MSH 6, PMS2 all came back positive. KRAS was positive for the mutation. NRS was negative. BRAF mutation was negative. He had ileus after his surgery and he had a CT of abdomen and pelvis done on June 01, 2016 which did not show any evidence of hepatic metastasis. He had chest x-ray done on May 29, 2016, which showed 1.5 cm pulmonary nodule in the left mid-lung, not seen on the April 07, 2016 study. His tumor was staged as staged T2 N0 MX. So, the tumor was staged as stage I. Patient had a CT-guided biopsy of the enlarging left pulmonary nodule done on September 05, 2016, and the pathology came back positive for metastatic adenocarcinoma compatible with colonic origin. Patient had a PET/CT scan done on September 28, 2016, which showed enlarging mass in the anterior aspect of the left upper lobe, currently 2.6 x 2.1 cm with SUV of 4.1. Previously this mass was 1.3 x 1.3 cm with SUV of 3.2. A previously visualized 3 mm micronodule in the posterior medial aspect of the left lower lobe currently measures 1.2 cm. Lateral and slightly inferior to this, there is a new second nodule measuring 1.3 cm in size. The nodules are not metabolically warm with maximal SUV of 3.2 and 2.3 respectively. Otherwise, chest is negative, and no other evidence of systemic disease. There is a hypodense left temporal lobe lesion that is unchanged. Patient received radiation therapy to the pulmonary metastasis completed on October 31, 2016. After his radiation therapy, patient has started chemotherapy with Avastin FOLFOX on November 14, 2016. Avastin was discontinued with his ninth cycle, started on May 22, 2017. Patient completed 12 courses of FOLFOX on June 29, 2017. HISTORY OF PRESENT ILLNESS Patient is here today for followup of his metastatic colon cancer with pulmonary metastasis. He is currently on maintenance chemotherapy with 5-FU, leucovorin like in FOLFOX regimen without oxaliplatin. He is tolerating that treatment much better than FOLFOX. He is complaining of occasional epistaxis. He has some constipation. 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 He has occasional headache. PAST MEDICAL HISTORY 1. Cluster headache. 2. Hypertension. PAST SURGICAL HISTORY 1. Eight knee surgeries. 2. Tonsillectomy as a child. 3. Sigmoid colectomy May 2016. FAMILY HISTORY Maternal grandfather had leukemia. Mother had skin cancer. SOCIAL HISTORY The patient is a with two children and grandchildren. He works for [employer]. He has never smoked. He denies any abuse of alcohol or illicit drugs. CURRENT MEDICATIONS 1. Propranolol. 2. Amitriptyline. 3. Lisinopril. 4. Meloxicam. 5. Coumadin. ALLERGIES No known drug allergies. REVIEW OF SYSTEMS CONSTITUTIONAL: No appetite or weight change. No fever, chills or sweating. No recent infection. HEENT: Ears: No tinnitus or hearing problem. Nose: He has occasional epistaxis. Throat: No sore throat or mouth ulcers. Eyes: No diplopia or visual changes. RESPIRATORY: The patient has shortness of breath. CARDIOVASCULAR: No chest pain, orthopnea, or paroxysmal nocturnal dyspnea (PND) . No edema. No palpitations. GASTROINTESTINAL: He has constipation. GENITOURINARY: No hematuria or dysuria. MUSCULOSKELETAL: He has pain in the right knee. NEUROLOGICAL: He has tingling and numbness in the hands and feet and headache occasionally. HEMATOLOGIC/LYMPHATIC: He is weak tired, and fatigued. SKIN: No skin rash or lumps. PSYCHIATRIC: No anxiety or depression. PHYSICAL EXAMINATION GENERAL: Looks stable. Well-developed, well-nourished, and in no acute distress. VITAL SIGNS: Blood pressure 113/70, pulse 79 per minute, respirations 12 per minute, temperature 97.4, pulse ox 90% on 3L oxygen. HEENT: Head: Atraumatic. No sinus tenderness to palpation. Eyes: No icterus or conjunctivitis. Mouth and throat: No oral thrush or mucositis. NECK: Supple. No cervical or supraclavicular lymphadenopathy. LUNGS: Clear to auscultation and percussion bilaterally. HEART: Regular rate and rhythm. No gallops, murmurs, clicks or rubs. ABDOMEN: Soft and lax. No tenderness. No hepatosplenomegaly. No masses. EXTREMITIES: No cyanosis, clubbing or edema. LYMPHATICS: No peripheral lymphadenopathy. NEUROLOGICAL: Conscious, alert and oriented times three. No focal motor or sensory deficits. PSYCHIATRIC: Mood and affect appear normal. SKIN: No skin rash, bruise or purpuric eruption. DIAGNOSTIC DATA CBC showed white count 7.5, hemoglobin 11.9, hematocrit 33.4, platelets 171, 000. Chem panel is pending and CEA is pending. His last CEA was normal at 2. ASSESSMENT 1. Stage IV (T2 N0 M1) sigmoid colon adenocarcinoma status post sigmoid colectomy done May 26, 2016. Tumor was invading the muscularis propria and 13 lymph nodes were negative for metastasis. No lymphovascular invasion and the margins were negative. KRAS mutation was positive, NRAS was negative, BRAF was negative. Erbitux was not an option in his treatment due to the positivity of the KRAS mutation. There was 1.5 cm left upper lobe nodule and PET scan came back positive, on April 20, 2016. He had a CT-guided biopsy of the left pulmonary nodule on September 05, 2016 which came back positive for adenocarcinoma consistent with colonic primary. CT scan September 28, 2016 showed left upper lobe nodule measuring 2.6, and by PET scan the SUV was 4.1, which was growing and became more active. Patient started treatment with Avastin and FOLFOX October and he completed 12 courses of FOLFOX June 29, 2017. Avastin was discontinued after his admission in February 2017 with pulmonary embolism and the patient was put on anticoagulation at that time. CT scan of the chest July 09, 2017 did reveal shrinkage of the mass in the left upper lobe. PET/CT scan July 25, 2017 did reveal a good response to the treatment. There was a possibility of soft tissue mass at the sigmoid colon anastomosis, but it could represent also an opacified small bowel. Patient started maintenance chemotherapy with 5-FU leucovorin without oxaliplatin like in FOLFOX as a maintenance therapy, started July 2017. He is tolerating treatment very well. I am planning to continue the treatment as per schedule. I will see him in two weeks with CBC, chem panel and CEA. His last CEA was normal at 2. His CEA for today is pending and we will continue to monitor his CEA during his treatment. 2. Chemotherapy-induced anemia. Current hemoglobin 11.9, which is getting better. 3. 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 4. History of pulmonary embolism, currently on Eliquis 5 mg twice daily. PLAN 1. Chemotherapy with 5-FU leucovorin as per schedule. 2. CBC, chem panel to be checked weekly. 3. Patient to return in two weeks with CBC, chem panel, CEA. 4. Continue Eliquis 5 mg twice daily. 5. Patient is to contact us for any new concern or complaints. MTDD
[2017-08-21] MEDS: NS(*) 0.9% 500 ML BAG 500 ML IV PRN (09:54)
[2017-08-21] MEDS: LIDOCAINE/SOD BICARB 8.4% SYR ID PRN (09:54)
[2017-08-21] MEDS: PALONOSETRON 0.25 MG/5 ML VIAL IVP PRN (10:46)
[2017-08-21] MEDS: DEXAMETHASONE SOD PHOS 10MG/ML IVP PRN (10:46)
[2017-08-21 14:19] VITALS: BP 112/60
[2017-08-23 12:36] VITALS: BP 102/65
[2017-08-23] MEDS: HEPARIN FLSH (PORT) 500 UN/5ML IVP PRN (12:39)
[2017-08-31 13:31] VITALS: BP 105/63
[2017-08-31 13:38] LABS: PLATELET COUNT, AUTOMATED 182 K/uL (150-450)
[2017-09-04] MEDS: LIDOCAINE/SOD BICARB 8.4% SYR ID PRN (09:53)
[2017-09-04] MEDS: NS(*) 0.9% 500 ML BAG 500 ML IV PRN (09:54)
[2017-09-04] MEDS: DEXAMETHASONE SOD PHOS 10MG/ML IVP PRN (10:25)
[2017-09-04] MEDS: PALONOSETRON 0.25 MG/5 ML VIAL IVP PRN (10:25)
[2017-09-04 13:28] VITALS: BP 121/54
[2017-09-06 12:51] VITALS: BP 109/74
[2017-09-10 14:43] LABS: PLATELET COUNT, AUTOMATED 172 K/uL (150-450)
[2017-09-10 16:25] VITALS: BP 117/74
[~2017-09-25] VITALS: Ht 181 cm; Wt 135.4 kg
[~2017-09-25 09:30] MED LIST changes: +ALTEPLASE RECOMB 2 MG VIAL IVP PRN; +D5W IV ONE; +DEXTROSE 5%(*) 100 ML BAG 100 ML IVPB PRN; +FLUOROURACIL 50 MG/ML SDV IV ONE; +FLUOROURACIL 50 MG/ML SDV IVP ONE; +FLUOROURACIL IV ONE; +LEUCOVORIN CAL IV ONE; +NS 0.9% IV ONE; +NS(*) 0.9% 100 ML BAG 100 ML IVPB PRN; +WATER FOR INJ,STERILE 20 ML IVP PRN
== END 2017-10-10 ==
LOC: ONC 09:30
PROVIDERS: ATTEND Internal Medicine Hematology
DX: Z51.11 Encounter for antineoplastic chemotherapy (principal); C18.7 Malignant neoplasm of sigmoid colon; C78.02 Secondary malignant neoplasm of left lung; Z92.3 Personal history of irradiation; Z92.21 Personal history of antineoplastic chemotherapy; D64.81 Anemia due to antineoplastic chemotherapy; G62.0 Drug-induced polyneuropathy; T45.1X5A Adverse effect of antineoplastic and immunosuppressive drugs, initial encounter; Z86.711 Personal history of pulmonary embolism; Z79.01 Long term (current) use of anticoagulants; I10 Essential (primary) hypertension; R53.1 Weakness; R53.83 Other fatigue; R06.02 Shortness of breath
CPT/HCPCS: 36415; 36591; 82378; 85025; 85027; 96365; 96366; 96367; 96368; 96375; 96409; 96416; 99212; J0640; J1100; J1642; J2469; J7040; J7060; J9190; 82040; 82247; 82310; 82374; 82435; 82565; 82947; 84075; 84132; 84155; 84295; 84450; 84460; 84520

== ENCOUNTER 2017-10-25 12:07 | Emergency (ER) | payer MEDICARE ==
[2017-03-31 11:27] VITALS: Wt 128.3 kg
[~2017-10-25 12:07] MED LIST changes: -ALTEPLASE RECOMB 2 MG VIAL IVP PRN; +APIX5TAB4; -D5W IV ONE; -DEXTROSE 5%(*) 100 ML BAG 100 ML IVPB PRN; -FLUOROURACIL 50 MG/ML SDV IV ONE; -FLUOROURACIL 50 MG/ML SDV IVP ONE; -FLUOROURACIL IV ONE; -LEUCOVORIN CAL IV ONE; -NS 0.9% IV ONE; -NS(*) 0.9% 100 ML BAG 100 ML IVPB PRN; -WATER FOR INJ,STERILE 20 ML IVP PRN
--- NOTE | 2017-10-25 12:18 | ER Report ---
History and Physical Time Seen By MD: 12:18 HPI/ROS CHIEF COMPLAINT: Wounds on lower legs that have a foul odor HISTORY OF PRESENT ILLNESS: 67-year-old male patient presents to emergency room with complaint of wounds on his lower legs that have a foul odor. Patient states that he was scheduled for chemotherapy today. He went in and they noted the wounds on his legs. Patient states that he's had these wounds for several years. He states these tries to take care of them at home, but has not been doing so well recently. He states that several months ago he was having home health was coming over and tingling care of his legs. Patient states that the nurse noted that the wound had a foul odor. They did call and have wound care come down and evaluate the wounds. She recommended that he come to the emergency room for evaluation. Patient states that he is not having any fevers or chills. Patient states these has very small amount of pain. He denies having any fevers chills per patient states he is not taking any antibiotics for these. REVIEW OF SYSTEMS: Respiratory: No cough, no dyspnea. Cardiovascular: No chest pain, no palpitations. Gastrointestinal: No vomiting, no abdominal pain. Musculoskeletal: No back pain. Allergies: Coded Allergies: No Known Drug Allergies (Unverified , 06/17/16) Home Meds Active Scripts Cephalexin 500 Mg Tab (KEFLEX 500 MG TAB) 500 Mg Tablet, 500 MG PO Q6H, #28 TAB Prov:ALFONZO ALMONTE PHARMACIST 10/25/17 Granisetron Hcl (SANCUSO) 3.1 Mg/24 Hr Patch.td24, 3.1 MG TD Q7DAY, #2 MG 5 Refills apply one patch 24 hours prior to treatment and leave on for 7 days. Treatment is every 2 weeks. Prov:KAILYN GOFF PHARMACIST-BC, ONC 11/28/16 Reported Medications Apixaban (Eliquis) 5 Mg (74 Tabs) Tab.ds.pk 10/25/17 Propranolol Hcl (PROPRANOLOL HCL) 20 Mg Tablet, 20 MG PO QHS, TAB 03/29/16 Amitriptyline Hcl (AMITRIPTYLINE HCL) 25 Mg Tablet, 25 MG PO QHS, #5 TAB 03/29/16 Lisinopril (LISINOPRIL) 10 Mg Tablet, 10 MG PO QDAY, TAB 03/29/16 Discontinued Scripts Warfarin Sodium (WARFARIN SODIUM) 5 Mg Tablet, 7.5 MG PO QDAY, #135 TAB Prov:IRLANDA BASILIO MD 04/05/17 Metronidazole (METRONIDAZOLE) 500 Mg Tablet, 1 TAB PO QID, #60 TAB 0 Refills Prov:LISSETH RUSH MD 04/04/17 Levofloxacin 500 Mg Tab (LEVAQUIN 500 MG TAB) 500 Mg Tablet, 1 TAB PO QDAY, #14 TAB 0 Refills Prov:LISSETH RUSH MD 04/04/17 Past Medical/Surgical History Patient has a past medical history of migraines, hypertension, lung cancer, colon cancer, reflux, arthritis, hearing loss, peripheral vascular disease. Patient has a surgical history of tonsillectomy, ear surgery 8 knee surgeries, bowel resection. Reviewed Nurses Notes: Yes Hx Smoking: No Smoking Status: Never Smoker Exposure to Second Hand Smoke?: Yes Hx Substance Use Disorder: No Hx Alcohol Use: No Constitutional Vital Sign - Last 24 Hours 10/25/17 10/25/17 10/25/17 10/25/17 12:17 12:17 12:30 12:31 Temp 98.0 Pulse 66 64 Resp 14 13 B/P (MAP) 144/88 (106) 144/88 135/74 (94) Pulse Ox 81 93 O2 Delivery Room Air O2 Flow Rate 3.0 10/25/17 10/25/17 10/25/17 10/25/17 12:45 13:00 13:15 13:45 Pulse 67 66 69 69 Resp 13 10 22 23 B/P (MAP) 125/75 (92) Pulse Ox 93 92 93 95 10/25/17 10/25/17 10/25/17 10/25/17 14:00 14:05 14:20 14:30 Pulse 71 70 69 Resp 11 21 14 B/P (MAP) 118/56 (76) 118/64 (82) Pulse Ox 94 93 93 10/25/17 10/25/17 10/25/17 10/25/17 14:35 14:50 15:00 15:05 Pulse 65 ??? 72 Resp 12 15 B/P (MAP) 124/76 (92) Pulse Ox 94 95 10/25/17 10/25/17 10/25/17 10/25/17 15:20 15:30 15:50 16:04 Temp 98.2 Pulse 75 75 Resp 13 12 B/P (MAP) 138/84 (102) Pulse Ox 95 94 Physical Exam General Appearance: The patient is alert, has no immediate need for airway protection and no current signs of toxicity. Respiratory: Chest is non tender, lungs are clear to auscultation. Cardiac: regular rate and rhythm Gastrointestinal: Abdomen is soft and non tender, no masses, bowel sounds normal. Musculoskeletal: Neck: Neck is supple and non tender. Extremities have full range of motion and are non tender. Patient does have open wounds, he has several small shallow appearing wounds, he does have a larger wound on the left leg that appears to go into the subcutaneous tissue. There is a smaller one adjacent that which appears to go into the subcutaneous tissues well. Also has a wound on the right lower extremity. They're having some drainage. There is some erythema around that. Skin: No rashes or lesions. DIFFERENTIAL DIAGNOSIS: After history and physical exam differential diagnosis was considered for peripheral vascular ulceration, gangrenous lesions on leg, infection, cellulitis. Medical Decision Making Data Points Microbiology Microbiology Date/Time Source Procedure Growth Status 10/25/17 12:55 Leg Left Gram Stain - Final Resulted 10/25/17 12:55 Leg Left Wound Culture Pending Resulted 10/25/17 12:55 Leg Left Anaerobic Culture Pending Resulted 10/25/17 12:55 Leg Right Gram Stain - Final Resulted 10/25/17 12:55 Leg Right Wound Culture Pending Resulted 10/25/17 12:55 Leg Right Anaerobic Culture Pending Resulted 10/25/17 12:55 Leg Left Gram Stain - Final Resulted 10/25/17 12:55 Leg Left Wound Culture Pending Resulted 10/25/17 12:55 Leg Left Anaerobic Culture Pending Resulted EKG/Imaging Imaging EXAMINATION: CT of the bilateral tibia and fibula with IV contrast HISTORY: Erythema. Draining wounds. TECHNIQUE: Axial CT through the bilateral tibia and fibula following intravenous contrast administration. Coronal and sagittal reformats. One of the following dose optimization techniques was utilized in the performance of this exam: Automated exposure control; adjustment of the mA and/ or kV according to the patient's size; or use of an iterative reconstruction technique. Specific details can be referenced in the facility's radiology CT exam operational policy. Contrast: 75 mL of Isovue-370 COMPARISON: None available. FINDINGS: RIGHT TIB-FIB: Bones: No acute fracture, dislocation, or aggressive osseous lesion. Joint spaces: Right knee arthroplasty with no evidence of hardware failure. Mild osteoarthritis of the ankle, hindfoot, and visualized midfoot. Alignment: Normal. Soft tissues: Diffuse subcutaneous soft tissue swelling. No fluid collection or mass. Partial fatty atrophy of the soleus and peroneus muscles. LEFT TIB-FIB: Bones: No acute fracture, dislocation, or aggressive osseous lesion. Joint spaces: Left knee arthroplasty with no evidence of hardware failure. Mild osteoarthritis of the ankle, hindfoot, and visualized midfoot. Alignment: Normal. Soft tissues: Diffuse subcutaneous soft tissue swelling. No fluid collection or mass. Partial fatty atrophy of the soleus muscles. IMPRESSION: 1. Diffuse subcutaneous soft tissue swelling bilaterally with no fluid collection or mass. No osseous erosion to suggest osteomyelitis. 2. Bilateral knee arthroplasty with no evidence of hardware failure. 3. Mild osteoarthritis of the bilateral ankles, hindfoot, and visualized midfoot. 4. Partial fatty atrophy of the bilateral soleus muscles and right peroneus muscles. Report Dictated By: Costa Saha MD at 10/25/2017 2:06 PM Report E-Signed By: Costa Saha MD at 10/25/2017 2:31 PM ED Course/Re-evaluation ED Course Patient was admitted to an exam room, history and physical were obtained. Differential diagnoses were considered. On examination patient has wounds to the left lower leg and right lower leg. Seem to be more related to vascular insufficiency. He does have some erythema around that. The wounds do have a foul -smelling odor. A CBC, CMP were done in the cancer center and so they were not done here. He had a white count of 7.9 with no left shift. I did discuss the case with Edyta Bautista, physical therapy who evaluated the wound and the cancer center. She did want to have a CT scan for further evaluation of the wounds. Cultures were obtained and a CT scan was done. The gram stains for all 3 of the wounds showed rare bacteria. CT scan showed soft tissue swelling, but no abscess or fluid collection noted. Due to the microbiology we had and the CT scan we will go ahead and treat him with Keflex orally for cellulitis. We will have him follow-up with wound care. He is to continue with his normal medications. He is return to emergency room if condition worsens. Patient verbalized understanding and agreement with plan. Decision to Disposition Date: Oct 25, 2017 Decision to Disposition Time: 15:34 Depart Departure Latest Vital Signs Vital Signs Date Time Temp Pulse Resp B/P (MAP) Pulse Ox O2 Delivery O2 Flow Rate FiO2 10/25/17 16:04 98.2 10/25/17 15:50 75 12 94 10/25/17 15:30 138/84 (102) 10/25/17 12:31 3.0 10/25/17 12:17 Room Air Core Temperature (Celsius): 38.5 Impression: Primary Impression: Cellulitis Condition: Improved Disposition: HOME OR SELF-CARE Referrals: DELIA KHAN DO (PCP) LISSETH RUSH MD New Scripts Cephalexin 500 Mg Tab (KEFLEX 500 MG TAB) 500 Mg Tablet 500 MG PO Q6H, #28 TAB Prov: ALFONZO ALMONTE 10/25/17 Patient Instructions: Cellulitis (ED) Additional Instructions: Increase fluid intake. Get plenty of rest. Follow up with your primary care provider in the next week. Take the antibiotics as directed. Return to the ER if condition worsens. Follow up with Dr. Rush as directed by Edyta. Problem Qualifiers Primary Impression: Cellulitis Site of cellulitis: extremity Site of cellulitis of extremity: lower extremity Laterality: unspecified laterality Qualified Codes: L03.119 - Cellulitis of unspecified part of limb ALFONZO ALMONTE Oct 25, 2017 12:18
[2017-10-25] MEDS ORDERED: IOPAMIDOL 76% 75 ML INFUS BTL 75 ML ONE (13:09)
[2017-10-25] MEDS ORDERED: NS(*) 0.9% 1000 ML BAG 1,000 ML IV ONE (13:20)
--- NOTE | 2017-10-25 14:36 | RADIOLOGY IMAGING REPORT ---
FACILITY: [facility] PATIENT NAME: Gold Campa : 1950 MR: [id number] V: [id number] EXAM DATE: ORDERING PHYSICIAN: ALFONZO ALMONTE TECHNOLOGIST: Location: [facility] Patient: Gold Campa : 1950 Visit/Account:[id number] Date of Sevice: 10/25/2017 EXAMINATION: CT of the bilateral tibia and fibula with IV contrast HISTORY: Erythema. Draining wounds. TECHNIQUE: Axial CT through the bilateral tibia and fibula following intravenous contrast administrat ion. Coronal and sagittal reformats. One of the following dose optimization techniques was utilized in the performance of this exam: Autom ated exposure control; adjustment of the mA and/or kV according to the patient's size; or use of an i terative reconstruction technique. Specific details can be referenced in the facility's radiology C T exam operational policy. Contrast: 75 mL of Isovue-370 COMPARISON: None available. FINDINGS: RIGHT TIB-FIB: Bones: No acute fracture, dislocation, or aggressive osseous lesion. Joint spaces: Right knee arthroplasty with no evidence of hardware failure. Mild osteoarthritis of t he ankle, hindfoot, and visualized midfoot. Alignment: Normal. Soft tissues: Diffuse subcutaneous soft tissue swelling. No fluid collection or mass. Partial fatty atrophy of the soleus and peroneus muscles. LEFT TIB-FIB: Bones: No acute fracture, dislocation, or aggressive osseous lesion. Joint spaces: Left knee arthroplasty with no evidence of hardware failure. Mild osteoarthritis of th e ankle, hindfoot, and visualized midfoot. Alignment: Normal. Soft tissues: Diffuse subcutaneous soft tissue swelling. No fluid collection or mass. Partial fatty atrophy of the soleus muscles. IMPRESSION: 1. Diffuse subcutaneous soft tissue swelling bilaterally with no fluid collection or mass. No osseous erosion to suggest osteomyelitis. 2. Bilateral knee arthroplasty with no evidence of hardware failure. 3. Mild osteoarthritis of the bilateral ankles, hindfoot, and visualized midfoot. 4. Partial fatty atrophy of the bilateral soleus muscles and right peroneus muscles. Report Dictated By: Costa Saha MD at 10/25/2017 2:06 PM Report E-Signed By: Costa Saha MD at 10/25/2017 2:31 PM WSN:[id number]
--- NOTE | 2017-10-25 14:37 | RADIOLOGY IMAGING REPORT ---
FACILITY: [facility] PATIENT NAME: Gold Campa : 1950 MR: [id number] V: [id number] EXAM DATE: ORDERING PHYSICIAN: ALFONZO ALMONTE TECHNOLOGIST: [place] [facility] [place] [place] Gold [place] : 1950 Visit/Account:[id number] Date of Sevice: 10/25/2017 EXAMINATION: CT of the bilateral tibia and fibula with IV contrast HISTORY: Erythema. Draining wounds. TECHNIQUE: Axial CT through the bilateral tibia and fibula following intravenous contrast administrat ion. Coronal and sagittal reformats. One of the following dose optimization techniques was utilized in the performance of this exam: Autom ated exposure control; adjustment of the mA and/or kV according to the patient's size; or use of an i terative reconstruction technique. Specific details can be referenced in the facility's radiology C T exam operational policy. Contrast: 75 mL of Isovue-370 COMPARISON: None available. FINDINGS: RIGHT TIB-FIB: Bones: No acute fracture, dislocation, or aggressive osseous lesion. Joint spaces: Right knee arthroplasty with no evidence of hardware failure. Mild osteoarthritis of t he ankle, hindfoot, and visualized midfoot. Alignment: Normal. Soft tissues: Diffuse subcutaneous soft tissue swelling. No fluid collection or mass. Partial fatty atrophy of the soleus and peroneus muscles. LEFT TIB-FIB: Bones: No acute fracture, dislocation, or aggressive osseous lesion. Joint spaces: Left knee arthroplasty with no evidence of hardware failure. Mild osteoarthritis of th e ankle, hindfoot, and visualized midfoot. Alignment: Normal. Soft tissues: Diffuse subcutaneous soft tissue swelling. No fluid collection or mass. Partial fatty atrophy of the soleus muscles. IMPRESSION: 1. Diffuse subcutaneous soft tissue swelling bilaterally with no fluid collection or mass. No osseous erosion to suggest osteomyelitis. 2. Bilateral knee arthroplasty with no evidence of hardware failure. 3. Mild osteoarthritis of the bilateral ankles, hindfoot, and visualized midfoot. 4. Partial fatty atrophy of the bilateral soleus muscles and right peroneus muscles. Report Dictated By: Costa Saha MD at 10/25/2017 2:06 PM Report E-Signed By: Costa Saha MD at 10/25/2017 2:31 PM WSN:[id number]
[2017-10-25] MEDS ORDERED: CEPHALEXIN MONO 500 MG CAP PO ONE (14:40)
[2017-10-25 15:30] VITALS: BP 138/84
[2017-10-25] MEDS ORDERED: CEPH500T7 PO (15:36)
[2017-10-25] MEDS ORDERED: HEPARIN FLSH (PORT) 500 UN/5ML IVP ONE (15:55)
== END 2017-10-25 16:00 | disposition home or self-care (01) ==
LOC: ER 12:27
DX: L03.116 Cellulitis of left lower limb (principal); L03.115 Cellulitis of right lower limb; I10 Essential (primary) hypertension; I73.9 Peripheral vascular disease, unspecified; Z79.899 Other long term (current) drug therapy
CPT/HCPCS: 73701; 87040; 87070; 87073; 87205; 99284; A9270; J1642; J7030; Q9967

== ENCOUNTER 2017-12-18 12:15 | Outpatient (RCR) | payer MEDICARE, OTHER ==
[2017-03-31 11:27] VITALS: Ht 181 cm; Wt 138.0 kg
[2017-10-25 08:52] VITALS: BP 131/87
[2017-10-25] MEDS: LIDOCAINE/SOD BICARB 8.4% SYR ID PRN (08:57)
--- NOTE | 2017-10-25 10:45 | [facility] ONCOLOGY NOTE ---
EVENT DATE: October 25, 2017 DIAGNOSES 1. Stage IV sigmoid colon adenocarcinoma. 2. 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 3. History of cluster headache. 4. Hypertension. 5. Arthritis. CHIEF COMPLAINT Patient is here today for followup of his sigmoid colon cancer with pulmonary metastasis. ONCOLOGY HISTORY The patient is a 67-year-old male who had screening colonoscopy and patient found to have a mass at the sigmoid colon. He ended by having sigmoid colectomy done on May 26, 2016, and the pathology came back positive for moderately differentiated colonic adenocarcinoma, grade II-III with 15 lymph nodes negative for metastasis. Tumor was invading into the muscularis propria. Margins were negative. Lymphovascular invasion was also negative. MLH1, MSH2 , MSH 6, PMS2 all came back positive. KRAS was positive for the mutation. NRS was negative. BRAF mutation was negative. He had ileus after his surgery and he had a CT of abdomen and pelvis done on June 01, 2016 which did not show any evidence of hepatic metastasis. He had chest x-ray done on May 29, 2016, which showed 1.5 cm pulmonary nodule in the left mid-lung, not seen on the April 07, 2016 study. His tumor was staged as staged T2 N0 MX. So, the tumor was staged as stage I. Patient had a CT-guided biopsy of the enlarging left pulmonary nodule done on September 05, 2016, and the pathology came back positive for metastatic adenocarcinoma compatible with colonic origin. Patient had a PET/CT scan done on September 28, 2016, which showed enlarging mass in the anterior aspect of the left upper lobe, currently 2.6 x 2.1 cm with SUV of 4.1. Previously this mass was 1.3 x 1.3 cm with SUV of 3.2. A previously visualized 3 mm micronodule in the posterior medial aspect of the left lower lobe currently measures 1.2 cm. Lateral and slightly inferior to this, there is a new second nodule measuring 1.3 cm in size. The nodules are not metabolically warm with maximal SUV of 3.2 and 2.3 respectively. Otherwise, chest is negative, and no other evidence of systemic disease. There is a hypodense left temporal lobe lesion that is unchanged. Patient received radiation therapy to the pulmonary metastasis completed on October 31, 2016. After his radiation therapy, patient has started chemotherapy with Avastin FOLFOX on November 14, 2016. Avastin was discontinued with his ninth cycle, started on May 22, 2017. Patient completed 12 courses of FOLFOX on June 29, 2017. HISTORY OF PRESENT ILLNESS Patient is here today for followup of his metastatic sigmoid colon cancer with pulmonary metastasis. He is currently on maintenance chemotherapy with 5-FU/ leucovorin. He is complaining of being short-winded, which is mild. He has also right knee pain. He has neuropathy in his hands. He is weak, tired and fatigued. PAST MEDICAL HISTORY 1. Cluster headache. 2. Hypertension. PAST SURGICAL HISTORY 1. Eight knee surgeries. 2. Tonsillectomy as a child. 3. Sigmoid colectomy May 2016. FAMILY HISTORY Maternal grandfather had leukemia. Mother had skin cancer. SOCIAL HISTORY The patient is a with two children and grandchildren. He works for [employer]. He has never smoked. He denies any abuse of alcohol or illicit drugs. CURRENT MEDICATIONS 1. Propranolol. 2. Amitriptyline. 3. Lisinopril. 4. Meloxicam. 5. Coumadin. ALLERGIES No known drug allergies. REVIEW OF SYSTEMS CONSTITUTIONAL: No appetite or weight change. No fever, chills or sweating. No recent infection. HEENT: Ears: No tinnitus or hearing problem. Nose: No nasal discharge or epistaxis. Throat: No sore throat or mouth ulcers. Eyes: No diplopia or visual changes. RESPIRATORY: He has mild shortness of breath. CARDIOVASCULAR: No chest pain, orthopnea, or paroxysmal nocturnal dyspnea (PND) . No edema. No palpitations. GASTROINTESTINAL: No nausea or vomiting. No diarrhea or constipation. No change in bowel movements. No heartburn or swallowing difficulties. No abdominal pain. No jaundice. No hematemesis, melena or rectal bleeding. GENITOURINARY: No hematuria or dysuria. MUSCULOSKELETAL: He has pain in the right knee. NEUROLOGICAL: He has tingling and numbness in the hands. No headaches or convulsions. HEMATOLOGIC/LYMPHATIC: He is weak, tired and fatigued. SKIN: No skin rash or lumps. PSYCHIATRIC: No anxiety or depression. PHYSICAL EXAMINATION GENERAL: Looks stable. Well-developed, well-nourished, and in no acute distress. VITAL SIGNS: Blood pressure 131/87, pulse 65] per minute, respirations 15 per minute, temperature 97.1, pulse oximetry 90% on 3-liter oxygen. HEENT: Head: Atraumatic. No sinus tenderness to palpation. Eyes: No icterus or conjunctivitis. Mouth and throat: No oral thrush or mucositis. NECK: Supple. No cervical or supraclavicular lymphadenopathy. LUNGS: Clear to auscultation and percussion bilaterally. HEART: Regular rate and rhythm. No gallops, murmurs, clicks or rubs. ABDOMEN: Soft and lax. No tenderness. No hepatosplenomegaly. No masses. EXTREMITIES: No cyanosis, clubbing or edema. LYMPHATICS: No peripheral lymphadenopathy. NEUROLOGICAL: Conscious, alert and oriented times three. No focal motor or sensory deficits. PSYCHIATRIC: Mood and affect appear normal. SKIN: No skin rash, bruise or purpuric eruption. DIAGNOSTIC DATA CBC showed white count 7.6, hemoglobin 12.5, hematocrit 36.1, platelets 207, 000. CEA is pending for today but his last level was normal at 2.1. ASSESSMENT 1. Stage IV (T2 N0 M1) sigmoid colon adenocarcinoma status post sigmoid colectomy done May 26, 2016. Tumor was invading the muscularis propria and 13 lymph nodes were negative for metastasis. No lymphovascular invasion and the margins were negative. KRAS mutation was positive, NRAS was negative, BRAF was negative. Erbitux was not an option for treatment given the positivity of the KRAS mutation. There was 1.5 cm left upper lobe nodule and PET scan came back positive on April 20, 2016. He had a CT-guided biopsy of the left pulmonary nodule on September 05, 2016, which came back positive for adenocarcinoma consistent with colonic primary. CT scan September 28, 2016 showed left upper lobe nodule measuring 2.6 and PET scan showed an SUV of 4.1 and the mass was growing. Patient started treatment with Avastin and FOLFOX November 14, 2016 and he completed 12 courses of FOLFOX June 29, 2017. Avastin was discontinued after his admission in February 2017 with pulmonary embolism and the patient was put on anticoagulation at that time. CT scan of the chest done July 09, 2017 did reveal shrinkage of the mass in the left upper lobe. PET/CT scan July did reveal a good response to treatment. There was a possibility of soft tissue mass at the sigmoid colon anastomosis but it could represent also an opacified small bowel. Patient started maintenance chemotherapy with 5-FU/ leucovorin without oxaliplatin like in FOLFOX regimen as a maintenance therapy on July 2017. He did not have the treatment for some time because of insurance problems as the patient was changing insurance and currently he is on Medicare. I am planning to hold his chemotherapy today because of his leg sores. I will see him again in two weeks with CBC, chem panel and CEA. His last CEA was normal at 2.1 and his CEA for today is still pending. 2. Chemotherapy-induced anemia. Current hemoglobin 12.5. I will consider blood transfusion if the hemoglobin drops below 8 g/dl. 3. 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 4. History of pulmonary embolism, currently on Eliquis 5 mg twice daily. PLAN 1. Hold Chemotherapy with 5-FU/leucovorin as per schedule. 2. CBC and chem panel to be checked weekly. 3. Patient to return in two weeks with CBC, chem panel and CEA. 4. Continue Eliquis 5 mg twice daily. 5. Patient is to contact us for any new concern or complaints. MTDD
[2017-11-02 13:49] VITALS: BP 130/71
[2017-11-02 14:11] LABS: PLATELET COUNT, AUTOMATED 194 K/uL (150-450)
[2017-12-04 12:35] VITALS: BP 136/69
[2017-12-04] MEDS: LIDOCAINE/SOD BICARB 8.4% SYR ID PRN (12:42)
[2017-12-04] MEDS: HEPARIN FLSH (PORT) 500 UN/5ML IVP PRN (12:48)
[~2017-12-18] VITALS: Ht 181 cm; Wt 138.0 kg
[~2017-12-18 12:15] MED LIST changes: +ALTEPLASE RECOMB 2 MG VIAL IVP PRN; +CEPH500T7 PO; +DEXAMETHASONE SOD PHOS 10MG/ML IVP PRN; +DEXTROSE 5%(*) 100 ML BAG 100 ML IVPB PRN; +FLUOROURACIL 50 MG/ML SDV IV PRN; +FLUOROURACIL IV PRN; +INFLUENZA VIRUS VAC 0.5ML SYR IM ONLY ONE; +LEUCOVORIN CAL IV PRN; +LEUCOVORIN CALCIUM IV PRN; +NS 0.9% IV PRN; +NS(*) 0.9% 100 ML BAG 100 ML IVPB PRN; +NS(*) 0.9% 500 ML BAG 500 ML IV PRN; +PALONOSETRON 0.25 MG/5 ML VIAL IVP PRN; +WATER FOR INJ,STERILE 20 ML IVP PRN; +[UNRECOGNIZED DRUG - OTHER] IV PRN
[2017-12-18 12:31] VITALS: BP 133/76
[2018-01-04] MEDS: LIDOCAINE/SOD BICARB 8.4% SYR ID PRN (12:50)
[2018-01-04] MEDS: HEPARIN FLSH (PORT) 500 UN/5ML IVP PRN (12:50)
== END 2018-01-22 ==
LOC: SPU 12:15
PROVIDERS: ATTEND Internal Medicine Hematology
DX: Z51.11 Encounter for antineoplastic chemotherapy (principal); C18.7 Malignant neoplasm of sigmoid colon; C78.02 Secondary malignant neoplasm of left lung; Z92.3 Personal history of irradiation; Z92.21 Personal history of antineoplastic chemotherapy; D64.81 Anemia due to antineoplastic chemotherapy; G62.0 Drug-induced polyneuropathy; T45.1X5A Adverse effect of antineoplastic and immunosuppressive drugs, initial encounter; Z86.711 Personal history of pulmonary embolism; Z79.01 Long term (current) use of anticoagulants; I10 Essential (primary) hypertension; R53.1 Weakness; R53.83 Other fatigue; R06.02 Shortness of breath; Z23 Encounter for immunization
CPT/HCPCS: 36415; 82378; 85025; 85027; 90471; 96365; 96368; 96375; 96523; J0640; J1100; J1642; J2469; J7040; J7060; Q2037; 82040; 82247; 82310; 82374; 82435; 82565; 82947; 84075; 84132; 84155; 84295; 84450; 84460; 84520; 90674

== ENCOUNTER 2018-01-25 11:26 | Outpatient (RCR) | payer MEDICARE, OTHER ==
[2017-03-31 11:27] VITALS: BMI 38.2
--- NOTE | 2017-11-08 20:30 | PT INITIAL EVALUATION ---
MEDICAL DIAGNOSIS: venous insufficiency ulcers at B) lower legs TREATMENT DIAGNOSIS: same DATE OF ONSET: chronic SUBJECTIVE: Pt arrives with B) lower leg compression wraps from consult with lymphedema specialist clean, dry and intact, but notes discomfort at posterior ankles at night. REHAB PROBLEM LIST: Chronic open wounds to B) LE's related primarily to venous insufficiency. Pt notes he does not take diuretic as prescribed. PREVIOUS MEDICAL HISTORY: Please refer to EMR; pt currently on hold for chemo due to open wounds and decreased healing ability associated with this treatment. OCCUPATION: Respiratory therapist OBJECTIVE: B) lower leg wounds listed below R) lateral calf: 6cm L x 5cm W x 0.2cm D R) medial ankle: 1cm L x 2cm W x 0.2cm D R) medial calf: 2cm L x 1.5cm W x 0.2cm D L) anterior balderas: 6.5cm L x 5.4cm W x 0.3cm D L) medial/proximal balderas: 1.2cm L x 1cm W x 0.3cm D L) lateral/distal balderas: 2.2cm L x 2.4cm W x 0.3cm D FOSTER: 1.06 making therapeutic compression at 30-40mmHg appropriate for pt's vascularization R) LE ankle girth: 30cm / calf girth: 50cm L) LE ankle girth: 30cm / calf girth: 49cm B) length of lower lecm ASSESSMENT: Pt would benefit from further skilled PT intervention for selective, conservative sharps debridement to remove non-viable tissue and optimize healthy tissue for wound healing with utilization of advanced wound care products to manage drainage appropriately and facilitate appropriate edema reduction with transition to compression garments that will assist in preventing future skin breakdown related to venous insufficiency. Pt also would benefit from further education to follow prescriptions provided by physician, specifically diuretic use, as pt notes non-compliance at this time. Short Term Goals 1) Wound to demo 100% granulation tissue in bases 2) Wounds to be free from signs or symptoms of infection 3) Pt to note improved compliance with medication management for edema reduction per MD orders 4) Wound to fully epithelialize allowing pt to apply compression stockings for long-term management Patient's Goals Wound to heal to allow for further chemo treatment PLAN: Patient to be seen for selective sharps debridement and selection of wound care products to manage drainage and edema 2x/Week for up to 3 months Thank you for this referral. If you have any questions, comments, or concerns about this report or plan, please contact me at . H. Carol Bautista, PT, MPT MTDD
[~2018-01-25 11:26] MED LIST changes: -ALTEPLASE RECOMB 2 MG VIAL IVP PRN; -DEXAMETHASONE SOD PHOS 10MG/ML IVP PRN; -DEXTROSE 5%(*) 100 ML BAG 100 ML IVPB PRN; -FLUOROURACIL 50 MG/ML SDV IV PRN; -FLUOROURACIL IV PRN; -INFLUENZA VIRUS VAC 0.5ML SYR IM ONLY ONE; -LEUCOVORIN CAL IV PRN; -LEUCOVORIN CALCIUM IV PRN; -METR-160 PO; +METR500T54 PO; -NS 0.9% IV PRN; -NS(*) 0.9% 100 ML BAG 100 ML IVPB PRN; -NS(*) 0.9% 500 ML BAG 500 ML IV PRN; -PALONOSETRON 0.25 MG/5 ML VIAL IVP PRN; -WATER FOR INJ,STERILE 20 ML IVP PRN; -[UNRECOGNIZED DRUG - OTHER] IV PRN
== END 2018-01-28 ==
LOC: PT 11:26
PROVIDERS: ATTEND Internal Medicine Hematology
DX: I87.313 Chronic venous hypertension (idiopathic) with ulcer of bilateral lower extremity (principal); L97.211 Non-pressure chronic ulcer of right calf limited to breakdown of skin; L97.311 Non-pressure chronic ulcer of right ankle limited to breakdown of skin; L97.821 Non-pressure chronic ulcer of other part of left lower leg limited to breakdown of skin
CPT/HCPCS: 97161

== ENCOUNTER 2018-04-12 12:30 | Outpatient (RCR) | payer MEDICARE, OTHER ==
[2017-03-31 11:27] VITALS: BMI 38.2
[2018-02-05 13:55] VITALS: BP 153/80
[2018-02-05] MEDS: LIDOCAINE/SOD BICARB 8.4% SYR ID PRN (13:59)
[2018-02-05] MEDS: HEPARIN FLSH (PORT) 500 UN/5ML IVP PRN (14:00)
[2018-02-05 14:04] LABS: PLATELET COUNT, AUTOMATED 225 K/uL (150-450)
[2018-03-08] MEDS: LIDOCAINE/SOD BICARB 8.4% SYR ID PRN (13:10)
[2018-03-08] MEDS: HEPARIN FLSH (PORT) 500 UN/5ML IVP PRN (13:10)
[2018-03-08 16:32] VITALS: BP 146/97
[~2018-04-12 12:30] MED LIST changes: +ALTEPLASE RECOMB 2 MG VIAL IVP PRN; +DEXTROSE 5%(*) 100 ML BAG 100 ML IVPB PRN; +METR500T15 PO; -METR500T54 PO; +NS(*) 0.9% 100 ML BAG 100 ML IVPB PRN; +NS(*) 0.9% 500 ML BAG 500 ML IV PRN; +WATER FOR INJ,STERILE 20 ML IVP PRN
[2018-04-12 12:59] VITALS: BP 135/80
[2018-04-12] MEDS: HEPARIN FLSH (PORT) 500 UN/5ML IVP PRN (13:02)
[2018-04-12] MEDS: LIDOCAINE/SOD BICARB 8.4% SYR ID PRN (13:02)
== END 2018-05-05 ==
LOC: SPU 12:30
PROVIDERS: ATTEND Internal Medicine Hematology
DX: C18.7 Malignant neoplasm of sigmoid colon (principal)
CPT/HCPCS: 36591; 82378; 85025; 96523; J1642; 82040; 82247; 82310; 82374; 82435; 82565; 82947; 84075; 84132; 84155; 84295; 84450; 84460; 84520

== ENCOUNTER 2018-04-19 11:15 | Outpatient (RCR) | payer MEDICARE, OTHER ==
[2017-03-31 11:27] VITALS: BMI 38.2
--- NOTE | 2018-01-31 21:52 | PT PLAN OF CARE ---
Physician: Dr. Weston; Dr. Collins Patient is being seen: Gold Campa Therapist: Martin Bautista, PT, MPT, OMS Medical Diagnosis: venous insufficiency ulcers at B) lower legs Treatment Diagnosis: same Date of Onset: chronic Date of Initial Evaluation: 01/29/18 Date patient was last seen: 01/29/18 Number of treatments: 12 with PT; [address] Collins to apply epifix graft product Number of cancellations/No shows: 0 INTERVENTIONS: Selective, conservative sharps debridement to remove non-viable tissue and optimize healthy tissue for wound healing with utilization of advanced wound care products to manage drainage appropriately and facilitate appropriate edema reduction with transition to compression garments that will assist in preventing future skin breakdown related to venous insufficiency. Pt also would benefit from further education to follow prescriptions provided by physician, specifically diuretic use, as pt notes minimal compliance at this time. Current wound dimensions: R) Lateral superior site: 2cm L x 1.3cm W x 0.2cm D R) Lateral calf: 5.5cm L x 5cm W x 0.3cm D L) anterior balderas: 8cm L x 5cm W x 0.4cm D FOSTER: 1.06 making therapeutic compression at 30-40mmHg appropriate for pt's vascularization R) LE ankle girth: 30cm / calf girth: 50cm L) LE ankle girth: 30cm / calf girth: 49cm B) length of lower lecm GOALS: 1) Wound to demo 100% granulation tissue in bases 2) Wounds to be free from signs or symptoms of infection 3) Pt to note improved compliance with medication management for edema reduction per MD orders (f/u scheduled with Dr. Sofia 01/30/18) 4) Wound to fully epithelialize allowing pt to apply compression stockings for long-term management- progressed to 4 layer wraps PATIENT'S GOAL: Wound to heal to allow for further chemo treatment Status of Patient's Goals: Progressing very slowly Patient Compliance: Fair; Pt continues to have difficulty with fluid retention Prognosis: Fair (-) Reasons for continuing therapy: Limited at this time; pt has been instructed to follow up with PCP, Dr. Sofia regarding other options for fluid management. Pt is limited in his compliance of diuretic use and continues to gain in fluid weight. Dr. Collins has recommended progression from a 2 layer compression wrap to a 4 layer compression wrap, which FOSTER results are compatible with. Wound stabilized during 3 week course of epifix amniotic graft product application but did not improve dramatically. Pt has now returned to traditional wound care with PT weekly and edema has increased with 2 layer compression wraps slipping and disrupting the wound bed. PT will progress pt to use of Enluxtra for absorption and 4 layer wrap system with application of zinc based moisture barrier cream as well and consult with Dr. Collins again in 2 weeks if no further progression or improvement is noted. Thank you for this referral. If you have any questions, comments, or concerns about this report or plan, please contact me at . H. Carol Bautista, PT, MPT MTDD
--- NOTE | 2018-02-22 12:40 | NUR ---
This Physical Therapist or Box Annealer was present for the entire physical therapy session directing the services, making the skilled judgement, and was not engaged in treating another patient or doing another task at the same time as the treatment session. Addendum: 02/22/18 at 1430 by DELICIA MONTOYA PT Amended: Links added.
--- NOTE | 2018-03-01 12:30 | NUR ---
This Physical Therapist or Continuous Dryout Operator was present for the entire physical therapy session directing the services, making the skilled judgement, and was not engaged in treating another patient or doing another task at the same time as the treatment session. Addendum: 03/01/18 at 1607 by DELICIA MONTOYA PT Amended: Links added.
[~2018-04-19 11:15] MED LIST changes: -ALTEPLASE RECOMB 2 MG VIAL IVP PRN; +CELLULOSE HEMOSTAT 1 EACH PKT OP-SITE ONE; -DEXTROSE 5%(*) 100 ML BAG 100 ML IVPB PRN; +GELATIN SPONGE 12-7MM ONE; -NS(*) 0.9% 100 ML BAG 100 ML IVPB PRN; -NS(*) 0.9% 500 ML BAG 500 ML IV PRN; -WATER FOR INJ,STERILE 20 ML IVP PRN
== END 2018-04-29 ==
LOC: PT 11:15
PROVIDERS: ATTEND Internal Medicine Hematology
DX: I87.313 Chronic venous hypertension (idiopathic) with ulcer of bilateral lower extremity (principal); L97.211 Non-pressure chronic ulcer of right calf limited to breakdown of skin; L97.311 Non-pressure chronic ulcer of right ankle limited to breakdown of skin; L97.821 Non-pressure chronic ulcer of other part of left lower leg limited to breakdown of skin
CPT/HCPCS: 97162

== ENCOUNTER 2018-07-30 13:45 | Outpatient (RCR) | payer MEDICARE, OTHER ==
[2017-03-31 11:27] VITALS: BMI 38.2
--- NOTE | 2018-04-30 14:07 | PT PLAN OF CARE ---
Physician: Dr. Weston; Dr. Collins Patient is being seen: Gold Campa Therapist: Jonna Snyder, PT, DPT and Martin Bautista, PT, MPT, OMS Medical Diagnosis: venous insufficiency ulcers at B) lower legs Treatment Diagnosis: same Date of Onset: chronic Date of Initial Evaluation: 01/29/18 Date patient was last seen: 04/30/17 Number of treatments: 14 with PT; [address] Collins Number of cancellations/No shows: 0 INTERVENTIONS: The patient has been seen for skilled PT wound care to include conservative, selective sharps debridement as well as advanced wound care product selection and application with simultaneous compression therapy. The patient was switched to a 4 layer compression wrap and PT continues to educate the patient on the importance of appropriate diuretic use a prescribed as well as LE elevation. The pt's wounds have stabilized with major decrease in size of wound on L) anterior balderas but are improving slowly at this time, therefore Dr. Collins was consulted for further recommendations. It is planned to increase the pt to 2x/week wound care visits as well as re-start epifix amniotic graft product application with Dr. Collins when the product is available. Current wound dimensions: R) Lateral calf: 4.4 cm L x 3.7 cm W x 0.3cm D L) anterior balderas: 4.9 cm L x 4.5cm W x 0.3cm D FOSTER: 1.06 making therapeutic compression at 30-40mmHg appropriate for pt's vascularization GOALS: (ongoing) 1) Wound to demo 100% granulation tissue in bases 2) Wounds to be free from signs or symptoms of infection 3) Pt to note improved compliance with medication management for edema reduction per MD orders (f/u scheduled with Dr. Sofia 01/30/18) 4) Wound to fully epithelialize allowing pt to apply compression stockings for long-term management- progressed to 4 layer wraps PATIENT'S GOAL: Wound to heal to allow for further chemo treatment Status of Patient's Goals: Progressing very slowly Patient Compliance: Fair; Pt continues to have difficulty with fluid retention Prognosis: Fair (-) Reasons for continuing therapy: Dr. Collins has been re-consulted d/t persistent wounds of bilateral LEs. The patient will be increased to 2x/week wound care visits, with plans to continue with 4 layer compression wraps and advanced absorptive dressings. When available, the pt will be seen by Dr. Collins for epifix amniotic graft product application Thank you for this referral. If you have any questions, comments, or concerns about this report or plan, please contact me at . Jonna Snyder, PT, DPT MTDD
--- NOTE | 2018-05-24 13:39 | PT INITIAL EVALUATION ---
MEDICAL DIAGNOSIS: Right Knee Pain TREATMENT DIAGNOSIS: Right Patellofemoral syndrome, Generalized Weakness DATE OF ONSET: 05/24/18 SUBJECTIVE: Gold is a 68 year old male presenting to physical therapy following prolonged status of R knee pain. Pt reports that it has been happening for a while but he just decided that he was tired of it. Pt had previously been treated for patellar subluxation and thinks that it is the same thing. Additionally pt reports that he has difficulty with daily ambulation and mobility with transfers. Pt was previously undergoing chemotherapy but had to be placed on hold secondary to non-healing wounds on B LE. Pt is also currently undergoing wound care treatment. Pain is located on the R lateral knee. REHAB PROBLEM LIST: Increased Pain Decreased ROM Decreased Strength Impaired Transfers Decreased Endurance Decreased Balance Decreased Function Decreased ADL's Decreased Mobility Decreased Gait PREVIOUS MEDICAL HISTORY: See EMR OCCUPATION: OBJECTIVE: Pt presents with B LE wrapped along shins. Strength: LE MMT (L,R): Hip: flexion: 4+/5, 4-/5, ext: 4/5 B, abd: 4/5 B, add: B 4/5. Knee: ext: 4-/5, 4+/5, flex: B 4/5. Ankles: DF: 5/5, PF: 4+/5, 4-/5. Palpation: Pt is tender to palpation along the lateral R knee with patellar in a subluxed position laterally. Special Tests: Patellar tracking laterally on R knee 5/5 extensions. Mobility: 5 x sit<>stand from high plinth: 15 seconds with use of UE for first transfer. Gait: Pt ambulates with SPC with slow antalgic gait pattern with decreased step length or clearance. Other Objective Findings: FOTO Knee: ASSESSMENT: Gold shows signs and symptoms consistent with R patellar subluxation and patellofemoral syndrome as outlined by the above listed deficits. Physical therapy is indicated for this patient to improve pt function with ADL's, mobility and transfers. Short Term Goals In 3 weeks pt will have good patellar alignment with midline tracking in 5/5 knee extensions for decreased pain with ADL's. In 4 weeks pt will be able to perform 5x sit to stand <15 seconds from the lowest plinth surface without use of B UE for improved transfers and mobility with ADL's. In 6 weeks pt will increased B LE strength to 4/5 with MMT for improved function with ADL's. In 6 weeks pt will be able to walk 5 laps around the track without need for rest breaks for improved endurance and mobility with ADL's. In 8 weeks pt will be able to perform 1 lap around the track without use of SPC for improved stability with ADL's. In 8 weeks pt will improve FOTO Knee score to >23/50 for improved function with ADL's. Patient's Goals Be able to walk without cane and be able to walk longer distances (3-4 blocks) PLAN: Patient to be seen for Manual Therapy/STM/MET Strengthening/condition Ice/Heat Range of Motion Spinal Stabilization Ultrasound Stretching Iontophoresis Neuromuscular Re-ed Closed Chain Program Electrical Stim Posture/Body mechanics Gait Trg/Balance Trg Biofeedback Home Exercise Program Mech./Manual Traction Therapeutic Activities Pelvic Floor 2x/Week for 2 Months If you have any questions, comments, or concerns about this report or plan, please contact me at . Thank you, Carol Butler, PT, DPT, CLT FLACO
--- NOTE | 2018-07-12 18:11 | PT PLAN OF CARE ---
Physician: Tory Avina MD Patient is being seen: 2x/Week Therapist: Carol Butler, PT, DPT, CLT Medical Diagnosis: Right Knee Pain Treatment Diagnosis: Right Patellofemoral syndrome, Generalized Weakness Date of Onset: 05/24/18 Date of Initial Evaluation: 05/24/18 Date patient was last seen: 07/12/18 Number of treatments: 10 Number of cancellations/No shows: 3 INTERVENTIONS: Manual Therapy/STM/MET Strengthening/condition Ice/Heat Range of Motion Spinal Stabilization Ultrasound Stretching Iontophoresis Neuromuscular Re-ed Closed Chain Program Electrical Stim Posture/Body mechanics Gait Trg/Balance Trg Biofeedback Home Exercise Program Mech./Manual Traction Therapeutic Activities Pelvic Floor GOALS: In 3 weeks pt will have good patellar alignment with midline tracking in 5/5 knee extensions for decreased pain with ADL's. In 4 weeks pt will be able to perform 5x sit to stand <15 seconds from the lowest plinth surface without use of B UE for improved transfers and mobility with ADL's. In 6 weeks pt will increased B LE strength to 4/5 with MMT for improved function with ADL's. MET In 6 weeks pt will be able to walk 5 laps around the track without need for rest breaks for improved endurance and mobility with ADL's. In 8 weeks pt will be able to perform 1 lap around the track without use of SPC for improved stability with ADL's. PATIENT'S GOAL: Be able to walk without cane and be able to walk longer distances like (3-4 blocks) Status of Patient's Goals: 1/5 MET Patient Compliance: Fair Prognosis: Fair Reasons for continuing therapy: Gold shows good progress with improved functional strength and performance of transfers and mobility. Patellar alignment remains to require correcting with occasional medial knee collapse and hip external rotation resulting in poor mobility. Further PT to continue progress towards functional gains in ambulation, endurance and strength for progression towards independent HEP. Strength: LE MMT (L,R): Hip: flexion: 5-/5, 5/5, ext: 5-/5 B, abd: 4+/5 B, add: B 5/5. Knee: ext: 4+/5, 5/5, flex: B 4/5. Ankles: DF: 5/5, PF: 4+/5, 4-/5. Palpation: Pt is tender to palpation along the lateral R knee with patellar in a subluxed position laterally. Special Tests: Patellar tracking laterally on R knee 5/5 extensions. Mobility: 5 x sit<>stand from 24 inch plinth: 15 seconds without use of UE If you have any questions or concerns, please feel free to contact me at [phone]. Thank you, Carol Butler, PT, DPT, CLT MTDD
[~2018-07-30 13:45] MED LIST changes: +AMOX1TAB9 PO; -CELLULOSE HEMOSTAT 1 EACH PKT OP-SITE ONE; -GELATIN SPONGE 12-7MM ONE
--- NOTE | 2018-07-30 16:06 | PT PLAN OF CARE ---
Physician: Dr. Weston; Dr. Collins Patient is being seen: Gold Campa Therapist: Jonna Snyder, PT, DPT and Martin Bautista, PT, MPT, OMS Medical Diagnosis: venous insufficiency ulcers at B) lower legs Treatment Diagnosis: same Date of Onset: chronic Date of Initial Evaluation: 01/29/18 Date patient was last seen: 07/30/18 Number of treatments: 19 Number of cancellations/No shows: 1 INTERVENTIONS: The patient has been seen for skilled PT wound care to include conservative, selective sharps debridement as well as advanced wound care product selection and application with simultaneous compression therapy. The pt's wounds have demonstrated decrease in size with increased dressing changes and absorptive products. PT continues to educate pt on compliance with diuretic use as well as LE elevation, as the pt has been non-compliant with these. Plan to continue with current POC Current wound dimensions: R) Lateral calf: 2.2 cm L x 3 cm W x 0.2cm D L) anterior balderas: 2.1 cm L x 1 cm W x 0.1cm D FOSTER: 1.06 making therapeutic compression at 30-40mmHg appropriate for pt's vascularization GOALS: (ongoing) 1) Wound to demo 100% granulation tissue in bases 2) Wounds to be free from signs or symptoms of infection 3) Pt to note improved compliance with medication management for edema reduction per MD orders 4) Wound to fully epithelialize allowing pt to apply compression stockings for long-term management- progressed to 4 layer wraps PATIENT'S GOAL: Wound to heal to allow for further chemo treatment Status of Patient's Goals: Progressing very slowly Patient Compliance: Fair; Pt continues to have difficulty with fluid retention Prognosis: Fair (-) Reasons for continuing therapy: Continue with 2x/week wound care appts, with pt education regarding compliance with current recommendations. Thank you for this referral. If you have any questions, comments, or concerns about this report or plan, please contact me at . Jonna Snyder, PT, DPT MTDD
== END 2018-08-01 ==
LOC: PT 13:45
PROVIDERS: ATTEND Internal Medicine Hematology
DX: L97.211 Non-pressure chronic ulcer of right calf limited to breakdown of skin (principal); L97.821 Non-pressure chronic ulcer of other part of left lower leg limited to breakdown of skin; I87.2 Venous insufficiency (chronic) (peripheral); M25.561 Pain in right knee; C18.7 Malignant neoplasm of sigmoid colon; C34.90 Malignant neoplasm of unspecified part of unspecified bronchus or lung; M62.81 Muscle weakness (generalized)
CPT/HCPCS: 97161

== ENCOUNTER 2018-08-09 12:16 | Outpatient (RCR) | payer MEDICARE, OTHER ==
[2017-03-31 11:27] VITALS: BMI 38.2
[2018-05-17 12:54] VITALS: BP 137/75
[2018-05-17] MEDS: LIDOCAINE/SOD BICARB 8.4% SYR ID PRN (12:54)
[2018-05-17] MEDS: HEPARIN FLSH (PORT) 500 UN/5ML IVP PRN (12:54)
[2018-05-17 13:01] LABS: PLATELET COUNT, AUTOMATED 195 K/uL (150-450)
[2018-06-11 12:37] VITALS: BP 145/92
[2018-06-11] MEDS: LIDOCAINE/SOD BICARB 8.4% SYR ID PRN (13:07)
[2018-06-11] MEDS: HEPARIN FLSH (PORT) 500 UN/5ML IVP PRN (13:08)
--- NOTE | 2018-06-11 22:21 | ONCOLOGY FOLLOW UP NOTE ---
EVENT DATE: June 11, 2018 DIAGNOSES 1. Stage IV sigmoid colon adenocarcinoma. 2. 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 3. History of cluster headache. 4. Hypertension. 5. Arthritis. CHIEF COMPLAINT Patient is here today for ongoing evaluation regarding his sigmoid colon cancer with pulmonary metastasis. His chemotherapy has been on hold. ONCOLOGY HISTORY The patient is a 68-year-old male who had screening colonoscopy, and patient found to have a mass at the sigmoid colon. He ended by having sigmoid colectomy done on May 26, 2016, and the pathology came back positive for moderately differentiated colonic adenocarcinoma, grade 2 to 3, with 15 lymph nodes negative for metastasis. Tumor was invading into the muscularis propria. Margins were negative. Lymphovascular invasion was also negative. MLH1, MSH2, MSH 6, PMS2 all came back positive. KRAS was positive for the mutation. NRS was negative. BRAF mutation was negative. He had an ileus after his surgery, and he had a CT of abdomen and pelvis done on June 01, 2016, which did not show any evidence of hepatic metastasis. He had chest x-ray done on May 29, 2016, which showed a 1.5 cm pulmonary nodule in the left mid lung, not seen on the April 07, 2016, study. His tumor was staged as stage T2 N0 MX; so, the tumor was staged as stage I. Patient had a CT-guided biopsy of the enlarging left pulmonary nodule done on September 05, 2016, and the pathology came back positive for metastatic adenocarcinoma compatible with colonic origin. Patient had a PET/CT scan done on September 28, 2016, which showed enlarging mass in the anterior aspect of the left upper lobe, currently 2.6 x 2.1 cm, with SUV of 4.1. Previously, this mass was 1.3 x 1.3 cm with SUV of 3.2. A previously visualized 3 mm micronodule in the posterior medial aspect of the left lower lobe currently measures 1.2 cm. Lateral and slightly inferior to this, there is a new second nodule measuring 1.3 cm in size. The nodules are not metabolically warm with maximal SUV of 3.2 and 2.3 respectively. Otherwise, chest is negative, and no other evidence of systemic disease. There is a hypodense left temporal lobe lesion that is unchanged. Patient received radiation therapy to the pulmonary metastasis, completed on October 31, 2016. After his radiation therapy, patient has started chemotherapy with Avastin/FOLFOX on November 14, 2016. Avastin was discontinued with his ninth cycle, started on May 22, 2017. Patient completed 12 courses of FOLFOX on June 29, 2017. HISTORY OF PRESENT ILLNESS Patient is here today for ongoing followup for his metastatic sigmoid colon cancer with pulmonary metastases. Most recently, he was on maintenance chemotherapy with 5-FU and leucovorin, though this was placed on hold secondary to chronic non-healing bilateral lower extremity wounds. He has been undergoing PT wound care since that time. He just followed up with Dr. Collins in General Surgery for scheduled dressing changes today. He follows up with Surgery every other week and continues on twice weekly outpatient wound care appointments. He continues to have some dyspnea on exertion and shortness of breath, though reports that this is currently stable and managed with his portable oxygen. He is currently on portable O2 via nasal cannula at 3L. He does still have some neuropathy, most noticeable in his hands, though this has improved as he has been off treatment for some time now. This is mostly in the form of numbness and is pretty much constant per patient. The colder weather seems to exacerbate this. He does still feel tired at times and generally fatigued, but reports that this is overall improved compared to when he was on chemotherapy. He believes that his lower extremity wounds are healing. The right is somewhat better than the left, per his report. His legs are currently wrapped. He denies any significant pain. He denies any recent infections or fevers. He believes his lower extremities are a result of chronic venous insufficiency. PAST MEDICAL HISTORY 1. Cluster headache. 2. Hypertension. PAST SURGICAL HISTORY 1. Eight knee surgeries. 2. Tonsillectomy as a child. 3. Sigmoid colectomy May 2016. FAMILY HISTORY Maternal grandfather had leukemia. Mother had skin cancer. SOCIAL HISTORY The patient is a with two children and grandchildren. He works for [employer]. He has never smoked. He denies any abuse of alcohol or illicit drugs. CURRENT MEDICATIONS 1. Propranolol. 2. Amitriptyline. 3. Lisinopril. 4. Meloxicam. 5. Eliquis 5 mg b.i.d. ALLERGIES No known drug allergies. REVIEW OF SYSTEMS CONSTITUTIONAL: Patient denies any recent fevers, chills, or night sweats. He continues to have some fatigue, which is overall stable to improved. HEENT: No vision changes. No mucositis. He denies any dysphagia or odynophagia. No tinnitus. No epistaxis. RESPIRATORY: He continues to notice dyspnea on exertion as well as some shortness of breath. He remains on chronic O2, 3L via nasal cannula. He denies any hemoptysis or pleuritic chest pain. CARDIOVASCULAR: He denies any syncope, presyncope. No palpitations. GASTROINTESTINAL: He denies any abdominal pain, nausea, vomiting, constipation, diarrhea, bright red blood per rectum, or melena. He reports that his bowels are good. He reports an excellent appetite. GENITOURINARY: No dysuria, hematuria, or genitourinary discharge. MUSCULOSKELETAL: Patient has chronic right knee pain and reports history of at least eight knee surgeries in the past. No other focal areas of pain. NEUROLOGICAL: Patient continues to notice numbness in his hands bilaterally. This has been present for some time now and is somewhat improved now that he is off chemotherapy. No abnormal headaches. No seizure-like activity. HEMATOLOGIC/LYMPHATIC: No free bleeding. No abnormal lumps. DERM: No rash. No skin changes. He does have chronic nonhealing lower extremity wounds. These are currently wrapped. He continues to follow up with wound care and his general surgeon. PSYCHIATRIC: He denies any severe anxiety, severe depression, suicidal or homicidal ideation. The remainder of a 12-point review of systems was performed today and is otherwise negative. PHYSICAL EXAMINATION VITAL SIGNS: Temperature was not obtained today, P 83, R 16, BP 145/92, oxygen saturation 94% on 3L O2 via nasal cannula. GENERAL: In general, this is a pleasant, obese, [id number] 68-year-old male who appears to be in no acute distress. HEAD: Normocephalic, atraumatic. EYES: Sclerae anicteric. ENT, MOUTH: Moist mucous membranes. No mucositis. NECK: Supple. No lymphadenopathy. LUNGS: Clear breath sounds, diminished at the bases bilaterally, likely due to body habitus. No wheezes, rales, or rhonchi. He is wearing oxygen via nasal cannula during examination. HEART: Regular rate and rhythm. No murmurs. No gallops. ABDOMEN: Soft, obese, nontender, and nondistended. No organomegaly. NEUROLOGIC: Patient is awake, alert, oriented x3. No gross or focal motor or sensory deficits. PSYCHIATRIC: Mood and affect are appropriate and within normal limits today. DERM: No rash, petechiae, or purpuric eruption. EXTREMITIES: No worsening edema. Currently, patient does have chronic venous stasis changes and non-healing lower extremity wounds, which are currently wrapped up to the knee. These were just wrapped as his surgeon's office prior to our appointment, and dressings were not removed today. LABORATORY CBC on 05/17/2018: WBC 7.1, ANC 5.1, hemoglobin 13.8, hematocrit 40.9%, platelets 195,000. CMP on the same date: Sodium normal, 142, potassium normal, 2.5, serum creatinine normal, 1.0, random glucose mildly elevated at 112, LFTs within normal limits to include normal AST at 28, normal ALT at 30, alkaline phosphatase normal at 85, and total bilirubin normal at 0.3. Calcium normal, 8.9, total protein normal, 7.4, and albumin normal, 4.3. CEA on same date: 1.3, normal. IMPRESSION AND PLAN This is a pleasant 68-year-old male with stage IV (T2 N0 M1) sigmoid colon adenocarcinoma, status post sigmoid colectomy done May 26, 2016. Tumor was invading the muscularis propria, and 13 lymph nodes were negative for metastasis. No lymphovascular invasion, and the margins were negative. KRAS mutation was positive, NRAS was negative, BRAF was negative. Erbitux was not an option for treatment given the positivity of the KRAS mutation. There was a 1.5 cm left upper lobe nodule, and PET scan came back positive on April 20, 2016. He had a CT-guided biopsy of the left pulmonary nodule on September 05, 2016, which came back positive for adenocarcinoma consistent with colonic primary. CT scan September 28, 2016, showed left upper lobe nodule measuring 2.6, and PET scan showed an SUV of 4.1, and the mass was growing. Patient started treatment with Avastin and FOLFOX November 14, 2016, and he completed 12 courses of FOLFOX June 29, 2017. Avastin was discontinued after his admission in February 2017 with pulmonary embolism, and the patient was put on anticoagulation at that time. CT scan of the chest done July 09, 2017, did reveal shrinkage of the mass in the left upper lobe. PET/CT scan July 25, 2017, did reveal a good response to treatment. There was a possibility of soft tissue mass at the sigmoid colon anastomosis, but it could represent also an opacified small bowel. Patient started maintenance chemotherapy with 5-FU/leucovorin without oxaliplatin like in FOLFOX regimen as a maintenance therapy in July 2017. He did not have treatment for some time due to some insurance problems as the patient was changing insurance. He is currently on Medicare. At that time, plan was to hold chemotherapy secondary to his chronic leg wounds. Plan was to reevaluate and hopefully reinitiate chemotherapy. His maintenance chemotherapy has been on hold since that time, approximately September 2017. He continues to be seen by physical therapy wound care and is seen two times a week and also follows up with his surgeon for dressing changes every other week. He just followed up with Dr. Collins today. His leg wounds were just recently wrapped today. He believes that these are improving, though the left is improving slower than the right. He is not having any new complaints and has no reports of pain. He is otherwise feeling well and is at baseline. He is here to discuss most recent labs which were obtained in our office on 05/17/18. 1. Stage IV sigmoid colon adenocarcinoma, status post sigmoid colectomy on 05/26/2016: Patient most recently was on maintenance chemotherapy with 5- FU/leucovorin. This was placed on hold around September 2017. Chemotherapy will remain on hold secondary to his chronic nonhealing lower extremity ulcers. 2. Labs: I reviewed his most recent labs today, including a CBC, CMP, and CEA done on 05/17/18. The majority of labs at that time were all within normal limits, to include CEA which is normal and improved down to 1.3. His CBC showed normal white count, no anemia, and normal platelet count. CMP was largely unremarkable as well. All of this was discussed at length with patient today. He is quite pleased to hear that his CEA is normal. 3. Patient is on Eliquis 5 mg twice daily, and I have asked him to continue on this. Of note, he did incidentally mention that he has been taking Eliquis only once a day "for some time now" due to some financial constraints. We did have a long discussion about this. He tells me that his copay out of pocket is approximately $55 per month and thinks he'll be able to return back to twice daily dosing as ordered in the very near future. He is expecting some money soon. I did mention to the patient that I would speak to our social worker delinquency prevention here, Ary, to see if there was anything that could help. 4. Patient will continue to follow up with wound care and his surgeon and will continue on wound care dressing changes per their recommendations. 5. I have asked the patient to return to clinic in two months for followup with his medical oncologist and repeat labs. Labs at that time will consist of CBC, CMP, and CEA, which can be done several days to one week prior to his followup. I did inform patient that even if his lower extremity wounds were improved at that time, prior to re-initiating chemotherapy, his medical oncologist may likely want to repeat imaging. Again, this will be re-evaluated at followup in two months. He verbalized understanding. MTDD
[~2018-08-09 12:16] MED LIST changes: +ALTEPLASE RECOMB 2 MG VIAL IVP PRN; +DEXTROSE 5%(*) 100 ML BAG 100 ML IVPB PRN; +NS(*) 0.9% 100 ML BAG 100 ML IVPB PRN; +NS(*) 0.9% 500 ML BAG 500 ML IV PRN; +WATER FOR INJ,STERILE 20 ML IVP PRN
[2018-08-09] MEDS: LIDOCAINE/SOD BICARB 8.4% SYR ID PRN (12:33)
[2018-08-09] MEDS: HEPARIN FLSH (PORT) 500 UN/5ML IVP PRN (12:34)
[2018-08-09 12:40] LABS: PLATELET COUNT, AUTOMATED 201 K/uL (150-450)
== END 2018-08-15 ==
LOC: SPU 12:16
PROVIDERS: ATTEND Internal Medicine Hematology
DX: C18.9 Malignant neoplasm of colon, unspecified (principal)
CPT/HCPCS: 36591; 82378; 85025; 96523; G0463; J1642; 82040; 82247; 82310; 82374; 82435; 82565; 82947; 84075; 84132; 84155; 84295; 84450; 84460; 84520; 99212

== ENCOUNTER 2018-10-24 14:15 | Outpatient (RCR) | payer MEDICARE, OTHER ==
[2017-03-31 11:27] VITALS: BMI 38.2
--- NOTE | 2018-08-09 12:48 | PT PLAN OF CARE ---
Physician: Tory Avina MD Patient is being seen: 2-3x/Week Therapist: Carol Butler, PT, DPT, CLT Medical Diagnosis: venous insufficiency ulcers to B) lower legs Treatment Diagnosis: Right Patellofemoral syndrome, Generalized Weakness Date of Onset: 05/24/18 Date of Initial Evaluation: 08/02/18 Date patient was last seen: 08/09/18 Number of treatments: 15 Number of cancellations/No shows: 5 INTERVENTIONS: Manual Therapy/STM/MET Strengthening/condition Ice/Heat Range of Motion Spinal Stabilization Ultrasound Stretching Iontophoresis Neuromuscular Re-ed Closed Chain Program Electrical Stim Posture/Body mechanics Gait Trg/Balance Trg Biofeedback Home Exercise Program Mech./Manual Traction Therapeutic Activities Pelvic Floor GOALS: In 3 weeks pt will have good patellar alignment with midline tracking in 5/5 knee extensions for decreased pain with ADL's. In 4 weeks pt will be able to perform 5x sit to stand <15 seconds from the lowest plinth surface without use of B UE for improved transfers and mobiltiiy with ADL's. In 6 weeks pt will increased B LE strength to 4/5 with MMT for improved unction with ADL's. In 6 weeks pt will be able to walk 5 laps around the track without need for rest breaks for improved endurance and mobility with ADL's. In 8 weeks pt will be able to perform 1 lap around the track without use of SPC for improved stabiltiy with ADL's. PATIENT'S GOAL: Be able to walk without cane and be able to walk longer distances like (3-4 blocks) Status of Patient's Goals: In Progress Patient Compliance: Poor Prognosis: Fair Reasons for continuing therapy: Pt shows improved patellar alignment at rest with minimal lateral tracking with extension remaining which is corrected by taping. Strength remains with minimal gains with poor compliance with PT session attendance as well as poor compliance with HEP. Aerobic endurance as well shows minimal gains with pt able to perform 1.5 laps prior to needing resting break. Functional transfers show improvement with pt reporting ease of transfers in and out of cars and throughout household. Further PT to continue with strengthening and endurance progression for improved functional community mobility as well as ease with ADL's. OBJECTIVE: Pt presents with B LE wrapped along shins. Strength: LE MMT (L,R): Hip: flexion: 4+/5, 4-/5, ext: 4/5 B, abd: 4/5 B, add: B 4/5. Knee: ext: 4-/5, 4+/5, flex: B 4/5. Ankles: DF: 5/5, PF: 4+/5, 4-/5. Special Tests: Patellar tracking laterally on R knee 3/5 extensions. Mobility: 5 x sit<>stand from 21.5 inch plinth: 15 seconds without use of UE Gait: Pt ambulates with SPC with slow antalgic gait pattern with decreased step length or clearance. Pt requires rest break at 1.5 laps secondary to fatigue. Other Objective Findings: FOTO Knee: If you have any questions, comments, or concerns about this report or plan, please contact me at . Thank you, Carol Butler, PT, DPT, CLT NIURKAD
--- NOTE | 2018-08-15 09:56 | PT PLAN OF CARE ---
Physician: Dr. Weston; Dr. Collins Patient is being seen: [facility] Therapist: Jonna Snyder, PT, DPT and Martin Bautista, PT, MPT, OMS Medical Diagnosis: venous insufficiency ulcers at B) lower legs Treatment Diagnosis: same Date of Onset: chronic Date of Initial Evaluation: 10/30/17; Re-evals completed every 3 months to update POC: 01/29/18; 04/30/18; 08/02/18 Date patient was last seen: 07/30/18 Number of treatments: 46 since initial eval Number of cancellations/No shows: n/a INTERVENTIONS: The patient has been seen for skilled PT wound care to include conservative, selective sharps debridement as well as advanced wound care product selection and application with simultaneous compression therapy. The pt's wounds have demonstrated decrease in size with increased dressing changes and absorptive products. PT continues to educate pt on compliance with diuretic use as well as LE elevation, as the pt has been non-compliant with these. Plan to continue with current POC Current wound dimensions: R) Lateral calf: 2.2 cm L x 3 cm W x 0.2cm D L) anterior balderas: 2.1 cm L x 1 cm W x 0.1cm D FOSTER: 1.06 making therapeutic compression at 30-40mmHg appropriate for pt's vascularization GOALS: (ongoing) 1) Wound to demo 100% granulation tissue in bases 2) Wounds to be free from signs or symptoms of infection 3) Pt to note improved compliance with medication management for edema reduction per MD orders 4) Wound to fully epithelialize allowing pt to apply compression Redi wraps for long-term management- progressed to 4 layer wraps PATIENT'S GOAL: Wound to heal to allow for further chemo treatment Status of Patient's Goals: Progressing very slowly Patient Compliance: Fair; Pt continues to have difficulty with fluid retention Prognosis: Fair (-) Reasons for continuing therapy: Continue with 2x/week wound care appts, with pt education regarding compliance with current recommendations. Thank you for this referral. If you have any questions, comments, or concerns about this report or plan, please contact me at . Martin Bautista PT, MPT, OMS MTDD
--- NOTE | 2018-09-26 15:34 | PT PLAN OF CARE ---
Physician: Tory Avina MD Patient is being seen: 2-3x/Week Therapist: Carol Butler, PT, DPT, CLT Medical Diagnosis: venous insufficiency ulcers to B) lower legs Treatment Diagnosis: Right Patellofemoral syndrome, Generalized Weakness Date of Onset: 05/24/18 Date of Initial Evaluation: 08/02/18 Date patient was last seen: 09/24/18 Number of treatments: 25 Number of cancellations/No shows: 6 INTERVENTIONS: Manual Therapy/STM/MET Strengthening/condition Ice/Heat Range of Motion Spinal Stabilization Ultrasound Stretching Iontophoresis Neuromuscular Re-ed Closed Chain Program Electrical Stim Posture/Body mechanics Gait Trg/Balance Trg Biofeedback Home Exercise Program Mech./Manual Traction Therapeutic Activities Pelvic Floor GOALS: In 3 weeks pt will have good patellar alignment with midline tracking in 5/5 knee extensions for decreased pain with ADL's. MET In 4 weeks pt will be able to perform 5x sit to stand <15 seconds from the lowest plinth surface without use of B UE for improved transfers and mobility with ADL's. In 6 weeks pt will increased B LE strength to 4/5 with MMT for improved function with ADL's. MET In 6 weeks pt will be able to walk 5 laps around the track without need for rest breaks for improved endurance and mobility with ADL's. In 8 weeks pt will be able to perform 1 lap around the track without use of SPC for improved stability with ADL's. PATIENT'S GOAL: Be able to walk without cane and be able to walk longer distances like (3-4 blocks) Status of Patient's Goals: 2/5 MET, 3/5 In Progress Patient Compliance: Poor Prognosis: Fair Reasons for continuing therapy: At this time patellar alignment is significantly improved with 10/10 SAQ with good tracking and medial quad activation. Knee pain is significantly reduced with 2/10 at most currently and no pain listed last treatment session. Lingering deficits remain with endurance and mechanics of gait with trendelenburg gait pattern continuing with use of SPC and decreased step clearance. Further PT at this time to focus on increasing loading of R LE with ambulation and transfers to improve community mobility and function with ADL's. OBJECTIVE: Pt presents with B LE wrapped along shins. Strength: LE MMT (L,R): Hip: flexion: 4+/5, 4/5, ext: 4/5 B, abd: 4/5 B, add: B 4/5. Knee: ext: 4/5, 4+/5, flex: B 4/5. Ankles: DF: 5/5, PF: 4+/5, 4/5. Special Tests: Patellar tracking laterally on R knee 5/5 extensions. Mobility: 5 x sit<>stand from 21.5 inch plinth: 15 seconds without use of UE Gait: Pt ambulates with SPC with slow gait pattern with decreased step length or clearance. Pt requires rest break at 2 laps secondary to fatigue. Other Objective Findings: FOTO Knee: If you have any questions, comments, or concerns about this report or plan, please contact me at . Thank you, Carol Butler, PT, DPT, CLT MTDD
--- NOTE | 2018-10-24 12:27 | PT PLAN OF CARE ---
Physician: Dr. Weston; Dr. Collins Patient is being seen: [facility] Therapist: Martin Bautista, PT, MPT, OMS/ Jonna Snyder, PT, DPT Medical Diagnosis: venous insufficiency ulcers to B) lower legs Treatment Diagnosis: Same Date of Onset: 05/24/18 Date of Initial Evaluation: 08/02/18 Re-evals completed every 3 months to update POC: 01/29/18; 04/30/18; 08/02/18 Date patient was last seen: 10/24/18 Number of treatments: 60 Number of cancellations/No shows: n/a INTERVENTIONS: The patient has been seen for skilled PT wound care to include conservative, selective sharps debridement as well as advanced wound care product selection and application with simultaneous compression therapy. The pt's wounds have demonstrated decrease in size with increased dressing changes and absorptive products. PT continues to educate pt on compliance with diuretic use as well as LE elevation, as the pt has been non-compliant with these. Plan to continue with current POC GOALS: (Met) 1) Wound to demo 100% granulation tissue in bases 2) Wounds to be free from signs or symptoms of infection 3) Pt to note improved compliance with medication management for edema reduction per MD orders 4) Wound to fully epithelialize allowing pt to apply compression Redi wraps for long-term management- progressed to 4 layer wraps PATIENT'S GOAL: (Met) Wound to heal to allow for further chemo treatment Status of Patient's Goals: Met Patient Compliance: fair; difficulty complying with diuretic use primarily Prognosis: Fair Reasons for continuing therapy: None at this time, all wounds are healed with no current open areas noted. Pt is able to verbalize understanding of the importance of proper diuretic use as prescribed, limiting salt in diet, elevation of LE's as frequently as able, as well as application of topical cream prescribed by Dr. Collins and lotion applied as well after showers. Wraps are to be removed for showering and then reapplied at least twice weekly, but possibly 3 times weekly. Pt is to apply non-stick pads (telfa) to any areas of drainage for protection before applying under layer of velcro wraps. Son demos appropriate application technique for both the rediwrap version and the circaid version of the velcro compression wraps. Pt is scheduled to follow up with Dr. Collins on Sunday10/28/18. Pt is discharged from skilled PT for wound care at this time and plans to continue with regular therapy to address mobility concerns. Thank you for this referral. If you have any questions, comments, or concerns about this report or plan, please contact me at . H. Carol Bautista, PT, MPT, OMS [id number]
[~2018-10-24 14:15] MED LIST changes: -ALTEPLASE RECOMB 2 MG VIAL IVP PRN; +CLOB15CR22 TP; -DEXTROSE 5%(*) 100 ML BAG 100 ML IVPB PRN; -NS(*) 0.9% 100 ML BAG 100 ML IVPB PRN; -NS(*) 0.9% 500 ML BAG 500 ML IV PRN; -WATER FOR INJ,STERILE 20 ML IVP PRN
== END 2018-10-31 ==
LOC: PT 14:15
PROVIDERS: ATTEND Internal Medicine Hematology
DX: L97.211 Non-pressure chronic ulcer of right calf limited to breakdown of skin (principal); L97.821 Non-pressure chronic ulcer of other part of left lower leg limited to breakdown of skin; I87.2 Venous insufficiency (chronic) (peripheral); M25.561 Pain in right knee; C18.7 Malignant neoplasm of sigmoid colon; C34.90 Malignant neoplasm of unspecified part of unspecified bronchus or lung; M62.81 Muscle weakness (generalized)